=== PATIENT | male | born 1955 | race Caucasian/White ===

== ENCOUNTER 2017-06-24 06:10 | Inpatient (IN) | payer MEDICARE, OTHER, SELFPAY ==
[2017-03-25 11:36] VITALS: BMI 51.2
[2017-06-24] VITALS (16 sets, daily range): BP systolic 134–186; BP diastolic 78–118; PULSE 59–85; RESP 12–24; TEMP 35.6–37.1; O2SAT 95–99; BMI 53.8; BMI 53.1; BMI 53.2
--- NOTE | 2017-06-24 06:12 | NURSING ---
CALLED FOR EKG PER RN REQUEST, PULLED OLD EKG'S FOR
--- NOTE | 2017-06-24 06:16 | EKG12_ITS ---
Test Reason : CP Blood Pressure : / mmHG Vent. Rate : 063 BPM Atrial Rate : 063 BPM P-R Int : 148 ms QRS Dur : 084 ms QT Int : 430 ms P-R-T Axes : 046 -38 086 degrees QTc Int : 440 ms Normal sinus rhythm Left axis deviation Nonspecific ST and T wave abnormality Abnormal ECG Confirmed by AGUSTIN NAGEL, ABIGAIL ([id number]), continuity editor WINSOME MAN ([id number]) on 06/25/2017 9:48:47 AM Referred By: SERGIO Confirmed By:ABIGAIL VELEZ MD
--- NOTE | 2017-06-24 06:20 | RAD_ITS ---
STUDY: X-RAY CHEST REASON FOR EXAM: Male, 62 years old. Chest pain TECHNIQUE: Single frontal view of the chest. COMPARISON: 03/23/2017 FINDINGS: Right midlung atelectasis without acute alveolar disease. There is no demonstrated pleural abnormality. Normal size heart. Normal mediastinum and ryley. Normal visualized pulmonary arteries. Normal visualized aortic arch and descending thoracic aorta. Normal visualized thoracic spine. Normal visualized ribs, clavicles, and shoulders. There is no demonstrated abnormality of the visualized soft tissue structures of the upper abdomen. RAD/Chest 1 View (Portable) IMPRESSION: Right midlung atelectasis without acute alveolar disease. Electronically Signed: Santana Aviles MD at 6:36 EST Tel , Service support ,
--- NOTE | 2017-06-24 06:35 | ED.VISSUMM ---
- ER Visit Summary Date of Service: 06/24/17 Chief Complaint: Dyspnea with mild chest pain History of Present Illness: The patient is a 62 M prior history of PR in March 2017 with 2 cardiac stents. Also known history of prior TIA, COPD, insulin-dependent diabetes with hypertension. Patient is on both Plavix and aspirin. He states the last several days he has had worsening exertional dyspnea. Some mild chest discomfort also. He denies fever. He has had a mild cough. States that his shortness of breath is much worse with walking or exertion. He denies any pleuritic chest pain. He denies any hemoptysis. Denies any melena. No history of DVT or PE. No recent travel or surgery. No leg pain or swelling. Physical Examination: Middle-aged male no acute distress vital signs are stable afebrile. His pulse ox is 95% on 2 L no hypoxia. HEENT exam unremarkable. Neck nontender. No JVD or lymphadenopathy. Lungs clear to auscultation bilaterally. Heart regular rate and rhythm rate in 60s. Chest nontender. Abdomen is soft and nontender. No peritoneal signs. He is morbidly obese. He is moving all 4 extremities. Calves are nontender without edema or cords. Neurologically is awake and alert without focal deficits. Test Results: Chest x-ray no acute process read both by myself the radiologist. EKG sinus rhythm rate is 63 unchanged from one done in March. CBC shows white count 8 an H&H of 11.9 and 36 which is his baseline anemia. BMP unremarkable. Potassium 3.2. Normal gap. Troponin is slightly abnormal at 0.12. His most recent troponin was normal. Emergency Department Course and Treatment: Middle-aged male with exertional dyspnea and a recent history of 2 cardiac stents with PR approximately 3-4 months ago. Treatment Plan: Repeat exam unchanged at 12 04. Patient's history is concerning for recently increasing exertional dyspnea. With his known history of CAD prior PR and 2 cardiac stents I do feel he needs admission for further evaluation and workup. [facility] we will check with them to decide if he can be [facility]. Disposition: Admission Impression: Acute exertional dyspnea with mildly elevated troponin History of CAD with prior PR History of cardiac stents ?2 History of insulin-dependent diabetes, COPD, hypertension and hypercholesterolemia. Anticoagulated on Plavix and aspirin. This note was generated with Dragon dictation software. It may contain incorrect words, spelling, and punctuation that were not noted in review of the chart prior to signing ED Disposition - Plan for ED Patient: Chief Complaint: Chest Pain [facility]: [facility] [Primary Care Provider] -
[2017-06-24] MEDS: Aspirin 81 MG TAB.CHEW 324 MG PO (06:38)
--- NOTE | 2017-06-24 06:38 | ED.DCSUM_ITS ---
- ER Visit Summary Date of Service: 06/24/17 Chief Complaint: Dyspnea with mild chest pain History of Present Illness: The patient is a 62 M prior history of VT in March 2017 with 2 cardiac stents. Also known history of prior TIA, COPD, insulin-dependent diabetes with hypertension. Patient is on both Plavix and aspirin. He states the last several days he has had worsening exertional dyspnea. Some mild chest discomfort also. He denies fever. He has had a mild cough. States that his shortness of breath is much worse with walking or exertion. He denies any pleuritic chest pain. He denies any hemoptysis. Denies any melena. No history of DVT or PE. No recent travel or surgery. No leg pain or swelling. Physical Examination: Middle-aged male no acute distress vital signs are stable afebrile. His pulse ox is 95% on 2 L no hypoxia. HEENT exam unremarkable. Neck nontender. No JVD or lymphadenopathy. Lungs clear to auscultation bilaterally. Heart regular rate and rhythm rate in 60s. Chest nontender. Abdomen is soft and nontender. No peritoneal signs. He is morbidly obese. He is moving all 4 extremities. Calves are nontender without edema or cords. Neurologically is awake and alert without focal deficits. Test Results: Chest x-ray no acute process read both by myself the radiologist. EKG sinus rhythm rate is 63 unchanged from one done in March. CBC shows white count 8 an H&H of 11.9 and 36 which is his baseline anemia. BMP unremarkable. Potassium 3.2. Normal gap. Troponin is slightly abnormal at 0.12. His most recent troponin was normal. Emergency Department Course and Treatment: Middle-aged male with exertional dyspnea and a recent history of 2 cardiac stents with VT approximately 3-4 months ago. Treatment Plan: Repeat exam unchanged at 12 04. Patient's history is concerning for recently increasing exertional dyspnea. With his known history of CAD prior VT and 2 cardiac stents I do feel he needs admission for further evaluation and workup. Patient has [facility] we will check with them to decide if he can be [facility]. Disposition: Admission Impression: Acute exertional dyspnea with mildly elevated troponin History of CAD with prior VT History of cardiac stents ?2 History of insulin-dependent diabetes, COPD, hypertension and hypercholesterolemia. Anticoagulated on Plavix and aspirin. This note was generated with Dragon dictation software. It may contain incorrect words, spelling, and punctuation that were not noted in review of the chart prior to signing ED Disposition - Plan for ED Patient: Chief Complaint: Chest Pain [facility]: [facility] [Primary Care Provider] -
[2017-06-24 06:44] LABS: Absolute Lymphocyte Count 1.76 X10^3/ul (0.83-4.51); Absolute Neutrophil Count 5.7 X10^3/uL (2.0-7.7); Basophil# 0.02 X10^3/uL; Basophil% 0.2 % (0-1); Eosinophil# 0.11 X10^3/uL; Eosinophils% 1.3 % (0-5); Hematocrit 36.9 % (40-54); Hemoglobin 11.9 g/dl (13.0-16.5); Lymphocyte # 1.76 X10^3/ul (4.0); Lymphocyte % 20.2 % (19-41); Mean Corp Hgb Conc 32.2 g/gl (32-36); Mean Corpuscular Hgb 30.1 pg (27.0-32.0); Mean Corpuscular Volume 93.2 fL (80-94); Mean Platelet Vol. 9.2 fl (6.2-12.0); Monocyte# 1.12 X10^3/uL; Monocyte% 12.8 % (0-10); Neutrophil # 5.71 X10^3/uL (2.7-7.7); Neutrophil % 65.4 % (47-70); Platelet Count 230 K/mm3 (150-450); RBC Distribution Width CV 13.3 % (11.6-14.6); RBC Distribution Width SD 45.5 fl (35.1-43.9); Red Blood Count 3.96 M/mm3 (4.6-6.2); White Blood Count 8.7 K/mm3 (4.4-11.0)
[2017-06-24 06:45] LABS: POSITIVE COUNT NO; POSITIVE DIFFERENTIAL NO; POSITIVE MORPHOLOGY NO
[2017-06-24 07:10] LABS: Anion Gap 8 (5-15); BUN 6 mg/dL (7-18); BUN/Creat Ratio 11.3 RATIO (10-20); Calcium,Total 6.8 mg/dL (8.5-10.1); Chloride 109 mmol/L (98-107); Creatinine, Serum 0.53 mg/dL (0.70-1.30); EST Glomerular Filtration Rate 168 mL/min (>60); Est Glom Filt Rate - Afr Amer 203 mL/min (>60); Estimated Creatinine Clearance 139.81 ml/min; Glucose 123 mg/dL (74-106); Potassium 3.2 mmol/L (3.5-5.1); Sodium Level 142 mmol/L (136-145)
--- NOTE | 2017-06-24 07:21 | ED.RN ---
LEFT MESSAGE WITH [facility] TO CALL [facility] IN REGARDS TO ADMITTING THIS PT
--- NOTE | 2017-06-24 09:14 | ED.RN ---
SPOKE WITH [facility]; THEY WILL CALL BACK IN REGARDS TO PT
--- NOTE | 2017-06-24 11:19 | ED.RN ---
PT INFORMED WAITING FOR [facility] FOR POSSIBLE ADMISSION, CANNOT ADMIT TO [facility] UNTIL [facility] CALL BACK. 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 PT VERBALIZED FRUSTRATION. LUNCH OFFERED TO PT WHILE WAITING FOR [facility] CALL BACK.
--- NOTE | 2017-06-24 11:30 | ED.RN ---
AFUA; ORLANDO CALIXTO; SHE IS UNABLE TO AUTHORIZE AN ADMISSION TO OUR FACILITY. STATED IF YOU NEED TO ADMIT TO YOUR FLOOR GO AHEAD BUT I AM UNABLE TO SAY IT WILL BE COVERED
--- NOTE | 2017-06-24 12:32 | ED.RN ---
[facility] MESSAGE WITH [facility] IN [facility] TO PT BEING ADMITTED
[2017-06-24] MEDS: Nitroglycerin Oint 1 INCH PACKET TRANSDERM. (13:01)
--- NOTE | 2017-06-24 13:24 | PCM.HP.STD ---
Problem List (1) Back pain Status: Chronic (2) Non-ST elevation myocardial infarction (NSTEMI), type 2 Status: Chronic (3) Uncontrolled type 2 diabetes mellitus Status: Chronic (4) Morbid obesity with body mass index of 50.0-59.9 in adult Status: Chronic (5) Hypertension Status: Chronic (6) Dyslipidemia Status: Chronic (7) GERD (gastroesophageal reflux disease) Status: Chronic (8) Hypothyroidism Status: Chronic (9) CAD (coronary artery disease) Status: Chronic History of Present Illness Date of Admission: 06/24/17 Chief Complaint: Shortness of breath, chest pain. The patient is a 62 year old M past medical history as mentioned above presented to the emergency room because of shortness of breath and chest pain. His symptoms started early this morning after he woke up from sleep with shortness of breath at rest wakes up from sleep, aggravated by activity, associated with left-sided chest pain. He described mild left-sided chest pain, dull aching pain, 4-5 out of 10 in severity, not radiating and was accompanying the shortness of breath. There was no reported aggravating or relieving factors for this chest pain. He reports associated dizzy spells. He mentioned that he has been having intermittent dizzy spells since he had his stents put in back in March,. Since that time, he has been having dizzy spells, associated with mild shortness of breath especially when he is leaning forward. This morning, he mentioned that his dizziness has been worsened when he had that episode of shortness of breath. He denied syncope or presyncope. Back in March,, patient was admitted for A. fib with RVR that led to non-ST elevation AK and he underwent cardiac catheterization status post PTCA and drug eluting stent to mid LAD. In the emergency room, patient's vital signs were stable. Routine blood work was remarkable for hypokalemia and calcium 6.8, otherwise normal. First troponin is 0.12. EKG revealed normal sinus rhythm without acute ischemic changes. Chest x-ray showed no evidence of acute infiltrate, consolidation or effusion. He is being admitted for chest pain angina pectoris as well as borderline elevated troponin, hypokalemia and hypocalcemia. Past Medical History Past Medical History (Chronic Problems): Chronic Problems Back pain (Chronic) Non-ST elevation myocardial infarction (NSTEMI), type 2 (Chronic) Uncontrolled type 2 diabetes mellitus (Chronic) Morbid obesity with body mass index of 50.0-59.9 in adult (Chronic) Hypertension (Chronic) Dyslipidemia (Chronic) GERD (gastroesophageal reflux disease) (Chronic) Hypothyroidism (Chronic) CAD (coronary artery disease) (Chronic) Allergies bee venom protein (honey bee) Allergy (Verified 06/24/17 06:14) Anaphylaxis Home Medications: Ambulatory Orders Medication Instructions Recorded Insulin Glargine,Hum.rec.anlog 60 unit SC QHS 12/15/14 [Lantus] Levothyroxine [Synthroid] 100 mcg PO DAILY 12/15/14 Simvastatin [Zocor] 80 mg PO QHS 12/15/14 Isosorbide Dinitrate 20 mg PO PRN PRN 11/24/16 Lisinopril [Prinivil] 2.5 mg PO DAILY 11/24/16 Nitroglycerin [Nitrostat] 0.4 mg SL PRN PRN 11/24/16 Pantoprazole Sodium [Protonix] 20 mg PO BID #60 tablet 11/26/16 CycloSPORINE Ophthalmic [Restasis 1 drop EACH EYE DAILY 03/24/17 Ophthalmic] Polyvinyl Alcohol/Povidone/Pf 2 drop EACHEYE DAILY PRN PRN 03/24/17 [Refresh Classic Eye Drops] Aspirin E.C. [Ecotrin] 81 mg PO DAILY@0800 tablet 03/26/17 Clopidogrel Bisulfate [Plavix] 75 mg PO DAILY #14 tablet 03/26/17 Magnesium Oxide [Mag-Ox 400] 400 mg PO DAILYCM #14 tablet 03/26/17 Sotalol Hydrochloride [Betapace 80 mg PO BID #28 tablet 03/26/17 (Beta Vipul)] Insulin Aspart [Novolog Flexpen] 8 units SC TIDAC 06/24/17 Metformin HCl 1,000 mg PO BID 06/24/17 Surgical History: appendectomy, cholecystectomy, herniorrhaphy - umbilical Psychiatric History: No pertinent psych hx Lives: Spouse/ Significant Other Smoking Status: Former smoker Alcohol: None Drugs: None - *Family History Paternal History Items: Heart Disease Maternal History Items: Heart Disease Review of Systems Constitutional: Denies: Anorexia, Chills, Fever, Weakness Eyes: Denies: Blurred vision, Double vision, Drainage, Redness HEENT: Denies: Difficulty Hearing, Ear Pain, Eye Pain, Nasal Congestion, Sore Throat Cardiovascular: Reports: Chest Pain, Light Headedness. Denies: Edema, Heaviness, Orthopnea, Palpitations, Paroxysmal Noc. Dyspnea, Syncope Respiratory: Reports: Shortness of Breath, Shortness of breath at rest, Shortness of breath upon exertion. Denies: Cough, Hemoptysis, Pleuritic Pain, Sputum production, Wheezing Gastrointestinal: Denies: Abdominal Pain, Constipation, Diarrhea, Nausea, Vomiting Genitourinary: Denies: Dysuria, Frequency, Hematuria Musculoskeletal: Denies: Arm Pain, Back Pain, Foot Pain Skin: Denies: Dryness, Rash Neurological: Denies: Balance problems, Double vision, Change in Speech, Slurred speech, Confusion, Focal weakness, Headaches, Incoordination, Numbness Psychiatric: Denies: Anxiety, Depression Endocrine: Denies: Change in Body Habitus, Polydipsia VTE Information - Inpt Only VTE Present on Admission: No VTE Mechan Device Prophylaxis: None VTE Pharm Prophylaxis ordered?: Yes - Physical Exam General: Alert, Oriented x3, Cooperative, No apparent distress HEENT: Atraumatic, PERRLA, EOMI Oral: Moist Mucosa, No Gingival or Mucosal Lesions/ Ulcerations Neck: Supple, No JVD, Negative Carotid Bruits, Trachea Midline, Thyroid Normal Size and Texture Lungs: Clear to auscultation, No rhonchi, No wheeze, No rales, Diminished Cardiovascular: Regular rate, Regular Rhythm, Normal S1, Normal S2, No murmurs, PMI Normal Abdomen: Bowel Sounds Present, Soft, Non Tender, Non-Distended, No Hepato-splenomegaly, Obese Extremities: No clubbing, No cyanosis, No edema Skin: No rashes, No breakdown Lymphatic: No Cervical, Supraclavicular, or Inguinal Adenopathy Neurological: Cranial nerves II-XII grossly intact, Motor Exam 5/5 strength throughout Psych/Mental Status: Normal Affect, Appropriate, Alert and oriented to time, place, person, mood and affect Vital Signs Temp Pulse Resp BP Pulse Ox 96.0 F L 85 24 H 143/86 H 99 06/24/17 06:11 06/24/17 13:07 06/24/17 13:07 06/24/17 13:07 06/24/17 13:07 Oxygen Flow Rate 2 Oxygen Delivery Method Nasal Cannula Weight: 354 lb 4.525 oz Body Mass Index (BMI) 53.8 Finger Stick Blood Glucose 147 Laboratory Tests Past 24 Hrs 06/24/17 06/24/17 06/24/17 06:30 06:30 13:00 WBC 8.7 RBC 3.96 L Hgb 11.9 L Hct 36.9 L MCV 93.2 MCH 30.1 MCHC 32.2 RDW 13.3 RDW Differential 45.5 H Plt Count 230 MPV 9.2 Immature Gran % (Auto) 0.100 Neut % (Auto) 65.4 Lymph % (Auto) 20.2 [place] % (Auto) 12.8 H Eos % (Auto) 1.3 Baso % (Auto) 0.2 Absolute Neuts (auto) 5.7 Absolute Lymphs (auto) 1.76 Total Counted Not Reportable Sodium 142 Potassium 3.2 L Chloride 109 H Carbon Dioxide 25.0 Anion Gap 8 BUN 6 L Creatinine 0.53 L Estim Creat Clear Calc 139.81 Est GFR (MDRD) Af Amer 203 Est GFR (MDRD) Non-Af 168 BUN/Creatinine Ratio 11.3 Glucose 123 H Calcium 6.8 L Troponin I 0.12 H Pending Clinical Impression(s) from Imaging Studies Chest X-Ray 06/24/17 06:20 IMPRESSION: Right midlung atelectasis without acute alveolar disease. Electronically Signed: Santana Aviles MD at 6:36 EST Tel , Service support , Assessment/Plan This is a 62 years old male patient presented to the emergency room because of shortness of breath and chest pain as well as dizzy spells that has been going on since March, and he was found to have borderline elevated troponin, angina pectoris, hypokalemia and hypocalcemia. #1 chest pain/borderline elevated troponin/angina pectoris: EKG reviewed, revealed no evidence of acute ischemic changes. At this time, patient is chest pain-free. Vital signs are stable. Back in March,, he had A. fib with RVR that was complicated by non-ST elevation AK, underwent cardiac catheterization and PTCA as well as MAGGIE to mid LAD. Plan: Admit to PCU, cardiac monitoring, serial cardiac enzymes, repeat EKG tomorrow morning, cardiology consult, continue aspirin, Plavix, sotalol and lisinopril. #2 lightheadedness/dizziness: This has been going on since he had the stents back in March,. Denies syncope or presyncope. Could be related to the angina pectoris. Plan: Orthostatic vitals. #3 hypokalemia/hypocalcemia: Potassium is 3.2 and calcium is 6.8. There was no serum albumin done for corrected calcium for albumin. Plan: Replace potassium with oral potassium chloride, check serum albumin, check serum magnesium, LFT, will give 1 dose of IV calcium chloride, repeat CMP tomorrow morning. #4 CAD/non-ST elevation AK: Status post recent PTCA and MAGGIE to mid LAD back in March,. Plan as above, continue aspirin, Plavix, statins, beta blockers and JALYN inhibitors. #5 hypertension: Blood pressure stable, continue lisinopril and sotalol. #6 type 2 diabetes mellitus: ADA diet, Accu-Cheks, insulin sliding scale, continue pre-meal NovoLog and Lantus nightly. #7 hyperlipidemia: Continue statins. #8 hypothyroidism: Continue levothyroxine. #9 DVT prophylaxis: Subcu Lovenox. This note was generated with [employer] dictation software. It may contain incorrect words, spelling, and punctuation that were not noted in checking the note before signing. Code Visit Inpatient E&M: 72290 Init Hosp L3
--- NOTE | 2017-06-24 13:33 | HP.PCM_ITS ---
Problem List (1) Back pain Status: Chronic (2) Non-ST elevation myocardial infarction (NSTEMI), type 2 Status: Chronic (3) Uncontrolled type 2 diabetes mellitus Status: Chronic (4) Morbid obesity with body mass index of 50.0-59.9 in adult Status: Chronic (5) Hypertension Status: Chronic (6) Dyslipidemia Status: Chronic (7) GERD (gastroesophageal reflux disease) Status: Chronic (8) Hypothyroidism Status: Chronic (9) CAD (coronary artery disease) Status: Chronic History of Present Illness Date of Admission: 06/24/17 Chief Complaint: Shortness of breath, chest pain. The patient is a 62 year old M past medical history as mentioned above presented to the emergency room because of shortness of breath and chest pain. His symptoms started early this morning after he woke up from sleep with shortness of breath at rest wakes up from sleep, aggravated by activity, associated with left-sided chest pain. He described mild left-sided chest pain , dull aching pain, 4-5 out of 10 in severity, not radiating and was accompanying the shortness of breath. There was no reported aggravating or relieving factors for this chest pain. He reports associated dizzy spells. He mentioned that he has been having intermittent dizzy spells since he had his stents put in back in March,. Since that time, he has been having dizzy spells, associated with mild shortness of breath especially when he is leaning forward. This morning, he mentioned that his dizziness has been worsened when he had that episode of shortness of breath. He denied syncope or presyncope. Back in March,, patient was admitted for A. fib with RVR that led to non-ST elevation SD and he underwent cardiac catheterization status post PTCA and drug eluting stent to mid LAD. In the emergency room, patient's vital signs were stable. Routine blood work was remarkable for hypokalemia and calcium 6.8, otherwise normal. First troponin is 0.12. EKG revealed normal sinus rhythm without acute ischemic changes. Chest x-ray showed no evidence of acute infiltrate, consolidation or effusion. He is being admitted for chest pain angina pectoris as well as borderline elevated troponin, hypokalemia and hypocalcemia. Past Medical History Past Medical History (Chronic Problems): Chronic Problems Back pain (Chronic) Non-ST elevation myocardial infarction (NSTEMI), type 2 (Chronic) Uncontrolled type 2 diabetes mellitus (Chronic) Morbid obesity with body mass index of 50.0-59.9 in adult (Chronic) Hypertension (Chronic) Dyslipidemia (Chronic) GERD (gastroesophageal reflux disease) (Chronic) Hypothyroidism (Chronic) CAD (coronary artery disease) (Chronic) Allergies bee venom protein (honey bee) Allergy (Verified 06/24/17 06:14) Anaphylaxis Home Medications: Ambulatory Orders Medication Instructions Recorded Insulin Glargine,Hum.rec.anlog 60 unit SC QHS 12/15/14 [Lantus] Levothyroxine [Synthroid] 100 mcg PO DAILY 12/15/14 Simvastatin [Zocor] 80 mg PO QHS 12/15/14 Isosorbide Dinitrate 20 mg PO PRN PRN 11/24/16 Lisinopril [Prinivil] 2.5 mg PO DAILY 11/24/16 Nitroglycerin [Nitrostat] 0.4 mg SL PRN PRN 11/24/16 Pantoprazole Sodium [Protonix] 20 mg PO BID #60 tablet 11/26/16 CycloSPORINE Ophthalmic [Restasis 1 drop EACH EYE DAILY 03/24/17 Ophthalmic] Polyvinyl Alcohol/Povidone/Pf 2 drop EACHEYE DAILY PRN PRN 03/24/17 [Refresh Classic Eye Drops] Aspirin E.C. [Ecotrin] 81 mg PO DAILY@0800 tablet 03/26/17 Clopidogrel Bisulfate [Plavix] 75 mg PO DAILY #14 tablet 03/26/17 Magnesium Oxide [Mag-Ox 400] 400 mg PO DAILYCM #14 tablet 03/26/17 Sotalol Hydrochloride [Betapace 80 mg PO BID #28 tablet 03/26/17 (Beta Vipul)] Insulin Aspart [Novolog Flexpen] 8 units SC TIDAC 06/24/17 Metformin HCl 1,000 mg PO BID 06/24/17 Surgical History: appendectomy, cholecystectomy, herniorrhaphy - umbilical Psychiatric History: No pertinent psych hx Lives: Spouse/ Significant Other Smoking Status: Former smoker Alcohol: None Drugs: None - *Family History Paternal History Items: Heart Disease Maternal History Items: Heart Disease Review of Systems Constitutional: Denies: Anorexia, Chills, Fever, Weakness Eyes: Denies: Blurred vision, Double vision, Drainage, Redness HEENT: Denies: Difficulty Hearing, Ear Pain, Eye Pain, Nasal Congestion, Sore Throat Cardiovascular: Reports: Chest Pain, Light Headedness. Denies: Edema, Heaviness , Orthopnea, Palpitations, Paroxysmal Noc. Dyspnea, Syncope Respiratory: Reports: Shortness of Breath, Shortness of breath at rest, Shortness of breath upon exertion. Denies: Cough, Hemoptysis, Pleuritic Pain, Sputum production, Wheezing Gastrointestinal: Denies: Abdominal Pain, Constipation, Diarrhea, Nausea, Vomiting Genitourinary: Denies: Dysuria, Frequency, Hematuria Musculoskeletal: Denies: Arm Pain, Back Pain, Foot Pain Skin: Denies: Dryness, Rash Neurological: Denies: Balance problems, Double vision, Change in Speech, Slurred speech, Confusion, Focal weakness, Headaches, Incoordination, Numbness Psychiatric: Denies: Anxiety, Depression Endocrine: Denies: Change in Body Habitus, Polydipsia VTE Information - Inpt Only VTE Present on Admission: No VTE Mechan Device Prophylaxis: None VTE Pharm Prophylaxis ordered?: Yes - Physical Exam General: Alert, Oriented x3, Cooperative, No apparent distress HEENT: Atraumatic, PERRLA, EOMI Oral: Moist Mucosa, No Gingival or Mucosal Lesions/ Ulcerations Neck: Supple, No JVD, Negative Carotid Bruits, Trachea Midline, Thyroid Normal Size and Texture Lungs: Clear to auscultation, No rhonchi, No wheeze, No rales, Diminished Cardiovascular: Regular rate, Regular Rhythm, Normal S1, Normal S2, No murmurs, PMI Normal Abdomen: Bowel Sounds Present, Soft, Non Tender, Non-Distended, No Hepato- splenomegaly, Obese Extremities: No clubbing, No cyanosis, No edema Skin: No rashes, No breakdown Lymphatic: No Cervical, Supraclavicular, or Inguinal Adenopathy Neurological: Cranial nerves II-XII grossly intact, Motor Exam 5/5 strength throughout Psych/Mental Status: Normal Affect, Appropriate, Alert and oriented to time, place, person, mood and affect Vital Signs Temp Pulse Resp BP Pulse Ox 96.0 F L 85 24 H 143/86 H 99 06/24/17 06:11 06/24/17 13:07 06/24/17 13:07 06/24/17 13:07 06/24/17 13:07 Oxygen Flow Rate 2 Oxygen Delivery Method Nasal Cannula Weight: 354 lb 4.525 oz Body Mass Index (BMI) 53.8 Finger Stick Blood Glucose 147 Laboratory Tests Past 24 Hrs 06/24/17 06/24/17 06/24/17 06:30 06:30 13:00 WBC 8.7 RBC 3.96 L Hgb 11.9 L Hct 36.9 L MCV 93.2 MCH 30.1 MCHC 32.2 RDW 13.3 RDW Differential 45.5 H Plt Count 230 MPV 9.2 Immature Gran % (Auto) 0.100 Neut % (Auto) 65.4 Lymph % (Auto) 20.2 [place] % (Auto) 12.8 H Eos % (Auto) 1.3 Baso % (Auto) 0.2 Absolute Neuts (auto) 5.7 Absolute Lymphs (auto) 1.76 Total Counted Not Reportable Sodium 142 Potassium 3.2 L Chloride 109 H Carbon Dioxide 25.0 Anion Gap 8 BUN 6 L Creatinine 0.53 L Estim Creat Clear Calc 139.81 Est GFR (MDRD) Af Amer 203 Est GFR (MDRD) Non-Af 168 BUN/Creatinine Ratio 11.3 Glucose 123 H Calcium 6.8 L Troponin I 0.12 H Pending Clinical Impression(s) from Imaging Studies Chest X-Ray 06/24/17 06:20 IMPRESSION: Right midlung atelectasis without acute alveolar disease. Electronically Signed: Santana Aviles MD at 6:36 EST Tel , Service support , Assessment/Plan This is a 62 years old male patient presented to the emergency room because of shortness of breath and chest pain as well as dizzy spells that has been going on since March, and he was found to have borderline elevated troponin, angina pectoris, hypokalemia and hypocalcemia. #1 chest pain/borderline elevated troponin/angina pectoris: EKG reviewed, revealed no evidence of acute ischemic changes. At this time, patient is chest pain-free. Vital signs are stable. Back in March,, he had A. fib with RVR that was complicated by non-ST elevation SD, underwent cardiac catheterization and PTCA as well as MAGGIE to mid LAD. Plan: Admit to PCU, cardiac monitoring, serial cardiac enzymes, repeat EKG tomorrow morning, cardiology consult, continue aspirin, Plavix, sotalol and lisinopril. #2 lightheadedness/dizziness: This has been going on since he had the stents back in March,. Denies syncope or presyncope. Could be related to the angina pectoris. Plan: Orthostatic vitals. #3 hypokalemia/hypocalcemia: Potassium is 3.2 and calcium is 6.8. There was no serum albumin done for corrected calcium for albumin. Plan: Replace potassium with oral potassium chloride, check serum albumin, check serum magnesium, LFT, will give 1 dose of IV calcium chloride, repeat CMP tomorrow morning. #4 CAD/non-ST elevation SD: Status post recent PTCA and MAGGIE to mid LAD back in March,. Plan as above, continue aspirin, Plavix, statins, beta blockers and JALYN inhibitors. #5 hypertension: Blood pressure stable, continue lisinopril and sotalol. #6 type 2 diabetes mellitus: ADA diet, Accu-Cheks, insulin sliding scale, continue pre-meal NovoLog and Lantus nightly. #7 hyperlipidemia: Continue statins. #8 hypothyroidism: Continue levothyroxine. #9 DVT prophylaxis: Subcu Lovenox. This note was generated with Mod[employer] dictation software. It may contain incorrect words, spelling, and punctuation that were not noted in checking the note before signing. Code Visit Inpatient E&M: 88273 Init Hosp L3
--- NOTE | 2017-06-24 13:51 | CM.ED ---
ALDA BENITEZ called Coco at [facility] directly and left a voicemail asking her to call me back regarding the patient's admission. I gave her my direct number for call back. [facility] at [facility] : [phone]
[2017-06-24 15:12] LABS: AST(SGOT) 12 U/L (15-37); Alanine Aminotransfer ALT/SGPT 16 U/L (16-61); Albumin, Serum 3.1 g/dL (3.2-5.0); Alkaline Phosphatase 84 U/L (45-117); Bilirubin, Direct 0.07 mg/dL (0.00-0.30); Globulin 3.8 g/dL (2.2-4.2); Magnesium 1.4 mg/dL (1.6-2.6); Protein, Total 6.9 g/dL (6.4-8.2)
[2017-06-24] MEDS: 0.9% Normal Saline 1,000 ML 75 ML IV (16:03)
[2017-06-24] MEDS: Clopidogrel Bisulfate 75 MG Tablet PO (16:22)
[2017-06-24] MEDS: Sotalol Hydrochloride 80 MG Tablet PO ×2 (16:22→21:37)
[2017-06-24 16:56] LABS: Bedside Glucose 197 mg/dL (70-110)
--- NOTE | 2017-06-24 17:33 | CM.ED ---
No call back from [facility] to this . Ebenezer Mccullough RN CM notified.
--- NOTE | 2017-06-24 18:01 | PCM.CONS.C ---
Reason for Consult Date of Consultation: 06/24/17 Reason for Consultation: Shortness of breath and abnormal troponins History of Present Illness: The patient is a 62 year old M past medical history significant for coronary artery disease status post previous catheterization in 2014 demonstrating moderate left anterior descending artery stenosis, and recently in March 2017 presenting with atrial fibrillation and abnormal cardiac enzymes. He underwent a cardiac catheterization again which demonstrated moderate disease in the left anterior descending artery for which he underwent flow wire evaluation which was deemed to be significant. He was treated with a 4.0?16 mm Promus drug-eluting stent in the proximal left anterior descending artery, and a 2.5?38 mm drug-eluting stent in the mid left anterior descending artery. He had mild disease noted in the circumflex artery and the right coronary artery. He was also noted at that time to be in atrial fibrillation and was placed on sotalol. He says that since then he has felt dizzy and has also had some shortness of breath. He presented to the emergency room because of shortness of breath and chest pain. His symptoms started early this morning after he woke up from sleep with shortness of breath at rest wakes up from sleep, aggravated by activity, associated with left-sided chest pain. He described mild left-sided chest pain, dull aching pain, 4-5 out of 10 in severity, not radiating and was accompanying the shortness of breath. Says that he usually has this feeling when he is not using his CPAP mask. There was no reported aggravating or relieving factors for this chest pain. He reports associated dizzy spells. He mentioned that he has been having intermittent dizzy spells since he had his stents put in back in March,. Emergency room he was evaluated he did not have any significant EKG abnormalities with a normal sinus rhythm at 65 bpm. He was however noted to have mildly abnormal cardiac troponin enzymes which have remained essentially flat since admission. He has had no further chest discomfort. Cardiology was called to evaluate him due to his previous cardiac history as well as the above symptoms. Past Medical History Allergies/Adverse Reactions: Allergies bee venom protein (honey bee) Allergy (Verified 06/24/17 06:14) Anaphylaxis Home Medications: Ambulatory Orders Medication Instructions Recorded Insulin Glargine,Hum.rec.anlog 60 unit SC QHS 12/15/14 [Lantus] Levothyroxine [Synthroid] 100 mcg PO DAILY 12/15/14 Simvastatin [Zocor] 80 mg PO QHS 12/15/14 Isosorbide Dinitrate 20 mg PO PRN PRN 11/24/16 Lisinopril [Prinivil] 2.5 mg PO DAILY 11/24/16 Nitroglycerin [Nitrostat] 0.4 mg SL PRN PRN 11/24/16 Pantoprazole Sodium [Protonix] 20 mg PO BID #60 tablet 11/26/16 CycloSPORINE Ophthalmic [Restasis 1 drop EACH EYE DAILY 03/24/17 Ophthalmic] Polyvinyl Alcohol/Povidone/Pf 2 drop EACHEYE DAILY PRN PRN 03/24/17 [Refresh Classic Eye Drops] Aspirin E.C. [Ecotrin] 81 mg PO DAILY@0800 tablet 03/26/17 Clopidogrel Bisulfate [Plavix] 75 mg PO DAILY #14 tablet 03/26/17 Magnesium Oxide [Mag-Ox 400] 400 mg PO DAILYCM #14 tablet 03/26/17 Sotalol Hydrochloride [Betapace 80 mg PO BID #28 tablet 03/26/17 (Beta Vipul)] Insulin Aspart [Novolog Flexpen] 8 units SC TIDAC 06/24/17 Metformin HCl 1,000 mg PO BID 06/24/17 Past Medical History (Chronic Problems): Chronic Problems Back pain (Chronic) Non-ST elevation myocardial infarction (NSTEMI), type 2 (Chronic) Uncontrolled type 2 diabetes mellitus (Chronic) Morbid obesity with body mass index of 50.0-59.9 in adult (Chronic) Hypertension (Chronic) Dyslipidemia (Chronic) GERD (gastroesophageal reflux disease) (Chronic) Hypothyroidism (Chronic) CAD (coronary artery disease) (Chronic) Surgical History: appendectomy, cholecystectomy, herniorrhaphy - umbilical Psychiatric History: No pertinent psych hx - *Family History Paternal History Items: Heart Disease Maternal History Items: Heart Disease Lives: Spouse/ Significant Other Smoking Status: Former smoker Alcohol: None Drugs: None Review of Systems - Review of Systems General: Denies: Fever, Night Sweats, Fatigue Cardiovascular: Reports: Chest Discomfort, Shortness of Breath, Shortness of Breath with Exertion. Denies: Orthopnea, PND, Peripheral Edema, Palpitations, Lightheadedness, Dizziness, Near Syncope, Syncope Respiratory: Denies: Cough, Sputum Production, Hemoptysis Gastrointestinal: Denies: Hematemesis, Hematochezia, Melena Genitourinary: Denies: Dysuria, Hematuria Skin: Denies: Rash Subjectve: Obese man sitting in chair in no apparent distress Objective: Vital Signs Temp Pulse Resp BP Pulse Ox 97.8 F 83 16 146/82 H 96 06/24/17 17:31 06/24/17 17:31 06/24/17 17:31 06/24/17 17:31 06/24/17 17:31 Oxygen Flow Rate 2 Oxygen Delivery Method Room Air Weight: 349 lb 10.45 oz Body Mass Index (BMI) 53.1 Intake and Output for Last 24 Hours 06/22/17 06/23/17 06/24/17 23:59 23:59 23:59 Intake Total 420 / 420 Balance 420 / 420 General: Awake, Alert, Oriented x 3 HEENT: PERRL, EOMI, Sclera Non Icteric Neck: Supple, Good ROM, No Lymph Node Enlargement Lungs: Clear to auscultation Cardiovascular: Regular Rhythm, Normal S1, Normal S2, No Murmurs, No Rubs, No Gallops Vascular: No Carotid Bruits, Normal Femoral Pulses, Normal Radial Pulses, Normal Dorsalis Pedal Pulse, Normal Posterior Tibial Pulses Abdomen: Bowel Sounds Present, Soft, Non Tender, No HSM, No Organomegaly, Obese Extremities: No Cyanosis, No Clubbing, No edema Neurological: No Focal Motor or Sensory Deficit Psych/Mental Status: Appropriate 06/24/17 16:45: Troponin I 0.09 H Rhythm: EKG: Normal sinus rhythm with rate of 65 bpm ECHO: Normal ejection fraction Stress Test: Cardiac Cath: See report Assessment/Plan 1. Abnormal cardiac enzymes Presents with abnormal cardiac enzymes and shortness of breath. His chest discomfort is rather atypical and his cardiac enzyme pattern is flat which does not de note an unstable angina process. However, due to his previous cardiac history my recommendation would be for him to have this evaluated with a pharmacologic myocardial perfusion stress test which will be performed in a.m. Depending on the results further recommendations will be made. My suspicion for coronary artery disease however is low. 2. Dizziness. He does appear to have chronic dizziness which may be related to his medications. He appears to be on isosorbide and it is not clear whether he takes this on a regular basis or on an as-needed basis. He is also on low-dose lisinopril as well as the sotalol which will be continued. He does not have any QT interval abnormalities present. Electrolytes will need to be replaced as appropriate 3. Coronary artery disease He underwent angioplasty and stenting of the left anterior descending artery less than 3 months ago. This will be reevaluated with the pharmacologic myocardial perfusion stress test as outlined above. 4. Hypertension His blood pressure appears to be under good control at this time and will plan on continuing the same medications without any changes. 5. She of atrial fibrillation He appears to be maintaining sinus rhythm on the sotalol which will be continued. This time he does not appear to be on any anticoagulation. The exact etiology and reasons are not entirely clear to me. 6. Hyperlipidemia He remains on low intensity statin which will be continued due to his coronary artery disease. Thank you for allowing me to participate in the care of your patient. Please don't hesitate to call if any issues arise
[2017-06-24] MEDS: Pantoprazole Sodium 20 MG Tablet PO (21:37)
[2017-06-24] MEDS: Atorvastatin Calcium 40 MG Tablet PO (21:37)
[2017-06-24 22:46] LABS: Bedside Glucose 157 mg/dL (70-110)
[2017-06-25 03:07] VITALS: PULSE 63
[2017-06-25 03:30] VITALS: BP 131/68; PULSE 63; RESP 18; TEMP 36.2; O2SAT 97
[2017-06-25] MEDS: BENZOCAINE/MENTHOL 1 LOZENGE MUCOUS MEM (03:54)
[2017-06-25 05:40] LABS: Absolute Lymphocyte Count 2.12 X10^3/ul (0.83-4.51); Absolute Neutrophil Count 7.6 X10^3/uL (2.0-7.7); Basophil# 0.03 X10^3/uL; Basophil% 0.3 % (0-1); Eosinophil# 0.12 X10^3/uL; Eosinophils% 1.1 % (0-5); Hematocrit 37.4 % (40-54); Hemoglobin 12.3 g/dl (13.0-16.5); Lymphocyte # 2.12 X10^3/ul (4.0); Mean Corp Hgb Conc 32.9 g/gl (32-36); Mean Corpuscular Hgb 31.1 pg (27.0-32.0); Mean Corpuscular Volume 94.7 fL (80-94); Mean Platelet Vol. 9.9 fl (6.2-12.0); Monocyte# 1.23 X10^3/uL; Neutrophil # 7.62 X10^3/uL (2.7-7.7); Neutrophil % 68.3 % (47-70); Platelet Count 278 K/mm3 (150-450); RBC Distribution Width CV 13.2 % (11.6-14.6); RBC Distribution Width SD 43.9 fl (35.1-43.9); Red Blood Count 3.95 M/mm3 (4.6-6.2); White Blood Count 11.2 K/mm3 (4.4-11.0)
[2017-06-25 05:42] VITALS: BP 140/76; PULSE 63; RESP 18; TEMP 36.6; O2SAT 99
[2017-06-25 05:42] LABS: POSITIVE COUNT NO; POSITIVE DIFFERENTIAL NO; POSITIVE MORPHOLOGY NO
[2017-06-25 05:44] LABS: Prothrombin Time (Protime)PT. 13.1 SECONDS (11.7-14.9)
[2017-06-25 05:46] LABS: Anion Gap 5 (5-15); BUN 7 mg/dL (7-18); BUN/Creat Ratio 9.8 RATIO (10-20); Calcium,Total 8.6 mg/dL (8.5-10.1); Chloride 102 mmol/L (98-107); Creatinine, Serum 0.72 mg/dL (0.70-1.30); EST Glomerular Filtration Rate 118 mL/min (>60); Est Glom Filt Rate - Afr Amer 143 mL/min (>60); Estimated Creatinine Clearance 102.92 ml/min; Glucose 146 mg/dL (74-106); Magnesium 2.1 mg/dL (1.6-2.6); Potassium 4.6 mmol/L (3.5-5.1); Sodium Level 136 mmol/L (136-145)
[2017-06-25] MEDS: Lisinopril 2.5 MG Tablet PO (05:47)
[2017-06-25] MEDS: Levothyroxine 100 MCG Tablet PO (05:47)
[2017-06-25] MEDS: Clopidogrel Bisulfate 75 MG Tablet PO (05:48)
[2017-06-25] MEDS: Aspirin E.C. 81 MG Tablet PO (05:48)
--- NOTE | 2017-06-25 05:55 | EKG12_ITS ---
Test Reason : AM EKG Blood Pressure : / mmHG Vent. Rate : 065 BPM Atrial Rate : 065 BPM P-R Int : 128 ms QRS Dur : 082 ms QT Int : 434 ms P-R-T Axes : -07 -35 089 degrees QTc Int : 451 ms Normal sinus rhythm Left axis deviation Nonspecific T wave abnormality Abnormal ECG Confirmed by AGUSTIN NAGEL, ABIGAIL ([id number]), deputy editor in chief WINSOME MAN ([id number]) on 06/26/2017 2:58:10 PM Referred By: ALEXUS Confirmed By:ABIGAIL VELEZ MD
[2017-06-25 06:54] VITALS: PULSE 61
[2017-06-25 07:01] LABS: Bedside Glucose 133 mg/dL (70-110)
--- NOTE | 2017-06-25 07:45 | RAD_ITS ---
STUDY: X-RAY CHEST REASON FOR EXAM: Male, 62 years old. Dyspnea and shortness of breath. TECHNIQUE: Single AP portable view of the chest. COMPARISON: Comparison is made with prior study dated June 24, 2017. FINDINGS: The lungs are clear and expanded. There is no demonstrated pleural abnormality. There is mild cardiac enlargement. Normal mediastinum and ryley. Normal visualized pulmonary arteries. Normal visualized aortic arch and descending thoracic aorta. There are degenerative changes of the visualized thoracic spine. Normal visualized ribs, clavicles, and shoulders. There is no demonstrated abnormality of the visualized soft tissue structures of the upper abdomen. RAD/Chest 1 View (Portable) IMPRESSION: Mild cardiomegaly. Electronically Signed: Raymond Frias MD at 9:27 EST Tel [phone], Service support ,
--- NOTE | 2017-06-25 07:51 | PN_ITS ---
Subjective: Chief complaint: Follow-up after admission for borderline elevated troponin, suspected angina, dizziness and electrolyte abnormalities. Patient seen and examined. No acute events overnight. He is still complaining of shortness of breath on minimal exertion. He has no more chest pain. He is afebrile, blood pressure noted are stable, pulse ox is 99% on 2.5 L. - Physical Exam General: Alert, Oriented x3, Cooperative, - - Mildly short of breath. HEENT: Atraumatic, PERRLA, EOMI Oral: Moist Mucosa, No Gingival or Mucosal Lesions/ Ulcerations Neck: Supple, No JVD, Negative Carotid Bruits, Trachea Midline, Thyroid Normal Size and Texture Lungs: Clear to auscultation, No rhonchi, No wheeze, No rales, Diminished Cardiovascular: Regular rate, Regular Rhythm, Normal S1, Normal S2, PMI Normal Abdomen: Bowel Sounds Present, Soft, Non Tender, Non-Distended, No Hepato- splenomegaly, Obese Extremities: No clubbing, No cyanosis, Edema - Trace edema. Skin: No rashes, No breakdown Lymphatic: No Cervical, Supraclavicular, or Inguinal Adenopathy Neurological: Cranial nerves II-XII grossly intact, Motor Exam 5/5 strength throughout Psych/Mental Status: Normal Affect, Appropriate, Alert and oriented to time, place, person, mood and affect Vital Signs Temp Pulse Resp BP Pulse Ox 97.9 F 61 18 140/76 H 99 06/25/17 05:42 06/25/17 06:54 06/25/17 05:42 06/25/17 05:42 06/25/17 05:42 Oxygen Flow Rate 2.5 Oxygen Delivery Method Nasal Cannula Weight: 349 lb 10.45 oz Body Mass Index (BMI) 53.1 Intake and Output for Last 24 Hours 06/23/17 06/24/17 06/25/17 23:59 23:59 23:59 Intake Total 777 / 777 477 / 477 Balance 777 / 777 477 / 477 Laboratory Tests Past 24 Hrs 06/24/17 06/24/17 06/25/17 16:45 23:23 05:25 WBC 11.2 H RBC 3.95 L Hgb 12.3 L Hct 37.4 L MCV 94.7 H MCH 31.1 MCHC 32.9 RDW 13.2 RDW Differential 43.9 Plt Count 278 MPV 9.9 Immature Gran % (Auto) 0.300 Neut % (Auto) 68.3 Lymph % (Auto) 19.0 [place] % (Auto) 11.0 H Eos % (Auto) 1.1 Baso % (Auto) 0.3 Absolute Neuts (auto) 7.6 Absolute Lymphs (auto) 2.12 Total Counted Not Reportable PT INR APTT Sodium Potassium Chloride Carbon Dioxide Anion Gap BUN Creatinine Estim Creat Clear Calc Est GFR (MDRD) Af Amer Est GFR (MDRD) Non-Af BUN/Creatinine Ratio Glucose Calcium Magnesium Troponin I 0.09 H 0.11 H 06/25/17 06/25/17 05:25 05:25 WBC RBC Hgb Hct MCV MCH MCHC RDW RDW Differential Plt Count MPV Immature Gran % (Auto) Neut % (Auto) Lymph % (Auto) [place] % (Auto) Eos % (Auto) Baso % (Auto) Absolute Neuts (auto) Absolute Lymphs (auto) Total Counted PT 13.1 INR 1.0 APTT 30.0 Sodium 136 Potassium 4.6 Chloride 102 Carbon Dioxide 29.0 Anion Gap 5 BUN 7 Creatinine 0.72 Estim Creat Clear Calc 102.92 Est GFR (MDRD) Af Amer 143 Est GFR (MDRD) Non-Af 118 BUN/Creatinine Ratio 9.8 L Glucose 146 H Calcium 8.6 Magnesium 2.1 Troponin I POC Glucose 06/25/17 06/24/17 06/24/17 06:55 21:35 16:06 POC Glucose 133 H 157 H 197 H Assessment/Plan This is a 62 years old male patient presented to the emergency room because of shortness of breath and chest pain as well as dizzy spells that has been going on since March, and he was found to have borderline elevated troponin, suspected angina pectoris, hypokalemia and hypocalcemia. #1 chest pain/borderline elevated troponin/suspected angina pectoris: She is still symptomatically shortness of breath, no more chest pain. Troponins are borderline elevated and flat. Vital signs are stable still requiring oxygen which has been slightly increased. Cardiology consulted, plan for stress test today. Will repeat chest x-ray because of increasing oxygen requirement. #2 lightheadedness/dizziness: This has been going on since he had the stents back in March,. Denies syncope or presyncope. Patient was on both Coreg and sotalol, sotalol was discontinued as well as Norvasc. Will check his orthostatic vitals today. #3 hypokalemia/hypocalcemia/hypomagnesemia: Potassium replaced and corrected. If no dose of IV calcium gluconate, his calcium today is 8.6 mg/dL. His serum albumin was slightly low at 3.1. His magnesium was 1.4, replaced and corrected on today's magnesium 2.1. #4 CAD/non-ST elevation NM: Status post recent PTCA and MAGGIE to mid LAD back in March,. continue aspirin, Plavix, statins, beta blockers and JALYN inhibitors. For stress test as above. #5 hypertension: Blood pressure stable, continue lisinopril and Coreg. Norvasc and sotalol discontinued. #6 type 2 diabetes mellitus: Blood sugar stable, continue ADA diet, Accu-Cheks, insulin sliding scale, continue pre-meal NovoLog and Lantus nightly. #7 hyperlipidemia: Continue statins. #8 hypothyroidism: Continue levothyroxine. #9 DVT prophylaxis: Subcu Lovenox. This note was generated with [employer] dictation software. It may contain incorrect words, spelling, and punctuation that were not noted in checking the note before signing.
--- NOTE | 2017-06-25 09:44 | CASEMGMT ---
This RN CM to room to complete CM assessment and pt is out of the dept at this time. Will attempt again later. SStaten RN CM
[2017-06-25 12:32] VITALS: BP 145/66; PULSE 66; RESP 18; TEMP 37.2; O2SAT 96
[2017-06-25] MEDS: Pantoprazole Sodium 20 MG Tablet PO (12:37)
[2017-06-25] MEDS: Sotalol Hydrochloride 80 MG Tablet PO (12:37)
[2017-06-25 12:51] LABS: Bedside Glucose 172 mg/dL (70-110)
--- NOTE | 2017-06-25 13:09 | STRESSREP ---
Stress Test Report Date: 06/25/2017 Procedure: Pharmacologic stress nuclear imaging study Indications: Chest pain; abnormal cardiac enzymes; CAD; status post PCI Consent: Per the patient Procedure: The patient underwent pharmacologic (Regadenoson) evaluation with a peak heart rate of 88 bpm (55% predicted maximal heart rate) with a peak blood pressure 142/100 mmHg. The baseline ECG demonstrated underlying normal sinus rhythm. The peak pharmacologic ECG demonstrated no obvious ECG changes. There were no cardiac dysrhythmias pretest, during pharmacologic infusion, or recovery. There was no complaint of chest discomfort during pharmacologic infusion or recovery. The examination was discontinued secondary to completion of protocol. Impression: 1. Pharmacologic (Regadenoson) evaluation 2. Peak pharmacologic ECG with no obvious ECG changes 3. Nuclear images pending Myocardial perfusion imaging study: Technique: The patient was injected with 10.7 mCi of technetium 99m Cardiolite and subsequently rest SPECT Cardiolite nuclear imaging was obtained in the horizontal long, vertical long, and short axis views. The patient underwent pharmacologic (Regadenoson) evaluation with a peak heart rate of 88 bpm (55% predicted maximal heart rate) with a peak blood pressure 142/100 mmHg the patient was injected with 31.0 mCi of technetium 99m Cardiolite and subsequently stress SPECT Cardiolite nuclear imaging was obtained in the horizontal long, vertical long, and short axis views. A gated Cardiolite study at peak stress was obtained. Interpretation: Rest and stress SPECT current nuclear imaging status post realignment, normalization, and attenuation correction demonstrates the appearance of relative uniform tracer uptake with the exception of a small area of subtle diminished tracer uptake in the apical regions without significant change between rest and stress. There are similar type findings on the resting and stress polar map images. There is end systolic thickening and brightening. The gated Cardiolite study demonstrates myocardial thickening and inward wall motion. The reported LVEF is 62%. Impression: 1. Rest and stress SPECT current nuclear imaging demonstrate myocardial perfusion changes appearing compatible with the effects of physiologic apical thinning with no myocardial perfusion changes consider diagnostic for associated stress-induced myocardial ischemia or previous myocardial injury/infarction. 2. The gated Cardiolite study reports an LVEF of 62%. This note was generated with [employer] software. Every effort was made to ensure accuracy, however, computerized dry house wheeler mistakes may persist.
--- NOTE | 2017-06-25 13:16 | STRESSREP_ITS ---
Stress Test Report Date: 06/25/2017 Procedure: Pharmacologic stress nuclear imaging study Indications: Chest pain; abnormal cardiac enzymes; CAD; status post PCI Consent: Per the patient Procedure: The patient underwent pharmacologic (Regadenoson) evaluation with a peak heart rate of 88 bpm (55% predicted maximal heart rate) with a peak blood pressure 142 /100 mmHg. The baseline ECG demonstrated underlying normal sinus rhythm. The peak pharmacologic ECG demonstrated no obvious ECG changes. There were no cardiac dysrhythmias pretest, during pharmacologic infusion, or recovery. There was no complaint of chest discomfort during pharmacologic infusion or recovery. The examination was discontinued secondary to completion of protocol. Impression: 1. Pharmacologic (Regadenoson) evaluation 2. Peak pharmacologic ECG with no obvious ECG changes 3. Nuclear images pending Myocardial perfusion imaging study: Technique: The patient was injected with 10.7 mCi of technetium 99m Cardiolite and subsequently rest SPECT Cardiolite nuclear imaging was obtained in the horizontal long, vertical long, and short axis views. The patient underwent pharmacologic (Regadenoson) evaluation with a peak heart rate of 88 bpm (55% predicted maximal heart rate) with a peak blood pressure 142/100 mmHg the patient was injected with 31.0 mCi of technetium 99m Cardiolite and subsequently stress SPECT Cardiolite nuclear imaging was obtained in the horizontal long, vertical long, and short axis views. A gated Cardiolite study at peak stress was obtained. Interpretation: Rest and stress SPECT current nuclear imaging status post realignment, normalization, and attenuation correction demonstrates the appearance of relative uniform tracer uptake with the exception of a small area of subtle diminished tracer uptake in the apical regions without significant change between rest and stress. There are similar type findings on the resting and stress polar map images. There is end systolic thickening and brightening. The gated Cardiolite study demonstrates myocardial thickening and inward wall motion. The reported LVEF is 62%. Impression: 1. Rest and stress SPECT current nuclear imaging demonstrate myocardial perfusion changes appearing compatible with the effects of physiologic apical thinning with no myocardial perfusion changes consider diagnostic for associated stress-induced myocardial ischemia or previous myocardial injury/ infarction. 2. The gated Cardiolite study reports an LVEF of 62%. This note was generated with [employer] software. Every effort was made to ensure accuracy, however, computerized senior administrative assistant mistakes may persist.
--- NOTE | 2017-06-25 14:30 | PCM.DC ---
You will use the following diet at home:: Calorie/Carbohydrate Controlled (specify 1200, 1400, etc) - 1800 viry., Cardiac Your food should be the consistency of: Regular Discharge Activity: Return to Normal Activity Weight Bearing Status: Weight bearing as tolerated Call your doctor if you observe: Fever of 101 or Higher, Shortness of breath, Dizziness, Fainting spells, Chest pain, Increased palpitations (irregular heartbeat), Uncontrolled pain Additional Instructions: referral to pulmonolgy as out pt. Allergies/Adverse Reactions: Allergies bee venom protein (honey bee) Allergy (Verified 06/24/17 06:14) Anaphylaxis Medications to take at Discharge Insulin Glargine,Hum.rec.anlog [Lantus] 60 unit SC QHS 12/15/14 Levothyroxine [Synthroid] 100 mcg PO DAILY 12/15/14 Simvastatin [Zocor] 80 mg PO QHS 12/15/14 Isosorbide Dinitrate 20 mg PO PRN PRN 11/24/16 Lisinopril [Prinivil] 2.5 mg PO DAILY 11/24/16 Nitroglycerin [Nitrostat] 0.4 mg SL PRN PRN 11/24/16 Pantoprazole Sodium [Protonix] 20 mg PO BID #60 tablet 11/26/16 CycloSPORINE Ophthalmic [Restasis Ophthalmic] 1 drop EACH EYE DAILY 03/24/17 Polyvinyl Alcohol/Povidone/Pf [Refresh Classic Eye Drops] 2 drop EACHEYE DAILY PRN PRN 03/24/17 Aspirin E.C. [Ecotrin] 81 mg PO DAILY@0800 tablet 03/26/17 Clopidogrel Bisulfate [Plavix] 75 mg PO DAILY #14 tablet 03/26/17 Magnesium Oxide [Mag-Ox 400] 400 mg PO DAILYCM #14 tablet 03/26/17 Sotalol Hydrochloride [Betapace (Beta Vipul)] 80 mg PO BID #28 tablet 03/26/17 Insulin Aspart [Novolog Flexpen] 8 units SC TIDAC 06/24/17 Metformin HCl 1,000 mg PO BID 06/24/17 Fluticasone/Salmeterol [Advair 250/50 Mcg Diskus] 1 puff INHALATION BID #2 inhaler 06/25/17 The following prescriptions were given: Fluticasone/Salmeterol [Advair 250/50 Mcg Diskus] 1 puff INHALATION BID #2 inhaler [facility] Physician: [facility] [Primary Care Provider] - Please follow up with your Primary Care Physician in: 1 week.
--- NOTE | 2017-06-25 15:15 | CASEMGMT ---
Patient was prescribed an inhaler for d/c. He only has [facility] script [facility] and the [facility] will not fill prescriptions written by non [facility] doctors. Patient has said he cannot private pay. [facility] indigent patient program has already been utilized in the last year. KALIN did talk with [facility] where patient goes for his care and left a message for his RN, Luis. SW gave patient information on [facility] and told him this is the only other option. KALIN told him he has already utilized the hospital program so that is not an option. He said he will go to [facility] tomorrow. Leila FLANAGAN MSW
[2017-06-25 15:49] VITALS: BP 136/85; PULSE 62; RESP 18; TEMP 36.2; O2SAT 97
--- NOTE | 2017-06-26 10:22 | CASEMGMT ---
Face to Face with patient for initial transition planning/care coordination assessment. ALDA BENITEZ introduced self and role at [facility], pt voices understanding and consents to assessment at this time. Pt sitting up in chair in no distress at this time. Pt A/O x4 at this time and answers all questions appropriately at this time. Care providers, pharmacy, and demographics verified. See attached link. Pt voices no further concerns/needs at this time. Advised pt to ask for CM if any further questions/concerns/needs arise, voices understanding. PLAN: [place] ALDA BENITEZ
--- NOTE | 2017-06-26 11:38 | PCM.DC.SUM ---
Discharge Date and Diagnosis Date of Admission: 06/24/17 Date of Discharge: 06/25/17 - Primary Discharge Diagnosis #1 chest pain/borderline elevated troponin, suspected angina pectoris. #2 hypokalemia/hypocalcemia/hypomagnesemia. #3 shortness of breath, multifactorial secondary to infected COPD and obesity. - Secondary Discharge Diagnosis Chronic Problems Back pain (Chronic) Non-ST elevation myocardial infarction (NSTEMI), type 2 (Chronic) Uncontrolled type 2 diabetes mellitus (Chronic) Morbid obesity with body mass index of 50.0-59.9 in adult (Chronic) Hypertension (Chronic) Dyslipidemia (Chronic) GERD (gastroesophageal reflux disease) (Chronic) Hypothyroidism (Chronic) CAD (coronary artery disease) (Chronic) Hospital Course and Treatment Imaging Results: Clinical Impression(s) from Imaging Studies Chest X-Ray 06/24/17 06:20 IMPRESSION: Right midlung atelectasis without acute alveolar disease. Electronically Signed: Santana Aviles MD at 6:36 EST Tel , Service support , Chest X-Ray 06/25/17 07:45 IMPRESSION: Mild cardiomegaly. Electronically Signed: Raymond Frias MD at 9:27 EST Tel [phone], Service support , Dr. Pitts, cardiology. Operations: None Procedures: EKG, Stress test Summary of Care Provided: The patient is a 62 year old M admitted because of shortness of breath, chest pain and dizzy spells and he was found to have borderline elevated troponin and suspected angina pectoris as well as electrolyte abnormalities including hypokalemia, hypocalcemia and hypomagnesemia. This patient had a history of CAD/non-ST elevation [place] back in March, and he had PTCA and MAGGIE to mid LAD at that time. During this admission, his EKG revealed no evidence of acute ischemic changes. His troponin was borderline elevated and flat. Cardiology consulted and recommended nuclear stress test that was performed and showed no evidence of new or acute stress-induced myocardial ischemia. Patient was found to have hypocalcemia, hypokalemia and hypomagnesemia and his electrolytes were replaced and corrected per protocol. He continued to complain of shortness of breath on activity. He did have a history of chronic smoking but never been diagnosed with COPD but he has been prescribed albuterol inhaler. His vital signs remained stable and his pulse ox remained normal on room air at rest. His chest x-ray done twice and showed no evidence of acute infiltrate, ulceration or effusion, showed cardiomegaly. Patient discharged home in a stable medical condition, discharged on albuterol as needed, Advair twice daily, continue with on his other chronic home medications without any changes, highly recommended for follow-up with his PCP in 1 week, patient will need a referral to pulmonology as outpatient and probably he will need lung function test as outpatient. Discharge Activity: Return to Normal Activity Weight Bearing Status: Weight bearing as tolerated Call your doctor if you observe: Fever of 101 or Higher, Shortness of breath, Dizziness, Fainting spells, Chest pain, Increased palpitations (irregular heartbeat), Uncontrolled pain Home Medications: Medications to take at Discharge Insulin Glargine,Hum.rec.anlog [Lantus] 60 unit SC QHS 12/15/14 Levothyroxine [Synthroid] 100 mcg PO DAILY 12/15/14 Simvastatin [Zocor] 80 mg PO QHS 12/15/14 Isosorbide Dinitrate 20 mg PO PRN PRN 11/24/16 Lisinopril [Prinivil] 2.5 mg PO DAILY 11/24/16 Nitroglycerin [Nitrostat] 0.4 mg SL PRN PRN 11/24/16 Pantoprazole Sodium [Protonix] 20 mg PO BID #60 tablet 11/26/16 CycloSPORINE Ophthalmic [Restasis Ophthalmic] 1 drop EACH EYE DAILY 03/24/17 Polyvinyl Alcohol/Povidone/Pf [Refresh Classic Eye Drops] 2 drop EACHEYE DAILY PRN PRN 03/24/17 Aspirin E.C. [Ecotrin] 81 mg PO DAILY@0800 tablet 03/26/17 Clopidogrel Bisulfate [Plavix] 75 mg PO DAILY #14 tablet 03/26/17 Magnesium Oxide [Mag-Ox 400] 400 mg PO DAILYCM #14 tablet 03/26/17 Sotalol Hydrochloride [Betapace (Beta Vipul)] 80 mg PO BID #28 tablet 03/26/17 Insulin Aspart [Novolog Flexpen] 8 units SC TIDAC 06/24/17 Metformin HCl 1,000 mg PO BID 06/24/17 Fluticasone/Salmeterol [Advair 250/50 Mcg Diskus] 1 puff INHALATION BID #2 inhaler 06/25/17 Following Prescrptions Were Given to Patient: Fluticasone/Salmeterol [Advair 250/50 Mcg Diskus] 1 puff INHALATION BID #2 inhaler [facility] [[facility] - Please follow up with your Primary Care Physician in: 1 week. Disposition: Home Minutes spent on discharge:: 32 Patient Condition:: Stable Meaningful Use Info Meaningful Use Diagnoses (Choose all that apply): None applicable Code Visit Inpatient E&M: 17091 Disch Hosp
--- NOTE | 2017-06-26 11:45 | DS.PCM_ITS ---
Discharge Date and Diagnosis Date of Admission: 06/24/17 Date of Discharge: 06/25/17 - Primary Discharge Diagnosis #1 chest pain/borderline elevated troponin, suspected angina pectoris. #2 hypokalemia/hypocalcemia/hypomagnesemia. #3 shortness of breath, multifactorial secondary to infected COPD and obesity. - Secondary Discharge Diagnosis Chronic Problems Back pain (Chronic) Non-ST elevation myocardial infarction (NSTEMI), type 2 (Chronic) Uncontrolled type 2 diabetes mellitus (Chronic) Morbid obesity with body mass index of 50.0-59.9 in adult (Chronic) Hypertension (Chronic) Dyslipidemia (Chronic) GERD (gastroesophageal reflux disease) (Chronic) Hypothyroidism (Chronic) CAD (coronary artery disease) (Chronic) Hospital Course and Treatment Imaging Results: Clinical Impression(s) from Imaging Studies Chest X-Ray 06/24/17 06:20 IMPRESSION: Right midlung atelectasis without acute alveolar disease. Electronically Signed: Santana Aviles MD at 6:36 EST Tel , Service support , Chest X-Ray 06/25/17 07:45 IMPRESSION: Mild cardiomegaly. Electronically Signed: Raymond Frias MD at 9:27 EST Tel [phone], Service support , Dr. Pitts, cardiology. Operations: None Procedures: EKG, Stress test Summary of Care Provided: The patient is a 62 year old M admitted because of shortness of breath, chest pain and dizzy spells and he was found to have borderline elevated troponin and suspected angina pectoris as well as electrolyte abnormalities including hypokalemia, hypocalcemia and hypomagnesemia. This patient had a history of CAD /non-ST elevation [place] back in March, and he had PTCA and MAGGIE to mid LAD at that time. During this admission, his EKG revealed no evidence of acute ischemic changes. His troponin was borderline elevated and flat. Cardiology consulted and recommended nuclear stress test that was performed and showed no evidence of new or acute stress-induced myocardial ischemia. Patient was found to have hypocalcemia, hypokalemia and hypomagnesemia and his electrolytes were replaced and corrected per protocol. He continued to complain of shortness of breath on activity. He did have a history of chronic smoking but never been diagnosed with COPD but he has been prescribed albuterol inhaler. His vital signs remained stable and his pulse ox remained normal on room air at rest. His chest x-ray done twice and showed no evidence of acute infiltrate, ulceration or effusion, showed cardiomegaly. Patient discharged home in a stable medical condition, discharged on albuterol as needed, Advair twice daily , continue with on his other chronic home medications without any changes, highly recommended for follow-up with his PCP in 1 week, patient will need a referral to pulmonology as outpatient and probably he will need lung function test as outpatient. Discharge Activity: Return to Normal Activity Weight Bearing Status: Weight bearing as tolerated Call your doctor if you observe: Fever of 101 or Higher, Shortness of breath, Dizziness, Fainting spells, Chest pain, Increased palpitations (irregular heartbeat), Uncontrolled pain Home Medications: Medications to take at Discharge Insulin Glargine,Hum.rec.anlog [Lantus] 60 unit SC QHS 12/15/14 Levothyroxine [Synthroid] 100 mcg PO DAILY 12/15/14 Simvastatin [Zocor] 80 mg PO QHS 12/15/14 Isosorbide Dinitrate 20 mg PO PRN PRN 11/24/16 Lisinopril [Prinivil] 2.5 mg PO DAILY 11/24/16 Nitroglycerin [Nitrostat] 0.4 mg SL PRN PRN 11/24/16 Pantoprazole Sodium [Protonix] 20 mg PO BID #60 tablet 11/26/16 CycloSPORINE Ophthalmic [Restasis Ophthalmic] 1 drop EACH EYE DAILY 03/24/17 Polyvinyl Alcohol/Povidone/Pf [Refresh Classic Eye Drops] 2 drop EACHEYE DAILY PRN PRN 03/24/17 Aspirin E.C. [Ecotrin] 81 mg PO DAILY@0800 tablet 03/26/17 Clopidogrel Bisulfate [Plavix] 75 mg PO DAILY #14 tablet 03/26/17 Magnesium Oxide [Mag-Ox 400] 400 mg PO DAILYCM #14 tablet 03/26/17 Sotalol Hydrochloride [Betapace (Beta Vipul)] 80 mg PO BID #28 tablet Insulin Aspart [Novolog Flexpen] 8 units SC TIDAC 06/24/17 Metformin HCl 1,000 mg PO BID 06/24/17 Fluticasone/Salmeterol [Advair 250/50 Mcg Diskus] 1 puff INHALATION BID #2 inhaler 06/25/17 Following Prescrptions Were Given to Patient: Fluticasone/Salmeterol [Advair 250/50 Mcg Diskus] 1 puff INHALATION BID #2 inhaler [facility] [[facility]] - Please follow up with your Primary Care Physician in: 1 week. Disposition: Home Minutes spent on discharge:: 32 Patient Condition:: Stable Meaningful Use Info Meaningful Use Diagnoses (Choose all that apply): None applicable Code Visit Inpatient E&M: 95649 Disch Hosp
== END 2017-06-25 16:15 | disposition home or self-care (01) | DRG 303 ==
LOC: ED 08:05 → PCU 13:27
PROVIDERS: Emergency Medicine; Internal Medicine Cardiovascular Disease; Admitting Provider Hospitalist; Emergency Provider Emergency Medicine; Visit Provider Hospitalist
DX: I25.119 Atherosclerotic heart disease of native coronary artery with unspecified angina pectoris (principal); E11.65 Type 2 diabetes mellitus with hyperglycemia; Z68.43 Body mass index [BMI] 50.0-59.9, adult; E66.01 Morbid (severe) obesity due to excess calories; E87.6 Hypokalemia; E83.51 Hypocalcemia; I10 Essential (primary) hypertension; E78.5 Hyperlipidemia, unspecified; E03.9 Hypothyroidism, unspecified; I25.2 Old myocardial infarction; Z79.4 Long term (current) use of insulin; Z79.899 Other long term (current) drug therapy; Z95.5 Presence of coronary angioplasty implant and graft; Z87.891 Personal history of nicotine dependence; R42 Dizziness and giddiness; E83.42 Hypomagnesemia; K21.9 Gastro-esophageal reflux disease without esophagitis; M54.9 Dorsalgia, unspecified; J44.9 Chronic obstructive pulmonary disease, unspecified; R74.8 Abnormal levels of other serum enzymes
CPT/HCPCS: 36415; 71045; 78452; 80048; 80076; 82962; 83735; 84484; 85025; 85610; 85730; 93005; 93017; 97161; 97165; 99285; A9500; J7030; A4216; J0610; J2785; J3490

== ENCOUNTER 2017-07-10 00:51 | Emergency (ER) | payer OTHER, SELFPAY ==
[2017-03-25 11:36] VITALS: BMI 51.2
[2017-07-10 00:55] VITALS: BP 164/76; PULSE 68; RESP 22; TEMP 36.7; O2SAT 98; BMI 55.0
[2017-07-10 01:01] VITALS: O2SAT 98
--- NOTE | 2017-07-10 01:42 | RAD_ITS ---
STUDY: X-RAY CHEST REASON FOR EXAM: Male, 62 years old. Shortness of breath. TECHNIQUE: PA and lateral chest. COMPARISON: June 25, 2017. FINDINGS: Lungs are mildly hyperinflated. No focal infiltrates or effusions. No pneumothorax. Normal size heart. Normal mediastinum and ryley. Normal visualized pulmonary arteries. Normal visualized aortic arch and descending thoracic aorta. Degenerative changes of thoracic spine. Normal visualized ribs, clavicles, and shoulders. There is no demonstrated abnormality of the visualized soft tissue structures of the upper abdomen. RAD/Chest PA and Lateral IMPRESSION: No acute cardiopulmonary disease. Hyperinflation. Electronically Signed: Kvng Payne MD at 3:03 EST , Service support ,
--- NOTE | 2017-07-10 01:42 | EKG12_ITS ---
Test Reason : Blood Pressure : / mmHG Vent. Rate : 065 BPM Atrial Rate : 065 BPM P-R Int : 130 ms QRS Dur : 082 ms QT Int : 416 ms P-R-T Axes : 002 -36 088 degrees QTc Int : 432 ms Normal sinus rhythm Left axis deviation Nonspecific T wave abnormality Abnormal ECG Confirmed by TAHIRA HERRERA ([id number]), editor producer WINSOME MAN ([id number]) on 07/11/2017 2:51:21 PM Referred By: DEVANTE Confirmed By:TAHIRA HERRERA
[2017-07-10] MEDS: Ipratropium/Albuterol Sulfate 3 ML AMPUL.NEB INHALATION (01:53)
[2017-07-10 01:54] VITALS: PULSE 67; RESP 16
[2017-07-10 02:10] LABS: Absolute Lymphocyte Count 2.58 X10^3/ul (0.83-4.51); Absolute Neutrophil Count 4.2 X10^3/uL (2.0-7.7); Basophil# 0.03 X10^3/uL; Basophil% 0.4 % (0-1); Eosinophil# 0.14 X10^3/uL; Eosinophils% 1.8 % (0-5); Hematocrit 38.8 % (40-54); Hemoglobin 12.7 g/dl (13.0-16.5); Lymphocyte # 2.58 X10^3/ul (4.0); Lymphocyte % 33.9 % (19-41); Mean Corp Hgb Conc 32.7 g/gl (32-36); Mean Corpuscular Hgb 30.2 pg (27.0-32.0); Mean Corpuscular Volume 92.4 fL (80-94); Mean Platelet Vol. 9.1 fl (6.2-12.0); Monocyte# 0.61 X10^3/uL; Neutrophil # 4.24 X10^3/uL (2.7-7.7); Neutrophil % 55.6 % (47-70); Platelet Count 289 K/mm3 (150-450); RBC Distribution Width CV 13.1 % (11.6-14.6); RBC Distribution Width SD 44.1 fl (35.1-43.9); White Blood Count 7.6 K/mm3 (4.4-11.0)
[2017-07-10 02:11] LABS: POSITIVE COUNT NO; POSITIVE DIFFERENTIAL NO; POSITIVE MORPHOLOGY NO
[2017-07-10 02:21] LABS: Anion Gap 6 (5-15); BUN 7 mg/dL (7-18); BUN/Creat Ratio 10.4 RATIO (10-20); Calcium,Total 8.5 mg/dL (8.5-10.1); Chloride 101 mmol/L (98-107); Creatinine, Serum 0.68 mg/dL (0.70-1.30); EST Glomerular Filtration Rate 126 mL/min (>60); Est Glom Filt Rate - Afr Amer 153 mL/min (>60); Estimated Creatinine Clearance 108.97 ml/min; Glucose 202 mg/dL (74-106); Potassium 4.4 mmol/L (3.5-5.1); Sodium Level 137 mmol/L (136-145)
[2017-07-10 02:37] LABS: BNP,B-Type NATRIURETIC PEPTIDE 61.9 pg/mL (0-100)
[2017-07-10 03:16] VITALS: BP 141/69; PULSE 79; RESP 23; O2SAT 95
[2017-07-10 03:33] VITALS: O2SAT 98
--- NOTE | 2017-07-10 03:45 | ED.VISSUMM ---
- ER Visit Summary Date of Service: 07/10/17 Chief Complaint: Dyspnea History of Present Illness: The patient is a 62 M worsening dyspnea today, gradual. Mild cough. Complains of orthopnea symptoms. States he is started on Symbicort [facility] over the past week. Just recently picked up prescription 3 days ago. States his shortness of breath will worsen shortly after using the inhaler. Denies any lip or tongue swelling. No chest pain or tightness. Denies tobacco history. Denies being diagnosed with asthma or COPD. Does have leg swelling chronically. Denies congestive heart failure history however states had NH history with stents ?2 this past March. Physical Examination: General: Obese male, alert and oriented ?3, no acute distress HEENT: Normocephalic, atraumatic. Moist mucosa membranes Neck: supple, nontender. Cardiovascular: Regular rate and rhythm, no murmurs Respiratory: Normal breath sounds, symmetric, no distress Abdomen: Soft, nontender, nondistended Extremities: Nontender, 1+ symmetric edema, pulses intact ?4 Neuro: no focal neurological deficits. Test Results: EKG: Sinus rhythm rate of 68, no ST T changes. T-wave inversions in 1 and aVL unchanged from previous. Chest x-ray negative. Hemoglobin 12.7. Creatinine 0.68. BNP 61.9. Emergency Department Course and Treatment: Patient vital signs stable, no acute distress. With leg swelling, chest x-ray and BNP negative. Chronic EKG changes. Basic labs were normal. He was given DuoNeb for which he states had improved symptoms. Ambulated pulse ox remained at 95%. With patient's exam and body stature, discuss concerns for possible sleep apnea, he confirms this is been tested. He cannot tolerate CPAP equipment has been tried. Been coughing, discussed URI symptoms. He does have a rescue inhaler at home. He will hold his Symbicort his symptoms worsening after treatment. He will call his [facility] for follow-up. He will return if any worsening symptoms. Treatment Plan: [] Disposition: Discharge Impression: Acute upper respiratory infection 2. Dyspnea This note was generated with S[employer]ation software. It may contain incorrect words, spelling, and punctuation that were not noted in review of the chart prior to signing ED Disposition - Plan for ED Patient: Disposition: Home or Assisted Living Chief Complaint: Shortness of Breath Diagnosis: URI (upper respiratory infection) Instructions: ED Upper Resp Infec No Abx Tx [facility]errals[facility] [[facility] Provider[facility] - 3-5 Days Additional Instructions: Hold your Symbicort. Call your [facility] physician for follow-up evaluation.
--- NOTE | 2017-07-10 03:50 | ED.DCSUM_ITS ---
- ER Visit Summary Date of Service: 07/10/17 Chief Complaint: Dyspnea History of Present Illness: The patient is a 62 M worsening dyspnea today, gradual. Mild cough. Complains of orthopnea symptoms. States he is started on Symbicort by [facility] over the past week. Just recently picked up prescription 3 days ago. States his shortness of breath will worsen shortly after using the inhaler. Denies any lip or tongue swelling. No chest pain or tightness. Denies tobacco history. Denies being diagnosed with asthma or COPD. Does have leg swelling chronically. Denies congestive heart failure history however states had ND history with stents ?2 this past March. Physical Examination: General: Obese male, alert and oriented ?3, no acute distress HEENT: Normocephalic, atraumatic. Moist mucosa membranes Neck: supple, nontender. Cardiovascular: Regular rate and rhythm, no murmurs Respiratory: Normal breath sounds, symmetric, no distress Abdomen: Soft, nontender, nondistended Extremities: Nontender, 1+ symmetric edema, pulses intact ?4 Neuro: no focal neurological deficits. Test Results: EKG: Sinus rhythm rate of 68, no ST T changes. T-wave inversions in 1 and aVL unchanged from previous. Chest x-ray negative. Hemoglobin 12.7. Creatinine 0.68. BNP 61.9. Emergency Department Course and Treatment: Patient vital signs stable, no acute distress. With leg swelling, chest x-ray and BNP negative. Chronic EKG changes. Basic labs were normal. He was given DuoNeb for which he states had improved symptoms. Ambulated pulse ox remained at 95%. With patient's exam and body stature, discuss concerns for possible sleep apnea, he confirms this is been tested. He cannot tolerate CPAP equipment has been tried. Been coughing, discussed URI symptoms. He does have a rescue inhaler at home. He will hold his Symbicort his symptoms worsening after treatment. He will call his [facility] physician for follow-up. He will return if any worsening symptoms. Treatment Plan: [] Disposition: Discharge Impression: Acute upper respiratory infection 2. Dyspnea This note was generated with [employer]Union[employer] software. It may contain incorrect words, spelling, and punctuation that were not noted in review of the chart prior to signing ED Disposition - Plan for ED Patient: Disposition: Home or Assisted Living Chief Complaint: Shortness of Breath Diagnosis: URI (upper respiratory infection) Instructions: ED Upper Resp Infec No Abx Tx [facility]errals: [facility] [Primary Care Provider] - 3-5 Days Additional Instructions: Hold your Symbicort. Call your [facility] physician for follow-up evaluation.
[2017-07-10 03:51] VITALS: BP 131/78; PULSE 67; RESP 18; O2SAT 97
== END 2017-07-10 03:56 | disposition home or self-care (01) ==
PROVIDERS: Emergency Provider Emergency Medicine
DX: J06.9 Acute upper respiratory infection, unspecified (principal); R06.00 Dyspnea, unspecified; I25.10 Atherosclerotic heart disease of native coronary artery without angina pectoris; I25.2 Old myocardial infarction; Z95.5 Presence of coronary angioplasty implant and graft; I10 Essential (primary) hypertension; E78.00 Pure hypercholesterolemia, unspecified; E03.9 Hypothyroidism, unspecified; E11.9 Type 2 diabetes mellitus without complications; Z79.4 Long term (current) use of insulin; Z79.84 Long term (current) use of oral hypoglycemic drugs; K21.9 Gastro-esophageal reflux disease without esophagitis; E66.9 Obesity, unspecified; Z68.43 Body mass index [BMI] 50.0-59.9, adult; Z79.82 Long term (current) use of aspirin; Z79.01 Long term (current) use of anticoagulants; Z79.899 Other long term (current) drug therapy
CPT/HCPCS: 71046; 80048; 83880; 85025; 93005; 94640; 99284

== ENCOUNTER 2017-12-21 05:58 | Emergency (ER) | payer OTHER, SELFPAY ==
[2017-03-25 11:36] VITALS: BMI 51.2
[2017-12-21 05:59] VITALS: BP 161/93; PULSE 92; RESP 20; TEMP 36.5; O2SAT 95; BMI 54.7
--- NOTE | 2017-12-21 06:08 | EKG12_ITS ---
Test Reason : Blood Pressure : / mmHG Vent. Rate : 083 BPM Atrial Rate : 083 BPM P-R Int : 158 ms QRS Dur : 066 ms QT Int : 366 ms P-R-T Axes : 067 -41 -05 degrees QTc Int : 430 ms Sinus rhythm Left axis deviation Nonspecific ST and T wave abnormality Abnormal ECG Confirmed by AGUSTIN NAGEL, ABIGAIL ([id number]), field map editor WINSOME MAN ([id number]) on 12/23/2017 1:37:01 PM Referred By: KESHAV Confirmed By:ABIGAIL VELEZ MD
--- NOTE | 2017-12-21 06:09 | ED.VISSUMM ---
- ER Visit Summary Date of Service: 12/21/17 Chief Complaint: [] Possible low blood sugars and feeling weak History of Present Illness: The patient is a 62 M stated over the last 7 days she has been feeling intermittent weakness. Is not every day. He thought it might be related to low sugars. He does not check his sugars however. He is on insulin. He has been feeling occasional lightheadedness and occasional forehead sweats. He wanted to make sure his sugars were not low as this is happened to him in the past. He does have coronary artery disease diabetes hypertension non-STEMI in the past. Physical Examination: [] Vital signs reviewed General: Well-nourished well-developed Head: Normocephalic atraumatic Eyes: Pupils equal round and reactive to light extraocular movements intact ENT: TMs clear no hemotympanum no trauma Neck: Nontender full range of motion Cardiovascular: Regular rate rhythm no murmurs normal S1-S2 Respiratory: No distress clear to auscultation bilaterally chest nontender Abdomen: Soft nontender nondistended normal bowel sounds no masses Back: Nontender no CVA tenderness Extremities: Nontender active range of motion ?4 extremities no trauma Skin: Normal color no trauma Neuro alert oriented cranial nerves II through XII intact normal strength sensation reflexes Test Results: [] Emergency Department Course and Treatment: [] Blood sugar 187. Patient reassured on this front. Lab work obtained. EKG done. EKG shows sinus rhythm at a rate of 83 without ischemia or arrhythmia unchanged from prior. CBC shows a nonspecific leukocytosis of 13. Chemistries normal except sodium 135. Troponin negative less than 0.01. At this time I do not feel the patient is having an acute emergent cause of his intermittent weakness. I feel he can follow-up as an outpatient. Treatment Plan: [] Disposition: [] Impression: [] Intermittent weakness This note was generated with [employer] dictation software. It may contain incorrect words, spelling, and punctuation that were not noted in review of the chart prior to signing ED Disposition - Plan for ED Patient: Chief Complaint: Hypoglycemia [facility] [Primary Care Provider] -
[2017-12-21 06:11] LABS: Bedside Glucose 187 mg/dL (70-110)
[2017-12-21 06:18] LABS: Hematocrit 41.8 % (40-54); Hemoglobin 14.3 g/dl (13.0-16.5); Mean Corp Hgb Conc 34.2 g/gl (32-36); Mean Corpuscular Hgb 31.4 pg (27.0-32.0); Mean Corpuscular Volume 91.7 fL (80-94); Mean Platelet Vol. 9.4 fl (6.2-12.0); Platelet Count 323 K/mm3 (150-450); RBC Distribution Width CV 12.8 % (11.6-14.6); Red Blood Count 4.56 M/mm3 (4.6-6.2)
[2017-12-21 06:19] LABS: Scan Indicated on CBC? Y/N NO
[2017-12-21 06:38] LABS: Anion Gap 7 (5-15); BUN 12 mg/dL (7-18); Calcium,Total 9.2 mg/dL (8.5-10.1); Chloride 101 mmol/L (98-107); Creatinine, Serum 0.86 mg/dL (0.70-1.30); EST Glomerular Filtration Rate 96 mL/min (>60); Est Glom Filt Rate - Afr Amer 116 mL/min (>60); Estimated Creatinine Clearance 86.16 ml/min; Glucose 187 mg/dL (74-106); Potassium 3.9 mmol/L (3.5-5.1); Sodium Level 135 mmol/L (136-145)
--- NOTE | 2017-12-21 06:40 | ED.DEP ---
ED Disposition - Plan for ED Patient: Disposition: Home or Assisted Living Chief Complaint: Hypoglycemia Instructions: ED Weakness UKO [facility]errals: [facility] [Primary Care Provider] -
[2017-12-21 06:44] VITALS: BP 154/85; PULSE 78; RESP 20; O2SAT 96
== END 2017-12-21 06:45 | disposition home or self-care (01) ==
PROVIDERS: Emergency Provider Emergency Medicine
DX: R53.1 Weakness (principal); I25.10 Atherosclerotic heart disease of native coronary artery without angina pectoris; I10 Essential (primary) hypertension; I25.2 Old myocardial infarction; E11.9 Type 2 diabetes mellitus without complications; E78.00 Pure hypercholesterolemia, unspecified; K21.9 Gastro-esophageal reflux disease without esophagitis; E66.9 Obesity, unspecified; Z68.43 Body mass index [BMI] 50.0-59.9, adult; Z79.82 Long term (current) use of aspirin; Z79.01 Long term (current) use of anticoagulants; Z79.4 Long term (current) use of insulin; Z79.84 Long term (current) use of oral hypoglycemic drugs; Z79.899 Other long term (current) drug therapy; Z72.0 Tobacco use
CPT/HCPCS: 36415; 80048; 82962; 84484; 85027; 93005; 99283

== ENCOUNTER 2019-03-10 07:13 | Observation (INO) | payer OTHER, SELFPAY ==
[2017-03-25 11:36] VITALS: BMI 51.2
[2019-03-10] VITALS (15 sets, daily range): BP systolic 96–145; BP diastolic 66–81; PULSE 22–65; RESP 15–54; TEMP 36.5–36.7; O2SAT 92–99; BMI 53.1; BMI 55.7; BMI 54.8
--- NOTE | 2019-03-10 07:23 | RAD_ITS ---
STUDY: X-RAY CHEST REASON FOR EXAM: Male, 64 years old. Chest pain and shortness of breath. TECHNIQUE: Single AP portable view of the chest. COMPARISON: June 25, 2017. FINDINGS: Cardiac monitoring leads are present. There is hyperinflation of the lungs consistent with chronic obstructive lung disease (COPD). There are prominent central bronchovascular markings. There is no demonstrated pleural abnormality. There is mild cardiac enlargement. Normal mediastinum and ryley. There is prominence of the pulmonary hilar arteries with peripheral pulmonary vascular congestion. There is atherosclerotic tortuosity of the aortic arch and descending thoracic aorta. There are diffuse degenerative changes of the visualized thoracic spine. Normal visualized ribs, clavicles, and shoulders. There is no demonstrated abnormality of the visualized soft tissue structures of the upper abdomen. RAD/Chest 1 View (Portable) IMPRESSION: Cardiomegaly and mild pulmonary congestion. Electronically Signed: Elizabeth Gaitan MD at 8:11 EDT , Service support ,
--- NOTE | 2019-03-10 07:23 | EKG12_ITS ---
Test Reason : CP Blood Pressure : / mmHG Vent. Rate : 057 BPM Atrial Rate : 057 BPM P-R Int : 142 ms QRS Dur : 084 ms QT Int : 460 ms P-R-T Axes : 006 -40 106 degrees QTc Int : 447 ms Sinus bradycardia Left axis deviation Nonspecific T wave abnormality Abnormal ECG Confirmed by ANTOINE NAGEL, JOSH ([id number]), managing editor WINSOME MAN ([id number]) on 03/13/2019 10:49:03 AM Referred By: ANIBAL Confirmed By:JOSH SCHULTZ MD
[2019-03-10 07:32] LABS: Absolute Lymphocyte Count 2.29 X10^3/uL (0.83-4.51); Absolute Neutrophil Count 4.6 X10^3/uL (2.0-7.7); Basophil# 0.05 X10^3/uL; Basophil% 0.6 % (0-1); Eosinophil# 0.14 X10^3/uL; Eosinophils% 1.7 % (0-5); Hematocrit 39.5 % (40-54); Hemoglobin 12.7 g/dL (13.0-16.5); Lymphocyte # 2.29 X10^3/ul (4.0); Lymphocyte % 28.6 % (19-41); Mean Corp Hgb Conc 32.2 g/dL (32-36); Mean Corpuscular Hgb 30.8 pg (27.0-32.0); Mean Corpuscular Volume 95.9 fL (80-94); Mean Platelet Vol. 9.1 fl (6.2-12.0); Monocyte# 0.93 X10^3/uL; Monocyte% 11.6 % (0-10); NRBC Flagged by Analyzer 0 % (0-5); Neutrophil # 4.57 X10^3/uL (2.7-7.7); Platelet Count 257 K/mm3 (150-450); RBC Distribution Width CV 12.5 % (11.6-14.6); RBC Distribution Width SD 43.6 fl (35.1-43.9); Red Blood Count 4.12 M/mm3 (4.6-6.2)
[2019-03-10] MEDS: Ipratropium/Albuterol Sulfate 3 ML AMPUL.NEB INHALATION (07:33)
[2019-03-10 07:46] LABS: Anion Gap 4 (5-15); BUN 11 mg/dL (7-18); BUN/Creat Ratio 17.3 RATIO (10-20); Calcium,Total 8.3 mg/dL (8.5-10.1); Chloride 103 mmol/L (98-107); Creatinine, Serum 0.64 mg/dL (0.70-1.30); EST Glomerular Filtration Rate 135 mL/min (>60); Est Glom Filt Rate - Afr Amer 163 mL/min (>60); Estimated Creatinine Clearance 112.81 ml/min; Glucose 160 mg/dL (74-106); Potassium 3.9 mmol/L (3.5-5.1); Sodium Level 140 mmol/L (136-145)
[2019-03-10 07:59] LABS: D-Dimer Quantitative (DVT/PE) < 0.27 FEU/ug/m (0.27-0.49)
[2019-03-10 08:32] LABS: BNP,B-Type NATRIURETIC PEPTIDE 86.5 pg/mL (0-100)
--- NOTE | 2019-03-10 09:40 | ED.VISSUMM ---
- ER Visit Summary Date of Service: 03/10/19 Chief Complaint: [Chest pain and shortness of breath] History of Present Illness: The patient is a 64 M [presents to the emergency department with complaint of chest discomfort that started this morning on the way to the hospital. Patient states that initially he was woken up around 3 AM with complaint of shortness of breath. Patient denies any fever or cough. He denies recent illness otherwise. Patient states the chest pain is somewhat sharp in the left chest and intermittent lasting up to a minute at a time. Patient denies recent travel or surgery. Patient does have history of GERD, diabetes, hypertension, coronary artery disease, A. fib, and hypothyroidism. Patient states that he had 2 cardiac stents placed about 2 years ago.] Physical Examination: [HEENT-PERRLA, EOMI. Cranial nerves II through XII grossly intact. TMs clear. Mucous membranes moist. No adenopathy. Cardiovascular-regular rate and rhythm without murmur or ectopy Lungs-good aeration bilaterally. Patient has occasional faint expiratory wheeze noted. No accessory muscle use or retractions. Abdomen-normoactive bowel sounds, soft, nontender, no rebound or rigidity, no peritoneal signs. Extremities-intact ?4, normal range of motion, normal pulses, atraumatic] Test Results: [EKG obtained arrival shows sinus bradycardia with a ventricular rate of 57 bpm with some nonspecific ST changes. When compared with prior EKG from December 2017 no new changes noted. CBC with differential obtained was normal. Chemistries unremarkable. Troponin is less than 0.15. D-dimer is less than 0.27. Chest x-ray showed some mild vascular congestion otherwise nothing acute.] Emergency Department Course and Treatment: [Patient initially given a DuoNeb aerosol without much resolution of his symptoms.] Treatment Plan: [Admit for further work-up and evaluation of his chest pain or shortness of breath. Although the chest pain sounds atypical unclear the etiology of his dyspnea which could be related to cardiac etiology.] Disposition: [Admit] Impression: [Chest pain-etiology uncertain Dyspnea-etiology uncertain] This note was generated with [email or web address] dictation software. It may contain incorrect words, spelling, and punctuation that were not noted in review of the chart prior to signing ED Disposition - Plan for ED Patient: [facility] [[facility] Provider] -
--- NOTE | 2019-03-10 09:57 | NURSING ---
CALLED [facility] ABOUT TRANSFER/ADMISSION. TALKED TO JOSE, SHE TRANSFERRED ME TO [facility]
--- NOTE | 2019-03-10 09:58 | PCM.HP.STD ---
Problem List (1) Back pain Status: Chronic (2) CAD (coronary artery disease) Status: Chronic (3) Dyslipidemia Status: Chronic (4) GERD (gastroesophageal reflux disease) Status: Chronic (5) Hypertension Status: Chronic (6) Hypothyroidism Status: Chronic (7) Morbid obesity with body mass index of 50.0-59.9 in adult Status: Chronic (8) Non-ST elevation myocardial infarction (NSTEMI), type 2 Status: Chronic (9) Uncontrolled type 2 diabetes mellitus Status: Chronic (10) Chest pain Status: Acute History of Present Illness Date of Admission: 03/10/19 Chief Complaint: Chest pain The patient is a 64 year old M with past medical history significant for Coronary artery disease with previous non-STEMI status post PTCA and MAGGIE to mid LAD back in March,, presented with chest pain. Patient symptoms started around 3 AM on the morning of his presentation. Pain was described as pressure located in the retrosternal region. In addition to the pain patient did experience shortness of breath. Subsequently presented to the emergency department initial set of cardiac enzymes and EKG were unremarkable. Patient chest pain had resolved at the time of his admission however the shortness of breath persisted. Given patient past cardiac history he was admitted to monitored bed to undergo further evaluation. Past Medical History Past Medical History (Chronic Problems): Chronic Problems Back pain (Chronic) Non-ST elevation myocardial infarction (NSTEMI), type 2 (Chronic) Uncontrolled type 2 diabetes mellitus (Chronic) Morbid obesity with body mass index of 50.0-59.9 in adult (Chronic) Hypertension (Chronic) Dyslipidemia (Chronic) GERD (gastroesophageal reflux disease) (Chronic) Hypothyroidism (Chronic) CAD (coronary artery disease) (Chronic) Allergies bee venom protein (honey bee) Allergy (Verified 03/10/19 07:14) Anaphylaxis Home Medications: Ambulatory Orders Medication Instructions Recorded Insulin Glargine,Hum.rec.anlog 65 unit SC QHS 12/15/14 [Lantus] Levothyroxine [Synthroid] 100 mcg PO DAILY 12/15/14 Simvastatin [Zocor] 80 mg PO QHS 12/15/14 Isosorbide Dinitrate 20 mg PO PRN PRN 11/24/16 Lisinopril [Prinivil] 2.5 mg PO DAILY 11/24/16 Nitroglycerin [Nitrostat] 0.4 mg SL PRN PRN 11/24/16 Pantoprazole Sodium [Protonix] 20 mg PO BID #60 tablet 11/26/16 CycloSPORINE Ophthalmic [Restasis 1 drop EACH EYE DAILY 03/24/17 Ophthalmic] Polyvinyl Alcohol/Povidone/Pf 2 drop EACHEYE DAILY PRN PRN 03/24/17 [Refresh Classic Eye Drops] Aspirin E.C. [Ecotrin] 81 mg PO DAILY@0800 tablet 03/26/17 Clopidogrel Bisulfate [Plavix] 75 mg PO DAILY #14 tablet 03/26/17 Magnesium Oxide [Mag-Ox 400] 400 mg PO DAILYCM #14 tablet 03/26/17 Sotalol Hydrochloride [Betapace 80 mg PO BID #28 tablet 03/26/17 (Beta Vipul)] Insulin Aspart [Novolog Flexpen] 10 units SC TIDAC 06/24/17 Metformin HCl 1,000 mg PO BID 06/24/17 Surgical History: appendectomy, cholecystectomy, herniorrhaphy - umbilical Psychiatric History: No pertinent psych hx Smoking Status: Never smoker - *Family History Paternal History Items: Heart Disease Maternal History Items: Heart Disease Review of Systems Constitutional: Denies: Anorexia, Chills, Fever, Night Sweats, Weight Change HEENT: Denies: Head Aches, Sinus Congestion Cardiovascular: Reports: Chest Pain. Denies: Orthopnea, Palpitations, Paroxysmal Noc. Dyspnea Respiratory: Reports: Shortness of Breath. Denies: Cough Gastrointestinal: Denies: Abdominal Pain, Hematemesis, Hematochezia, Nausea, Melena, Vomiting Genitourinary: Denies: Dysuria, Frequency, Hematuria, Urgency Musculoskeletal: Denies: Joint Pain, Joint Tenderness Skin: Denies: Rash Neurological: Denies: Focal weakness, Numbness, Tingling Psychiatric: Denies: Homicidal Ideations, Suicidal Ideations Hematologic/ Lymphatic: Denies: Easy Bruising, Easy Bleeding VTE Information - Inpt Only VTE Present on Admission: No VTE Mechan Device Prophylaxis: None VTE Pharm Prophylaxis ordered?: Yes Patient Problems: Active and Suspected Problems Chest pain (Acute) Objective: GENERAL: cooperative HEENT: Atraumatic; EYES; Anicteric, Normal Conjunctiva NECK; supple, normal thyroid, RESPIRATORY: Diminished to auscultation CARDIOVASCULAR: Regular S1 S2, GI: soft, normoactive bowel sounds, : No Renal angle tenderness; EXTREMITIES: No edema, no clubbing, MUSCULOSKELETAL: no muscle waisting NEURO: Awake; no lateralizing signs. SKIN: No Rash PSYCH; Flat affect - Physical Exam Vitals/I&O's: Vital Signs Temp Pulse Resp BP Pulse Ox 97.7 F L 22 L 54 H 113/66 98 03/10/19 07:14 03/10/19 09:04 03/10/19 09:04 03/10/19 08:48 03/10/19 09:04 Oxygen Flow Rate (L/min) 2 Oxygen Delivery Method Nasal Cannula Weight: 166.3 kg Body Mass Index (BMI) 55.7 Finger Stick Blood Glucose 187 Laboratory Results 03/10/19 07:15: WBC 8.0, RBC 4.12 L, Hgb 12.7 L, Hct 39.5 L, MCV 95.9 H, MCH 30.8, MCHC 32.2, RDW Std Deviation 43.6, RDW Coeff of Rasheeda 12.5, Plt Count 257, MPV 9.1, Immature Gran % (Auto) 0.500, Neut % (Auto) 57.0, Lymph % (Auto) 28.6, Mower % (Auto) 11.6 H, Eos % (Auto) 1.7, Baso % (Auto) 0.6, Absolute Neuts (auto) 4.6, Absolute Lymphs (auto) 2.29, Nucleated RBC % 0 03/10/19 07:15: D-Dimer Quant (PE/DVT) < 0.27 L 03/10/19 07:15: Sodium 140, Potassium 3.9, Chloride 103, Carbon Dioxide 33.0 H, Anion Gap 4 L, BUN 11, Creatinine 0.64 L, Estim Creat Clear Calc 112.81, Est GFR (MDRD) Af Amer 163, Est GFR (MDRD) Non-Af 135, BUN/Creatinine Ratio 17.3, Glucose 160 H, Calcium 8.3 L, Troponin I < 0.015 03/10/19 07:15: B-Natriuretic Peptide 86.5 Current Medications Sodium Chloride () 1,000 mls @ 0 mls/hr IV .Q0M [facility] Assessment/Plan All Active Problems Chest pain (Acute) Patient is a 64-year-old gentleman with past medical history significant CAD with previous intervention presented with chest pain 1. Aspirin: Patient ~ admitted to monitored bed plan is to rule out IA with serial cardiac enzymes. Patient undergo a nuclear stress test once IA has been ruled out. As part of his management ordered 2D echo to assess for wall motion abnormalities Coronary artery disease with previous non-STEMI status post PTCA and MAGGIE to mid LAD back in March,. 2. Hypertension ~ blood pressure controlled, home medications continued with dose adjustment as needed 3. Dyslipidemia ~patient is on statin therapy, continued at home dose 4. Diabetes mellitus type II ~Controlled patient's oral hypoglycemics held. Placed on long acting insulin, Accu-Cheks a.c. and at bedtime and covered with sliding scale insulin 5. Hypothyroidism ~patient is on levothyroxine home dose continued 6. Morbid obesity ?With a BMI of 54. Weight loss and lifestyle modification advised 7. Degenerative joint disease Meds as needed 8. DVT prophylaxis SC Lovenox Advance planning; did discuss with the patient and family regarding advanced directives as well as CODE STATUS. Did explain the various scenarios involved ( FULL CODE, DNR CCA, DNR CCA with no intubation, and DNR CC and what each meant) patient elected remain full code. Order was placed. Time spent on discussion 18 minutes. Code Visit OBSV E&M: 21146 Initial observation care L3 Procedures: 15959 Advncd Care Plan 30 Min
--- NOTE | 2019-03-10 10:07 | NURSING ---
PCU CHEST PAIN KITTOE
--- NOTE | 2019-03-10 10:08 | NURSING ---
FAXED TSHEET, EKG, LABS, RAD REPORT TO [facility] [phone]
--- NOTE | 2019-03-10 11:28 | EKG12_ITS ---
Test Reason : CP ADMISSION Blood Pressure : / mmHG Vent. Rate : 053 BPM Atrial Rate : 053 BPM P-R Int : 144 ms QRS Dur : 084 ms QT Int : 490 ms P-R-T Axes : 004 -34 088 degrees QTc Int : 459 ms Sinus bradycardia Left axis deviation Nonspecific T wave abnormality Abnormal ECG When compared with ECG of 10-MAR-2019 07:16, MANUAL COMPARISON REQUIRED, DATA IS UNCONFIRMED Confirmed by ANTOINE NAGEL, JOSH ([id number]), multimedia editor WINSOME MAN ([id number]) on 03/13/2019 11:38:13 AM Referred By: HERIBERTO Confirmed By:JOSH SCHULTZ MD
[2019-03-10 17:11] LABS: Bedside Glucose 142 mg/dL (70-110)
[2019-03-10] MEDS: Insulin Lispro 100 UNIT/ML INSULN.PEN 20 UNIT SC (17:25)
[2019-03-10] MEDS: Acetaminophen 325 MG Tablet 650 MG PO (19:08)
[2019-03-10] MEDS: Insulin Lispro 100 UNIT/ML INSULN.PEN SC (21:43)
[2019-03-10] MEDS: Atorvastatin Calcium 40 MG Tablet PO (21:43)
[2019-03-10] MEDS: Pantoprazole Sodium 20 MG Tablet PO (21:43)
[2019-03-10 23:00] LABS: Bedside Glucose 190 mg/dL (70-110)
[2019-03-11] VITALS (8 sets, daily range): BP systolic 146–164; BP diastolic 62–83; PULSE 66–98; RESP 16–18; TEMP 36.6–37; O2SAT 94–97
--- NOTE | 2019-03-11 05:55 | EKG12_ITS ---
Test Reason : AM EKG Blood Pressure : / mmHG Vent. Rate : 072 BPM Atrial Rate : 072 BPM P-R Int : 134 ms QRS Dur : 086 ms QT Int : 418 ms P-R-T Axes : 003 -42 085 degrees QTc Int : 457 ms Normal sinus rhythm Left axis deviation Abnormal ECG When compared with ECG of 10-MAR-2019 11:01, MANUAL COMPARISON REQUIRED, DATA IS UNCONFIRMED Confirmed by ANTOINE NAGEL, JOSH ([id number]), commercial production editor WINSOME MAN ([id number]) on 03/13/2019 11:32:58 AM Referred By: HERIBERTO Confirmed By:JOSH SCHULTZ MD
--- NOTE | 2019-03-11 05:55 | ECHOCS_ITS ---
Reason For Study: CP Procedure This was a 2D Doppler, Color Flow transthoracic echocardiogram. The study was technically difficult. Contrast injection was performed. Exam performed in department. Left Ventricle Normal LV size. Mild concentric left ventricular hypertrophy. Left ventricular systolic function is normal. The estimated ejection fraction is 65 %. Stage 2 diastolic dysfunction. No regional wall motion abnormalities noted. Right Ventricle Normal RV size. Normal systolic function. Atria The left atrium is moderately enlarged. Normal right atrium. Mitral Valve Normal mitral valve. Tricuspid Valve Normal tricuspid valve. Mild (1+) tricuspid valve insufficiency. Pulmonary artery systolic pressure is 44 mmHg. Aortic Valve Normal aortic valve. Pulmonic Valve Normal pulmonic valve. Great Vessels Normal aortic root. Pericardium/Pleural No pericardial effusion. Medication Diluted definity 2ml given slow IV push to enhance endocardial definition. MMode/2D Measurements & Calculations LVIDd: 5.2 cm IVSd: 1.2 cm Ao root diam: 3.4 cm LVIDs: 3.2 cm LVPWd: 1.3 cm LA dimension: 4.2 cm FS: 38.8 % LAV(MOD-bp): 86.5 ml LA A4 area: 26.8 cm2 RA A4 area: 20.5 cm2 LAV(MOD-bp) Indexed: 32.9 ml/m2 LAV(MOD-sp2): 81.9 ml LAV(MOD-sp4): 81.2 ml Time Measurements MV dec time: 0.23 sec Doppler Measurements & Calculations MV E max ramírez: 131.1 cm/sec Lat Peak E' Ramírez: 11.0 cm/sec Med Peak E' Ramírez: 10.0 cm/sec MV A max ramírez: 96.2 cm/sec E/E' lat: 11.9 E/E' med: 13.1 MV E/A: 1.4 MV V2 max: 161.3 cm/sec MV P1/2t max ramírez: 158.9 cm/sec Ao V2 max: 165.7 cm/sec MV max P.4 mmHg MV P1/2t: 100.7 msec Ao max P.0 mmHg MV V2 mean: 90.4 cm/sec MV dec slope: 462.3 cm/sec2 MV mean P.8 mmHg MV V2 VTI: 47.7 cm MVA(P1/2t): 2.2 cm2 LV V1 max: 141.8 cm/sec PA V2 max: 114.7 cm/sec TR max ramírez: 313.7 cm/sec LV V1 max P.0 mmHg TR max P.4 mmHg Interpretation Summary Normal LV size. Mild concentric left ventricular hypertrophy. Left ventricular systolic function is normal. The estimated ejection fraction is 65 %. Stage 2 diastolic dysfunction. Pulmonary artery systolic pressure is 44 mmHg. Ordering Physician: Francisco Marshall Referring Physician: [facility] Performed By: Saeed Shultz RCS
[2019-03-11] MEDS: Levothyroxine 100 MCG Tablet PO (05:59)
[2019-03-11] MEDS: Lisinopril 2.5 MG Tablet PO (06:00)
[2019-03-11] MEDS: Clopidogrel Bisulfate 75 MG Tablet PO (06:00)
[2019-03-11] MEDS: Aspirin E.C. 81 MG Tablet PO (06:00)
[2019-03-11 06:25] LABS: Bedside Glucose 152 mg/dL (70-110)
[2019-03-11 06:39] LABS: Hematocrit 39.9 % (40-54); Mean Corp Hgb Conc 32.6 g/dL (32-36); Mean Corpuscular Hgb 30.7 pg (27.0-32.0); Mean Corpuscular Volume 94.3 fL (80-94); Mean Platelet Vol. 9.4 fl (6.2-12.0); Platelet Count 282 K/mm3 (150-450); RBC Distribution Width CV 12.5 % (11.6-14.6); RBC Distribution Width SD 43.3 fl (35.1-43.9); Red Blood Count 4.23 M/mm3 (4.6-6.2); White Blood Count 10.3 K/mm3 (4.4-11.0)
[2019-03-11 07:06] LABS: ALB/GLOB Ratio 0.9 RATIO (0.9-2.4); AST(SGOT) 9 U/L (15-37); Alanine Aminotransfer ALT/SGPT 16 U/L (16-61); Albumin, Serum 3.4 g/dL (3.2-5.0); Alkaline Phosphatase 88 U/L (45-117); Anion Gap 6 (5-15); BUN 7 mg/dL (7-18); BUN/Creat Ratio 11.3 RATIO (10-20); Calcium,Total 8.8 mg/dL (8.5-10.1); Chloride 104 mmol/L (98-107); Cholesterol 119 mg/dL (200); Creatinine, Serum 0.62 mg/dL (0.70-1.30); EST Glomerular Filtration Rate 140 mL/min (>60); Est Glom Filt Rate - Afr Amer 169 mL/min (>60); Estimated Creatinine Clearance 116.45 ml/min; Globulin 3.9 g/dL (2.2-4.2); Glucose 165 mg/dL (74-106); High Density Lipoprotein 34 mg/dL; Potassium 4.1 mmol/L (3.5-5.1); Protein, Total 7.3 g/dL (6.4-8.2); Sodium Level 138 mmol/L (136-145); Triglycerides 133 mg/dL; Very Low Density Lipoprotein 27 mg/dL (5-40)
[2019-03-11] MEDS: Magnesium Oxide 400 MG Tablet PO (11:32)
[2019-03-11] MEDS: Acetaminophen 325 MG Tablet 650 MG PO (11:32)
[2019-03-11] MEDS: Pantoprazole Sodium 20 MG Tablet PO (11:32)
[2019-03-11] MEDS: Insulin Lispro 100 UNIT/ML INSULN.PEN SC (11:33)
[2019-03-11] MEDS: Insulin Lispro 100 UNIT/ML INSULN.PEN 20 UNIT SC (11:33)
[2019-03-11 11:56] LABS: Bedside Glucose 186 mg/dL (70-110)
--- NOTE | 2019-03-11 12:00 | CASEMGMT ---
Intro role of CM to patient and FERNAN[facility]Z form explained re: Observation status for treatment of chest pain. Explained hospitalization will be paid per? insurance policy for Outpatient billing?and condition will continue to be evaluated for Inpt necessity. Pt has [facility] benefits and [facility] and pt is aware outpt billing will likely be under [facility] benefits. Also let pt know that [facility] sends paper in the billing packet with their phone number if questions arise. Discussed Pharmacy section of FERNANDEZ form and self administered medication guideline.? Pt verbalizes understanding and does not have further questions. Form signed and placed in chart, copy to pt. QUOC LIZAMA BSN CM
--- NOTE | 2019-03-11 12:43 | STRESSREP ---
Stress Test Report Pharmacologic myocardial perfusion stress test. 64-year-old man with a history of previous drug-eluting stent to the mid left anterior descending artery in 2017. Stress protocol: Resting EKG demonstrates normal sinus rhythm with a rate of 70 bpm normal intervals are noted resting blood pressures 144/88 mmHg. 0.4 mg of regadenoson was infused per usual protocol followed by rapid intravenous saline flush injection continuous EKG monitoring was performed. Patient maintained sinus rhythm throughout the recording the maximum heart rate attained was 94 bpm which was 60% of maximum predicted heart rate the maximum workload was 1 metabolic equivalent. At rest there were no ST or T wave changes noted suggest abnormal flow reserve a peak infusion nonspecific ST-T wave changes were noted with no meet the criteria for abnormal flow reserve. The resting blood pressures 144/88 with a peak blood pressure 158/80 mmHg. Myocardial perfusion protocol. 15.0 mCi of technetium 99m sestamibi was injected at rest. 0.4 mg of regadenoson was infused per usual protocol peak infusion 45.0 mCi of technetium 99m sestamibi was injected stress images were obtained stress and rest images are reconstructed and compared in the short axis vertical and horizontal long axis. Gated images could not be obtained as the patient could not fit in the CT machine. Perfusion SPECT analysis: The images demonstrated some motion artifact. However did not appear to be any obvious ischemic zones noted in any territory on the stress or resting images. Diaphragmatic and GI attenuation artifact are present. Conclusion: Probably normal pharmacologic myocardial perfusion stress test.
--- NOTE | 2019-03-11 13:04 | DCINST_ITS ---
- Discharge Diagnoses Current Active Problems: Current Active and Chronic Problems Chest pain (Acute) You will use the following diet at home:: Calorie/Carbohydrate Controlled (specify 1200, 1400, etc) - 1800 Discharge Activity: Return to Normal Activity Instructions: CHEST PAIN, NonCardiac Allergies/Adverse Reactions: Allergies bee venom protein (honey bee) Allergy (Verified 03/10/19 07:14) Anaphylaxis Medications to take at Discharge Insulin Glargine,Hum.rec.anlog [Lantus] 82 unit SC QHS 12/15/14 Levothyroxine [Synthroid] 100 mcg PO DAILY 12/15/14 Simvastatin [Zocor] 80 mg PO QHS 12/15/14 Isosorbide Dinitrate 20 mg PO DAILY 11/24/16 Lisinopril [Prinivil] 2.5 mg PO DAILY 11/24/16 Nitroglycerin [Nitrostat] 0.4 mg SL PRN PRN 11/24/16 Pantoprazole Sodium [Protonix] 20 mg PO BID #60 tablet 11/26/16 CycloSPORINE Ophthalmic [Restasis Ophthalmic] 1 drop EACH EYE Q12H 03/24/17 Polyvinyl Alcohol/Povidone/Pf [Refresh Classic Eye Drops] 2 drop EACHEYE DAILY PRN PRN 03/24/17 Aspirin E.C. [Ecotrin] 81 mg PO DAILY@0800 tablet 03/26/17 Clopidogrel Bisulfate [Plavix] 75 mg PO DAILY #14 tablet 03/26/17 Magnesium Oxide [Mag-Ox 400] 400 mg PO DAILYCM #14 tablet 03/26/17 Sotalol Hydrochloride [Betapace (Beta Vipul)] 80 mg PO BID #28 tablet 03/26/17 Insulin Aspart [Novolog Flexpen] 20 units SC TIDAC 06/24/17 Metformin HCl 1,000 mg PO BID 06/24/17 Acetaminophen [Tylenol] 650 mg PO Q6H 03/10/19 [facility] [[facility]] - Please follow up with your Primary Care Physician in: in 1-2 weeks Test Results: Test results from this visit will be discussed in further detail at your follow- up appointment, if applicable. Proposed Discharge Date: 03/11/19
--- NOTE | 2019-03-11 13:07 | PCM.DC.SUM ---
Discharge Date and Diagnosis - Problem List Patient Problems: Active and Suspected Problems Chest pain (Acute) Date of Admission: 03/10/19 Date of Discharge: 03/11/19 - Primary Discharge Diagnosis Active and Suspected Problems Chest pain (Acute) - Secondary Discharge Diagnosis Chronic Problems Back pain (Chronic) Non-ST elevation myocardial infarction (NSTEMI), type 2 (Chronic) Uncontrolled type 2 diabetes mellitus (Chronic) Morbid obesity with body mass index of 50.0-59.9 in adult (Chronic) Hypertension (Chronic) Dyslipidemia (Chronic) GERD (gastroesophageal reflux disease) (Chronic) Hypothyroidism (Chronic) CAD (coronary artery disease) (Chronic) Hospital Course and Treatment Imaging Results: Clinical Impression(s) from Imaging Studies Chest X-Ray 03/10/19 07:23 IMPRESSION: Cardiomegaly and mild pulmonary congestion. Electronically Signed: Elizabeth Gaitan MD at 8:11 EDT , Service support , Interpretation Summary Normal LV size. Mild concentric left ventricular hypertrophy. Left ventricular systolic function is normal. The estimated ejection fraction is 65 %. Stage 2 diastolic dysfunction. Pulmonary artery systolic pressure is 44 mmHg. Operations: None Summary of Care Provided: Patient is a 64-year-old gentleman with past medical history significant CAD with previous intervention presented with chest pain 1. Chest Pain ~ admitted to monitored bed did rule out NV with serial cardiac enzymes patient subsequently underwent a nuclear stress test which is negative for stress-induced ischemia 2. Coronary artery disease with previous non-STEMI status post PTCA and MAGGIE to mid LAD back in March,. 3. Dyslipidemia ~patient is on statin therapy, continued at home dose 4. Diabetes mellitus type II ~Controlled patient's oral hypoglycemics held. Placed on long acting insulin, Accu-Cheks a.c. and at bedtime and covered with sliding scale insulin 5. Hypothyroidism ~patient is on levothyroxine home dose continued 6. Morbid obesity ?With a BMI of 54. Weight loss and lifestyle modification advised 7. Degenerative joint disease Meds as needed 8. Hypertension ~ blood pressure controlled, home medications continued with dose adjustment as needed 9. DVT prophylaxis ~ SC Lovenox Patient Problems: Active and Suspected Problems Chest pain (Acute) Objective: GENERAL: cooperative HEENT: Atraumatic; EYES; Anicteric, Normal Conjunctiva NECK; supple, normal thyroid, RESPIRATORY: Diminished to auscultation CARDIOVASCULAR: Regular S1 S2, NEURO: Awake; no lateralizing signs. SKIN: No Rash PSYCH; Flat affect - Physical Exam Vitals/I&O's: Vital Signs Temp Pulse Resp BP Pulse Ox 97.8 F 71 18 154/79 H 96 03/11/19 11:26 03/11/19 11:29 03/11/19 11:26 03/11/19 11:26 03/11/19 11:26 Oxygen Flow Rate (L/min) 2 Oxygen Delivery Method Room Air Weight: 164.2 kg Body Mass Index (BMI) 54.8 Finger Stick Blood Glucose 187 Intake and Output for Last 24 Hours 03/09/19 03/10/19 03/11/19 23:59 23:59 23:59 Intake Total 1200 / 1200 Balance 1200 / 1200 Laboratory Results 03/10/19 14:34: Troponin I < 0.015 03/10/19 17:01: POC Glucose 142 H 03/10/19 21:42: POC Glucose 190 H 03/11/19 05:55: POC Glucose 152 H 03/11/19 06:05: WBC 10.3, RBC 4.23 L, Hgb 13.0, Hct 39.9 L, MCV 94.3 H, MCH 30.7, MCHC 32.6, RDW Std Deviation 43.3, RDW Coeff of Rasheeda 12.5, Plt Count 282, MPV 9.4 03/11/19 06:05: Sodium 138, Potassium 4.1, Chloride 104, Carbon Dioxide 28.0, Anion Gap 6, BUN 7, Creatinine 0.62 L, Estim Creat Clear Calc 116.45, Est GFR (MDRD) Af Amer 169, Est GFR (MDRD) Non-Af 140, BUN/Creatinine Ratio 11.3, Glucose 165 H, Calcium 8.8, Total Bilirubin 0.80, AST 9 L, ALT 16, Alkaline Phosphatase 88, Total Protein 7.3, Albumin 3.4, Globulin 3.9, Albumin/Globulin Ratio 0.9, Triglycerides 133, Cholesterol 119, LDL Cholesterol 58, VLDL Cholesterol 27, HDL Cholesterol 34 L 03/11/19 11:32: POC Glucose 186 H Current Medications Acetaminophen (Tylenol) 650 mg PO Q6H PRN PRN PRN Reason: Pain Score 1-3/Temp > 100.7 F Last Admin: 03/11/19 11:32 Dose: 650 mg Documented by: Al Hydroxide/Mg Hydroxide (Mylanta Ii) 30 ml PO Q6H PRN PRN PRN Reason: Gastric Burning Albuterol Sulfate (Ventolin Aerosols) 2.5 mg INHALATION Q2H PRN PRN PRN Reason: SOB/Wheezing Aspirin (Ecotrin) 81 mg PO DAILY@0800 [facility] Last Admin: 03/11/19 06:00 Dose: 81 mg Documented by: Atorvastatin Calcium (Lipitor) 40 mg PO QHS [facility] Last Admin: 03/10/19 21:43 Dose: 40 mg Documented by: Clopidogrel Bisulfate (Plavix) 75 mg PO DAILY [facility] Last Admin: 03/11/19 06:00 Dose: 75 mg Documented by: Dextrose (D50w Syringe) 0 gm IV X1 PRN; Protocol PRN Reason: Hypoglycemia Enoxaparin Sodium (Lovenox) 40 mg SC DAILY@1000 SCOOETR Glucagon () 1 mg IM .X1 PRN PRN Reason: Hypoglycemia Guaifenesin (Robitussin) 20 ml PO Q4H PRN PRN PRN Reason: COUGH Insulin Glargine (Lantus (Bkc)) 82 units SC QHS [facility] Last Admin: 03/10/19 21:43 Dose: 82 unit Documented by: Insulin Human Lispro (Humalog Kwikpen (Bkc)) 0 unit SC ACHS [facility]; Protocol Last Admin: 03/11/19 11:33 Dose: 2 u Documented by: Insulin Human Lispro (Humalog Kwikpen (Bkc)) 20 unit SC TIDAC [facility] Last Admin: 03/11/19 11:33 Dose: 20 u Documented by: Levothyroxine Sodium (Synthroid) 100 mcg PO DAILY@0600 [facility] Last Admin: 03/11/19 05:59 Dose: 100 mcg Documented by: Lisinopril (Zestril) 2.5 mg PO DAILY [facility] Last Admin: 03/11/19 06:00 Dose: 2.5 mg Documented by: Magnesium Hydroxide (Milk Of Magnesia) 30 ml PO DAILY PRN PRN PRN Reason: Constipation [facility] 400) [facility] Admin: 03/11/19 11:32 Dose: 400 mg Documented by: Melatonin (Melatonin) 3 mg PO QHS PRN PRN PRN Reason: INSOMNIA Morphine Sulfate () 4 mg IV Q3H PRN PRN PRN Reason: Pain Score 6-10/10 Nitroglycerin (Nitrostat) 0.4 mg SUBLINGUAL Q5M PRN PRN Reason: CHEST PAIN Ondansetron HCl (Zofran) 4 mg IV Q8H PRN PRN PRN Reason: NAUSEA/VOMITING Oxycodone HCl (Oxyir) 5 mg PO Q4H PRN PRN PRN Reason: Pain Score 4-5/10 Pantoprazole Sodium (Protonix) 20 mg PO BID [facility] Last Admin: 03/11/19 11:32 Dose: 20 mg Documented by: Discharge Diet: No Restrictions Discharge Activity: Return to Normal Activity Home Medications: Medications to take at Discharge Insulin Glargine,Hum.rec.anlog [Lantus] 82 unit SC QHS 12/15/14 Levothyroxine [Synthroid] 100 mcg PO DAILY 12/15/14 Simvastatin [Zocor] 80 mg PO QHS 12/15/14 Isosorbide Dinitrate 20 mg PO DAILY 11/24/16 Lisinopril [Prinivil] 2.5 mg PO DAILY 11/24/16 Nitroglycerin [Nitrostat] 0.4 mg SL PRN PRN 11/24/16 Pantoprazole Sodium [Protonix] 20 mg PO BID #60 tablet 11/26/16 CycloSPORINE Ophthalmic [Restasis Ophthalmic] 1 drop EACH EYE Q12H 03/24/17 Polyvinyl Alcohol/Povidone/Pf [Refresh Classic Eye Drops] 2 drop EACHEYE DAILY PRN PRN 03/24/17 Aspirin E.C. [Ecotrin] 81 mg PO DAILY@0800 tablet 03/26/17 Clopidogrel Bisulfate [Plavix] 75 mg PO DAILY #14 tablet 03/26/17 Magnesium Oxide [Mag-Ox 400] 400 mg PO DAILYCM #14 tablet 03/26/17 Sotalol Hydrochloride [Betapace (Beta Vipul)] 80 mg PO BID #28 tablet 03/26/17 Insulin Aspart [Novolog Flexpen] 20 units SC TIDAC 06/24/17 Metformin HCl 1,000 mg PO BID 06/24/17 Acetaminophen [Tylenol] 650 mg PO Q6H 10/22/19 [facility] [[facility]] - Please follow up with your Primary Care Physician in: in 1-2 weeks Patient Instructions: CHEST PAIN, NonCardiac Disposition: Home Minutes spent on discharge:: 35 Patient Condition:: Stable Medical Necessity - Tobacco Use Smoking Status: Former smoker Meaningful Use Info Meaningful Use Diagnoses (Choose all that apply): None applicable Code Visit OBSV E&M: 56543 Observation care discharge
== END 2019-03-11 13:06 | disposition home or self-care (01) ==
LOC: ED 07:37 → PCU 10:18
PROVIDERS: Admitting Provider Internal Medicine; Emergency Provider Emergency Medicine; Visit Provider Internal Medicine
DX: R07.89 Other chest pain (principal); R06.02 Shortness of breath; I48.91 Unspecified atrial fibrillation; E03.9 Hypothyroidism, unspecified; I10 Essential (primary) hypertension; I25.10 Atherosclerotic heart disease of native coronary artery without angina pectoris; K21.9 Gastro-esophageal reflux disease without esophagitis; E78.5 Hyperlipidemia, unspecified; E11.65 Type 2 diabetes mellitus with hyperglycemia; I07.1 Rheumatic tricuspid insufficiency; I25.2 Old myocardial infarction; E66.01 Morbid (severe) obesity due to excess calories; R00.1 Bradycardia, unspecified; R94.31 Abnormal electrocardiogram [ECG] [EKG]; Z95.5 Presence of coronary angioplasty implant and graft; Z79.899 Other long term (current) drug therapy; Z79.4 Long term (current) use of insulin; Z79.02 Long term (current) use of antithrombotics/antiplatelets; Z79.82 Long term (current) use of aspirin; Z68.43 Body mass index [BMI] 50.0-59.9, adult; Z71.3 Dietary counseling and surveillance; Z87.891 Personal history of nicotine dependence
CPT/HCPCS: 36415; 71045; 78452; 80048; 80053; 80061; 82962; 83880; 84484; 85025; 85027; 85379; 93005; 93017; 93306; 94640; 99218; 99285; A9500; Q9957; A4216; C8929; G0378; J2785

== ENCOUNTER 2020-11-03 04:27 | Observation (INO) | payer OTHER, MEDICARE, SELFPAY ==
[2017-03-25 11:36] VITALS: BMI 51.2
[2019-03-10 11:13] VITALS: BMI 54.8
[2020-11-03] VITALS (12 sets, daily range): BP systolic 93–130; BP diastolic 52–74; PULSE 68–93; RESP 16–20; TEMP 35.7–36.9; O2SAT 96–98; BMI 54.2; BMI 44.6
--- NOTE | 2020-11-03 04:43 | RAD_ITS ---
STUDY: X-RAY CHEST REASON FOR EXAM: Male, 65 years old. chest pain TECHNIQUE: Single AP portable view of the chest. COMPARISON: March 10, 2019. FINDINGS: No focal infiltrates or effusions. No pneumothorax. Normal size heart. Normal mediastinum and ryley. Normal visualized pulmonary arteries. Normal visualized aortic arch and descending thoracic aorta. Normal visualized thoracic spine. Normal visualized ribs, clavicles, and shoulders. There is no demonstrated abnormality of the visualized soft tissue structures of the upper abdomen. RAD/Chest 1 View (Portable) IMPRESSION: No acute cardiopulmonary disease. Electronically Signed: Kvng Payne MD at 5:28 EDT , Service support ,
--- NOTE | 2020-11-03 04:43 | EKG12_ITS ---
Test Reason : ADMISSION Blood Pressure : / mmHG Vent. Rate : 068 BPM Atrial Rate : 068 BPM P-R Int : 132 ms QRS Dur : 090 ms QT Int : 414 ms P-R-T Axes : 004 -55 059 degrees QTc Int : 440 ms Normal sinus rhythm Left anterior fascicular block Abnormal ECG When compared with ECG of 03-NOV-2020 04:30, MANUAL COMPARISON REQUIRED, DATA IS UNCONFIRMED Confirmed by JUSTINE NAGEL, TODD ([id number]), science editor PETTY OLIVARES ([id number]) on 11/04/2020 10:48:00 A M Referred By: HOSP Confirmed By:KHUSHBU FLETCHER MD
--- NOTE | 2020-11-03 04:49 | ED.RN ---
04:26 CALLED FOR EKG
[2020-11-03 04:50] LABS: Absolute Lymphocyte Count 2.21 X10^3/uL (0.83-4.51); Absolute Neutrophil Count 7.4 X10^3/uL (2.0-7.7); Basophil# 0.06 X10^3/uL; Basophil% 0.6 % (0-1); Eosinophil# 0.06 X10^3/uL; Eosinophils% 0.6 % (0-5); Hematocrit 45.9 % (40-54); Hemoglobin 15.8 g/dL (13.0-16.5); Lymphocyte # 2.21 X10^3/ul (0.83-4.51); Lymphocyte % 20.7 % (19-41); Mean Corp Hgb Conc 34.4 g/dL (32-36); Mean Corpuscular Hgb 31.7 pg (27.0-32.0); Mean Platelet Vol. 9.7 fl (6.2-12.0); Monocyte# 0.85 X10^3/uL; NRBC Flagged by Analyzer 0 % (0-5); Neutrophil % 69.3 % (47-70); Platelet Count 299 K/mm3 (150-450); RBC Distribution Width CV 12.3 % (11.6-14.6); RBC Distribution Width SD 41.5 fl (35.1-43.9); Red Blood Count 4.99 M/mm3 (4.6-6.2); White Blood Count 10.7 K/mm3 (4.4-11.0)
--- NOTE | 2020-11-03 04:51 | EDS_ITS ---
HPI History of Present Illness Chief Complaint: Chest Pain Informant: patient Onset/Context/Timing Onset: Today Narrative Narrative: Patient is a 65-year-old male presenting with chest discomfort. He states he woke up to urinate and noticed he had discomfort in the center of his chest rating to his left shoulder. He describes it more as a pressure. He states it feels like the last time he had chest pain and he needed to get stents in his heart. This was back does in 2017. 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 He came to the emergency room for further evaluation. He denies any associated shortness of breath or difficulty breathing. Denies any abdominal pain. He does have some associated nausea. Denies any swelling of his legs. He thinks his last stress test was during his last hospitalization which was in January 2019. Prior Similar Symptoms: Yes and With Prior [facility] Medical History (Updated 11/03/20 @ 07:[address] Mary Ann España, DO) Atrial fibrillation Chest pain COPD (chronic obstructive pulmonary disease) COPD (chronic obstructive pulmonary disease) CPAP (continuous positive airway pressure) dependence Diabetes Diabetes GERD (gastroesophageal reflux disease) Hypertension Irregular heart beat Myocardial infarct Sleep apnea Smoker Smoker Stroke/cerebrovascular accident Home Medications Lantus U-100 Insulin 82 unit SUBCUT QHS 12/15/14 [History Last Taken 03/09/19] levothyroxine 100 mcg PO DAILY 12/15/14 [History Last Taken 12/22/14] simvastatin [Zocor] 80 mg PO QHS 12/15/14 [History Last Taken 12/21/14] Isosorbide Dinitrate 20 mg PO DAILY 11/24/16 [History Last Taken Unknown] nitroglycerin [Nitrostat] 0.4 mg SUBLINGUAL PRN PRN 11/24/16 [History Last Taken Unknown] pantoprazole 20 mg PO BID #60 tab 11/26/16 [Rx Last Taken 03/09/19] Refresh Classic (PF) 2 drp EACHEYE DAILY PRN PRN 03/24/17 [History Last Taken ] aspirin 81 mg PO DAILY@0800 tab 03/26/17 [Rx Last Taken Unknown] clopidogrel 75 mg PO DAILY #14 tab 03/26/17 [Rx Last Taken Unknown] magnesium oxide 400 mg PO DAILYCM #14 tab 03/26/17 [Rx Last Taken 03/09/19] insulin aspart U-100 [Novolog Flexpen U-100 Insulin] 20 units SUBCUT TIDAC 06/24/17 [History Last Taken 03/09/19] metformin 1,000 mg PO BID 06/24/17 [History Last Taken Unknown] acetaminophen 650 mg PO Q6H 03/10/19 [History Last Taken 03/09/19] sotalol 80 mg PO BID 03/11/19 [History Last Taken Unknown] Allergy/AdvReac Type Severity Reaction Status Date / Time bee venom protein (honey bee) Allergy Anaphylaxis Verified 11/03/20 04:33 Surgical History (Updated 11/03/20 @ 07:00 by María Johnson) History of appendectomy History of cholecystectomy History of coronary artery stent placement History of coronary artery stent placement Social History Smoking Status: Current some day smoker tobacco type: cigarettes ROS ROS ED Constitutional Constitutional ED: Denies chills or fever(s) Cardiovascular Cardiovascular: Reports chest pain; Denies palpitations Respiratory/Chest Respiratory/Chest: Denies cough, dyspnea or dyspnea on exertion Gastrointestinal Gastrointestinal: Reports nausea; Denies abdominal pain, diarrhea or vomiting Genitourinary Genitourinary ED: Denies dysuria or hematuria Musculoskeletal Musculoskeletal: Denies arthralgias or myalgias Integumentary Denies rash Neurologic Neurologic: Denies headache(s) Psychiatric Psychiatric: Denies depression EXAM Physical Exam Const Vital Signs: 11/03/20 04:28 11/03/20 04:31 11/03/20 05:11 Temperature 96.3 F L Temperature Source Temporal Pulse Rate 93 Respiratory Rate 20 H Respiratory Effort Normal Blood Pressure Blood Pressure Mean Pulse Ox 98 Oxygen Delivery Method Room Air Room Air 11/03/20 05:13 11/03/20 05:18 11/03/20 06:07 Temperature 97.8 F Temperature Source Temporal Pulse Rate 74 70 Respiratory Rate 18 Respiratory Effort Blood Pressure 125/66 H 93/65 100/69 Blood Pressure Mean 74 79 Pulse Ox 97 Oxygen Delivery Method Positive well nourished, well developed and obese General Appearance ED: well developed Nutritional Appearance: obese HEENT normocephalic and atraumatic Eyes PERRL and EOMs intact bilaterally Neck supple and no JVD Chest Wall inspection of chest normal and palpation of chest normal Resp normal respiratory effort Effort and Inspection: respiratory distress Cardio regular rate, regular rhythm and no murmurs GI normal to inspection, nondistended, normoactive bowel sounds Extremity normal to inspection General Extremety ED: Negative for edema or tenderness General Extremity: Negative for edema Neuro oriented x3 Sensorium / Orientation: awake and alert Motor Exam: Negative for general weakness Psych mental status grossly normal Skin no rashes or lesions noted Heart Score History: Moderately Suspicious ECG: Normal Age: >/= 65 years Risk Factors: >/= 3 Risk Factors or History of CAD Score: 5 MDM MDM MDM Narrative Medical decision making narrative: Patient evaluated for chest pain rating to his left shoulder. Feels like his prior NSTEMI. EKG does not show any acute ischemic changes. He is given nitro trial for his pain. His heart score is 5 before his troponin has resulted. Patient will likely require admission for further cardiac monitoring. Patient is also given aspirin in the emergency room. No improvement of his chest pain with nitroglycerin. He will be admitted for further cardiac evaluation given his story and heart score. Lab Data Labs: Laboratory Results - last 24 hr 11/03/20 11/03/20 11/03/20 04:30 04:30 04:30 WBC 10.7 RBC 4.99 Hgb 15.8 Hct 45.9 MCV 92.0 MCH 31.7 MCHC 34.4 RDW Std Deviation 41.5 RDW Coeff of Rasheeda 12.3 Plt Count 299 MPV 9.7 Immature Gran % (Auto) 0.800 Neut % (Auto) 69.3 Lymph % (Auto) 20.7 Thurston % (Auto) 8.0 Eos % (Auto) 0.6 Baso % (Auto) 0.6 Absolute Neuts (auto) 7.4 Absolute Lymphs (auto) 2.21 Nucleated RBC % 0 Sodium 130 L Potassium 4.1 Chloride 96 L Carbon Dioxide 23.0 Anion Gap 11 BUN 9 Creatinine 0.80 Estim Creat Clear Calc 71.09 Est GFR (MDRD) Af Amer 124 Est GFR (MDRD) Non-Af 103 BUN/Creatinine Ratio 11.2 Glucose 369 H Calcium 9.0 Magnesium 1.7 Troponin I < 0.015 B-Natriuretic Peptide 34.4 Triglycerides Cholesterol LDL Cholesterol VLDL Cholesterol HDL Cholesterol 11/03/20 04:30 WBC RBC Hgb Hct MCV MCH MCHC RDW Std Deviation RDW Coeff of Rasheeda Plt Count MPV Immature Gran % (Auto) Neut % (Auto) Lymph % (Auto) Thurston % (Auto) Eos % (Auto) Baso % (Auto) Absolute Neuts (auto) Absolute Lymphs (auto) Nucleated RBC % Sodium Potassium Chloride Carbon Dioxide Anion Gap BUN Creatinine Estim Creat Clear Calc Est GFR (MDRD) Af Amer Est GFR (MDRD) Non-Af BUN/Creatinine Ratio Glucose Calcium Magnesium Troponin I B-Natriuretic Peptide Triglycerides 233 H Cholesterol 145 LDL Cholesterol 67 VLDL Cholesterol 47 H HDL Cholesterol 31 L Radiography Diagnostic Testing: Radiology Impression Chest X-Ray 11/03/20 04:43 IMPRESSION: No acute cardiopulmonary disease. Electronically Signed: Kvng Payne MD at 5:28 EDT , Service support , Rhythm Strip Rhythm Strip: Sinus Rhythm Rate: 92 Ectopy: None EKG Initial EKG: Attestation: I personally reviewed and interpreted this EKG as follows: Interpretation: Sinus Rhythm Comments: Normal sinus rhythm at a rate of 92 Normal intervals Left axis deviation Left anterior fascicular block T wave inversion in 1 and aVL No change prior to prior EKG on 03/11/2019 Discharge Plan Dx/Rx/DC Orders Clinical Impression: Chest pain, CAD (coronary artery disease) Disposition Disposition: Acute Care Hospital [facility] Discharge Date/Time: 11/03/20 06:38
[2020-11-03 05:03] LABS: Anion Gap 11 (5-15); BUN 9 mg/dL (7-18); BUN/Creat Ratio 11.2 RATIO (10-20); Chloride 96 mmol/L (98-107); EST Glomerular Filtration Rate 103 mL/min (>60); Est Glom Filt Rate - Afr Amer 124 mL/min (>60); Estimated Creatinine Clearance 71.09 ml/min; Glucose 369 mg/dL (74-106); Magnesium 1.7 mg/dL (1.6-2.6); Potassium 4.1 mmol/L (3.5-5.1); Sodium Level 130 mmol/L (136-145)
[2020-11-03 05:09] LABS: BNP,B-Type NATRIURETIC PEPTIDE 34.4 pg/mL (0-100)
[2020-11-03] MEDS: Nitroglycerin SL (ED/IMG/CATH) 0.4 MG TABLET SL (05:13)
--- NOTE | 2020-11-03 05:13 | ED.RN ---
CALLED [facility] TO ADVISE THE NEED TO ADMIT THIS PT, SPOKE TO KAELA IN BED CONTROL. SHE ADVISED TO ADMIT TO OUR [facility] AND THEY WILL FOLLOW UP IN THE AM
[2020-11-03] MEDS: Aspirin 81 MG TAB.CHEW 324 MG PO (05:16)
--- NOTE | 2020-11-03 06:21 | HP.PCM.HOS_ITS ---
[facility] - General General Date of Admission: 11/03/20 HPI Narrative BALA ARMAS, is a 65 M with a significant history of CAD status post stent who presents to the emergency department with chest pain. His chest pain is located under his left breast and it radiates to his shoulders and the fingers of his left hand. He chest pain started about an hour before presentation. He described chest pain as a sharp. Intensity is 5 out of 10. His chest pain is persistent. Previously he has had intermittent chest pain but this time around his chest pain is constant. He denies any alleviating or aggravating factors to the chest pain. He was given 1 tablet of nitroglycerin at the emergency department that did not help his chest pain. Associated with symptoms is nausea without vomiting. Further he has shortness of breath. He denies diaphoresis. [facility] Medical History (Updated 11/03/20 @ 07:00 by María Johnson) Atrial fibrillation Chest pain COPD (chronic obstructive pulmonary disease) COPD (chronic obstructive pulmonary disease) CPAP (continuous positive airway pressure) dependence Diabetes Diabetes GERD (gastroesophageal reflux disease) Hypertension Irregular heart beat Myocardial infarct Sleep apnea Smoker Smoker Stroke/cerebrovascular accident Home Medications Lantus U-100 Insulin 82 unit SUBCUT QHS 12/15/14 [History Last Taken 03/09/19] levothyroxine 100 mcg PO DAILY 12/15/14 [History Last Taken 12/22/14] simvastatin [Zocor] 80 mg PO QHS 12/15/14 [History Last Taken 12/21/14] Isosorbide Dinitrate 20 mg PO DAILY 11/24/16 [History Last Taken Unknown] nitroglycerin [Nitrostat] 0.4 mg SUBLINGUAL PRN PRN 11/24/16 [History Last Taken Unknown] pantoprazole 20 mg PO BID #60 tab 11/26/16 [Rx Last Taken 03/09/19] Refresh Classic (PF) 2 drp EACHEYE DAILY PRN PRN 03/24/17 [History Last Taken 03/09/19] aspirin 81 mg PO DAILY@0800 tab 03/26/17 [Rx Last Taken Unknown] clopidogrel 75 mg PO DAILY #14 tab 03/26/17 [Rx Last Taken Unknown] magnesium oxide 400 mg PO DAILYCM #14 tab 03/26/17 [Rx Last Taken 03/09/19] insulin aspart U-100 [Novolog Flexpen U-100 Insulin] 20 units SUBCUT TIDAC 06/24/17 [History Last Taken 03/09/19] metformin 1,000 mg PO BID 06/24/17 [History Last Taken Unknown] acetaminophen 650 mg PO Q6H 03/10/19 [History Last Taken 03/09/19] sotalol 80 mg PO BID 03/11/19 [History Last Taken Unknown] Allergy/AdvReac Type Severity Reaction Status Date / Time bee venom protein (honey bee) Allergy Anaphylaxis Verified 11/03/20 04:33 Surgical History (Updated 11/03/20 @ 07:00 by María Johnson) History of appendectomy History of cholecystectomy History of coronary artery stent placement History of coronary artery stent placement Social History Smoking Status: Current some day smoker tobacco type: cigarettes ROS ROS Narrative 12 point review of system is negative except as stated in HPI. Vital Signs Vital Signs Vital Signs: 11/03/20 04:28 11/03/20 04:31 11/03/20 05:11 Temperature 96.3 F L Temperature Source Temporal Pulse Rate 93 Respiratory Rate 20 H Respiratory Effort Normal Blood Pressure Blood Pressure Mean Pulse Ox 98 Oxygen Delivery Method Room Air Room Air 11/03/20 05:13 11/03/20 05:18 11/03/20 06:07 Temperature 97.8 F Temperature Source Temporal Pulse Rate 74 70 Respiratory Rate 18 Respiratory Effort Blood Pressure 125/66 H 93/65 100/69 Blood Pressure Mean 74 79 Pulse Ox 97 Oxygen Delivery Method Weight Weight: 134.6 kg Body Mass Index (BMI) 54.2 Physical Exam Narrative Physical exam: General: Well-nourished, well-developed, no acute distress Head: Normocephalic, atraumatic, no tenderness Eyes: PERRLA, EOMI ENT, no trauma, moist mucous membranes, no rhinorrhea Neck: Nontender, full range of motion, no spinal tenderness, deformities, step- off CVS: Regular rate and rhythm Respiratory no acute distress, clear to auscultation bilaterally, chest wall no ntender, no wheezing Abdomen: Soft, nontender, nondistended, normal bowel sounds, no masses : Deferred Back: Nontender, no CVA tenderness, no midline spinal tenderness, deformities, step-offs Extremities: Nontender full range of motion, no trauma Skin: Normal color, no trauma, abrasions Neuro: Alert, oriented, cranial nerves II through XII grossly intact. Results Lab / Micro Data Result Diagrams: 11/03/20 04:30 11/03/20 04:30 Labs: Laboratory Results - last 24 hr 11/03/20 11/03/20 11/03/20 04:30 04:30 04:30 WBC 10.7 RBC 4.99 Hgb 15.8 Hct 45.9 MCV 92.0 MCH 31.7 MCHC 34.4 RDW Std Deviation 41.5 RDW Coeff of Rasheeda 12.3 Plt Count 299 MPV 9.7 Immature Gran % (Auto) 0.800 Neut % (Auto) 69.3 Lymph % (Auto) 20.7 [place] % (Auto) 8.0 Eos % (Auto) 0.6 Baso % (Auto) 0.6 Absolute Neuts (auto) 7.4 Absolute Lymphs (auto) 2.21 Nucleated RBC % 0 Sodium 130 L Potassium 4.1 Chloride 96 L Carbon Dioxide 23.0 Anion Gap 11 BUN 9 Creatinine 0.80 Estim Creat Clear Calc 71.09 Est GFR (MDRD) Af Amer 124 Est GFR (MDRD) Non-Af 103 BUN/Creatinine Ratio 11.2 Glucose 369 H Calcium 9.0 Magnesium 1.7 Troponin I < 0.015 B-Natriuretic Peptide 34.4 Rhythm Strip Rhythm Strip: Sinus Rhythm Rate: 92 Ectopy: None Radiology Impression Chest X-Ray 11/03/20 04:43 IMPRESSION: No acute cardiopulmonary disease. Electronically Signed: Kvng Payne MD at 5:28 EDT , Service support , Assessment & Plan Assessment/Plan (1) Chest pain: QUALIFIERS: Chest pain type: unspecified Qualified Code(s): R07.9 - Chest pain, unspecified (2) Hypertension: QUALIFIERS: Hypertension type: essential hypertension Qualified Code(s): I10 - Essential (primary) hypertension (3) Uncontrolled type 2 diabetes mellitus: QUALIFIERS: Glycemic state: with hyperglycemia Qualified Code(s): E11.65 - Type 2 diabetes mellitus with hyperglycemia (4) Hypothyroidism: QUALIFIERS: Hypothyroidism type: unspecified Qualified Code(s): E03.9 - Hypothyroidism, unspecified (5) Morbid obesity with body mass index of 50.0-59.9 in adult: PLAN: Place on a monitored bed at [] Impression of chest x-ray by radiologist: No acute cardiopulmonary disease. Actual CXR image was independently visualized. No acute cardiopulmonary process was noted. Actual EKG tracing was independently visualized. EKG tracing showed sinus rhythm with no T wave or ST abnormalities. Received full dose aspirin at the emergency department. ASA 81 mg p.o. daily ordered Imdur continued Statin continued Morphine as needed for pain ordered We will check lipid panel. Home plavix and aspirin continued. Initial cardiac enzymes was negative Serial cardiac enzymes ordered Stat EKG as needed for chest pain Chemical Stress test in the AM if the cardiac enzymes are negative. Reports knee pain unable to walk on treadmill Diabetes mellitus Patient with hyperglycemia on presentation Basal insulin continued. Hold Metformin. Accu-Chek QA [facility] with correction scale insulin ordered. Hypertension Blood pressure is stable in regard to his age Home blood pressure medication continued. Trend blood pressure and adjust blood pressure medications. Arrhythmia Sotalol continued DVT prophylaxis Subcutaneous Lovenox ordered. Charges/Coding Visit Charges OBSV E&M: 78196 Initial observation care L3
--- NOTE | 2020-11-03 06:45 | EKG12_ITS ---
Test Reason : CP Blood Pressure : / mmHG Vent. Rate : 092 BPM Atrial Rate : 092 BPM P-R Int : 144 ms QRS Dur : 084 ms QT Int : 388 ms P-R-T Axes : 038 -57 066 degrees QTc Int : 479 ms Normal sinus rhythm Left anterior fascicular block Abnormal ECG Confirmed by JUSTINE NAGEL, TODD ([id number]), technical writer and editor PETTY OLIVARES ([id number]) on 11/07/2020 11:04:59 A M Referred By: DANA Confirmed By:KHUSHBU FLETCHER MD
[2020-11-03 07:11] LABS: Cholesterol 145 mg/dL (200); High Density Lipoprotein 31 mg/dL; Triglycerides 233 mg/dL; Very Low Density Lipoprotein 47 mg/dL (5-40)
[2020-11-03] MEDS: Isosorbide DN 20 MG Tablet PO (12:23)
[2020-11-03] MEDS: Sotalol Hydrochloride 80 MG Tablet PO (12:24)
[2020-11-03] MEDS: Levothyroxine 100 MCG Tablet PO (12:24)
[2020-11-03] MEDS: Clopidogrel Bisulfate 75 MG Tablet PO (12:24)
[2020-11-03] MEDS: Insulin Lispro 100 UNIT/ML INSULN.PEN 20 UNIT SC (12:28)
[2020-11-03] MEDS: Magnesium Chloride 64 MG Delay Rel.Tablet 128 MG PO (12:28)
[2020-11-03] MEDS: Insulin Lispro 100 UNIT/ML INSULN.PEN SC (12:29)
[2020-11-03 12:35] LABS: Bedside Glucose 368 mg/dL (70-110)
--- NOTE | 2020-11-03 12:48 | STRESSREP_ITS ---
Stress Test Report Date: 11/03/2020 Procedure: Pharmacologic stress nuclear imaging study Indications: Chest pain Consent: Per the patient Procedure: The patient underwent pharmacologic (Regadenoson) evaluation with a peak heart rate of 111 beats per minute (71%predicted maximal heart rate) and a peak blood pressure of 132/62 mmHg. The baseline ECG demonstrated normal sinus rhythm. EKG during lexiscan infusion revealed no significant ischemic changes. EKG post infusion revealed no significant ischemic changes [There were no cardiac dysrhythmias pretest, during pharmacologic infusion, or recovery]. [There was no complaint of chest discomfort during pharmacologic infusion or recovery]. The examination was discontinued secondary to completion of protocol. Impression: 1. Lexiscan stress test test is negative for Lexiscan infusion induced EKG changes of ischemia. 2. Lexiscan stress test test is negative for Lexiscan infusion induced chest pain. 3. Results of the nuclear portion of the test is as below Myocardial perfusion imaging study: Technique: The patient was injected with 15 millicuries of technetium 99m Cardiolite and subsequently rest SPECT Cardiolite nuclear imaging was obtained in the horizontal long, vertical long, and short axis views. The patient underwent pharmacologic evaluation. Please see above for details. The patient was injected with 45 millicuries of technetium 99m Cardiolite and subsequently stress SPECT Cardiolite nuclear imaging was obtained in the horizontal long, vertical long, and short axis views. A gated Cardiolite study at peak stress was obtained. Interpretation: Rest and stress SPECT Cardiolite nuclear imaging status post realignment, normalization, and attenuation correction demonstrate mild fixed apical defect after attenuation correction. There are no significant reversible defect suggestive of large areas of ischemia. Gated images reveal no significant regional wall motion abnormalities. The reported LVEF is 62%. Impression: 1. There is no evidence of significant ischemia or infarction. 2. Estimated ejection fraction is 62%. This note was generated with [employer] software. It may contain incorrect words, spelling, and punctuation that were not noted in checking the note before signing.
--- NOTE | 2020-11-03 14:03 | PCM.DC.SUM ---
Providers Date of Admission: 11/03/20 Primary Care Physician: [facility] Reason For Visit: CHEST PAIN Diagnosis Discharge Diagnosis (1) Chest pain: Status: Acute Code(s): R07.9 - Chest pain, unspecified Qualifiers: Chest pain type: unspecified Qualified Code(s): R07.9 - Chest pain, unspecified (2) Hypertension: Status: Chronic Code(s): I10 - Essential (primary) hypertension Qualifiers: Hypertension type: essential hypertension Qualified Code(s): I10 - Essential (primary) hypertension (3) Uncontrolled type 2 diabetes mellitus: Status: Chronic Code(s): E11.65 - Type 2 diabetes mellitus with hyperglycemia Qualifiers: Glycemic state: with hyperglycemia Qualified Code(s): E11.65 - Type 2 diabetes mellitus with hyperglycemia (4) Hypothyroidism: Status: Chronic Code(s): E03.9 - Hypothyroidism, unspecified Qualifiers: Hypothyroidism type: unspecified Qualified Code(s): E03.9 - Hypothyroidism, unspecified (5) Morbid obesity with body mass index of 50.0-59.9 in adult: Status: Chronic Code(s): E66.01 - Morbid (severe) obesity due to excess calories; Z68.43 - Body mass index [BMI] 50.0-59.9, adult Medications at Discharge Home Medications Lantus U-100 Insulin 82 unit SUBCUT QHS 12/15/14 levothyroxine 100 mcg PO DAILY 12/15/14 simvastatin [Zocor] 80 mg PO QHS 12/15/14 Isosorbide Dinitrate 20 mg PO DAILY 11/24/16 nitroglycerin [Nitrostat] 0.4 mg SUBLINGUAL PRN PRN 11/24/16 Refresh Classic (PF) 2 drp EACHEYE DAILY PRN PRN 03/24/17 aspirin 81 mg PO DAILY@0800 tab 03/26/17 clopidogrel 75 mg PO DAILY #14 tab 03/26/17 magnesium oxide 400 mg PO DAILYCM #14 tab 03/26/17 insulin aspart U-100 [Novolog Flexpen U-100 Insulin] 20 units SUBCUT TIDAC 06/24/17 metformin 1,000 mg PO BID 06/24/17 acetaminophen 1,300 mg PO QHS 03/10/19 sotalol 80 mg PO BID 03/11/19 pantoprazole 20 mg PO BID 11/03/20 Hospital Course Summary of Care Provided Hospital Course: Patient is a 65-year-old gentleman with past medical history is again for hypertension, hypothyroidism, diabetes mellitus type 2, dyslipidemia who presented with chest pain. Patient was placed on a monitored bed MA was ruled out with serial cardiac enzymes. Patient underwent a nuclear stress test which is negative for stress-induced ischemia subsequently discharged home to follow-up with his primary care physician for subsequent care. Physical Exam Narrative GENERAL: cooperative HEENT: Atraumatic; EYES; Anicteric, Normal Conjunctiva NECK; supple, normal thyroid, RESPIRATORY: Diminished to auscultation CARDIOVASCULAR: Regular S1 S2, GI: soft, normoactive bowel sounds, SKIN: No Rash PSYCH; Flat affect Weight / BMI Weight Weight: 133.1 kg Body Mass Index (BMI) 44.6 ABG / Lab / Microbiology Data Result Diagrams: 11/03/20 04:30 11/03/20 04:30 Laboratory: Laboratory Results - last 24 hr 11/03/20 11/03/20 11/03/20 04:30 04:30 04:30 WBC 10.7 RBC 4.99 Hgb 15.8 Hct 45.9 MCV 92.0 MCH 31.7 MCHC 34.4 RDW Std Deviation 41.5 RDW Coeff of Rasheeda 12.3 Plt Count 299 MPV 9.7 Immature Gran % (Auto) 0.800 Neut % (Auto) 69.3 Lymph % (Auto) 20.7 [place] % (Auto) 8.0 Eos % (Auto) 0.6 Baso % (Auto) 0.6 Absolute Neuts (auto) 7.4 Absolute Lymphs (auto) 2.21 Nucleated RBC % 0 Sodium 130 L Potassium 4.1 Chloride 96 L Carbon Dioxide 23.0 Anion Gap 11 BUN 9 Creatinine 0.80 Estim Creat Clear Calc 71.09 Est GFR (MDRD) Af Amer 124 Est GFR (MDRD) Non-Af 103 BUN/Creatinine Ratio 11.2 Glucose 369 H Calcium 9.0 Magnesium 1.7 Troponin I < 0.015 B-Natriuretic Peptide 34.4 Triglycerides Cholesterol LDL Cholesterol VLDL Cholesterol HDL Cholesterol POC Glucose 11/03/20 11/03/20 11/03/20 04:30 07:44 10:20 WBC RBC Hgb Hct MCV MCH MCHC RDW Std Deviation RDW Coeff of Rasheeda Plt Count MPV Immature Gran % (Auto) Neut % (Auto) Lymph % (Auto) [place] % (Auto) Eos % (Auto) Baso % (Auto) Absolute Neuts (auto) Absolute Lymphs (auto) Nucleated RBC % Sodium Potassium Chloride Carbon Dioxide Anion Gap BUN Creatinine Estim Creat Clear Calc Est GFR (MDRD) Af Amer Est GFR (MDRD) Non-Af BUN/Creatinine Ratio Glucose Calcium Magnesium Troponin I < 0.015 < 0.015 B-Natriuretic Peptide Triglycerides 233 H Cholesterol 145 LDL Cholesterol 67 VLDL Cholesterol 47 H HDL Cholesterol 31 L POC Glucose 11/03/20 12:22 WBC RBC Hgb Hct MCV MCH MCHC RDW Std Deviation RDW Coeff of Rasheeda Plt Count MPV Immature Gran % (Auto) Neut % (Auto) Lymph % (Auto) [place] % (Auto) Eos % (Auto) Baso % (Auto) Absolute Neuts (auto) Absolute Lymphs (auto) Nucleated RBC % Sodium Potassium Chloride Carbon Dioxide Anion Gap BUN Creatinine Estim Creat Clear Calc Est GFR (MDRD) Af Amer Est GFR (MDRD) Non-Af BUN/Creatinine Ratio Glucose Calcium Magnesium Troponin I B-Natriuretic Peptide Triglycerides Cholesterol LDL Cholesterol VLDL Cholesterol HDL Cholesterol POC Glucose 368 H Radiography Diagnostic Testing: Radiology Impression Chest X-Ray 11/03/20 04:43 IMPRESSION: No acute cardiopulmonary disease. Electronically Signed: Kvng Payne MD at 5:28 EDT , Service support , D/C Instructions Discharge Diet: 1800 Calorie Control Diet Discharge Activity: Return to Normal Activity Call your doctor if you observe: Fever of 101 or Higher, Shortness of breath, Fainting spells and Chest pain Meaningful Use Info Meaningful Use Diagnoses (Choose all that apply): None applicable Discharge Plan Admission Admit Date/Time: 11/03/20 06:21 Primary Reason for Your Visit: CHEST PAIN Attending Provider: Francisco Marshall Primary Care Provider: [facility] Instructions Patient Instructions: ED Chest Pain, Noncardiac Discharge Orders/Prescriptions Prescriptions: Continued Lantus U-100 Insulin 100 UNIT/ML solution 82 unit subcut QHS RF: 0 simvastatin [Zocor] 80 MG tablet 80 mg PO QHS RF: 0 levothyroxine 100 MCG tablet 100 mcg PO DAILY RF: 0 nitroglycerin [Nitrostat] 0.4 MG tablet, sublingual 0.4 mg sublingual PRN PRN (Reason: CHEST PAIN) RF: 0 Isosorbide Dinitrate 20 MG tablet 20 mg PO DAILY RF: 0 Refresh Classic (PF) 1 EACH dropperette 2 drp EACHEYE DAILY PRN PRN (Reason: dry eyes) RF: 0 clopidogrel 75 MG tablet 75 mg PO DAILY Qty: 14 RF: 0 aspirin 81 MG tablet 81 mg PO DAILY@0800 RF: 0 magnesium oxide 400 MG tablet 400 mg PO DAILYCM Qty: 14 RF: 0 insulin aspart U-100 [Novolog Flexpen U-100 Insulin] 100 UNITS/ML insulin pen 20 units subcut TIDAC RF: 0 metformin 1,000 MG tablet 1,000 mg PO BID RF: 0 acetaminophen 325 MG capsule 1,300 mg PO QHS RF: 0 sotalol 80 MG tablet 80 mg PO BID RF: 0 pantoprazole 20 MG tablet,delayed release (DR/EC) 20 mg PO BID RF: 0 [facility]errals [facility] [Primary [facility] Provider[facility] - Disposition Disposition (needs filled in before D/C Order can be placed): Home, self care Charges/Coding Visit Charges OBSV E&M: 43237 Observation care discharge
== END 2020-11-03 14:07 | disposition home or self-care (01) ==
LOC: ED 06:13 → PCU 06:22
PROVIDERS: Admitting Provider Hospitalist; Emergency Provider Emergency Medicine; Visit Provider Internal Medicine
DX: R07.89 Other chest pain (principal); I25.2 Old myocardial infarction; I48.91 Unspecified atrial fibrillation; J44.9 Chronic obstructive pulmonary disease, unspecified; F17.210 Nicotine dependence, cigarettes, uncomplicated; K21.9 Gastro-esophageal reflux disease without esophagitis; I10 Essential (primary) hypertension; G47.30 Sleep apnea, unspecified; E11.65 Type 2 diabetes mellitus with hyperglycemia; E78.5 Hyperlipidemia, unspecified; I25.10 Atherosclerotic heart disease of native coronary artery without angina pectoris; E03.9 Hypothyroidism, unspecified; E66.01 Morbid (severe) obesity due to excess calories; Z79.899 Other long term (current) drug therapy; Z79.4 Long term (current) use of insulin; Z79.02 Long term (current) use of antithrombotics/antiplatelets; Z79.82 Long term (current) use of aspirin; Z95.5 Presence of coronary angioplasty implant and graft; Z68.41 Body mass index [BMI] 40.0-44.9, adult; I44.4 Left anterior fascicular block; R06.02 Shortness of breath
CPT/HCPCS: 36415; 71045; 78452; 80048; 80061; 82962; 83735; 83880; 84484; 85025; 93005; 93017; 99218; 99285; A9500; A4216; G0378; J2785

== ENCOUNTER 2022-10-10 10:39 | Emergency (ER) | payer OTHER, SELFPAY ==
[2017-03-25 11:36] VITALS: BMI 51.2
[2022-10-10 10:40] VITALS: BP 161/77; PULSE 97; RESP 22; TEMP 36.6; O2SAT 98; BMI 47.4
--- NOTE | 2022-10-10 10:57 | EKG12_ITS ---
Test Reason : SOB Blood Pressure : / mmHG Vent. Rate : 091 BPM Atrial Rate : 091 BPM P-R Int : 146 ms QRS Dur : 090 ms QT Int : 364 ms P-R-T Axes : 019 -38 112 degrees QTc Int : 447 ms Normal sinus rhythm Left axis deviation Low voltage QRS Nonspecific T wave abnormality Abnormal ECG Confirmed by ANTOINE NAGEL, JOSH ([id number]), department editor PETTY OLIVARES ([id number]) on 10/11/2022 9:06:45 AM Referred By: Confirmed By:JOSH SCHULTZ MD
--- NOTE | 2022-10-10 10:59 | ED.VIS.DYS ---
HPI History of Present Illness Chief Complaint: Shortness of Breath Informant: patient Onset/Context/Timing Onset: Days (2) Timing: Intermittent Quality: Positive for Orthopnea Current Severity: Mild Maximum Severity: Moderate Worsened by: Lying flat Relieved by: - (sitting up) Associated Symptoms Chest Pain: Positive for None Narrative Narrative: Patient states he has been short of breath for the last 2 days mostly when he lies down at nighttime. When he sits up it is better. He has tried his albuterol inhaler for his COPD, it has not really helped anything. He denies any significant leg swelling although he has it, he has not noticed it. He does not have a history of congestive heart failure but he does have stents in his heart and a history of A-fib he does not feel it when he goes into it, he states he is no longer anticoagulated for reasons that are unknown right now. Denies having any chest pain. No known history of lung cancer. No history of DVT or symptoms of 1. No recent immobilization or hospitalization/travel. [facility] Medical History Atrial fibrillation Chest pain COPD (chronic obstructive pulmonary disease) COPD (chronic obstructive pulmonary disease) CPAP (continuous positive airway pressure) dependence Diabetes Diabetes GERD (gastroesophageal reflux disease) Hypertension Irregular heart beat Myocardial infarct Sleep apnea Smoker Smoker Stroke/cerebrovascular accident Home Medications insulin glargine 100 unit/mL subcutaneous solution (Lantus U-100 Insulin) 82 unit subcut QHS DIABETES 12/15/14 [History Last Taken 03/09/19] levothyroxine 100 mcg tablet 100 mcg PO DAILY SYNTHYROID 12/15/14 [History Last Taken 12/22/14] simvastatin 80 mg tablet (Zocor) 80 mg PO QHS CHOLESTEROL 12/15/14 [History Last Taken 12/21/14] Isosorbide Dinitrate 20 mg PO DAILY chest pain 11/24/16 [History Last Taken Unknown] nitroglycerin 0.4 mg sublingual tablet (Nitrostat) 0.4 mg sublingual PRN PRN CHEST PAIN 11/24/16 [History Last Taken Unknown] polyvinyl alcohol-povidone (PF) 1.4 %-0.6 % eye drops in a dropperette (Refresh Classic (PF)) 2 drp EACHEYE DAILY PRN PRN dry eyes 03/24/17 [History Last Taken 03/09/19] aspirin 81 mg tablet,delayed release 81 mg PO DAILY@0800 03/26/17 [Rx Last Taken Unknown] clopidogrel 75 mg tablet 75 mg PO DAILY #14 tabs 03/26/17 [Rx Last Taken Unknown] magnesium oxide 400 mg (241.3 mg magnesium) tablet 400 mg PO DAILYCM #14 tabs 03/26/17 [Rx Last Taken 03/09/19] insulin aspart U-100 100 unit/mL (3 mL) subcutaneous pen (Novolog FlexPen U-100 Insulin aspart) 20 units subcut TIDAC DIABETES 06/24/17 [History Last Taken 03/09/19] metformin 1,000 mg tablet 1,000 mg PO BID BLOOD SUGAR 06/24/17 [History Last Taken Unknown] acetaminophen 325 mg capsule 1,300 mg PO QHS pain 03/10/19 [History Last Taken 03/09/19] sotalol 80 mg tablet 80 mg PO BID blood pressure 03/11/19 [History Last Taken Unknown] pantoprazole 20 mg tablet,delayed release 20 mg PO BID reflux 11/03/20 [History Last Taken Unknown] Allergy/AdvReac Type Severity Reaction Status Date / Time bee venom protein (honey bee) Allergy Anaphylaxis Verified 10/10/22 10:40 Surgical History History of appendectomy History of cholecystectomy History of coronary artery stent placement History of coronary artery stent placement Social History Smoking Status: Former smoker ROS ROS ED Constitutional Constitutional ED: Denies chills or fever(s) Eyes Eyes: Denies change in vision or diplopia ENT ENT ED: Denies rhinorrhea or sore throat Cardiovascular Cardiovascular: Reports orthopnea; Denies chest pain, leg edema or palpitations Respiratory/Chest Respiratory/Chest: Reports cough, dyspnea and orthopnea Gastrointestinal Gastrointestinal: Denies abdominal pain, diarrhea, nausea or vomiting Genitourinary Genitourinary ED: Denies dysuria or hematuria Musculoskeletal Musculoskeletal: Denies back pain or neck pain Integumentary Denies abscess or rash Neurologic Neurologic: Denies headache(s), paresthesias or weakness Psychiatric Psychiatric: Denies anxiety or suicidal thoughts EXAM Physical Exam Const Vital Signs: 10/10/22 10:40 10/10/22 10:56 10/10/22 12:44 Temperature 98 F Temperature Source Temporal Pulse Rate 97 Respiratory Rate 22 H Respiratory Effort Short of Breath Respiratory Depth Normal Respiratory Pattern Normal Blood Pressure 161/77 H 134/79 H Blood Pressure Mean 105 97 Pulse Ox 98 Oxygen Delivery Method Room Air Room Air 10/10/22 12:58 Temperature Temperature Source Pulse Rate 78 Respiratory Rate 24 H Respiratory Effort Respiratory Depth Respiratory Pattern Tachypnea Blood Pressure Blood Pressure Mean Pulse Ox Oxygen Delivery Method Positive well nourished, well developed and obese General Appearance ED: well developed and NAD Nutritional Appearance: obese HEENT Reports moist mucous membranes normocephalic and atraumatic Eyes PERRL and EOMs intact bilaterally Neck full ROM, no lymphadenopathy and supple Resp normal respiratory effort and clear to auscultation bilaterally Cardio regular rate, regular rhythm and no murmurs Rate: Negative for tachycardic GI non-tender and non-distended Auscultation: normoactive bowel sounds Palpation: soft Back/Spine no CVA tenderness General Back: other FROM Extremity normal to inspection General Extremety ED: Yes edema; Negative for pulses abnormal or tenderness General Extremity: edema bilateral lower extremity Details: mild (symmetric, no signs of chronic stasis dermatitis); Negative for pulses abnormal Neuro oriented x3, CN's II-XII intact bilaterally and no sensory deficits noted Sensorium / Orientation: awake and alert Motor Exam: strength 5/5 throughout Skin no rashes or lesions noted and no wounds MDM MDM MDM Narrative Medical decision making narrative: Obtain 2 view chest x-ray, no CHF or pneumonia on my interpretation. Radiology in agreement. Labs are noted, his BNP is a little elevated compared to normal but still not very high. His last echocardiogram showed a normal EF, stage II diastolic dysfunction. I asked him if he is on a diuretic since it is not on his list, he states he has furosemide at home to use as needed, he has not been using it for any reason. He has edema in his legs. The rest of his cardiac work-up is negative. I give him a duo nebulizer treatment because he said he was still little short of breath even while sitting, he said it helped. I asked him if maybe this felt like he could be a COPD he says maybe. He states he is not going to be able to fill a prescription because he does not have any money. Therefore the plan since he is not hypoxic and doing well, is to discharge him home after an injection of Kenalog 40 mg IM and advised him to take his furosemide once daily for the next 3 to 4 days, use his albuterol rescue inhaler as needed, and follow-up with his doctor as an outpatient. He is comfortable with that plan. He is not really having an increased cough lately so I do not think he has an upper or lower respiratory tract infection nor do I think he needs to be put on antibiotics right now. History & Record Review Additional record(s) reviewed:: Prior outpatient record (Echocardiogram) Lab Data Attestation: I reviewed the patient's lab results. Labs: Laboratory Results - last 24 hr 10/10/22 10/10/22 10/10/22 11:11 11:11 11:11 WBC 9.9 RBC 4.12 L Hgb 12.7 L Hct 39.3 L MCV 95.4 H MCH 30.8 MCHC 32.3 RDW Std Deviation 44.1 H RDW Coeff of Rasheeda 12.6 Plt Count 304 MPV 9.3 Immature Gran % (Auto) 0.400 Neut % (Auto) 72.2 H Lymph % (Auto) 16.7 [place] % (Auto) 9.1 Eos % (Auto) 1.3 Baso % (Auto) 0.3 Absolute Neuts (auto) 7.1 Absolute Lymphs (auto) 1.65 Nucleated RBC % 0 Sodium 141 Potassium 4.1 Chloride 107 Carbon Dioxide 28.0 Anion Gap 6 BUN 8 Creatinine 0.61 L Estim Creat Clear Calc 69.35 Est GFR (MDRD) Af Amer 171 Est GFR (MDRD) Non-Af 141 BUN/Creatinine Ratio 13.2 Glucose 104 Calcium 9.1 Troponin I High Sens 19 B-Natriuretic Peptide 260.1 H Radiography Diagnostic Testing: Clinical Impression(s) from Imaging Studies Chest X-Ray 10/10/22 11:25 IMPRESSION: Chronic interstitial changes, no superimposed acute pulmonary process Electronically Signed: Marin Rossi MD at 11:46 EDT , Rhythm Strip Rhythm Strip: Sinus Rhythm Rate: 98 Ectopy: None EKG Initial EKG: Attestation: I personally reviewed and interpreted this EKG as follows: Interpretation: Sinus Rhythm, No Acute Injury Pattern and LAFB Prior EKG tracings: available for review Prior: Unchanged Discharge Plan Triage Chief Complaint: Shortness of Breath ED Provider: Sam Perez Dx/Rx/DC Orders Clinical Impression: Acute exacerbation of chronic obstructive pulmonary disease (COPD), Bilateral edema of lower extremity, Diastolic CHF, chronic Instructions: Asthma and COPD Prescriptions: No Action Lantus U-100 Insulin 100 UNIT/ML solution 82 unit subcut QHS Label Comments: LONG ACTING INSULIN simvastatin [Zocor] 80 MG tablet 80 mg PO QHS Label Comments: Cholesterol lowering levothyroxine 100 MCG tablet 100 mcg PO DAILY Label Comments: THYROID nitroglycerin [Nitrostat] 0.4 MG tablet, sublingual 0.4 mg sublingual PRN PRN (Reason: CHEST PAIN) Label Comments: Chest pain Isosorbide Dinitrate 20 MG tablet 20 mg PO DAILY Label Comments: Blood pressure Refresh Classic (PF) 1 EACH dropperette 2 drp EACHEYE DAILY PRN PRN (Reason: dry eyes) Label Comments: Dry eyes clopidogrel 75 MG tablet 75 mg PO DAILY Qty: 14 0RF Label Comments: Blood thinner, keeps stent open aspirin 81 MG tablet 81 mg PO DAILY@0800 0RF Label Comments: Blood thinner, keeps stent open magnesium oxide 400 MG tablet 400 mg PO DAILYCM Qty: 14 0RF Label Comments: Supplement insulin aspart U-100 [Novolog FlexPen U-100 Insulin] 100 UNITS/ML insulin pen 20 units subcut TIDAC Label Comments: Short acting insulin metformin 1,000 MG tablet 1,000 mg PO BID acetaminophen 325 MG capsule 1,300 mg PO QHS sotalol 80 MG tablet 80 mg PO BID Label Comments: Anti-arrhythmic (keeps heart beating regular) pantoprazole 20 MG tablet,delayed release (DR/EC) 20 mg PO BID Label Comments: GERD/reflux [facility] Care Provider: [facility] Referrals[facility] [Primary [facility] Provider] - 3-5 Days if not improving Activity Restrictions/Additional Instructions: Take your furosemide 1 tablet daily in the morning for the next 4 days or so. Try not to increase your fluid intake in the meantime. You were given an injection of steroid that should last about a week and hopefully help your breathing if it is related to your COPD, you can continue using your rescue inhaler as needed and your other maintenance inhalers as prescribed as usual. If your breathing gets worse despite all of this, you can always return to the ER for reevaluation. Disposition Disposition: Home, Self Care
[2022-10-10 11:18] LABS: Absolute Lymphocyte Count 1.65 X10^3/uL (0.83-4.51); Absolute Neutrophil Count 7.1 X10^3/uL (2.0-7.7); Basophil# 0.03 X10^3/uL; Basophil% 0.3 % (0-1); Eosinophil# 0.13 X10^3/uL; Eosinophils% 1.3 % (0-5); Hematocrit 39.3 % (40-54); Hemoglobin 12.7 g/dL (13.0-16.5); Lymphocyte # 1.65 X10^3/ul (0.83-4.51); Lymphocyte % 16.7 % (19-41); Mean Corp Hgb Conc 32.3 g/dL (32-36); Mean Corpuscular Hgb 30.8 pg (27.0-32.0); Mean Corpuscular Volume 95.4 fL (80-94); Mean Platelet Vol. 9.3 fl (6.2-12.0); Monocyte% 9.1 % (0-10); NRBC Flagged by Analyzer 0 % (0-5); Neutrophil # 7.13 X10^3/uL (2.7-7.7); Neutrophil % 72.2 % (47-70); Platelet Count 304 K/mm3 (150-450); RBC Distribution Width CV 12.6 % (11.6-14.6); RBC Distribution Width SD 44.1 fl (35.1-43.9); Red Blood Count 4.12 M/mm3 (4.6-6.2); White Blood Count 9.9 K/mm3 (4.4-11.0)
--- NOTE | 2022-10-10 11:25 | RAD_ITS ---
STUDY: X-RAY CHEST REASON FOR EXAM: Male, 67 years old. Chest pain/pressure TECHNIQUE: PA and lateral views of the chest. COMPARISON: 11/03/2020 FINDINGS: EKG leads overlie the chest Chronic interstitial changes again noted in both lung wolf without a superimposed acute pulmonary process. There is no demonstrated pleural abnormality. Normal size heart. Normal mediastinum and ryley. Normal visualized pulmonary arteries. Normal visualized aortic arch and descending thoracic aorta. Normal visualized thoracic spine. Normal visualized ribs, clavicles, and shoulders. There is no demonstrated abnormality of the visualized soft tissue structures of the upper abdomen. RAD/Chest PA and Lateral IMPRESSION: Chronic interstitial changes, no superimposed acute pulmonary process Electronically Signed: Marin Rossi MD at 11:46 EDT ,
[2022-10-10 11:35] LABS: BNP,B-Type NATRIURETIC PEPTIDE 260.1 pg/mL (0-100)
[2022-10-10 11:39] LABS: Anion Gap 6 (5-15); BUN 8 mg/dL (7-18); BUN/Creat Ratio 13.2 RATIO (10-20); Calcium,Total 9.1 mg/dL (8.5-10.1); Chloride 107 mmol/L (98-107); Creatinine, Serum 0.61 mg/dL (0.70-1.30); EST Glomerular Filtration Rate 141 mL/min (>60); Est Glom Filt Rate - Afr Amer 171 mL/min (>60); Estimated Creatinine Clearance 69.35 ml/min; Glucose 104 mg/dL (74-106); Potassium 4.1 mmol/L (3.5-5.1); Sodium Level 141 mmol/L (136-145); Troponin-I HS 19 pg/mL (3.0-78.0)
[2022-10-10 12:44] VITALS: BP 134/79
[2022-10-10] MEDS: Ipratropium/Albuterol Sulfate 3 ML AMPUL.NEB INHALATION (12:57)
[2022-10-10 12:58] VITALS: PULSE 78; RESP 24
[2022-10-10] MEDS: Triamcinolone Acetonide 40 MG/ML Vial IM (13:52)
[2022-10-10 14:15] VITALS: O2SAT 97
== END 2022-10-10 14:16 | disposition home or self-care (01) ==
PROVIDERS: Emergency Provider Emergency Medicine; Visit Provider Emergency Medicine
DX: J44.1 Chronic obstructive pulmonary disease with (acute) exacerbation (principal); I50.33 Acute on chronic diastolic (congestive) heart failure; I11.0 Hypertensive heart disease with heart failure; I48.91 Unspecified atrial fibrillation; E11.9 Type 2 diabetes mellitus without complications; Z79.4 Long term (current) use of insulin; Z87.891 Personal history of nicotine dependence; R60.0 Localized edema; I25.2 Old myocardial infarction; Z86.73 Personal history of transient ischemic attack (TIA), and cerebral infarction without residual deficits; Z99.89 Dependence on other enabling machines and devices; Z79.82 Long term (current) use of aspirin; Z79.899 Other long term (current) drug therapy; Z79.02 Long term (current) use of antithrombotics/antiplatelets; Z79.84 Long term (current) use of oral hypoglycemic drugs; K21.9 Gastro-esophageal reflux disease without esophagitis; Z95.5 Presence of coronary angioplasty implant and graft; Z90.49 Acquired absence of other specified parts of digestive tract
CPT/HCPCS: 71046; 80048; 83880; 84484; 85025; 93005; 94640; 96372; 99284; A4216

== ENCOUNTER 2023-01-24 08:27 | Emergency (ER) | payer OTHER, SELFPAY ==
[2017-03-25 11:36] VITALS: BMI 51.2
[2023-01-24 08:28] VITALS: BP 113/80; PULSE 95; RESP 14; TEMP 36.4; O2SAT 96; BMI 48.7
--- NOTE | 2023-01-24 08:58 | CT_ITS ---
STUDY: CT ABDOMEN AND PELVIS WITH CONTRAST REASON FOR EXAM: Male, 67 years old. Hematuria. Left lower quadrant pain. RADIATION DOSAGE (If Supplied By Facility): CTDIvol = ( 17.07 ) mGy, DLP = ( 1315.82 ) mGycm TECHNIQUE: Transaxial images were obtained from the dome of the diaphragm to the symphysis pubis without oral contrast. IV 100mL Isovue-300 was administered. Sagittal and coronal images were reconstructed. Individualized dose optimization techniques were used for this CT. COMPARISON: None. FINDINGS: The visualized lung bases are unremarkable. Coronary artery calcification. Minimal anterior pericardial thickening. There is decreased attenuation of the liver consistent with steatosis. There are surgical clips in the gallbladder fossa consistent with a prior cholecystectomy. Normal spleen. Normal pancreas. Normal bilateral adrenal glands. Normal right kidney. There is a 3.5 cm x 3.7 cm cyst in the anterior lateral aspect of the left kidney. Normal visualized stomach. Normal small intestine. Normal colon. The appendix is visualized and appears normal. There is scattered atherosclerotic calcification of the abdominal aorta, without a demonstrated aneurysm. Normal inferior vena cava. Normal retroperitoneum. Normal urinary bladder. There are prostatic calcifications. There is a left-sided inguinal hernia containing adipose tissue. Small umbilical hernia containing fat. Normal osseous structures. CT/Abdomen/Pelvis W IV Cont ONLY IMPRESSION: Fatty infiltration of the liver. Status post cholecystectomy. Left renal cyst. Electronically Signed: Raymond Frias MD at 10:31 EDT ,
--- NOTE | 2023-01-24 09:00 | EX.ED.DYSGE1 ---
HPI History of Present Illness Chief Complaint: Complaint Informant: patient Narrative Narrative: Awakening overnight lower abdominal pain afterwards has 3 bright red blood bowel movements. Colonoscopy 16 years ago. He is on aspirin there history of coronary disease. Hypertension diabetes hyperlipidemia. 2 coronary stents 5 to 6 years ago. Denies history of diverticulitis. Denies urinary symptoms. No history of similar. Prior similar symptoms: No PFSH PFSH Medical History Atrial fibrillation Chest pain COPD (chronic obstructive pulmonary disease) COPD (chronic obstructive pulmonary disease) CPAP (continuous positive airway pressure) dependence Diabetes Diabetes GERD (gastroesophageal reflux disease) Hypertension Irregular heart beat Myocardial infarct Sleep apnea Smoker Smoker Stroke/cerebrovascular accident Home Medications insulin glargine 100 unit/mL subcutaneous solution (Lantus U-100 Insulin) 82 unit subcut QHS DIABETES 12/15/14 [History Last Taken 03/09/19] levothyroxine 100 mcg tablet 100 mcg PO DAILY SYNTHYROID 12/15/14 [History Last Taken 12/22/14] simvastatin 80 mg tablet (Zocor) 80 mg PO QHS CHOLESTEROL 12/15/14 [History Last Taken 12/21/14] Isosorbide Dinitrate 20 mg PO DAILY chest pain 11/24/16 [History Last Taken Unknown] nitroglycerin 0.4 mg sublingual tablet (Nitrostat) 0.4 mg sublingual PRN PRN CHEST PAIN 11/24/16 [History Last Taken Unknown] polyvinyl alcohol-povidone (PF) 1.4 %-0.6 % eye drops in a dropperette (Refresh Classic (PF)) 2 drp EACHEYE DAILY PRN PRN dry eyes 03/24/17 [History Last Taken 03/09/19] aspirin 81 mg tablet,delayed release 81 mg PO DAILY@0800 03/26/17 [Rx Last Taken Unknown] clopidogrel 75 mg tablet 75 mg PO DAILY #14 tabs 03/26/17 [Rx Last Taken Unknown] magnesium oxide 400 mg (241.3 mg magnesium) tablet 400 mg PO DAILYCM #14 tabs 03/26/17 [Rx Last Taken 03/09/19] insulin aspart U-100 100 unit/mL (3 mL) subcutaneous pen (Novolog FlexPen U-100 Insulin aspart) 20 units subcut TIDAC DIABETES 06/24/17 [History Last Taken 03/09/19] metformin 1,000 mg tablet 1,000 mg PO BID BLOOD SUGAR 06/24/17 [History Last Taken Unknown] acetaminophen 325 mg capsule 1,300 mg PO QHS pain 03/10/19 [History Last Taken 03/09/19] sotalol 80 mg tablet 80 mg PO BID blood pressure 03/11/19 [History Last Taken Unknown] pantoprazole 20 mg tablet,delayed release 20 mg PO BID reflux 11/03/20 [History Last Taken Unknown] amoxicillin 875 mg-potassium clavulanate 125 mg tablet 875 mg (0.875 x 875-125 mg) PO Q12H #20 TABLETS 01/24/23 [Rx Last Taken Unknown] oxycodone-acetaminophen 5 mg-325 mg tablet (Percocet) 1 tab PO Q6H pain 3 days #12 tabs 01/24/23 [Rx Last Taken Unknown] Allergy/AdvReac Type Severity Reaction Status Date / Time bee venom protein (honey bee) Allergy Anaphylaxis Verified 01/24/23 08:28 Surgical History History of appendectomy History of cholecystectomy History of coronary artery stent placement History of coronary artery stent placement Social History Smoking Status: Former smoker ROS ROS ED Constitutional Constitutional ED: Denies chills, fever(s) or sweats Eyes Eyes: Denies change in vision ENT ENT ED: Denies dysphagia or sore throat Cardiovascular Cardiovascular: Denies chest pain, leg edema, palpitations or racing heartbeat Respiratory/Chest Respiratory/Chest: Denies cough, dyspnea or dyspnea on exertion Gastrointestinal Gastrointestinal: Reports abdominal pain and diarrhea; Denies nausea or vomiting Genitourinary Genitourinary ED: Denies dysuria, hematuria or urinary frequency Musculoskeletal Musculoskeletal: Denies back pain, extremity pain or neck pain Integumentary Denies rash or wounds Neurologic Neurologic: Denies headache(s), paresthesias or weakness EXAM Physical Exam Const Vital Signs: 01/24/23 08:28 01/24/23 11:29 Temperature 97.6 F L Temperature Source Temporal Pulse Rate 95 74 Respiratory Rate 14 16 Blood Pressure 113/80 167/84 H Blood Pressure Mean 91 Pulse Ox 96 99 Oxygen Delivery Method Room Air Positive well nourished and well developed Constitutional Narrative: BMI 48 General Appearance ED: well developed and NAD HEENT Reports moist mucous membranes normocephalic and atraumatic Eyes PERRL, EOMs intact bilaterally and conjunctivae normal General Eye ED: Yes normal appearance of both eyes Neck no lymphadenopathy and supple General: Negative for tenderness Chest Wall Chest: Negative for tenderness Resp normal respiratory effort and normal air movement Effort and Inspection: symmetric chest movement; Negative for respiratory distress Cardio regular rate, regular rhythm and no murmurs Peripheral Pulses: pulses 2+ throughout GI normal to inspection, nondistended, normoactive bowel sounds GI Narrative: Mild tenderness lower quadrants, no guarding or rebound Palpation: Negative for guarding or rebound tenderness present Back/Spine no CVA tenderness and no thoracic nor lumbar tenderness Extremity normal to inspection General Extremety ED: Negative for edema or tenderness General Extremity: Negative for edema Neuro oriented x3 and no sensory deficits noted Sensorium / Orientation: awake and alert Skin no rashes or lesions noted and no wounds MDM MDM MDM Narrative Medical decision making narrative: Interventions / MDM: Differential diagnosis: Diverticulitis, rectal bleed, electrolyte abnormalities Diagnosis considered but do not suspect: N/A My EKG interpretation: N/A Imaging independently reviewed and interpreted by myself: CT abdomen pelvis: No diverticulitis, fat inguinal hernia. Is also read by radiology. External documents reviewed: N/A Test considered but not ordered:N/A ED course: Patient nontoxic vital stable. Lower abdominal pain, labs were drawn CT scan. Treated morphine Zofran. Labs stable white count 14.9. CT scan with fat inguinal hernia no acute process. Pain much more improved on exam, he had lower abdominal pain, discussed treatment for clinical diverticulitis. He is only on baby aspirin. No rectal bleeding on reevaluation. He started on Augmentin. Glucose is elevated at 371. Gap was normal. He did not take his morning insulin. Takes he typically takes 22 units before he eats. This time will give 10 units. He will check his glucose before lunchtime and take with his sliding scale regimen. He is given follow-up with GI as an outpatient. [facility] Return precaution discussed. Re-evaluation: stable Disposition discussed with patient/family/significant other: Patient Case discussed with consulting clinician: N/A This note was generated with [employer] software. It may contain incorrect words, spelling, and punctuation that were not noted in checking the note before signing. Lab Data Attestation: I reviewed the patient's lab results. Labs: Laboratory Results - last 24 hr 01/24/23 09:15 WBC 8.6 RBC 4.79 Hgb 14.9 Hct 44.8 MCV 93.5 MCH 31.1 MCHC 33.3 RDW Std Deviation 43.8 RDW Coeff of Rasheeda 12.7 Plt Count 310 MPV 9.9 Immature Gran % (Auto) 0.600 Neut % (Auto) 66.4 Lymph % (Auto) 22.0 [place] % (Auto) 9.9 Eos % (Auto) 0.6 Baso % (Auto) 0.5 Absolute Neuts (auto) 5.7 Absolute Lymphs (auto) 1.90 Nucleated RBC % 0 PT 13.0 INR 1.0 APTT 24.5 Sodium 133 L Potassium 4.0 Chloride 97 L Carbon Dioxide 28.0 Anion Gap 8 BUN 11 Creatinine 0.94 Estim Creat Clear Calc 73.78 Est GFR (MDRD) Af Amer 103 Est GFR (MDRD) Non-Af 85 BUN/Creatinine Ratio 11.7 Glucose 371 H Calcium 8.7 Radiography Diagnostic Testing: Clinical Impression(s) from Imaging Studies Abdomen/Pelvis CT 01/24/23 08:58 IMPRESSION: Fatty infiltration of the liver. Status post cholecystectomy. Left renal cyst. Electronically Signed: Raymond Frias MD at 10:31 EDT , Discharge Plan Triage Chief Complaint: Complaint ED Provider: Teddy Hagen Dx/Rx/DC Orders Clinical Impression: Hyperglycemia due to diabetes mellitus, Diverticulitis, Rectal bleed Instructions: Diverticulitis Dc, ED Lower GI Bleeding (Stable) Prescriptions: New oxycodone-acetaminophen [Percocet] 5-325 mg tablet 1 tab PO Q6H 3 Days Qty: 12 0RF amoxicillin-pot clavulanate [amoxicillin-pot clavulanate] 875-125 mg tablet 875 mg PO Q12H Qty: 20 0RF No Action Lantus U-100 Insulin 100 UNIT/ML solution 82 unit subcut QHS Patient Comments: LONG ACTING INSULIN simvastatin [Zocor] 80 MG tablet 80 mg PO QHS Patient Comments: Cholesterol lowering levothyroxine 100 MCG tablet 100 mcg PO DAILY Patient Comments: THYROID nitroglycerin [Nitrostat] 0.4 MG tablet, sublingual 0.4 mg sublingual PRN PRN (Reason: CHEST PAIN) Patient Comments: Chest pain Isosorbide Dinitrate 20 MG tablet 20 mg PO DAILY Patient Comments: Blood pressure Refresh Classic (PF) 1 EACH dropperette 2 drp EACHEYE DAILY PRN PRN (Reason: dry eyes) Patient Comments: Dry eyes clopidogrel 75 MG tablet 75 mg PO DAILY Qty: 14 0RF Patient Comments: Blood thinner, keeps stent open aspirin 81 MG tablet 81 mg PO DAILY@0800 0RF Patient Comments: Blood thinner, keeps stent open magnesium oxide 400 MG tablet 400 mg PO DAILYCM Qty: 14 0RF Patient Comments: Supplement insulin aspart U-100 [Novolog FlexPen U-100 Insulin] 100 UNITS/ML insulin pen 20 units subcut TIDAC Patient Comments: Short acting insulin metformin 1,000 MG tablet 1,000 mg PO BID acetaminophen 325 MG capsule 1,300 mg PO QHS sotalol 80 MG tablet 80 mg PO BID Patient Comments: Anti-arrhythmic (keeps heart beating regular) pantoprazole 20 MG tablet,delayed release (DR/EC) 20 mg PO BID Patient Comments: GERD/reflux Primary Care Provider: [facility] Referrals: Kamari Mathews DO [Med Staff - Active Staff] - 1-2 Weeks [facility] [Primary Care Provider] - Activity Restrictions/Additional Instructions: Your CT scan was negative. Your hemoglobin 13.6. You are being treated for clinical diverticulitis. Take and finish your antibiotic. Take pain medicines as needed. Monitor symptoms. Glucose also elevated, you are given 10 units of insulin, monitor glucose and continue her home regimen. May follow-up with [place] GI team or Dr. Mathews if able as an outpatient for further evaluation. Return if any worsening. Disposition Disposition: Home, Self Care Discharge Date/Time: 01/24/23 11:29
[2023-01-24] MEDS: Morphine 4 MG/ML Syringe IV (09:23)
[2023-01-24] MEDS: Ondansetron 4 MG/2 ML Vial IV (09:23)
[2023-01-24] MEDS: 0.9% Normal Saline 1,000 ML 1000 ML IV (09:23)
[2023-01-24 09:31] LABS: Absolute Neutrophil Count 5.7 X10^3/uL (2.0-7.7); Basophil# 0.04 X10^3/uL; Basophil% 0.5 % (0-1); Eosinophil# 0.05 X10^3/uL; Eosinophils% 0.6 % (0-5); Hematocrit 44.8 % (40-54); Hemoglobin 14.9 g/dL (13.0-16.5); Mean Corp Hgb Conc 33.3 g/dL (32-36); Mean Corpuscular Hgb 31.1 pg (27.0-32.0); Mean Corpuscular Volume 93.5 fL (80-94); Mean Platelet Vol. 9.9 fl (6.2-12.0); Monocyte# 0.85 X10^3/uL; Monocyte% 9.9 % (0-10); NRBC Flagged by Analyzer 0 % (0-5); Neutrophil # 5.73 X10^3/uL (2.7-7.7); Neutrophil % 66.4 % (47-70); Platelet Count 310 K/mm3 (150-450); RBC Distribution Width CV 12.7 % (11.6-14.6); RBC Distribution Width SD 43.8 fl (35.1-43.9); Red Blood Count 4.79 M/mm3 (4.6-6.2); White Blood Count 8.6 K/mm3 (4.4-11.0)
[2023-01-24 09:39] LABS: Partial Thromboplast Time 24.5 Seconds (24.1-36.2)
[2023-01-24 09:46] LABS: Anion Gap 8 (5-15); BUN 11 mg/dL (7-18); BUN/Creat Ratio 11.7 RATIO (10-20); Calcium,Total 8.7 mg/dL (8.5-10.1); Chloride 97 mmol/L (98-107); Creatinine, Serum 0.94 mg/dL (0.70-1.30); EST Glomerular Filtration Rate 85 mL/min (>60); Est Glom Filt Rate - Afr Amer 103 mL/min (>60); Estimated Creatinine Clearance 73.78 ml/min; Glucose 371 mg/dL (74-106); Sodium Level 133 mmol/L (136-145)
[2023-01-24] MEDS: Amox/Clavulanate 875 MG Tablet PO (11:21)
[2023-01-24] MEDS: Insulin Lispro 100 UNIT/ML INSULN.PEN 10 UNIT SC (11:21)
[2023-01-24 11:29] VITALS: BP 167/84; PULSE 74; RESP 16; O2SAT 99
== END 2023-01-24 11:29 | disposition home or self-care (01) ==
PROVIDERS: Emergency Provider Emergency Medicine; Visit Provider Emergency Medicine
DX: E11.65 Type 2 diabetes mellitus with hyperglycemia (principal); K57.92 Diverticulitis of intestine, part unspecified, without perforation or abscess without bleeding; K62.5 Hemorrhage of anus and rectum; I25.10 Atherosclerotic heart disease of native coronary artery without angina pectoris; G47.30 Sleep apnea, unspecified; Z95.5 Presence of coronary angioplasty implant and graft; Z87.891 Personal history of nicotine dependence
CPT/HCPCS: 74177; 80048; 85025; 85610; 85730; 96361; 96374; 96375; 99283; J7030; Q9967; A4216; J2405

== ENCOUNTER 2023-09-28 14:20 | Inpatient (IN) | payer OTHER, SELFPAY ==
[2017-03-25 11:36] VITALS: BMI 51.2
[2023-09-28] VITALS (11 sets, daily range): BP systolic 98–139; BP diastolic 70–102; PULSE 103–130; RESP 16–30; TEMP 36.2–36.8; O2SAT 94–97; BMI 52.3; BMI 52.7
--- NOTE | 2023-09-28 14:34 | RAD_ITS ---
STUDY: X-RAY CHEST REASON FOR EXAM: Male, 68 years old. Shortness of breath TECHNIQUE: Frontal and lateral views of the chest. COMPARISON: None. FINDINGS: The lungs are clear and hyper expanded. There are small pleural effusions. Normal size heart. Normal mediastinum and ryley. Normal visualized pulmonary arteries. Normal visualized aortic arch and descending thoracic aorta. Normal visualized thoracic spine. Normal visualized ribs, clavicles, and shoulders. There is no demonstrated abnormality of the visualized soft tissue structures of the upper abdomen. RAD/Chest PA and Lateral IMPRESSION: Small pleural effusions. Electronically Signed: Sam Osuna MD at 15:52 EDT ,
--- NOTE | 2023-09-28 14:35 | EDS_ITS ---
HPI <ELIEL Mack - Last Filed: 09/28/23 18:05> History of Present Illness Chief Complaint: Shortness of Breath Narrative Narrative: Patient presenting today due to shortness of breath that he has had over the past week. He reports that it is worse with exertion, he has also woke up in the middle of the night feeling short of breath after laying on his side. Reports that he has also had low back pain over the past several days. He does have a history of COPD, CAD with stent placement, hypertension, hyperlipidemia, T2DM, and atrial fibrillation. He reports that he is not on a blood thinner at this time. He has not taken his Lasix in several days as he has been out of it. He denies any history of blood clots or recent surgery/procedures/travel/immobilization. He denies any fevers, chills, chest pain, nausea, and vomiting. PFSH <ELIEL Mack - Last Filed: 09/28/23 18:05> [facility] Medical History Atrial fibrillation Chest pain COPD (chronic obstructive pulmonary disease) COPD (chronic obstructive pulmonary disease) CPAP (continuous positive airway pressure) dependence Diabetes Diabetes GERD (gastroesophageal reflux disease) Hypertension Irregular heart beat Myocardial infarct Sleep apnea Smoker Smoker Stroke/cerebrovascular accident Home Medications insulin glargine 100 unit/mL subcutaneous solution (Lantus U-100 Insulin) 82 unit subcut QHS DIABETES 12/15/14 [History Last Taken 03/09/19] simvastatin 80 mg tablet (Zocor) 80 mg PO QHS CHOLESTEROL 12/15/14 [History Last Taken 12/21/14] nitroglycerin 0.4 mg sublingual tablet (Nitrostat) 0.4 mg sublingual PRN PRN CHEST PAIN 11/24/16 [History Last Taken Unknown] polyvinyl alcohol-povidone (PF) 1.4 %-0.6 % eye drops in a dropperette (Refresh Classic (PF)) 2 drp EACHEYE DAILY PRN PRN dry eyes 03/24/17 [History Last Taken 03/09/19] clopidogrel 75 mg tablet 75 mg PO DAILY #14 tabs 03/26/17 [Rx Last Taken Unknown] magnesium oxide 400 mg (241.3 mg magnesium) tablet 400 mg PO DAILYCM #14 tabs 03/26/17 [Rx Last Taken 03/09/19] insulin aspart U-100 100 unit/mL (3 mL) subcutaneous pen (Novolog FlexPen U-100 Insulin aspart) 20 units subcut TIDAC DIABETES 06/24/17 [History Last Taken 03/09/19] metformin 1,000 mg tablet 1,000 mg PO BID BLOOD SUGAR 06/24/17 [History Last Taken Unknown] acetaminophen 325 mg capsule 1,300 mg PO QHS pain 03/10/19 [History Last Taken 03/09/19] pantoprazole 20 mg tablet,delayed release 20 mg PO BID reflux 11/03/20 [History Last Taken Unknown] Allergy/AdvReac Type Severity Reaction Status Date / Time bee venom protein (honey bee) Allergy Anaphylaxis Verified 09/28/23 14:23 Surgical History History of appendectomy History of cholecystectomy History of coronary artery stent placement History of coronary artery stent placement Social History Smoking Status: Former smoker ROS <ELIEL Mack - Last Filed: 09/28/23 18:05> ROS ED Constitutional Constitutional ED: Denies chills or fever(s) Cardiovascular Cardiovascular: Reports paroxysmal nocturnal dyspnea; Denies chest pain or pa lpitations Respiratory/Chest Respiratory/Chest: Reports dyspnea, dyspnea on exertion and paroxysmal nocturnal dyspnea; Denies cough Gastrointestinal Gastrointestinal: Denies abdominal pain, nausea or vomiting Genitourinary Genitourinary ED: Denies dysuria, hematuria or urinary frequency Musculoskeletal Musculoskeletal: Reports back pain Integumentary Denies rash Neurologic Neurologic: Denies weakness EXAM <ELIEL Mack - Last Filed: 09/28/23 18:05> Physical Exam Const Vital Signs: 09/28/23 14:21 09/28/23 14:34 09/28/23 14:38 Temperature 97.2 F L Temperature Source Temporal Pulse Rate 130 H Respiratory Rate 20 H Respiratory Effort Short of Breath Respiratory Depth Shallow Respiratory Pattern Tachypnea Blood Pressure 139/102 H Blood Pressure Mean 114 Pulse Ox 95 97 Oxygen Delivery Method Room Air Room Air Room Air 09/28/23 15:28 09/28/23 16:14 Temperature 98.2 F Temperature Source Pulse Rate 106 H 110 H Respiratory Rate 16 21 H Respiratory Effort Respiratory Depth Respiratory Pattern Normal Blood Pressure 112/70 Blood Pressure Mean 84 Pulse Ox 94 Oxygen Delivery Method Positive well nourished, well developed and no apparent distress General Appearance ED: well developed HEENT Reports normocephalic and head/scalp atraumatic Mouth ED: Yes moist mucous membranes normal Eyes PERRL and EOMs intact bilaterally Neck full ROM and supple Chest Wall inspection of chest normal Resp normal respiratory effort and clear to auscultation bilaterally Cardio regular rate and regular rhythm GI soft to palpation, non-tender, non-distended and no masses Back/Spine normal ROM and normal to inspection Extremity normal to inspection and full ROM Extremity Narrative: Bilateral and equal lower extremity edema. Neuro oriented x3, CN's II-XII intact bilaterally, moves all extremities, no focal motor deficits and no sensory deficits noted Sensorium / Orientation: awake and alert Psych mental status grossly normal and thought process normal Skin no rashes or lesions noted and no wounds <Dr. Gorge Miranda MD - Last Filed: 09/28/23 15:00> Physical Exam Const Vital Signs: 09/28/23 14:21 09/28/23 14:34 09/28/23 14:38 Temperature 97.2 F L Temperature Source Temporal Pulse Rate 130 H Respiratory Rate 20 H Respiratory Effort Short of Breath Respiratory Depth Shallow Respiratory Pattern Tachypnea Blood Pressure 139/102 H Blood Pressure Mean 114 Pulse Ox 95 97 Oxygen Delivery Method Room Air Room Air Room Air 09/28/23 15:28 09/28/23 16:14 Temperature 98.2 F Temperature Source Pulse Rate 106 H 110 H Respiratory Rate 16 21 H Respiratory Effort Respiratory Depth Respiratory Pattern Normal Blood Pressure 112/70 Blood Pressure Mean 84 Pulse Ox 94 Oxygen Delivery Method [facility] <ELIEL Mack - Last Filed: 09/28/23 18:05> [facility] Narrative Medical decision making narrative: Patient resenting today with shortness of breath has had over the past week. He does report having paroxysmal nocturnal dyspnea occasionally. He has not been taking his Lasix or his sotalol as he has been out of it. He is tachycardic, cardiac workup will be obtained. Low Wells score, low suspicion for PE. Do feel his shortness of breath is more so due to his CHF. Chest x-ray shows small bilateral pleural effusions, he does have bilateral pitting edema, he was given a small dose of Lasix. Given he is tachycardic and in atrial fibrillation RVR, he was given Cardizem, this did improve his heart rate. He does have chronic low back pain and did request pain medication, he was given Zofran and morphine. His troponin is elevated at 209, this is elevated in comparison to previous labs. I do feel he would benefit from admission to the hospital, I spoke with the hospitalist and patient admitted in stable condition. I have personally performed a face to face assessment of the patient and have reviewed the NARENDRA Note. I performed a substantive portion of the visit including all aspects of the following. My lucero findings include: History is [68-year-old male history of A-fib and CHF has been out of his diuretic for weeks to months. Also some of his other medications. [facility] [place] as he has been having a hard time getting to see his project development coordinator because everything makes an appointment gets canceled. States he has had increased weight gain and swelling in his legs and he feels more short of breath. Denies any chest pain or fever. No hemoptysis. No history of DVT or PE.] Exam is [68-year-old male vital signs are stable he is tachycardic around 130. Pulse ox 97% on room air no signs hypoxia. H EENT exam unremarkable. Neck nontender. Lungs clear to auscultation bilaterally. Heart tachycardic. Abdomen soft nontender. Moving all 4 extremities. 2+ pitting edema both lower extremities. Calves are nontender. No cords. Equal and symmetrical. Neurologically is awake and alert no focal motor deficits.] Medical Decision Making [68-year-old male out of some of his medications where shortness of breath, leg swelling and weight gain which I think is secondary to CHF. He will undergo cardiac workup. He requested some for his chronic back pain he is to degenerative disobedience of morphine and Zofran. Cardizem IV for his tachycardia.] Other additions or changes: [None] Lab Data Attestation: I reviewed the patient's lab results. Lab results narrative: H&H 12.3 and 38.6, sodium 133, glucose 348, troponin 209 Labs: Laboratory Results - last 24 hr 09/28/23 14:46 WBC 8.3 RBC 4.14 L Hgb 12.3 L Hct 38.6 L MCV 93.2 MCH 29.7 MCHC 31.9 L RDW Std Deviation 44.1 H RDW Coeff of Rasheeda 13.0 Plt Count 283 MPV 9.9 Immature Gran % (Auto) 0.400 Neut % (Auto) 68.0 Lymph % (Auto) 20.0 Terrell % (Auto) 9.5 Eos % (Auto) 1.6 Baso % (Auto) 0.5 Absolute Neuts (auto) 5.6 Absolute Lymphs (auto) 1.66 Nucleated RBC % 0 Sodium 133 L Potassium 4.4 Chloride 99 Carbon Dioxide 27.0 Anion Gap 7 BUN 8 Creatinine 0.65 L Estim Creat Clear Calc 129.35 Est GFR (MDRD) Af Amer 157 Est GFR (MDRD) Non-Af 130 BUN/Creatinine Ratio 12.3 Glucose 348 H Calcium 8.9 Iron 29 L TIBC 438 Iron Saturation 6.6 L Ferritin 21 L Troponin I High Sens 209 H* Triglycerides 176 Cholesterol 111 LDL Cholesterol 47 VLDL Cholesterol 35 HDL Cholesterol 29 L Folate 11.00 TSH 1.48 Radiography X-Ray: Read by ED Physician Diagnostic Testing: Clinical Impression(s) from Imaging Studies Chest X-Ray 09/28/23 14:34 IMPRESSION: Small pleural effusions. Electronically Signed: Sam Osuna MD at 15:52 EDT , EKG Initial EKG: Comments: 137 bpm, atrial fibrillation with RVR, left axis deviation, no ST elevation, reviewed and interpreted by attending ED physician <Dr. Gorge Miranda MD - Last Filed: 09/28/23 15:00> [facility] Narrative Medical decision making narrative: Patient resenting today with shortness of breath has had over the past week. He does report having paroxysmal nocturnal dyspnea occasionally. He has not been taking his Lasix or his sotalol as he has been out of it. He is tachycardic, cardiac workup will be obtained. I have personally performed a face to face assessment of the patient and have reviewed the NARENDRA Note. I performed a substantive portion of the visit including all aspects of the following. My lucero findings include: History is [68-year-old male history of A-fib and CHF has been out of his diuretic for weeks to months. Also some of his other medications. [facility] [place] as he has been having a hard time getting to see his project development coordinator because everything makes an appointment gets canceled. States he has had increased weight gain and swelling in his legs and he feels more short of breath. Denies any chest pain or fever. No hemoptysis. No history of DVT or PE.] Exam is [68-year-old male vital signs are stable he is tachycardic around 130. Pulse ox 97% on room air no signs hypoxia. H EENT exam unremarkable. Neck nontender. Lungs clear to auscultation bilaterally. Heart tachycardic. Abdomen soft nontender. Moving all 4 extremities. 2+ pitting edema both lower extremities. Calves are nontender. No cords. Equal and symmetrical. Neurologically is awake and alert no focal motor deficits.] Medical Decision Making [68-year-old male out of some of his medications where shortness of breath, leg swelling and weight gain which I think is secondary to CHF. He will undergo cardiac workup. He requested some for his chronic back pain he is to degenerative disobedience of morphine and Zofran. Cardizem IV for his tachycardia.] Other additions or changes: [None] Lab Data Labs: Laboratory Results - last 24 hr 09/28/23 14:46 WBC 8.3 RBC 4.14 L Hgb 12.3 L Hct 38.6 L MCV 93.2 MCH 29.7 MCHC 31.9 L RDW Std Deviation 44.1 H RDW Coeff of Rasheeda 13.0 Plt Count 283 MPV 9.9 Immature Gran % (Auto) 0.400 Neut % (Auto) 68.0 Lymph % (Auto) 20.0 Terrell % (Auto) 9.5 Eos % (Auto) 1.6 Baso % (Auto) 0.5 Absolute Neuts (auto) 5.6 Absolute Lymphs (auto) 1.66 Nucleated RBC % 0 Sodium 133 L Potassium 4.4 Chloride 99 Carbon Dioxide 27.0 Anion Gap 7 BUN 8 Creatinine 0.65 L Estim Creat Clear Calc 129.35 Est GFR (MDRD) Af Amer 157 Est GFR (MDRD) Non-Af 130 BUN/Creatinine Ratio 12.3 Glucose 348 H Calcium 8.9 Iron 29 L TIBC 438 Iron Saturation 6.6 L Ferritin 21 L Troponin I High Sens 209 H* Triglycerides 176 Cholesterol 111 LDL Cholesterol 47 VLDL Cholesterol 35 HDL Cholesterol 29 L Folate 11.00 TSH 1.48 Radiography Diagnostic Testing: Clinical Impression(s) from Imaging Studies Chest X-Ray 09/28/23 14:34 IMPRESSION: Small pleural effusions. Electronically Signed: Sam Osuna MD at 15:52 EDT , Discharge Plan Dx/Rx/DC Orders Clinical Impression: Uncontrolled type 2 diabetes mellitus, CAD (coronary artery disease), Non-ST elevation myocardial infarction (NSTEMI), type 2, Back pain, Morbid obesity with body mass index of 50.0-59.9 in adult, Hypertension, Atrial fibrillation with RVR, CHF (congestive heart failure), Shortness of breath Disposition Disposition: Acute Care Hospital [facility] Discharge Date/Time: 09/28/23 17:18
[2023-09-28 14:52] LABS: Absolute Lymphocyte Count 1.66 X10^3/uL (0.83-4.51); Absolute Neutrophil Count 5.6 X10^3/uL (2.0-7.7); Basophil# 0.04 X10^3/uL; Basophil% 0.5 % (0-1); Eosinophil# 0.13 X10^3/uL; Eosinophils% 1.6 % (0-5); Hematocrit 38.6 % (40-54); Hemoglobin 12.3 g/dL (13.0-16.5); Lymphocyte # 1.66 X10^3/ul (0.83-4.51); Mean Corp Hgb Conc 31.9 g/dL (32-36); Mean Corpuscular Hgb 29.7 pg (27.0-32.0); Mean Corpuscular Volume 93.2 fL (80-94); Mean Platelet Vol. 9.9 fl (6.2-12.0); Monocyte# 0.79 X10^3/uL; Monocyte% 9.5 % (0-10); NRBC Flagged by Analyzer 0 % (0-5); Neutrophil # 5.64 X10^3/uL (2.7-7.7); Platelet Count 283 K/mm3 (150-450); RBC Distribution Width SD 44.1 fl (35.1-43.9); Red Blood Count 4.14 M/mm3 (4.6-6.2); White Blood Count 8.3 K/mm3 (4.4-11.0)
[2023-09-28] MEDS: Ondansetron 4 MG/2 ML Vial IV (15:14)
[2023-09-28] MEDS: Morphine 4 MG/ML Syringe IV (15:15)
[2023-09-28] MEDS: dilTIAZem 25 MG/5 ML Vial IV BOLUS (15:15)
[2023-09-28] MEDS: Ipratropium/Albuterol Sulfate 3 ML AMPUL.NEB INHALATION (15:26)
[2023-09-28 15:27] LABS: Anion Gap 7 (5-15); BUN 8 mg/dL (7-18); BUN/Creat Ratio 12.3 RATIO (10-20); Calcium,Total 8.9 mg/dL (8.5-10.1); Chloride 99 mmol/L (98-107); Creatinine, Serum 0.65 mg/dL (0.70-1.30); EST Glomerular Filtration Rate 130 mL/min (>60); Est Glom Filt Rate - Afr Amer 157 mL/min (>60); Estimated Creatinine Clearance 129.35 ml/min; Glucose 348 mg/dL (74-106); Potassium 4.4 mmol/L (3.5-5.1); Sodium Level 133 mmol/L (136-145); Troponin-I HS 209 pg/mL (3.0-78.0)
--- NOTE | 2023-09-28 15:59 | PCM.HP.STD ---
HPI - General General Date of Admission: 09/28/23 Date of Service: 09/28/23 Chief Complaint: CHF exacerbation, recurrent A-fib with RVR HPI Narrative BALA ARMAS, is a 68 M who presented to [facility] ED on 09/28/2023 with worsening volume overload and shortness of breath with exertion. Saw patient at bedside in the ED. Patient was sitting up fairly comfortably in bed, conversing normally, in no acute distress. He was breathing comfortably on room air at rest with oxygen saturations in the mid 90s. Heart rate was consistently in the 100s during our encounter, appeared to be in A-fib. Patient's history is significant for HFpEF, A-fib, CAD s/p stenting, hypertension, hyperlipidemia, poorly controlled type 2 diabetes and hypothyroidism. Was last seen in our hospital back in September 2022. Patient has seen cardiology here during hospitalizations but it does not appear he has seen them in the office. States he saw window trimmer apprentice in [place] a few years ago, was last time he saw cardiology. Has been on sotalol for his A-fib, apparently prescribed by echocardiography. Has also been on Lasix, aspirin, Plavix, statin and nitrate medications. Patient states today that he has been out of most medications for the past several weeks. Has not taken sotalol, Lasix, aspirin, Plavix or statin medications for several weeks. He apparently tried to make an appointment with his [place] window trimmer apprentice but was not able to get in there for some reason. He has noticed worsening lower extremity swelling and worsening shortness of breath with exertion over that timeframe. He denies feeling any palpitations or rapid heart rate. He lives at home alone, states he has still been able to get up into mostly around the house for himself without issue. He denies any recent episodes of chest pain. Denies any fevers or chills. No other acute concerns currently. Vitals in ED notable for initial heart rate around 130, appears to be in A-fib with RVR. Was given a dose of IV Cardizem in the ED with improvement in rate to 100s. Blood pressure was low normal. Good oxygen saturations on room air at rest. CBC with hemoglobin 12.3 (around baseline), otherwise unremarkable. BMP with sodium 133, potassium 4.4, bicarb 27, creatinine 0.65 (at baseline), glucose 348. Troponin 209, repeat 192. BNP pending. A1c 11.2%. Lipid panel with total cholesterol 111, LDL 47, HDL 29. TSH 1.48. Iron studies with low iron and iron saturation and low ferritin of 21. Chest x-ray showed small bilateral pleural effusions, mild vascular congestion. EKG showed A-fib with RVR, no ST changes noted. Will be admitted for further management. [facility] Medical History Atrial fibrillation Chest pain COPD (chronic obstructive pulmonary disease) COPD (chronic obstructive pulmonary disease) CPAP (continuous positive airway pressure) dependence Diabetes Diabetes GERD (gastroesophageal reflux disease) Hypertension Irregular heart beat Myocardial infarct Sleep apnea Smoker Smoker Stroke/cerebrovascular accident Home Medications insulin glargine 100 unit/mL subcutaneous solution (Lantus U-100 Insulin) 82 unit subcut QHS DIABETES 12/15/14 [History Last Taken 03/09/19] simvastatin 80 mg tablet (Zocor) 80 mg PO QHS CHOLESTEROL 12/15/14 [History Last Taken 12/21/14] nitroglycerin 0.4 mg sublingual tablet (Nitrostat) 0.4 mg sublingual PRN PRN CHEST PAIN 11/24/16 [History Last Taken Unknown] polyvinyl alcohol-povidone (PF) 1.4 %-0.6 % eye drops in a dropperette (Refresh Classic (PF)) 2 drp EACHEYE DAILY PRN PRN dry eyes 03/24/17 [History Last Taken 03/09/19] clopidogrel 75 mg tablet 75 mg PO DAILY #14 tabs 03/26/17 [Rx Last Taken Unknown] magnesium oxide 400 mg (241.3 mg magnesium) tablet 400 mg PO DAILYCM #14 tabs 03/26/17 [Rx Last Taken 03/09/19] insulin aspart U-100 100 unit/mL (3 mL) subcutaneous pen (Novolog FlexPen U-100 Insulin aspart) 20 units subcut TIDAC DIABETES 06/24/17 [History Last Taken 03/09/19] metformin 1,000 mg tablet 1,000 mg PO BID BLOOD SUGAR 06/24/17 [History Last Taken Unknown] acetaminophen 325 mg capsule 1,300 mg PO QHS pain 03/10/19 [History Last Taken 03/09/19] pantoprazole 20 mg tablet,delayed release 20 mg PO BID reflux 11/03/20 [History Last Taken Unknown] Allergy/AdvReac Type Severity Reaction Status Date / Time bee venom protein (honey bee) Allergy Anaphylaxis Verified 09/28/23 14:23 Surgical History History of appendectomy History of cholecystectomy History of coronary artery stent placement History of coronary artery stent placement Social History Smoking Status: Former smoker ROS Constitutional Constitutional: Denies chills, fatigue, fever(s) or weakness Cardiovascular Cardiovascular: Reports dyspnea on exertion and edema; Denies chest pain, lightheadedness, orthopnea, palpitations, rapid heart rate or syncope Respiratory/Chest Respiratory/Chest: Denies cough, shortness of breath at rest or wheezing Gastrointestinal Gastrointestinal: Denies abdominal pain, constipation or diarrhea Genitourinary Genitourinary: Denies dysuria Musculoskeletal Musculoskeletal: Denies arthralgias, back pain or myalgias Neurologic Neurologic: Denies dizziness, focal weakness or headache(s) Vital Signs Vital Signs Vital Signs: 09/28/23 14:21 09/28/23 14:34 09/28/23 14:38 Temperature 97.2 F L Temperature Source Temporal Pulse Rate 130 H Respiratory Rate 20 H Respiratory Effort Short of Breath Respiratory Depth Shallow Respiratory Pattern Tachypnea Blood Pressure 139/102 H Blood Pressure Mean 114 Pulse Ox 95 97 Oxygen Delivery Method Room Air Room Air Room Air 09/28/23 15:28 Temperature Temperature Source Pulse Rate 106 H Respiratory Rate 16 Respiratory Effort Respiratory Depth Respiratory Pattern Normal Blood Pressure Blood Pressure Mean Pulse Ox Oxygen Delivery Method Weight Weight: 156.1 kg Body Mass Index (BMI) 52.3 Physical Exam Const alert, oriented x3 and no apparent distress Constitutional Narrative: Elderly male, morbidly obese, disheveled appearing, otherwise sitting up comfortably in bed, conversing normally, in no acute distress. General Appearance: cooperative and comfortable HEENT normocephalic, head/scalp atraumatic, hearing grossly normal bilaterally and nasal mucous membranes and turbinates normal Eyes PERRL, EOMs intact bilaterally and conjunctivae normal Neck full ROM Neck Narrative: JVD difficult to appreciate given body habitus. Chest inspection of chest normal Resp normal respiratory effort and no use of accessory muscles Resp Narrative: Diminished breath sounds bilaterally throughout, likely due to body habitus. No wheezing or crackles noted. Breathing comfortably on room air at rest. Cardio no murmurs and peripheral pulses 2+ throughout Cardio Narrative: A-fib with RVR. GI normal to inspection, nondistended, normoactive bowel sounds, soft to palpation, non-tender and non-distended Back/Spine normal ROM Extremity normal to inspection and full ROM Extremity Narrative: +2-3 lower extremity pitting edema. Skin no rashes or lesions noted Neuro moves all extremities and no focal motor deficits Speech: speech normal Psych mental status grossly normal Results Lab / Micro Data 09/28/23 14:46 09/28/23 14:46 Labs: Laboratory Results - last 24 hr 09/28/23 14:46: WBC 8.3, RBC 4.14 L, Hgb 12.3 L, Hct 38.6 L, MCV 93.2, MCH 29.7, MCHC 31.9 L, RDW Std Deviation 44.1 H, RDW Coeff of Rasheeda 13.0, Plt Count 283, MPV 9.9, Immature Gran % (Auto) 0.400, Neut % (Auto) 68.0, Lymph % (Auto) 20.0, [place] % (Auto) 9.5, Eos % (Auto) 1.6, Baso % (Auto) 0.5, Absolute Neuts (auto) 5.6, Absolute Lymphs (auto) 1.66, Nucleated RBC % 0, Sodium 133 L, Potassium 4.4, Chloride 99, Carbon Dioxide 27.0, Anion Gap 7, BUN 8, Creatinine 0.65 L, Estim Creat Clear Calc 129.35, Est GFR (MDRD) Af Amer 157, Est GFR (MDRD) Non-Af 130, BUN/Creatinine Ratio 12.3, Glucose 348 H, Calcium 8.9, Troponin I High Sens 209 H* Imaging Radiology Impression Chest X-Ray 09/28/23 14:34 IMPRESSION: Small pleural effusions. Electronically Signed: Sam Osuna MD at 15:52 EDT , Assessment & Plan Assessment/Plan (1) CHF (congestive heart failure): (2) Atrial fibrillation with RVR: (3) Uncontrolled type 2 diabetes mellitus: QUALIFIERS: Glycemic state: with hyperglycemia Qualified Code(s): E11.65 - Type 2 diabetes mellitus with hyperglycemia PLAN: Plan Patient is a 68-year-old male who presented [facility] ED on 09/28/2023 with worsening lower extremity swelling and shortness of breath with exertion. 1. HFpEF exacerbation, recurrent A-fib with RVR, history of CAD with stenting, medication nonadherence ? Admit under inpatient status to PCU. Cardiology consulted. Recurrent A-fib with RVR and worsening volume overload presumed secondary to medication nonadherence since patient ran out of home medications. Reports he was previously on anticoagulation, was taken off anticoagulation when put on sotalol. Has been in A-fib since arrival to ED, will start heparin drip for now. Will start IV Lasix 40 mg twice daily, Lopressor 25 mg twice daily. Repeat echocardiogram ordered. Will continue home aspirin, hold Plavix as stenting was done back in 2016. Follow-up daily BMP and urine output. 2. Elevated troponins ? Troponin trend 209 > 192 in ED. Suspect due to demand ischemia from CHF exacerbation and recurrent A-fib with RVR as noted above. Echo ordered as above, will hold off on ordering stress test at this time. Cardiology consulted as above. 3. Poorly controlled type 2 diabetes mellitus ? A1c 11.2% on admit. Home regimen of Lantus 82 units at night, NovoLog 20 units with meals, metformin 1000 mg twice daily. Patient was able to tell me his regimen and reports compliance. Does not check his sugars regularly at home. Blood glucose 348 on admit. Will start Lantus 50 units at night, Humalog 10 units with meals plus/scale insulin for now, adjust as needed. 4. Chronic iron deficiency anemia ? Hemoglobin 12.3 on admit, baseline appears to be around 12-13. Iron studies with ferritin 21 consistent with iron deficiency anemia. Denies any dark or bloody bowel movements. No concern for active infection currently. Will give 2 doses of IV iron on mornings of 09/28 and 09/29. Recommend repeat iron studies in the next few months. Follow-up a.m. CBC. 5. Acute debility ? Lives at home alone, reports generally decent functional status. Reports being limited recently by lower extremity swelling and shortness of breath with exertion. PT/OT/case management consulted. Chronic medical conditions: ? Morbid obesity: BMI 52 on admit. Encouraged lifestyle modifications. Complicates hospital course, care and prognosis. ? Hyperlipidemia: Lipid panel on admit with total cholesterol 111, LDL 47, HDL 29. Continue home statin. ? GERD: Continue home PPI. ? ELIN: Noncompliant with home CPAP, states he cannot tolerate the CPAP mask. Supplemental nasal cannula overnight during hospitalization. DVT prophylaxis: Heparin drip CODE STATUS: DNR CCA, DNI Expected disposition: TBD Total clinical time spent by myself addressing the patient's medical issues, reviewing all the data, and collaborating with patient's care team: 75 minutes. Charges/Coding Visit Charges Inpatient E&M: 97812 Init Hosp L3
--- NOTE | 2023-09-28 16:01 | NURSING ---
DR KRAUSE FOR DR HILL
--- NOTE | 2023-09-28 16:07 | NURSING ---
PCU MOSTELLER AIFB RVR, CHF, OUT OF MEDS, DYSPNEA
[2023-09-28] MEDS: Furosemide 20 MG/2 ML VIAL IV (16:10)
[2023-09-28 17:51] LABS: Cholesterol 111 mg/dL (200); Ferritin 21 ng/mL (26-388); High Density Lipoprotein 29 mg/dL; Iron 29 ug/dL (65-175); Iron Binding Capacity,Total 438 ug/dL (250-450); PERCENT IRON SATURATION 6.6 % (15.0-55.0); Thyroid Stim Hormone (TSH) 1.48 uIU/mL (0.358-3.74); Triglycerides 176 mg/dL; Very Low Density Lipoprotein 35 mg/dL (5-40)
[2023-09-28 17:54] LABS: Bedside Glucose 289 mg/dL (74-106)
[2023-09-28] MEDS: Heparin Injection (Vial) 5,000 UNIT/ML VIAL 12000 UNIT IV (18:16)
[2023-09-28] MEDS: Insulin Lispro 100 UNIT/ML INSULN.PEN 10 UNIT SC (18:21)
[2023-09-28] MEDS: 0.9% Saline Lock 10 ML Syringe IV (18:22)
[2023-09-28] MEDS: Furosemide 40 MG/4 ML Vial IV (18:23)
[2023-09-28] MEDS: Metoprolol Tartrate 25 MG Tablet PO ×2 (18:24→20:23)
[2023-09-28 18:29] LABS: Hemoglobin A1c 11.2 % (3.8-5.6)
[2023-09-28 18:34] LABS: Troponin-I HS 192 pg/mL (3.0-78.0)
[2023-09-28] MEDS: HEPARIN/D5w 25,000 UNITS 25,000 UNITS/250 ML IV.SOLN. 19 UNITS CONT INF (18:35)
[2023-09-28] MEDS: Insulin Lispro 100 UNIT/ML INSULN.PEN SC (20:20)
[2023-09-28] MEDS: Insulin Glargine-YFGN 100 UNIT/ML Pen 50 UNIT SC (20:21)
[2023-09-28] MEDS: Atorvastatin Calcium 40 MG Tablet PO (20:23)
[2023-09-28] MEDS: Pantoprazole Sodium 20 MG Tablet PO (20:23)
[2023-09-28] MEDS: Acetaminophen 325 MG Tablet 650 MG PO (20:28)
[2023-09-28] MEDS: MELATONIN 3 MG TABLET PO (20:29)
[2023-09-28 21:33] LABS: Bedside Glucose 319 mg/dL (74-106)
--- NOTE | 2023-09-28 23:59 | NURSING ---
Pt called RN in to room for feeling like I need some oxygen. SpO2 97% when checked, but cont to c/o feeling the need for oxygen. O2 applied at 2lpm via NC per pt request and comfort. Pt states that he normally takes a breathing treatment at home before bed. Pt reports several daily steroids INH and PRN albuterol INH; pt educated on risk of giving albuterol at this time d/t his HR being elevated and in an irregular rhythm. Pt is satisfied w/O2 via NC.
[2023-09-29] VITALS (9 sets, daily range): BP systolic 105–128; BP diastolic 78–88; PULSE 70–112; RESP 16–18; TEMP 36.6–36.8; O2SAT 95–100; BMI 52.4
[2023-09-29 01:03] LABS: Partial Thromboplast Time 168.2 Seconds (24.1-36.2)
[2023-09-29] MEDS: Insulin Lispro 100 UNIT/ML INSULN.PEN SC ×4 (08:32→20:09)
[2023-09-29] MEDS: Insulin Lispro 100 UNIT/ML INSULN.PEN 10 UNIT SC ×3 (08:33→17:47)
--- NOTE | 2023-09-29 08:33 | PCM.PN.HOSP ---
Reason for Visit Reason for Visit: Diagnoses Type 2 diabetes mellitus with hyperglycemia (09/28/23) Unspecified atrial fibrillation (09/28/23) Heart failure, unspecified (09/28/23) Objective Data Objective Data Vital Signs: Vital Signs Temp Pulse Resp BP Pulse Ox O2 Del Method 98.3 F 104 H 18 115/82 H 97 Room Air 09/29/23 05:37 09/29/23 05:37 09/29/23 05:37 09/29/23 05:37 09/29/23 05:37 09/29/23 05:37 Oxygen Delivery Method Room Air Weight: 344 lb 9.32 oz Body Mass Index (BMI) 52.4 Intake & Output: Intake and Output for Last 24 Hours 09/27/23 09/28/23 09/29/23 23:59 23:59 23:59 Intake Total 561.58 / 561.58 Balance 561.58 / 561.58 Lab / Micro Data 09/29/23 08:45 09/29/23 08:45 Labs: Laboratory Results - last 24 hr 09/28/23 14:46: WBC 8.3, RBC 4.14 L, Hgb 12.3 L, Hct 38.6 L, MCV 93.2, MCH 29.7, MCHC 31.9 L, RDW Std Deviation 44.1 H, RDW Coeff of Rasheeda 13.0, Plt Count 283, MPV 9.9, Immature Gran % (Auto) 0.400, Neut % (Auto) 68.0, Lymph % (Auto) 20.0, [place] % (Auto) 9.5, Eos % (Auto) 1.6, Baso % (Auto) 0.5, Absolute Neuts (auto) 5.6, Absolute Lymphs (auto) 1.66, Nucleated RBC % 0, Sodium 133 L, Potassium 4.4, Chloride 99, Carbon Dioxide 27.0, Anion Gap 7, BUN 8, Creatinine 0.65 L, Estim Creat Clear Calc 129.35, Est GFR (MDRD) Af Amer 157, Est GFR (MDRD) Non-Af 130, BUN/Creatinine Ratio 12.3, Glucose 348 H, Calcium 8.9, Iron 29 L, TIBC 438, Iron Saturation 6.6 L, Ferritin 21 L, Troponin I High Sens 209 H*, Triglycerides 176, Cholesterol 111, LDL Cholesterol 47, VLDL Cholesterol 35, HDL Cholesterol 29 L, Folate 11.00, TSH 1.48 09/28/23 17:37: POC Glucose 289 H 09/28/23 18:03: Hemoglobin A1c 11.2 H, Troponin I High Sens 192 H* 09/28/23 20:19: POC Glucose 319 H 09/29/23 00:25: APTT 168.2 H* Radiography Diagnostic Testing: Radiology Impression Chest X-Ray 09/28/23 14:34 IMPRESSION: Small pleural effusions. Electronically Signed: Sam Osuna MD at 15:52 EDT , Physical Exam Narrative Seen and examined Patient looks short of breath even at rest. Does not have chest pain. No dyspnea at rest. Patient is stated that he has history of sleep apnea and recommended CPAP but he cannot use it as he feels like drowning or suffocated. Physical exam General: Alert, Oriented x3, Cooperative, morbid obesity BMI 52.4 kg/m? HEENT: Atraumatic, PERRLA, EOMI, Normocephalic Oral: No Gingival or Mucosal Lesions/ Ulcerations Neck: Supple, No JVD, Negative Carotid Bruits Chest wall/Lungs: Air entry diminished in bilateral lung bases. No crepitation/rhonchi Cardiovascular: Regular rate, Regular Rhythm, Normal S1, Normal S2, No M/G/R Abdomen: Fatter abdomen. Intertriginous Fiona rash between abdominal fold of skin, tenia. Bowel Sounds Present, Soft, Non Tender, Non-Distended : No dysuria. No renal angle tenderness. No suprapubic tenderness. Extremities: 3+ bilateral lower extremity below-knee edema, Capillary Refill Less than 3 Seconds Skin: No rashes, No breakdown Musculoskeletal: No Tenderness to Palpation of Joints or Extremities Neurological: Cranial nerves II-XII grossly intact, DTR 2+/4. No acute focal neurological deficit. Psych/Mental Status: Normal Affect, Appropriate. Assessment & Plan Assessment/Plan (1) CHF (congestive heart failure): (2) Atrial fibrillation with RVR: (3) Uncontrolled type 2 diabetes mellitus: QUALIFIERS: Glycemic state: with hyperglycemia Qualified Code(s): E11.65 - Type 2 diabetes mellitus with hyperglycemia PLAN: Plan Patient is a 68-year-old male who presented [facility] ED on 09/28/2023 with worsening lower extremity swelling and shortness of breath with exertion. 1. HFpEF exacerbation, recurrent A-fib with RVR, history of CAD with stenting, medication nonadherence ? Admit under inpatient status to PCU. 09/28: Fire[employer] consulted discussed with him. Recurrent A-fib with RVR and worsening volume overload presumed secondary to medication nonadherence since patient ran out of home medications. Reports he was previously on anticoagulation, was taken off anticoagulation when put on sotalol. [id number] score is 4, high risk of thromboembolism. Patient started on IV heparin drip in ED, changed to Eliquis 5 mg twice daily. 2D echo ordered. Metoprolol 25 mg twice daily. 2D echo ordered. IV Lasix 40 mg twice daily. On aspirin continued. Plavix discontinued and stenting was done in 2016 2. Elevated troponins ? Troponin trend 209 > 192 in ED. Suspect due to demand ischemia from CHF exacerbation and recurrent A-fib with RVR as noted above. Plan for stress test tomorrow AM. 3. Poorly controlled type 2 diabetes mellitus ? A1c 11.2% on admit. Home regimen of Lantus 82 units at night, NovoLog 20 units with meals, metformin 1000 mg twice daily. Patient was able to tell me his regimen and reports compliance. Does not check his sugars regularly at home. Blood glucose 348 on admit. Will start Lantus 50 units at night, Humalog 10 units with meals plus/scale insulin for now, adjust as needed. 4. Chronic iron deficiency anemia ? Hemoglobin 12.3 on admit, baseline appears to be around 12-13. Iron studies with ferritin 21 consistent with iron deficiency anemia. Denies any dark or bloody bowel movements. No concern for active infection currently. 09/28: 2 doses of IV iron on mornings of 09/28 and 09/29. Recommend repeat iron studies in the next few months. Monitor CBC. 5. Acute debility ? Lives at home alone, reports generally decent functional status. Reports being limited recently by lower extremity swelling and shortness of breath with exertion. PT/OT/case management consulted. Chronic medical conditions: ? Morbid obesity: BMI 52 on admit. Encouraged lifestyle modifications. Complicates hospital course, care and prognosis. ? Hyperlipidemia: Lipid panel on admit with total cholesterol 111, LDL 47, HDL 29. Continue home statin. ? GERD: Continue home PPI. ? ELIN: Noncompliant with home CPAP, states he cannot tolerate the CPAP mask. Supplemental nasal cannula overnight during hospitalization. BiPAP ordered. DVT prophylaxis: Heparin drip CODE STATUS: DNR CCA, DNI Expected disposition: TBD Total clinical time spent by myself addressing the patient's medical issues, reviewing all the data, and collaborating with patient's care team: 75 minutes. Charges/Coding Visit Charges Inpatient E&M: 60874 Subs Hosp L2
[2023-09-29] MEDS: Aspirin E.C. 81 MG Tablet PO (08:35)
[2023-09-29] MEDS: Magnesium Chloride 64 MG Delay Rel.Tablet 128 MG PO (08:35)
[2023-09-29 08:56] LABS: Hematocrit 39.8 % (40-54); Hemoglobin 12.4 g/dL (13.0-16.5); Mean Corp Hgb Conc 31.2 g/dL (32-36); Mean Corpuscular Hgb 29.4 pg (27.0-32.0); Mean Corpuscular Volume 94.3 fL (80-94); Platelet Count 277 K/mm3 (150-450); RBC Distribution Width CV 12.9 % (11.6-14.6); RBC Distribution Width SD 43.9 fl (35.1-43.9); Red Blood Count 4.22 M/mm3 (4.6-6.2); White Blood Count 8.2 K/mm3 (4.4-11.0)
[2023-09-29 09:02] LABS: Bedside Glucose 225 mg/dL (74-106)
[2023-09-29 09:16] LABS: ALB/GLOB Ratio 0.8 RATIO (0.9-2.4); AST(SGOT) 11 U/L (15-37); Alanine Aminotransfer ALT/SGPT 14 U/L (16-61); Albumin, Serum 3.1 g/dL (3.2-5.0); Alkaline Phosphatase 103 U/L (45-117); Anion Gap 8 (5-15); BUN 11 mg/dL (7-18); BUN/Creat Ratio 14.1 RATIO (10-20); Calcium,Total 8.8 mg/dL (8.5-10.1); Chloride 99 mmol/L (98-107); Creatinine, Serum 0.78 mg/dL (0.70-1.30); EST Glomerular Filtration Rate 105 mL/min (>60); Est Glom Filt Rate - Afr Amer 127 mL/min (>60); Estimated Creatinine Clearance 129.45 ml/min; Glucose 234 mg/dL (74-106); Potassium 4.4 mmol/L (3.5-5.1); Protein, Total 7.1 g/dL (6.4-8.2); Sodium Level 135 mmol/L (136-145)
[2023-09-29 09:23] LABS: Partial Thromboplast Time 55.6 Seconds (24.1-36.2)
--- NOTE | 2023-09-29 10:51 | PCM.CONS.C ---
Assessment & Plan Assessment/Plan (1) Atrial fibrillation with RVR: PLAN: Continue beta-blockers. Start diltiazem. It is noted that the patient was not on any anticoagulation. His CHADS2?VASc score is 4 and high risk for thromboembolic complications. I offered him oral anticoagulation. Risks benefits and alternatives were explained in detail. He understand these and wishes to proceed. It is noted that the patient denies any history of bleeding disorder. Denies any GI bleed. No dark stools. No melena. Started on apixaban 5 mg twice daily. (2) CHF (congestive heart failure): PLAN: Previously normal left ventricular systolic function. Likely HFpEF. Check echocardiogram. Agree with furosemide. (3) Non-ST elevation myocardial infarction (NSTEMI), type 2: PLAN: Most likely type II. In view of his history of CAD, will check a Lexiscan stress Myoview (4) CAD (coronary artery disease): PLAN: Beta-blockers. Risk factor modification. Statins. (5) Hypertension: QUALIFIERS: Hypertension type: essential hypertension Qualified Code(s): I10 - Essential (primary) hypertension PLAN: Beta-blockers. Diuretics. (6) Dyslipidemia: PLAN: Statins. (7) Uncontrolled type 2 diabetes mellitus: QUALIFIERS: Glycemic state: with hyperglycemia Qualified Code(s): E11.65 - Type 2 diabetes mellitus with hyperglycemia PLAN: As per internal medicine. (8) Morbid obesity with body mass index of 50.0-59.9 in adult: PLAN: Lose weight. HPI Consult Data Date of Consult: 09/29/23 HPI Narrative Reason for Consultation: A-fib with RVR HPI Narrative: 68-year-old gentleman with history of coronary artery disease status post percutaneous intervention with drug-eluting stents to the proximal and mid LAD in 2017. Also history of paroxysmal atrial fibrillation, diabetes mellitus, dyslipidemia, hypertension and super morbid obesity. Per patient, he ran out of medications few weeks ago and was trying to make an appointment with his physician at the [place] facility to get them refilled. Presented to the emergency room with progressive shortness of breath over the last 2 to 3 weeks. No chest pains. Positive ankle edema. He was noted to be in atrial fibrillation with rapid ventricular response. Troponin mildly elevated. Patient feels better since being in the hospital. Denies any complaints today. [facility] Medical History Atrial fibrillation Chest pain COPD (chronic obstructive pulmonary disease) COPD (chronic obstructive pulmonary disease) CPAP (continuous positive airway pressure) dependence Diabetes Diabetes GERD (gastroesophageal reflux disease) Hypertension Irregular heart beat Myocardial infarct Sleep apnea Smoker Smoker Stroke/cerebrovascular accident Home Medications insulin glargine 100 unit/mL subcutaneous solution (Lantus U-100 Insulin) 82 unit subcut QHS DIABETES 12/15/14 [History Last Taken 03/09/19] simvastatin 80 mg tablet (Zocor) 80 mg PO QHS CHOLESTEROL 12/15/14 [History Last Taken 12/21/14] nitroglycerin 0.4 mg sublingual tablet (Nitrostat) 0.4 mg sublingual PRN PRN CHEST PAIN 11/24/16 [History Last Taken Unknown] polyvinyl alcohol-povidone (PF) 1.4 %-0.6 % eye drops in a dropperette (Refresh Classic (PF)) 2 drp EACHEYE DAILY PRN PRN dry eyes 03/24/17 [History Last Taken 03/09/19] clopidogrel 75 mg tablet 75 mg PO DAILY #14 tabs 03/26/17 [Rx Last Taken Unknown] magnesium oxide 400 mg (241.3 mg magnesium) tablet 400 mg PO DAILYCM #14 tabs 03/26/17 [Rx Last Taken 03/09/19] insulin aspart U-100 100 unit/mL (3 mL) subcutaneous pen (Novolog FlexPen U-100 Insulin aspart) 20 units subcut TIDAC DIABETES 06/24/17 [History Last Taken 03/09/19] metformin 1,000 mg tablet 1,000 mg PO BID BLOOD SUGAR 06/24/17 [History Last Taken Unknown] acetaminophen 325 mg capsule 1,300 mg PO QHS pain 03/10/19 [History Last Taken 03/09/19] pantoprazole 20 mg tablet,delayed release 20 mg PO BID reflux 11/03/20 [History Last Taken Unknown] Allergy/AdvReac Type Severity Reaction Status Date / Time bee venom protein (honey bee) Allergy Anaphylaxis Verified 09/28/23 14:23 Surgical History History of appendectomy History of cholecystectomy History of coronary artery stent placement History of coronary artery stent placement Social History Smoking Status: Former smoker Physical Exam Narrative Obese. Comfortable. No apparent distress. Heart sounds 1 and 2 noted. Irregularly irregular. Chest clear to auscultation bilaterally. Alert oriented x 3. 1-2+ bilateral lower extremity edema. Risk Stratification Risk Stratification Applicable: No Objective Data Vital Signs: Vital Signs Temp Pulse Resp BP Pulse Ox O2 Del Method O2 Flow Rate 98.3 F 104 H 18 115/82 H 99 Nasal Cannula 2.5 09/29/23 05:37 09/29/23 05:37 09/29/23 05:37 09/29/23 05:37 09/29/23 07:39 09/29/23 07:39 09/29/23 07:39 Oxygen Flow Rate (L/min) 2.5 Oxygen Delivery Method Nasal Cannula Weight: 344 lb 9.32 oz Body Mass Index (BMI) 52.4 Intake & Output: Intake and Output for Last 24 Hours 09/27/23 09/28/23 09/29/23 23:59 23:59 23:59 Intake Total 613.85 / 613.85 Balance 613.85 / 613.85 Lab / Micro Data 09/29/23 08:45 09/29/23 08:45 Labs: Laboratory Results - last 24 hr 09/28/23 14:46: WBC 8.3, RBC 4.14 L, Hgb 12.3 L, Hct 38.6 L, MCV 93.2, MCH 29.7, MCHC 31.9 L, RDW Std Deviation 44.1 H, RDW Coeff of Rasheeda 13.0, Plt Count 283, MPV 9.9, Immature Gran % (Auto) 0.400, Neut % (Auto) 68.0, Lymph % (Auto) 20.0, [place] % (Auto) 9.5, Eos % (Auto) 1.6, Baso % (Auto) 0.5, Absolute Neuts (auto) 5.6, Absolute Lymphs (auto) 1.66, Nucleated RBC % 0, Sodium 133 L, Potassium 4.4, Chloride 99, Carbon Dioxide 27.0, Anion Gap 7, BUN 8, Creatinine 0.65 L, Estim Creat Clear Calc 129.35, Est GFR (MDRD) Af Amer 157, Est GFR (MDRD) Non-Af 130, BUN/Creatinine Ratio 12.3, Glucose 348 H, Calcium 8.9, Iron 29 L, TIBC 438, Iron Saturation 6.6 L, Ferritin 21 L, Troponin I High Sens 209 H*, Triglycerides 176, Cholesterol 111, LDL Cholesterol 47, VLDL Cholesterol 35, HDL Cholesterol 29 L, Folate 11.00, TSH 1.48 09/28/23 17:37: POC Glucose 289 H 09/28/23 18:03: Hemoglobin A1c 11.2 H, Troponin I High Sens 192 H* 09/28/23 20:19: POC Glucose 319 H 09/29/23 00:25: APTT 168.2 H* 09/29/23 08:30: POC Glucose 225 H 09/29/23 08:45: WBC 8.2, RBC 4.22 L, Hgb 12.4 L, Hct 39.8 L, MCV 94.3 H, MCH 29.4, MCHC 31.2 L, RDW Std Deviation 43.9, RDW Coeff of Rasheeda 12.9, Plt Count 277, MPV 10.0, APTT 55.6 H, Sodium 135 L, Potassium 4.4, Chloride 99, Carbon Dioxide 28.0, Anion Gap 8, BUN 11, Creatinine 0.78, Estim Creat Clear Calc 129.45, Est GFR (MDRD) Af Amer 127, Est GFR (MDRD) Non-Af 105, BUN/Creatinine Ratio 14.1, Glucose 234 H, Calcium 8.8, Total Bilirubin 1.00, AST 11 L, ALT 14 L, Alkaline Phosphatase 103, Total Protein 7.1, Albumin 3.1 L, Globulin 4.0, Albumin/Globulin Ratio 0.8 L Cardiology Labs/Tests 09/28/23 14:46: WBC 8.3, RBC 4.14 L, Hgb 12.3 L, Hct 38.6 L, MCV 93.2, MCH 29.7, MCHC 31.9 L, Plt Count 283, MPV 9.9, Immature Gran % (Auto) 0.400, Neut % (Auto) 68.0, Lymph % (Auto) 20.0, [place] % (Auto) 9.5, Eos % (Auto) 1.6, Baso % (Auto) 0.5, Absolute Neuts (auto) 5.6, Nucleated RBC % 0, Sodium 133 L, Potassium 4.4, Chloride 99, Carbon Dioxide 27.0, Anion Gap 7, BUN 8, Creatinine 0.65 L, Est GFR (MDRD) Af Amer 157, Est GFR (MDRD) Non-Af 130, BUN/Creatinine Ratio 12.3, Glucose 348 H, Calcium 8.9, Iron 29 L, TIBC 438, Iron Saturation 6.6 L, Ferritin 21 L, Triglycerides 176, Cholesterol 111, LDL Cholesterol 47, VLDL Cholesterol 35, HDL Cholesterol 29 L 09/28/23 18:03: Hemoglobin A1c 11.2 H 09/29/23 00:25: APTT 168.2 H* 09/29/23 08:45: WBC 8.2, RBC 4.22 L, Hgb 12.4 L, Hct 39.8 L, MCV 94.3 H, MCH 29.4, MCHC 31.2 L, Plt Count 277, MPV 10.0, APTT 55.6 H, Sodium 135 L, Potassium 4.4, Chloride 99, Carbon Dioxide 28.0, Anion Gap 8, BUN 11, Creatinine 0.78, Est GFR (MDRD) Af Amer 127, Est GFR (MDRD) Non-Af 105, BUN/Creatinine Ratio 14.1, Glucose 234 H, Calcium 8.8, Total Bilirubin 1.00 Rhythm: EKG: ECHO: Stress Test: Cardiac Cath: PCI: CT Surgery: Holter monitor: EPS: PPM: CXR: Chest CT Scan: Radiography Diagnostic Testing: Radiology Impression Chest X-Ray 09/28/23 14:34 IMPRESSION: Small pleural effusions. Electronically Signed: Sam Osuna MD at 15:52 EDT ,
[2023-09-29] MEDS: Metoprolol Tartrate 25 MG Tablet PO ×2 (10:56→20:13)
[2023-09-29] MEDS: Furosemide 40 MG/4 ML Vial IV ×2 (10:56→17:47)
[2023-09-29] MEDS: Pantoprazole Sodium 20 MG Tablet PO (10:57)
[2023-09-29] MEDS: HEPARIN/D5w 25,000 UNITS 25,000 UNITS/250 ML IV.SOLN. 16 UNITS CONT INF (11:04)
--- NOTE | 2023-09-29 11:05 | ECHOCS_ITS ---
Reason For Study: CONGESTIVE HEART FAILURE Procedure This was a 2D Doppler, Color Flow transthoracic echocardiogram. The study was technically difficult. Contrast injection was performed. Exam performed in department. Left Ventricle Normal LV size. Mild assymetric septal hypertrophy. The estimated ejection fraction is 30 %. Unable to assess diastolic dysfunction due to arrhythmia. Moderately severe global left ventricular systolic dysfunction. Right Ventricle Normal right ventricle. Normal systolic function. Atria There is mild biatrial dilatation. Mitral Valve The mitral valve is structurally normal. No prolapse or stenosis seen. Mild (1+) mitral valve insufficiency. Tricuspid Valve Normal tricuspid valve. Mild to moderate (1-2+) tricuspid valve insufficiency. Pulmonary artery systolic pressure is 67 mmHg. Aortic Valve Trisinus/trileaflet aortic valve. Pulmonic Valve Normal pulmonic valve. Trivial pulmonic valve insufficiency. Great Vessels Normal aortic root. Pericardium/Pleural No pericardial effusion. Medication Diluted definity 2.5ml given slow IV push to enhance endocardial definition. MMode/2D Measurements & Calculations LVIDd: 5.2 cm IVSd: 1.2 cm LVOT diam: 2.0 cm LVIDs: 4.2 cm LVPWd: 0.81 cm RVDd: 4.0 cm FS: 19.1 % LVOT area: 3.2 cm2 Ao root diam: 3.2 cm LAV(MOD-bp): 73.5 ml LVAd ap4: 36.6 cm2 LAV(MOD-bp) Indexed: 28.5 ml/m2 LVLd ap4: 8.9 cm LAV(MOD-sp2): 80.9 ml EDV(MOD-sp4): 117.4 ml LAV(MOD-sp4): 65.4 ml EDV(sp4-el): 127.0 ml LVAs ap4: 30.3 cm2 LVLs ap4: 8.2 cm ESV(MOD-sp4): 89.6 ml ESV(sp4-el): 94.4 ml EF(MOD-sp4): 23.7 % EF(sp4-el): 25.6 % LVAd ap2: 45.8 cm2 SV(MOD-sp4): 27.8 ml SV(MOD-sp2): 60.1 ml LVLd ap2: 9.3 cm EDV(MOD-sp2): 181.7 ml EDV(sp2-el): 191.6 ml LVAs ap2: 36.2 cm2 LVLs ap2: 8.9 cm ESV(MOD-sp2): 121.7 ml ESV(sp2-el): 124.7 ml EF(MOD-sp2): 33.1 % SV(sp4-el): 32.6 ml LA dimension(2D): 4.5 cm LA A4 area: 23.3 cm2 RA A4 area: 22.7 cm2 TAPSE: 1.0 cm Time Measurements MV dec time: 0.14 sec Doppler Measurements & Calculations MV E max ramírez: 122.6 cm/sec Lat Peak E' Ramírez: 11.6 cm/sec Med Peak E' Ramírez: 8.9 cm/sec E/E' lat: 10.6 E/E' med: 13.8 Ao V2 max: 121.0 cm/sec LV V1 max: 99.9 cm/sec SV(LVOT): 50.9 ml Ao max P.0 mmHg LV V1 max P.0 mmHg Ao V2 mean: 94.5 cm/sec LV V1 mean P.5 mmHg Ao mean P.9 mmHg LV V1 mean: 76.4 cm/sec Ao V2 VTI: 19.8 cm LV V1 VTI: 16.1 cm AV (velocity ratio): 0.81 SABINA(I,D): 2.6 cm2 SABINA(V,D): 2.6 cm2 PA V2 max: 66.2 cm/sec TR max ramírez: 358.4 cm/sec PA max PG (full): 0.12 mmHg TR max P.4 mmHg ECHO/Echo Complete W/ Contrast Interpretation Summary The estimated ejection fraction is 30 %. Moderately severe global left ventricular systolic dysfunction. Mild assymetric septal hypertrophy. There is mild biatrial dilatation. Mild (1+) mitral valve insufficiency. Mild to moderate (1-2+) tricuspid valve insufficiency. Pulmonary artery systolic pressure is 67 mmHg. The study was technically difficult. Contrast injection was performed. Compared to prior study, changes are noted. Ordering Physician: Beau Gonsalves Referring Physician: [facility] Performed By: Melissa Aguilar RDCS
[2023-09-29 11:28] LABS: Bedside Glucose 186 mg/dL (74-106)
[2023-09-29] MEDS: Sodium Ferric Gluconat/Sucrose 250 MG in 0.9% Normal Saline (250mL Bag) 250 ML 135 MG IV (11:53)
[2023-09-29] MEDS: dilTIAZem 30 MG Tablet PO ×2 (12:08→17:47)
[2023-09-29 14:18] LABS: Partial Thromboplast Time 94.1 Seconds (24.1-36.2)
--- NOTE | 2023-09-29 15:23 | CPS ---
pt was asked about home use of a Bipap machine. Pt stated he has a Cpap machine but does not use it. Pt was informed that the Dr had order a Bipap as needed for him while in hospital. He was instructed to call for set up tonight if he decided to use it.
[2023-09-29 16:32] LABS: Bedside Glucose 164 mg/dL (74-106)
[2023-09-29] MEDS: 0.9% Saline Lock 10 ML Syringe IV (17:49)
[2023-09-29] MEDS: Insulin Glargine-YFGN 100 UNIT/ML Pen 50 UNIT SC (20:09)
[2023-09-29 21:42] LABS: Bedside Glucose 157 mg/dL (74-106)
[2023-09-30] VITALS (9 sets, daily range): BP systolic 90–113; BP diastolic 60–79; PULSE 88–125; RESP 14–20; TEMP 36.3–36.9; O2SAT 95–98; BMI 52.4
[2023-09-30] MEDS: dilTIAZem 30 MG Tablet PO ×5 (00:09→23:52)
[2023-09-30 05:41] LABS: Absolute Lymphocyte Count 1.33 X10^3/uL (0.83-4.51); Absolute Neutrophil Count 6.5 X10^3/uL (2.0-7.7); Basophil# 0.03 X10^3/uL; Basophil% 0.3 % (0-1); Eosinophil# 0.02 X10^3/uL; Eosinophils% 0.2 % (0-5); Hematocrit 41.7 % (40-54); Hemoglobin 12.8 g/dL (13.0-16.5); Lymphocyte # 1.33 X10^3/ul (0.83-4.51); Lymphocyte % 15.2 % (19-41); Mean Corp Hgb Conc 30.7 g/dL (32-36); Mean Corpuscular Hgb 29.8 pg (27.0-32.0); Mean Corpuscular Volume 97.2 fL (80-94); Mean Platelet Vol. 10.5 fl (6.2-12.0); Monocyte# 0.89 X10^3/uL; Monocyte% 10.1 % (0-10); NRBC Flagged by Analyzer 0 % (0-5); Neutrophil # 6.46 X10^3/uL (2.7-7.7); Neutrophil % 73.7 % (47-70); Platelet Count 205 K/mm3 (150-450); RBC Distribution Width CV 13.1 % (11.6-14.6); RBC Distribution Width SD 46.6 fl (35.1-43.9); Red Blood Count 4.29 M/mm3 (4.6-6.2); White Blood Count 8.8 K/mm3 (4.4-11.0)
[2023-09-30] MEDS: Metoprolol Tartrate 25 MG Tablet PO ×2 (06:15→20:42)
[2023-09-30 06:59] LABS: Anion Gap 10 (5-15); BUN 13 mg/dL (7-18); BUN/Creat Ratio 20.8 RATIO (10-20); Calcium,Total 8.9 mg/dL (8.5-10.1); Chloride 103 mmol/L (98-107); Creatinine, Serum 0.62 mg/dL (0.70-1.30); EST Glomerular Filtration Rate 136 mL/min (>60); Est Glom Filt Rate - Afr Amer 164 mL/min (>60); Estimated Creatinine Clearance 129.45 ml/min; Glucose 107 mg/dL (74-106); Sodium Level 135 mmol/L (136-145)
[2023-09-30] MEDS: Aspirin E.C. 81 MG Tablet PO (11:27)
[2023-09-30] MEDS: Insulin Lispro 100 UNIT/ML INSULN.PEN SC ×2 (11:31→16:33)
[2023-09-30] MEDS: Insulin Lispro 100 UNIT/ML INSULN.PEN 10 UNIT SC ×2 (11:32→16:33)
[2023-09-30] MEDS: Pantoprazole Sodium 20 MG Tablet PO ×2 (11:33→20:41)
[2023-09-30] MEDS: Magnesium Chloride 64 MG Delay Rel.Tablet 128 MG PO (11:33)
[2023-09-30] MEDS: Furosemide 40 MG/4 ML Vial IV (11:34)
[2023-09-30] MEDS: 0.9% Saline Lock 10 ML Syringe IV ×2 (11:36→16:35)
--- NOTE | 2023-09-30 12:23 | CASEMGMT ---
ALDA BENITEZ Assessment Face to Face with patient for initial transition planning/care coordination assessment. ALDA BENITEZ introduced self and role at [facility], pt voices understanding. Pt is A&Ox4 and is resting comfortably in bed and is calm. Care providers, pharmacy, and demographics verified. Admitting dx: CHF Exacerbation PCP: JOEL in [place] Specialists: Pt states that he has been trying [facility] get [facility] the last 2 years and has not been able to be seen. Pt denies wanting information about [facility] at this time Preferred [facility]acy: [facility] Insurance: [place] Prescription Benefit: Yes LNOK: Jeff Ledesma (F) Living Arrangements: Pt lives with his father in a single level mobile home with 4 steps to enter ADLs/IADLs: States ind Transportation: Pt father drives him DME: Pt is currently on RA. Pt states that he has a working BGM and enough supplies. FWW. Cane. Inhaler. BP Cuff. HHC/SNF: Denies history or needs Pt?s goal: Home Plan: It appears that the pt did well with therapy. Pt refuses the need for SNF, HH, or OP therapy at this time. Pt states that he wishes to return home with no additional needs at time of DC. CM to follow for safe DC from [facility]. Cecil Gaitan RN, CM
--- NOTE | 2023-09-30 12:49 | STRESSREP_ITS ---
Stress Test Report Date: 10/18/2023 Procedure: Pharmacologic stress nuclear imaging study Indications: Coronary artery disease Consent: Per the patient Procedure: The patient underwent pharmacologic (Regadenoson 0.4mg ) evaluation with a peak heart rate of 131 beats per minute (86%predicted maximal heart rate) and a peak blood pressure of 104/70 mmHg. The baseline ECG demonstrated atrial fibrillation. The peak pharmacologic ECG demonstrated no ischemic changes. Occasional PVCs noted. [There was no complaint of chest discomfort during pharmacologic infusion or recovery]. The patient was injected with 15.0 millicuries of technetium 99m Cardiolite and subsequently rest SPECT Cardiolite nuclear imaging was obtained in the horizontal long, vertical long, and short axis views. The patient underwent pharmacologic (Regadenoson) evaluation. The patient was injected with 45.0 millicuries of technetium 99m Cardiolite and subsequently stress SPECT Cardiolite nuclear imaging was obtained in the horizontal long, vertical long, and short axis views. A gated Cardiolite study at peak stress was obtained. The examination was stopped secondary to completion of protocol. Rest and stress SPECT Cardiolite nuclear imaging status post realignment, normalization, and attenuation correction demonstrate a large inferior and apical defect which is predominantly fixed. [There is end systolic thickening and brightening]. [The gated Cardiolite study demonstrates myocardial thickening and inward wall motion]. The reported LVEF is 30%. Impression: 1. Pharmacologic (Regadenoson) evaluation 2. Peak pharmacologic ECG with no ischemic changes. 3. Baseline atrial fibrillation. Occasional PVCs noted during the test. 5. Predominantly fixed inferior and apical defect suggestive of prior infarct with no significant ebenezer-infarct ischemia 6. The gated Cardiolite study reports an LVEF of 30%. Mildly dilated left ventricle. This note was generated with [employer] software. It may contain incorrect words, spelling, and punctuation that were not noted in checking the note before signing.
[2023-09-30 13:27] LABS: Bedside Glucose 160 mg/dL (74-106)
[2023-09-30] MEDS: Sodium Ferric Gluconat/Sucrose 250 MG in 0.9% Normal Saline (250mL Bag) 250 ML 135 MG IV (13:48)
[2023-09-30] MEDS: APIXABAN 5 MG TABLET PO ×2 (13:52→20:44)
[2023-09-30] MEDS: Lisinopril 2.5 MG Tablet PO (14:02)
[2023-09-30] MEDS: Empagliflozin 10 MG Tablet PO (14:03)
--- NOTE | 2023-09-30 14:22 | PCM.PN.CARD ---
Subjective Subjective Feels better today. Stress Myoview with inferior and apical fixed defect. No significant ebenezer-infarct ischemia. Per patient, he has had many heart attacks in the past. Objective Data Vital Signs: Vital Signs Temp Pulse Resp BP Pulse Ox O2 Del Method O2 Flow Rate 97.9 F 102 H 16 95/60 96 Room Air 2.5 09/30/23 11:12 09/30/23 11:12 09/30/23 11:12 09/30/23 11:12 09/30/23 11:12 09/30/23 11:22 09/30/23 07:52 Oxygen Flow Rate (L/min) 2.5 Oxygen Delivery Method Room Air Weight: 344 lb 9.32 oz Body Mass Index (BMI) 52.4 Intake & Output: Intake and Output for Last 24 Hours 09/28/23 09/29/23 09/30/23 23:59 23:59 23:59 Intake Total 973.07 / 1373.07 1150 / 1150 Output Total 0 / 0 Balance 973.07 / 1373.07 1150 / 1150 Lab / Micro Data 09/30/23 04:25 09/30/23 04:25 Labs: Laboratory Results - last 24 hr 09/29/23 16:05: POC Glucose 164 H 09/29/23 20:00: POC Glucose 157 H 09/30/23 04:25: WBC 8.8, RBC 4.29 L, Hgb 12.8 L, Hct 41.7, MCV 97.2 H, MCH 29.8, MCHC 30.7 L, RDW Std Deviation 46.6 H, RDW Coeff of Rasheeda 13.1, Plt Count 205, MPV 10.5, Immature Gran % (Auto) 0.500, Neut % (Auto) 73.7 H, Lymph % (Auto) 15.2 L, [place] % (Auto) 10.1 H, Eos % (Auto) 0.2, Baso % (Auto) 0.3, Absolute Neuts (auto) 6.5, Absolute Lymphs (auto) 1.33, Nucleated RBC % 0, Sodium 135 L, Potassium 5.0, Chloride 103, Carbon Dioxide 22.0, Anion Gap 10, BUN 13, Creatinine 0.62 L, Estim Creat Clear Calc 129.45, Est GFR (MDRD) Af Amer 164, Est GFR (MDRD) Non-Af 136, BUN/Creatinine Ratio 20.8 H, Glucose 107 H, Calcium 8.9 09/30/23 11:21: POC Glucose 160 H Cardiology Labs/Tests 09/30/23 04:25: WBC 8.8, RBC 4.29 L, Hgb 12.8 L, Hct 41.7, MCV 97.2 H, MCH 29.8, MCHC 30.7 L, Plt Count 205, MPV 10.5, Immature Gran % (Auto) 0.500, Neut % (Auto) 73.7 H, Lymph % (Auto) 15.2 L, [place] % (Auto) 10.1 H, Eos % (Auto) 0.2, Baso % (Auto) 0.3, Absolute Neuts (auto) 6.5, Nucleated RBC % 0, Sodium 135 L, Potassium 5.0, Chloride 103, Carbon Dioxide 22.0, Anion Gap 10, BUN 13, Creatinine 0.62 L, Est GFR (MDRD) Af Amer 164, Est GFR (MDRD) Non-Af 136, BUN/Creatinine Ratio 20.8 H, Glucose 107 H, Calcium 8.9 Rhythm: EKG: ECHO: Stress Test: Cardiac Cath: PCI: CT Surgery: Holter monitor: EPS: PPM: CXR: Chest CT Scan: Physical Exam Narrative Obese. Comfortable. No apparent distress. Heart sounds 1 and 2 noted. Irregularly irregular. Chest clear to auscultation bilaterally. Alert oriented x 3. 1-2+ bilateral lower extremity edema. Assessment & Plan Assessment/Plan (1) Atrial fibrillation with RVR: PLAN: Continue beta-blockers. Start diltiazem. Apixaban. Digitize for better heart rate control. (2) CHF (congestive heart failure): PLAN: LVEF 30% on nuclear gated images. Will review echocardiogram. Start on SGLT2 inhibitor. JALYN inhibitor. Beta-blockers. Diuretics. (3) Non-ST elevation myocardial infarction (NSTEMI), type 2: PLAN: Fixed defect on stress Myoview. Likely old inferior and apical infarct. Troponin elevation this admission most probably type II. Continue medical management. (4) CAD (coronary artery disease): PLAN: Beta-blockers. Risk factor modification. Statins. (5) Hypertension: QUALIFIERS: Hypertension type: essential hypertension Qualified Code(s): I10 - Essential (primary) hypertension PLAN: Beta-blockers. Diuretics. (6) Dyslipidemia: PLAN: Statins. (7) Uncontrolled type 2 diabetes mellitus: QUALIFIERS: Glycemic state: with hyperglycemia Qualified Code(s): E11.65 - Type 2 diabetes mellitus with hyperglycemia PLAN: As per internal medicine. (8) Morbid obesity with body mass index of 50.0-59.9 in adult: PLAN: Lose weight.
--- NOTE | 2023-09-30 14:55 | CHAPLAIN ---
Type of Pastoral Visit _x__ Initial Visit ___ Follow-up Visit ___ On-call Visit ___ General Patient Visit ___ Spiritual Assessment ___ Family Conference ___ Bereavement ___ Rapid Response ___ Code Blue ___ Other (describe below) Pastoral Care Referral From _x__ Patient ___ Family ___ Nurse ___ Physician ___ Jukebox Operator ___ Visual Merchandising Manager ___ Other (describe below) Sacrament/Intervention _x__ Active listening ___ Anointing ___ Roman Catholic ___ Bereavement ___ Communion ___ Kaitlyn exploration ___ _x__ Life review _x__ Prayer ___ Reconciliation ___ Sacrament of Sick ___ Supportive presence ___ Wedding ___ Other (describe below) Pastoral Comments patient is welcoming and talkative; pt is focused on food and what he eats and cooks; pt speaks of his father who was a preacher; pt states that he has no needs now but a prayer is welcome; pt says he is feeling better than yesterday
[2023-09-30 15:58] LABS: Bedside Glucose 186 mg/dL (74-106)
[2023-09-30] MEDS: Digoxin 250 MCG/ML Ampul 500 MCG IV (16:34)
--- NOTE | 2023-09-30 17:25 | PN.HOSP_ITS ---
Reason for Visit Reason for Visit: Diagnoses Type 2 diabetes mellitus with hyperglycemia (09/28/23) Morbid (severe) obesity due to excess calories (09/28/23) Hyperlipidemia, unspecified (09/28/23) Essential (primary) hypertension (09/28/23) Myocardial infarction type 2 (09/28/23) Atherosclerotic heart disease of [place] coronary artery without angina pectoris (09/28/23) Unspecified atrial fibrillation (09/28/23) Heart failure, unspecified (09/28/23) Body mass index [BMI] 50.0-59.9, adult (09/28/23) Objective Data Objective Data Vital Signs: Vital Signs Temp Pulse Resp BP Pulse Ox O2 Del Method O2 Flow Rate 98.4 F 125 H 20 H 113/79 96 Room Air 2.5 09/30/23 16:29 09/30/23 16:34 09/30/23 16:29 09/30/23 16:29 09/30/23 16:29 09/30/23 16:29 09/30/23 07:52 Oxygen Flow Rate (L/min) 2.5 Oxygen Delivery Method Room Air Weight: 344 lb 9.32 oz Body Mass Index (BMI) 52.4 Intake & Output: Intake and Output for Last 24 Hours 09/28/23 09/29/23 09/30/23 23:59 23:59 23:59 Intake Total 973.07 / 1373.07 1420 / 1420 Output Total 0 / 0 Balance 973.07 / 1373.07 1420 / 1420 Lab / Micro Data 09/30/23 04:25 09/30/23 04:25 Labs: Laboratory Results - last 24 hr 09/29/23 20:00: POC Glucose 157 H 09/30/23 04:25: WBC 8.8, RBC 4.29 L, Hgb 12.8 L, Hct 41.7, MCV 97.2 H, MCH 29.8, MCHC 30.7 L, RDW Std Deviation 46.6 H, RDW Coeff of Rasheeda 13.1, Plt Count 205, MPV 10.5, Immature Gran % (Auto) 0.500, Neut % (Auto) 73.7 H, Lymph % (Auto) 15.2 L, [place] % (Auto) 10.1 H, Eos % (Auto) 0.2, Baso % (Auto) 0.3, Absolute Neuts (auto) 6.5, Absolute Lymphs (auto) 1.33, Nucleated RBC % 0, Sodium 135 L, Potassium 5.0, Chloride 103, Carbon Dioxide 22.0, Anion Gap 10, BUN 13, C reatinine 0.62 L, Estim Creat Clear Calc 129.45, Est GFR (MDRD) Af Amer 164, Est GFR (MDRD) Non-Af 136, BUN/Creatinine Ratio 20.8 H, Glucose 107 H, Calcium 8.9 09/30/23 11:21: POC Glucose 160 H 09/30/23 15:26: POC Glucose 186 H Radiography Diagnostic Testing: Radiology Impression Echocardiogram 09/29/23 11:05 Interpretation Summary The estimated ejection fraction is 30 %. Moderately severe global left ventricular systolic dysfunction. Mild assymetric septal hypertrophy. There is mild biatrial dilatation. Mild (1+) mitral valve insufficiency. Mild to moderate (1-2+) tricuspid valve insufficiency. Pulmonary artery systolic pressure is 67 mmHg. The study was technically difficult. Contrast injection was performed. Compared to prior study, changes are noted. Ordering Physician: Beau Gonsalves Referring Physician: [facility] Performed By: Melissa Aguilar RDCS Physical Exam Narrative Seen and examined Patient looks short of breath even at rest. Does not have chest pain. No dys pnea at rest. Patient is stated that he has history of sleep apnea and recommended CPAP but he cannot use it as he feels like drowning or suffocated. Physical exam General: Alert, Oriented x3, Cooperative, morbid obesity BMI 52.4 kg/m? HEENT: Atraumatic, PERRLA, EOMI, Normocephalic Oral: Oral mucosa moist. No Gingival or Mucosal Lesions/ Ulcerations Neck: Supple, No JVD, Negative Carotid Bruits Chest wall/Lungs: Air entry diminished in bilateral lung bases. No crepitation/rhonchi Cardiovascular: Regular rate, Regular Rhythm, Normal S1, Normal S2, No M/G/R Abdomen: Fat abdomen. Intertriginous Fiona rash between abdominal fold of skin. Bowel Sounds Present, Soft, Non Tender, Non-Distended : No dysuria. No renal angle tenderness. No suprapubic tenderness. Extremities: 3+ bilateral lower extremity below-knee edema, Capillary Refill Less than 3 Seconds Skin: No rashes, No breakdown Musculoskeletal: No Tenderness to Palpation of Joints or Extremities Neurological: Cranial nerves II-XII grossly intact, DTR 2+/4. No acute focal neurological deficit. Psych/Mental Status: Normal Affect, Appropriate. Assessment & Plan Assessment/Plan (1) CHF (congestive heart failure): (2) Atrial fibrillation with RVR: (3) Uncontrolled type 2 diabetes mellitus: QUALIFIERS: Glycemic state: with hyperglycemia Qualified Code(s): E11.65 - Type 2 diabetes mellitus with hyperglycemia PLAN: Plan Patient is a 68-year-old male who presented [facility] ED on 09/28/2023 with worsening lower extremity swelling and shortness of breath with exertion. 1. HFpEF exacerbation, recurrent A-fib with RVR, history of CAD with stenting, medication nonadherence ? Admit under inpatient status to PCU. 09/28: [employer] consulted discussed with him. Recurrent A-fib with RVR and worsening volume overload presumed secondary to medication nonadherence since patient ran out of home medications. Reports he was previously on anticoagulation, was taken off anticoagulation when put on sotalol. [id number]- VASc score is 4, high risk of thromboembolism. Patient started on IV heparin drip in ED, changed to Eliquis 5 mg twice daily. 2D echo ordered. Metoprolol 25 mg twice daily. 2D echo ordered. IV Lasix 40 mg twice daily. On aspirin continued. Plavix discontinued and stenting was done in 09/29: Patient had history of AR in the past. Continue Eliquis, metoprolol. Diltiazem restarted. 2D echo shows EF 30%. Moderately severe global LV systolic dysfunction. Mild asymmetric septal hypertrophy, mild biatrial dilatation. Mild MR mild to moderate TR. PASP 67 Since to moderate pulmonary hypertension continue diuretics 2. Elevated troponins most likely type II ? Troponin trend 209 > 192 in ED. Suspect due to demand ischemia from CHF exacerbation and recurrent A-fib with RVR as noted above. Plan for stress test tomorrow AM. 09/29: Stress test shows inferior and apical fixed defect but no significant ebenezer-infarct ischemia. Elevated troponin most likely type II AR. Medical management recommended 3. Poorly controlled type 2 diabetes mellitus ? A1c 11.2% on admit. Home regimen of Lantus 82 units at night, NovoLog 20 units with meals, metformin 1000 mg twice daily. Patient was able to tell me his regimen and reports compliance. Does not check his sugars regularly at home. Blood glucose 348 on admit. Will start Lantus 50 units at night, Humalog 10 units with meals plus/scale insulin for now, adjust as needed. 4. Chronic iron deficiency anemia ? Hemoglobin 12.3 on admit, baseline appears to be around 12-13. Iron studies with ferritin 21 consistent with iron deficiency anemia. Denies any dark or bloody bowel movements. No concern for active infection currently. 09/28: 2 doses of IV iron on mornings of 09/28 and 09/29. Recommend repeat iron studies in the next few months. Monitor CBC. 5. Acute debility ? Lives at home alone, reports generally decent functional status. Reports being limited recently by lower extremity swelling and shortness of breath with exertion. PT/OT/case management consulted. Chronic medical conditions: ? Morbid obesity: BMI 52 on admit. Encouraged lifestyle modifications. Complicates hospital course, care and prognosis. ? Hyperlipidemia: Lipid panel on admit with total cholesterol 111, LDL 47, HDL 29. Continue home statin. ? GERD: Continue home PPI. ? ELIN: Noncompliant with home CPAP, states he cannot tolerate the CPAP mask. Supplemental nasal cannula overnight during hospitalization. BiPAP ordered. DVT prophylaxis: Heparin drip CODE STATUS: DNR CCA, DNI Expected disposition: TBD Total clinical time spent by myself addressing the patient's medical issues, reviewing all the data, and collaborating with patient's care team: 75 minutes. Charges/Coding Visit Charges Inpatient E&M: 23817 Subs Hosp L2
[2023-09-30 19:09] LABS: BNP,B-Type NATRIURETIC PEPTIDE 245.4 pg/mL (0-100)
[2023-09-30 19:15] LABS: Vitamin B12 182 pg/mL (211-911)
[2023-09-30] MEDS: Atorvastatin Calcium 40 MG Tablet PO (20:42)
[2023-09-30] MEDS: Insulin Glargine-YFGN 100 UNIT/ML Pen 35 UNIT SC (20:43)
[2023-09-30] MEDS: Digoxin 250 MCG/ML Ampul IV (20:51)
[2023-09-30] MEDS: Acetaminophen 325 MG Tablet 650 MG PO (21:00)
[2023-09-30 22:17] LABS: Bedside Glucose 99 mg/dL (74-106)
[2023-10-01] VITALS (7 sets, daily range): BP systolic 98–124; BP diastolic 61–76; PULSE 96–116; RESP 18; TEMP 36.4–36.8; O2SAT 95–96; BMI 52.2
[2023-10-01 05:39] LABS: Absolute Lymphocyte Count 1.89 X10^3/uL (0.83-4.51); Absolute Neutrophil Count 4.3 X10^3/uL (2.0-7.7); Basophil# 0.04 X10^3/uL; Basophil% 0.6 % (0-1); Eosinophil# 0.09 X10^3/uL; Eosinophils% 1.2 % (0-5); Hemoglobin 11.8 g/dL (13.0-16.5); Lymphocyte # 1.89 X10^3/ul (0.83-4.51); Lymphocyte % 26.1 % (19-41); Mean Corp Hgb Conc 31.1 g/dL (32-36); Mean Corpuscular Hgb 29.4 pg (27.0-32.0); Mean Corpuscular Volume 94.8 fL (80-94); Mean Platelet Vol. 9.5 fl (6.2-12.0); Monocyte# 0.91 X10^3/uL; Monocyte% 12.6 % (0-10); NRBC Flagged by Analyzer 0 % (0-5); Neutrophil # 4.27 X10^3/uL (2.7-7.7); Neutrophil % 58.9 % (47-70); Platelet Count 292 K/mm3 (150-450); RBC Distribution Width CV 13.2 % (11.6-14.6); RBC Distribution Width SD 45.9 fl (35.1-43.9); Red Blood Count 4.01 M/mm3 (4.6-6.2); White Blood Count 7.2 K/mm3 (4.4-11.0)
[2023-10-01] MEDS: dilTIAZem 30 MG Tablet PO ×3 (05:49→18:10)
[2023-10-01 06:14] LABS: Anion Gap 5 (5-15); BUN 10 mg/dL (7-18); BUN/Creat Ratio 13.2 RATIO (10-20); Calcium,Total 9.2 mg/dL (8.5-10.1); Chloride 103 mmol/L (98-107); Creatinine, Serum 0.76 mg/dL (0.70-1.30); EST Glomerular Filtration Rate 109 mL/min (>60); Est Glom Filt Rate - Afr Amer 132 mL/min (>60); Glucose 99 mg/dL (74-106); Potassium 4.4 mmol/L (3.5-5.1); Sodium Level 138 mmol/L (136-145)
[2023-10-01 06:52] LABS: Bedside Glucose 106 mg/dL (74-106)
[2023-10-01] MEDS: Aspirin E.C. 81 MG Tablet PO (08:56)
[2023-10-01] MEDS: Insulin Lispro 100 UNIT/ML INSULN.PEN 10 UNIT SC ×3 (08:57→18:12)
[2023-10-01] MEDS: Potassium Chloride Oral Tablet 20 MEQ PO (08:57)
[2023-10-01] MEDS: Magnesium Chloride 64 MG Delay Rel.Tablet 128 MG PO (08:58)
[2023-10-01] MEDS: Furosemide 40 MG Tablet PO (09:01)
[2023-10-01] MEDS: Digoxin 250 MCG Tablet PO (09:01)
[2023-10-01] MEDS: Pantoprazole Sodium 20 MG Tablet PO ×2 (09:01→22:21)
[2023-10-01] MEDS: APIXABAN 5 MG TABLET PO ×2 (09:01→22:21)
[2023-10-01] MEDS: Empagliflozin 10 MG Tablet PO (09:01)
[2023-10-01] MEDS: Lisinopril 2.5 MG Tablet PO (09:01)
[2023-10-01] MEDS: Metoprolol Tartrate 25 MG Tablet PO ×2 (09:02→13:54)
[2023-10-01] MEDS: Insulin Lispro 100 UNIT/ML INSULN.PEN SC (12:07)
[2023-10-01 12:32] LABS: Bedside Glucose 150 mg/dL (74-106)
--- NOTE | 2023-10-01 12:49 | DCINST_ITS ---
Discharge Instructions Diet Discharge Diet: Low fat / Low cholesterol, 6 Cup Fluid Restriction and 2000 mg Sodium Diet Activity Discharge Activity: Return to Normal Activity Weight Bearing Status: Weight bearing as tolerated Dressing / Incision Call your doctor if you observe: Fever of 101 or Higher, Coldness, Increased Pain, Numbness or Tingling, Change in Color, Inability to urinate, Inability to have a bowel movement, Shortness of breath, Dizziness, Fainting spells, Swelling in the ankles, Chest pain, Prolonged hiccupping, Increased palpitations (irregular heartbeat) and Calf discomfort Follow Up Care When: IN 2 WEEKS Test Results: Test results from this visit will be discussed in further detail at your follow- up appointment, if applicable. Discharge Plan Admission Admit Date/Time: 09/28/23 16:16 Attending Provider: Sin Amaya Primary Care Provider: [facility],[place] Consulting Providers: Beau Gonsalves; Yong Sanchez Discharge Orders/Prescriptions Prescriptions: No Action insulin glargine [Lantus U-100 Insulin] 100 UNIT/ML solution 82 unit subcut QHS Patient Comments: LONG ACTING INSULIN simvastatin [Zocor] 80 MG tablet 80 mg PO QHS Patient Comments: Cholesterol lowering nitroglycerin [Nitrostat] 0.4 MG tablet, sublingual 0.4 mg sublingual PRN PRN (Reason: CHEST PAIN) Patient Comments: Chest pain Refresh Classic (PF) 1 EACH dropperette 2 drp EACHEYE DAILY PRN PRN (Reason: dry eyes) Patient Comments: Dry eyes clopidogrel 75 MG tablet 75 mg PO DAILY Qty: 14 0RF Patient Comments: Blood thinner, keeps stent open magnesium oxide 400 MG tablet 400 mg PO DAILYCM Qty: 14 0RF Patient Comments: Supplement insulin aspart U-100 [Novolog FlexPen U-100 Insulin] 100 UNITS/ML insulin pen 20 units subcut TIDAC Patient Comments: Short acting insulin metformin 1,000 MG tablet 1,000 mg PO BID acetaminophen 325 MG capsule 1,300 mg PO QHS pantoprazole 20 MG tablet,delayed release (DR/EC) 20 mg PO BID Patient Comments: GERD/reflux Referrals / Follow Up: [facility],[place] [Primary Care Provider] -
--- NOTE | 2023-10-01 12:54 | PN.HOSP_ITS ---
Reason for Visit Reason for Visit: Diagnoses Type 2 diabetes mellitus with hyperglycemia (09/28/23) Morbid (severe) obesity due to excess calories (09/28/23) Hyperlipidemia, unspecified (09/28/23) Essential (primary) hypertension (09/28/23) Myocardial infarction type 2 (09/28/23) Atherosclerotic heart disease of [place] coronary artery without angina pectoris (09/28/23) Unspecified atrial fibrillation (09/28/23) Heart failure, unspecified (09/28/23) Body mass index [BMI] 50.0-59.9, adult (09/28/23) Objective Data Objective Data Vital Signs: Vital Signs Temp Pulse Resp BP Pulse Ox O2 Del Method O2 Flow Rate 97.8 F 111 H 18 98/70 96 Room Air 2.5 10/01/23 05:00 10/01/23 09:02 10/01/23 05:00 10/01/23 05:00 10/01/23 07:28 10/01/23 07:28 09/30/23 07:52 Oxygen Flow Rate (L/min) 2.5 Oxygen Delivery Method Room Air Weight: 343 lb 14.738 oz Body Mass Index (BMI) 52.2 Intake & Output: Intake and Output for Last 24 Hours 09/29/23 09/30/23 10/01/23 23:59 23:59 23:59 Intake Total 973.07 / 1373.07 1419 1200 / 1200 Output Total 0 / 0 Balance 973.07 / 1373.07 1419 1200 / 1200 Lab / Micro Data 10/01/23 05:20 10/01/23 05:20 Labs: Laboratory Results - last 24 hr 09/28/23 14:46: B-Natriuretic Peptide 245.4 H 09/28/23 18:03: Vitamin B12 182 L 09/30/23 11:21: POC Glucose 160 H 09/30/23 15:26: POC Glucose 186 H 09/30/23 20:35: POC Glucose 99 10/01/23 05:20: WBC 7.2, RBC 4.01 L, Hgb 11.8 L, Hct 38.0 L, MCV 94.8 H, MCH 29.4, MCHC 31.1 L, RDW Std Deviation 45.9 H, RDW Coeff of Rasheeda 13.2, Plt Count 292, MPV 9.5, Immature Gran % (Auto) 0.600, Neut % (Auto) 58.9, Lymph % (Auto) 26.1, [place] % (Auto) 12.6 H, Eos % (Auto) 1.2, Baso % (Auto) 0.6, Absolute Neuts (auto) 4.3, Absolute Lymphs (auto) 1.89, Nucleated RBC % 0, Sodium 138, Potassium 4.4, Chloride 103, Carbon Dioxide 30.0, Anion Gap 5, BUN 10, Creatinine 0.76, Estim Creat Clear Calc 129.30, Est GFR (MDRD) Af Amer 132, Est GFR (MDRD) Non-Af 109, BUN/Creatinine Ratio 13.2, Glucose 99, Calcium 9.2 10/01/23 06:33: POC Glucose 106 10/01/23 12:01: POC Glucose 150 H Radiography Diagnostic Testing: Radiology Impression Echocardiogram 09/29/23 11:05 Interpretation Summary The estimated ejection fraction is 30 %. Moderately severe global left ventricular systolic dysfunction. Mild assymetric septal hypertrophy. There is mild biatrial dilatation. Mild (1+) mitral valve insufficiency. Mild to moderate (1-2+) tricuspid valve insufficiency. Pulmonary artery systolic pressure is 67 mmHg. The study was technically difficult. Contrast injection was performed. Compared to prior study, changes are noted. Ordering Physician: Beau Gonsalves Referring Physician: [facility] Performed By: Melissa Aguilar RDCS Physical Exam Narrative Seen and examined A-fib with RVR, tachycardic. Dyspnea on exertion. Does not have chest pain. No dyspnea at rest. Patient is stated that he has history of sleep apnea and recommended CPAP but he cannot use it as he feels like drowning or suffocated. Physical exam General: Alert, Oriented x3, Cooperative, morbid obesity BMI 52.4 kg/m? HEENT: Atraumatic, PERRLA, EOMI, Normocephalic Oral: Oral mucosa moist. No Gingival or Mucosal Lesions/ Ulcerations Neck: Supple, No JVD, Negative Carotid Bruits Chest wall/Lungs: Air entry diminished in bilateral lung bases. No crepitation/rhonchi Cardiovascular: Regular rate, Regular Rhythm, Normal S1, Normal S2, No M/G/R Abdomen: Fat abdomen. Intertriginous Fiona rash between abdominal fold of skin. Bowel Sounds Present, Soft, Non Tender, Non-Distended : No dysuria. No renal angle tenderness. No suprapubic tenderness. Extremities: 3+ bilateral lower extremity below-knee edema, Capillary Refill Less than 3 Seconds Skin: No rashes, No breakdown Musculoskeletal: No Tenderness to Palpation of Joints or Extremities Neurological: Cranial nerves II-XII grossly intact, DTR 2+/4. No acute focal neurological deficit. Psych/Mental Status: Normal Affect, Appropriate. Assessment & Plan Assessment/Plan (1) CHF (congestive heart failure): (2) Atrial fibrillation with RVR: (3) Uncontrolled type 2 diabetes mellitus: QUALIFIERS: Glycemic state: with hyperglycemia Qualified Code(s): E11.65 - Type 2 diabetes mellitus with hyperglycemia PLAN: Plan Patient is a 68-year-old male who presented [facility] ED on 09/28/2023 with worsening lower extremity swelling and shortness of breath with exertion. 1. HFpEF exacerbation, recurrent A-fib with RVR, history of CAD with stenting, medication nonadherence ? Admit under inpatient status to PCU. 09/28: Customs Verifier consulted discussed with him. Recurrent A-fib with RVR and worsening volume overload presumed secondary to medication nonadherence since patient ran out of home medications. Reports he was previously on anticoagulation, was taken off anticoagulation when put on sotalol. [id number]- VASc score is 4, high risk of thromboembolism. Patient started on IV heparin drip in ED, changed to Eliquis 5 mg twice daily. 2D echo ordered. Metoprolol 25 mg twice daily. 2D echo ordered. IV Lasix 40 mg twice daily. On aspirin continued. Plavix discontinued and stenting was done in 09/29: Patient had history of ND in the past. Continue Eliquis, metoprolol. Diltiazem restarted. 2D echo shows EF 30%. Moderately severe global LV systolic dysfunction. Mild asymmetric septal hypertrophy, mild biatrial dilatation. Mild MR mild to moderate TR. PASP 67 Since to moderate pulmonary hypertension continue diuretics 09/30: Patient heart rate is still elevated in 110s. Was started on Cardizem, dose increased to 60 mg every 6 hourly. Patient on digoxin to 50 mcg daily after digitalization yesterday. Continue Eliquis. 2. Elevated troponins most likely type II ? Troponin trend 209 > 192 in ED. Suspect due to demand ischemia from CHF exacerbation and recurrent A-fib with RVR as noted above. Plan for stress test tomorrow AM. 09/29: Stress test shows inferior and apical fixed defect but no significant ebenezer-infarct ischemia. Elevated troponin most likely type II [place]. Medical management recommended 09/30: Patient on baby aspirin and Eliquis. 3. Poorly controlled type 2 diabetes mellitus ? A1c 11.2% on admit. Home regimen of Lantus 82 units at night, NovoLog 20 units with meals, metformin 1000 mg twice daily. Patient was able to tell me his regimen and reports compliance. Does not check his sugars regularly at home. Blood glucose 348 on admit. Will start Lantus 50 units at night, Humalog 10 units with meals plus/scale insulin for now, adjust as needed. 09/30: Glucose in the morning was 99 in BMP. Lantus insulin decreased. 4. Chronic iron deficiency anemia ? Hemoglobin 12.3 on admit, baseline appears to be around 12-13. Iron studies with ferritin 21 consistent with iron deficiency anemia. Denies any dark or bloody bowel movements. No concern for active infection currently. 09/28: 2 doses of IV iron on mornings of 09/28 and 09/29. Recommend repeat iron studies in the next few months. Monitor CBC. 09/30: Hemoglobin 11.8/38%. 5. Acute debility ? Lives at home alone, reports generally decent functional status. Reports being limited recently by lower extremity swelling and shortness of breath with exertion. PT/OT/case management consulted. Chronic medical conditions: ? Morbid obesity: BMI 52 on admit. Encouraged lifestyle modifications. Complicates hospital course, care and prognosis. ? Hyperlipidemia: Lipid panel on admit with total cholesterol 111, LDL 47, HDL 29. Continue home statin. ? GERD: Continue home PPI. ? ELIN: Noncompliant with home CPAP, states he cannot tolerate the CPAP mask. Supplemental nasal cannula overnight during hospitalization. BiPAP ordered. DVT prophylaxis: Heparin drip CODE STATUS: DNR CCA, DNI Expected disposition: TBD Charges/Coding Visit Charges Inpatient E&M: 39004 Subs Hosp L2
[2023-10-01 17:46] LABS: Bedside Glucose 127 mg/dL (74-106)
[2023-10-01] MEDS: Metoprolol Tartrate 50 MG Tablet PO (22:20)
[2023-10-01] MEDS: Atorvastatin Calcium 40 MG Tablet PO (22:21)
[2023-10-01 22:45] LABS: Bedside Glucose 120 mg/dL (74-106)
[2023-10-02 01:20] VITALS: BP 101/66; PULSE 85; RESP 18; O2SAT 95
[2023-10-02] MEDS: dilTIAZem 30 MG Tablet PO ×2 (01:22→13:01)
[2023-10-02 03:45] VITALS: BP 99/80; PULSE 91; RESP 18; TEMP 36.6; O2SAT 96
[2023-10-02 05:28] VITALS: BP 99/59; PULSE 88
[2023-10-02 06:00] VITALS: BMI 52.4
[2023-10-02] MEDS: Insulin Lispro 100 UNIT/ML INSULN.PEN 10 UNIT SC ×2 (08:16→13:02)
[2023-10-02] MEDS: Aspirin E.C. 81 MG Tablet PO (08:21)
[2023-10-02] MEDS: Magnesium Chloride 64 MG Delay Rel.Tablet 128 MG PO (08:21)
[2023-10-02] MEDS: Spironolactone 25 MG Tablet 12.5 MG PO (08:22)
[2023-10-02] MEDS: Digoxin 250 MCG Tablet PO (08:24)
[2023-10-02] MEDS: Empagliflozin 10 MG Tablet PO (08:24)
[2023-10-02] MEDS: APIXABAN 5 MG TABLET PO (08:24)
[2023-10-02 08:25] VITALS: PULSE 89
[2023-10-02] MEDS: Furosemide 40 MG Tablet PO (08:25)
[2023-10-02] MEDS: Metoprolol Tartrate 50 MG Tablet PO (08:25)
[2023-10-02] MEDS: Pantoprazole Sodium 20 MG Tablet PO (08:26)
[2023-10-02] MEDS: Lisinopril 2.5 MG Tablet PO (08:26)
[2023-10-02 08:52] LABS: Bedside Glucose 96 mg/dL (74-106)
[2023-10-02 09:50] VITALS: BP 110/65; PULSE 82; RESP 18; TEMP 36.6; O2SAT 96
--- NOTE | 2023-10-02 11:02 | PCM.DC ---
Discharge Instructions Diet Discharge Diet: Low fat / Low cholesterol, 8 Cup Fluid Restriction and 2000 mg Sodium Diet Activity Discharge Activity: Return to Normal Activity Weight Bearing Status: Weight bearing as tolerated Dressing / Incision Call your doctor if you observe: Fever of 101 or Higher, Coldness, Increased Pain, Numbness or Tingling, Change in Color, Inability to urinate, Inability to have a bowel movement, Shortness of breath, Dizziness, Fainting spells, Swelling in the ankles, Chest pain, Prolonged hiccupping, Increased palpitations (irregular heartbeat) and Calf discomfort Follow Up Care When: IN 2 WEEKS Test Results: Test results from this visit will be discussed in further detail at your follow-up appointment, if applicable. Discharge Plan Admission Admit Date/Time: 09/28/23 16:16 Primary Reason for Your Visit: CHF exacerbation Attending Provider: Sin Amaya Primary Care Provider: [facility],[place] Consulting Providers: Beau Gonsalves; Yong Sanchez Discharge Orders/Prescriptions Prescriptions: New furosemide 40 mg Tablet 40 mg PO DAILY 30 Days Qty: 30 3RF atorvastatin 40 mg Tablet 40 mg PO QHS 30 Days Qty: 30 3RF digoxin 250 mcg (0.25 mg) Tablet 250 mcg PO DAILY 30 Days Qty: 30 3RF aspirin 81 mg Tablet,Delayed Release (Dr/Ec) 81 mg PO BREAKFAST 30 Days Qty: 30 4RF metoprolol tartrate 50 mg Tablet 50 mg PO BID 30 Days Qty: 60 3RF Rx Instructions: Hold for heart less than 50 or systolic blood pressure less than 100 mmHg. lisinopril 2.5 mg Tablet 2.5 mg PO DAILY 30 Days Qty: 30 3RF Eliquis 5 mg Tablet 5 mg PO BID 30 Days Qty: 60 2RF Jardiance 10 mg Tablet 10 mg PO DAILY 30 Days Qty: 30 3RF insulin lispro [Humalog KwikPen Insulin] 100 unit/mL Insulin Pen See Protocol subcut ACHS Qty: 0 0RF Protocol: 4. Sliding Scale Insulin High-Med Dosing Condition: 150-199 mg/dl = 2 units Condition: 200-259 mg/dl = 4 units Condition: 260-324 mg/dl = 6 units Condition: 325-374 mg/dl = 8 units Condition: 375-409 mg/dl = 10 units Condition: 410-449 mg/dl = 11 units Condition: Greater than 449 call physician Protocol Text: - Use for Total Daily Dose of Insulin 56-80 units - Patient who are insulin resistant or septic HIGH MEDIUM DOSING ALGORITHM diltiazem HCl [Cardizem CD] 120 mg capsule,extended release 24hr 120 mg PO DAILY Qty: 30 3RF Rx Instructions: Hold for heart less than 50 or systolic blood pressure less than 100 mmHg. Continued nitroglycerin [Nitrostat] 0.4 MG tablet, sublingual 0.4 mg sublingual PRN PRN (Reason: CHEST PAIN) Patient Comments: Chest pain Refresh Classic (PF) 1 EACH dropperette 2 drp EACHEYE DAILY PRN PRN (Reason: dry eyes) Patient Comments: Dry eyes metformin 1,000 MG tablet 1,000 mg PO BID acetaminophen 325 MG capsule 1,300 mg PO QHS pantoprazole 20 MG tablet,delayed release (DR/EC) 20 mg PO BID Patient Comments: GERD/reflux magnesium oxide 400 MG tablet 400 mg PO DAILYCM 30 Days Qty: 30 0RF Patient Comments: Supplement Changed insulin glargine [Lantus U-100 Insulin] 100 UNIT/ML solution 30 unit subcut QHS 30 Days Qty: 10 3RF Patient Comments: LONG ACTING INSULIN insulin aspart U-100 [Novolog FlexPen U-100 Insulin] 100 UNITS/ML insulin pen 10 unit subcut TIDAC 30 Days Qty: 15 4RF Patient Comments: Short acting insulin Discontinued simvastatin [Zocor] 80 MG tablet 80 mg PO QHS Patient Comments: Cholesterol lowering clopidogrel 75 MG tablet 75 mg PO DAILY Qty: 14 0RF Patient Comments: Blood thinner, keeps stent open Referrals / Follow Up[facility] [Primary Care Provider] - (Please make sure to make a follow up appt with your primary care. ) Beau Gonsalves MD [Med Staff - Active Staff] - Within 2 Weeks Disposition Disposition (needs filled in before D/C Order can be placed): Home, Self Care
[2023-10-02 11:55] LABS: Bedside Glucose 149 mg/dL (74-106)
--- NOTE | 2023-10-02 12:38 | PCM.DC.SUM ---
Providers Date of Admission: 09/28/23 Date of Discharge: 10/02/23 Primary Care Physician: MD Hospital Consultations 09/28/23 17:55 Consult: Cardiology Routine Consulting Provider: Beau Gonsalves Reason for Consult: CHF exacerbation, recurrent Afib w/ RVR EMERGENT Consult: No MD Notified: Yes Date Notified: 09/28/23 Time Notified: 17:55 Method of Notification: Text Reason For Visit: CHF EXACERBATION Diagnosis Discharge Diagnosis (1) CHF (congestive heart failure): Status: Acute Code(s): I50.9 - Heart failure, unspecified (2) Atrial fibrillation with RVR: Status: Acute Code(s): I48.91 - Unspecified atrial fibrillation (3) Uncontrolled type 2 diabetes mellitus: Status: Chronic Code(s): E11.65 - Type 2 diabetes mellitus with hyperglycemia Qualifiers: Glycemic state: with hyperglycemia Qualified Code(s): E11.65 - Type 2 diabetes mellitus with hyperglycemia Plan Patient is a 68-year-old male who presented [facility] ED on 09/28/2023 with worsening lower extremity swelling and shortness of breath with exertion. 1. HFpEF exacerbation, recurrent A-fib with RVR, history of CAD with stenting, medication nonadherence ? Admit under inpatient status to PCU. 09/28: [facility] consulted discussed with him. Recurrent A-fib with RVR and worsening volume overload presumed secondary to medication nonadherence since patient ran out of home medications. Reports he was previously on anticoagulation, was taken off anticoagulation when put on sotalol. [id number] score is 4, high risk of thromboembolism. Patient started on IV heparin drip in ED, changed to Eliquis 5 mg twice daily. 2D echo ordered. Metoprolol 25 mg twice daily. 2D echo ordered. IV Lasix 40 mg twice daily. On aspirin continued. Plavix discontinued and stenting was done in 09/29: Patient had history of [place] in the past. Continue Eliquis, metoprolol. Diltiazem restarted. 2D echo shows EF 30%. Moderately severe global LV systolic dysfunction. Mild asymmetric septal hypertrophy, mild biatrial dilatation. Mild MR mild to moderate TR. PASP 67 Since to moderate pulmonary hypertension continue diuretics 09/30: Patient heart rate is still elevated in 110s. Was started on Cardizem, dose increased to 60 mg every 6 hourly. Patient on digoxin 250 mcg daily after digitalization yesterday. Continue Eliquis. 10/01: Heart rate is controlled on digoxin, Cardizem and metoprolol 50 mg twice daily. Prescription given for Cardizem CD 120 mg daily, digoxin 250 mcg daily and metoprolol. Patient on magnesium. Potassium is 4.4 and 5.0 therefore could not tolerate spironolactone therefore discontinued. Patient on magnesium supplement. Prescription given for furosemide. Follow-up in cardiology office in 2 weeks 2. Elevated troponins most likely type II ? Troponin trend 209 > 192 in ED. Suspect due to demand ischemia from CHF exacerbation and recurrent A-fib with RVR as noted above. Plan for stress test tomorrow AM. 09/29: Stress test shows inferior and apical fixed defect but no significant ebenezer-infarct ischemia. Elevated troponin most likely type II [place]. Medical management recommended 09/30: Patient on baby aspirin and Eliquis. 10/01: Patient on baby aspirin, and Eliquis. High intensity statin. Home medications shows Plavix but probably patient was not taking it and discontinued. And last cardiac stent in 2016. Patient has chronic anemia and hemoglobin dropped from 12.3-11.8 on 3 anticoagulants therefore discharged on only 2 baby aspirin and Eliquis. 3. Poorly controlled type 2 diabetes mellitus ? A1c 11.2% on admit. Home regimen of Lantus 82 units at night, NovoLog 20 units with meals, metformin 1000 mg twice daily. Patient was able to tell me his regimen and reports compliance. Does not check his sugars regularly at home. Blood glucose 348 on admit. Will start Lantus 50 units at night, Humalog 10 units with meals plus/scale insulin for now, adjust as needed. 09/30: Glucose in the morning was 99 in BMP. Lantus insulin decreased. Lantus increased decreased to 30 units with holding parameter. 10/01: Patient discharged on decreased dose of Lantus and Humalog insulin. Accu-Chek insulin coverage with sliding scale. 4. Chronic iron deficiency anemia ? Hemoglobin 12.3 on admit, baseline appears to be around 12-13. Iron studies with ferritin 21 consistent with iron deficiency anemia. Denies any dark or bloody bowel movements. No concern for active infection currently. 09/28: 2 doses of IV iron on mornings of 09/28 and 09/29. Recommend repeat iron studies in the next few months. Monitor CBC. 09/30: Hemoglobin 11.8/38%. 10/01: Hemoglobin decreased but does not meet criteria for acute anemia. 5. Acute debility ? Lives at home alone, reports generally decent functional status. Reports being limited recently by lower extremity swelling and shortness of breath with exertion. PT/OT/case management consulted. Chronic medical conditions: ? Morbid obesity: BMI 52 on admit. Encouraged lifestyle modifications. Complicates hospital course, care and prognosis. ? Hyperlipidemia: Lipid panel on admit with total cholesterol 111, LDL 47, HDL 29. Continue home statin. ? GERD: Continue home PPI. ? ELIN: Noncompliant with home CPAP, states he cannot tolerate the CPAP mask. Supplemental nasal cannula overnight during hospitalization. BiPAP ordered. DVT prophylaxis: Heparin drip CODE STATUS: DNR CCA, DNI Discharge medication reconciliation done. Discharge follow-up instructions completed. Discharge process discussed with the patient and all questions were answered to patient's satisfaction. Follow with PCP in 1 to 2 weeks Total time spent, exact 35 minutes on discharge meds reconciliation, examination, coordination of care with nurses and ancillary staff, review of imaging and blood test and discussion with the patient on follow-up instructions. Medications at Discharge Home Medications nitroglycerin 0.4 mg sublingual tablet (Nitrostat) 0.4 mg sublingual PRN PRN CHEST PAIN 11/24/16 polyvinyl alcohol-povidone (PF) 1.4 %-0.6 % eye drops in a dropperette (Refresh Classic (PF)) 2 drp EACHEYE DAILY PRN PRN dry eyes 03/24/17 metformin 1,000 mg tablet 1,000 mg PO BID BLOOD SUGAR 06/24/17 acetaminophen 325 mg capsule 1,300 mg PO QHS pain 03/10/19 pantoprazole 20 mg tablet,delayed release 20 mg PO BID reflux 11/03/20 apixaban 5 mg tablet (Eliquis) 5 mg PO BID 30 days #60 tabs 10/02/23 aspirin 81 mg tablet,delayed release 81 mg PO BREAKFAST 30 days #30 tabs 10/02/23 atorvastatin 40 mg tablet 40 mg PO QHS 30 days #30 tabs 10/02/23 digoxin 250 mcg (0.25 mg) tablet 250 mcg PO DAILY 30 days #30 tabs 05/15/24 diltiazem HCl 120 mg capsule,extended release 24 hr (Cardizem CD) 120 mg PO DAILY #30 caps 10/02/23 empagliflozin 10 mg tablet (Jardiance) 10 mg PO DAILY 30 days #30 tabs 10/02/23 furosemide 40 mg tablet 40 mg PO DAILY 30 days #30 tabs 10/02/23 insulin aspart U-100 100 unit/mL (3 mL) subcutaneous pen (Novolog FlexPen U-100 Insulin aspart) 10 unit (0.1 mL) subcut TIDAC DIABETES 1 month #15 mL 10/02/23 insulin glargine 100 unit/mL subcutaneous solution (Lantus U-100 Insulin) 30 unit (0.3 mL) subcut QHS DIABETES 1 month #10 mL 24 insulin lispro 100 unit/mL subcutaneous pen (Humalog KwikPen (U-100) Insulin) See Protocol subcut ACHS #0 mL 10/02/23 lisinopril 2.5 mg tablet 2.5 mg PO DAILY 30 days #30 tabs 24 magnesium oxide 400 mg (241.3 mg magnesium) tablet 400 mg PO DAILYCM supplement 30 days #30 tabs 10/02/23 metoprolol tartrate 50 mg tablet 50 mg PO BID 30 days #60 tabs 10/02/23 Physical Exam Narrative Seen and examined Heart rate is controlled. A-fib. Dyspnea on exertion better. Compliance with medication reinforced. Does not have chest pain. No dyspnea at rest. Patient is stated that he has history of sleep apnea and recommended CPAP but he cannot use it as he feels like drowning or suffocated. Physical exam General: Alert, Oriented x3, Cooperative, morbid obesity BMI 52.4 kg/m? HEENT: Atraumatic, PERRLA, EOMI, Normocephalic Oral: Oral mucosa moist. No Gingival or Mucosal Lesions/ Ulcerations Neck: Supple, No JVD, Negative Carotid Bruits Chest wall/Lungs: Air entry diminished in bilateral lung bases. No crepitation/rhonchi Cardiovascular: Regular rate, Regular Rhythm, Normal S1, Normal S2, No M/G/R Abdomen: Fat abdomen. Intertriginous Fiona rash between abdominal fold of skin. Bowel Sounds Present, Soft, Non Tender, Non-Distended : No dysuria. No renal angle tenderness. No suprapubic tenderness. Extremities: 1+ bilateral lower extremity below-knee edema, Capillary Refill Less than 3 Seconds Skin: No rashes, No breakdown Musculoskeletal: No Tenderness to Palpation of Joints or Extremities Neurological: Cranial nerves II-XII grossly intact, DTR 2+/4. No acute focal neurological deficit. Psych/Mental Status: Normal Affect, Appropriate. Weight / BMI Weight Weight: 344 lb 9.32 oz Body Mass Index (BMI) 52.4 ABG / Lab / Microbiology Data 10/01/23 05:20 10/01/23 05:20 Laboratory: Laboratory Results - last 24 hr 10/01/23 17:21: POC Glucose 127 H 10/01/23 22:23: POC Glucose 120 H 10/02/23 08:13: POC Glucose 96 10/02/23 11:14: POC Glucose 149 H D/C Instructions Discharge Diet: Low fat / Low cholesterol, 8 Cup Fluid Restriction and 2000 mg Sodium Diet Weight Bearing Status: Weight bearing as tolerated Call your doctor if you observe: Fever of 101 or Higher, Coldness, Increased Pain, Numbness or Tingling, Change in Color, Inability to urinate, Inability to have a bowel movement, Shortness of breath, Dizziness, Fainting spells, Swelling in the ankles, Chest pain, Prolonged hiccupping, Increased palpitations (irregular heartbeat) and Calf discomfort When: IN 2 WEEKS Meaningful Use Info Meaningful Use Meaningful Use Diagnoses (Choose all that apply): CHF CHF JALYN/ARB ordered at discharge?: Yes Documented LVEF (%): 30 Ischemic Stroke Statin Dosing Therapy Reference: STATIN DOSE THERAPY REFERENCE: * Patients > 75 years receive moderate or high dose statin therapy. * Patients 75 years or YOUNGER should receive HIGH intensity statin dose unless contraindicated. You will be required to document reason for non-treatment if statin daily dose does not meet guidelines. HIGH DOSE STATIN THERAPY DAILY Atorvastatin > than or = to 40 mg Rosuvastatin > than or = to 20 mg Amlodipine + Atorvastatin > than or = to 2.5/40 mg Ezetimibe + Simvastatin 10/80 mg Simvastatin 80mg Discharge Plan Admission Admit Date/Time: 09/28/23 16:16 Primary Reason for Your Visit: CHF exacerbation Attending Provider: Sin Amaya Primary Care Provider: Hospital,MD Consulting Providers: Beau Gonsalves; Yong Sanchez Discharge Orders/Prescriptions Prescriptions: New furosemide 40 mg Tablet 40 mg PO DAILY 30 Days Qty: 30 3RF atorvastatin 40 mg Tablet 40 mg PO QHS 30 Days Qty: 30 3RF digoxin 250 mcg (0.25 mg) Tablet 250 mcg PO DAILY 30 Days Qty: 30 3RF aspirin 81 mg Tablet,Delayed Release (Dr/Ec) 81 mg PO BREAKFAST 30 Days Qty: 30 4RF metoprolol tartrate 50 mg Tablet 50 mg PO BID 30 Days Qty: 60 3RF Rx Instructions: Hold for heart less than 50 or systolic blood pressure less than 100 mmHg. lisinopril 2.5 mg Tablet 2.5 mg PO DAILY 30 Days Qty: 30 3RF Eliquis 5 mg Tablet 5 mg PO BID 30 Days Qty: 60 2RF Jardiance 10 mg Tablet 10 mg PO DAILY 30 Days Qty: 30 3RF insulin lispro [Humalog KwikPen Insulin] 100 unit/mL Insulin Pen See Protocol subcut ACHS Qty: 0 0RF Protocol: 4. Sliding Scale Insulin High-Med Dosing Condition: 150-199 mg/dl = 2 units Condition: 200-259 mg/dl = 4 units Condition: 260-324 mg/dl = 6 units Condition: 325-374 mg/dl = 8 units Condition: 375-409 mg/dl = 10 units Condition: 410-449 mg/dl = 11 units Condition: Greater than 449 call physician Protocol Text: - Use for Total Daily Dose of Insulin 56-80 units - Patient who are insulin resistant or septic HIGH MEDIUM DOSING ALGORITHM diltiazem HCl [Cardizem CD] 120 mg capsule,extended release 24hr 120 mg PO DAILY Qty: 30 3RF Rx Instructions: Hold for heart less than 50 or systolic blood pressure less than 100 mmHg. Continued nitroglycerin [Nitrostat] 0.4 MG tablet, sublingual 0.4 mg sublingual PRN PRN (Reason: CHEST PAIN) Patient Comments: Chest pain Refresh Classic (PF) 1 EACH dropperette 2 drp EACHEYE DAILY PRN PRN (Reason: dry eyes) Patient Comments: Dry eyes metformin 1,000 MG tablet 1,000 mg PO BID acetaminophen 325 MG capsule 1,300 mg PO QHS pantoprazole 20 MG tablet,delayed release (DR/EC) 20 mg PO BID Patient Comments: GERD/reflux magnesium oxide 400 MG tablet 400 mg PO DAILYCM 30 Days Qty: 30 0RF Patient Comments: Supplement Changed insulin glargine [Lantus U-100 Insulin] 100 UNIT/ML solution 30 unit subcut QHS 30 Days Qty: 10 3RF Patient Comments: LONG ACTING INSULIN insulin aspart U-100 [Novolog FlexPen U-100 Insulin] 100 UNITS/ML insulin pen 10 unit subcut TIDAC 30 Days Qty: 15 4RF Patient Comments: Short acting insulin Discontinued simvastatin [Zocor] 80 MG tablet 80 mg PO QHS Patient Comments: Cholesterol lowering clopidogrel 75 MG tablet 75 mg PO DAILY Qty: 14 0RF Patient Comments: Blood thinner, keeps stent open Referrals / Follow Up: Beau Gonsalves MD [Med Staff - Active Staff] - [facility] Weeks [facility] [Primary [facility]] - (Please make sure to make a follow up appt with your primary care. ) Disposition Disposition (needs filled in before D/C Order can be placed): Home, Self Care Charges/Coding Visit Charges Inpatient E&M: 31025 Disch Hosp >30min
--- NOTE | 2023-10-02 14:45 | CASEMGMT ---
Addendum entered by Katie Brice 10/02/23 16:47: RN CM called [facility] and applied 30 savings card for Eliquis. RN CM called patient, no answer, voice message left updated regarding savings card applied and prescription ready for pickup at [facility]. Original Note: RN CM updated that patient had discharge and did not fill prescriptions at [facility] prior to discharge as he had transportation waiting on him. RN CM called patient to follow-up regarding prescription. Patient states he only [place] prescription [place] through the [place] and will be follow-up this afternoon to make appointment PCP at [facility]. RN CM inquired if patient would need prescriptions filled locally and patient asked to have prescriptions sent to [facility] in [place]. Patient is discharging on Eliquis and RN CM updated patient this RN CM will call [facility] and provide savings card for no copay so patient can pick it up, patient voiced understanding. Patient states he has insulin at home and other medications that were on discharge instructions. RN CM stated that if he was missing medications, those prescriptions were sent to [facility] as well, patient voiced understanding. RN CM inquired if patient had any further needs or concerns. Patient denied further needs at this time. RN CM called [facility] and had prescriptions transferred to [facility].
== END 2023-10-02 13:58 | disposition home or self-care (01) | DRG 280 ==
LOC: ED 16:08 → PCU 16:26
PROVIDERS: Physician Assistant; Admitting Provider Hospitalist; Emergency Provider Emergency Medicine; Visit Provider Internal Medicine
DX: I11.0 Hypertensive heart disease with heart failure (principal); I21.A1 Myocardial infarction type 2; I50.33 Acute on chronic diastolic (congestive) heart failure; Z68.43 Body mass index [BMI] 50.0-59.9, adult; E11.65 Type 2 diabetes mellitus with hyperglycemia; D50.9 Iron deficiency anemia, unspecified; E78.5 Hyperlipidemia, unspecified; Z79.01 Long term (current) use of anticoagulants; J44.9 Chronic obstructive pulmonary disease, unspecified; I48.0 Paroxysmal atrial fibrillation; E66.01 Morbid (severe) obesity due to excess calories; Z79.4 Long term (current) use of insulin; G47.33 Obstructive sleep apnea (adult) (pediatric); K21.9 Gastro-esophageal reflux disease without esophagitis; I25.10 Atherosclerotic heart disease of native coronary artery without angina pectoris; I25.2 Old myocardial infarction; R53.81 Other malaise; Z66 Do not resuscitate; Z95.5 Presence of coronary angioplasty implant and graft; Z91.148 Patient's other noncompliance with medication regimen for other reason; Z91.198 Patient's noncompliance with other medical treatment and regimen for other reason; Z79.02 Long term (current) use of antithrombotics/antiplatelets; Z79.84 Long term (current) use of oral hypoglycemic drugs; Z79.899 Other long term (current) drug therapy; Z86.73 Personal history of transient ischemic attack (TIA), and cerebral infarction without residual deficits; Z87.891 Personal history of nicotine dependence
CPT/HCPCS: 36415; 71046; 78452; 80048; 80053; 80061; 82607; 82728; 82746; 82962; 83036; 83540; 83550; 83880; 84443; 84484; 85025; 85027; 85730; 93005; 93017; 93306; 94640; 94668; 97162; 97165; 97530; 97802; 99285; A9500; J7050; Q9957; A4216; C8929; J1940; J2405; J2785; J2916

== ENCOUNTER 2025-03-10 19:14 | Emergency (ER) | payer OTHER, SELFPAY ==
[2017-03-25 11:36] VITALS: BMI 51.2
[2025-03-10] VITALS (19 sets, daily range): BP systolic 124–139; BP diastolic 59–110; PULSE 66–98; RESP 14–27; TEMP 36.8–37.2; O2SAT 94–100; BMI 53.1
--- NOTE | 2025-03-10 19:25 | EKG12_ITS ---
Test Reason : DYSRHYTHMIA Blood Pressure : */* mmHG Vent. Rate : 75 BPM Atrial Rate : 75 BPM P-R Int : 166 ms QRS Dur : 96 ms QT Int : 420 ms P-R-T Axes : 65 -34 81 degrees QTcB Int : 469 ms Normal sinus rhythm Left axis deviation Low voltage QRS Abnormal ECG Confirmed by Tian Casas ([id number]), primer expeditor and drier WOJCIECH DEVRIES ([id number]) on 03/11/2025 9:38:03 AM Referred By: Confirmed By: Tian Casas
--- NOTE | 2025-03-10 19:40 | RAD_ITS ---
PROCEDURE: CHEST 1 VIEW (PORTABLE) 03/10/2025 REASON FOR EXAM: COUGH/WHEEZING TECHNIQUE: Frontal view of the chest. FINDINGS: The heart appears enlarged which may be due exaggerated AP technique or cardiomegaly. Study of the is degraded by motion but the lungs appear clear. No acute osseous abnormalities. RAD/Chest 1 View (Portable) IMPRESSION: Pulmonary findings as above. Reading Location: [id number]
[2025-03-10 20:33] LABS: Anion Gap 12 (5-15); BUN 11 mg/dL (4-19); BUN/Creat Ratio 11.1 RATIO (10-20); Calcium,Total 9.2 mg/dL (7.6-11.0); Carbon Dioxide 25.5 mmol/L (21.0-32.0); Chloride 98 mmol/L (98-108); Estimated Creatinine Clearance 103.69 ml/min (50-250); Glucose 283 mg/dL (70-99); Potassium 4.7 mmol/L (3.3-5.1); Troponin T High Sensitivity 60 ng/L (<=22)
[2025-03-10 20:37] LABS: Hematocrit 33.4 % (40-54); Hemoglobin 9.9 g/dL (13.0-16.5); Immature Granulocytes Count 0.050 X10^3/uL (0.0-0.0); Mean Corp Hgb Conc 29.6 g/dL (32-36); Mean Corpuscular Volume 88.4 fL (80-94); Mean Platelet Vol. 10.1 fl (6.2-12.0); NRBC Flagged by Analyzer 0 % (0-5); Platelet Count 406 K/mm3 (150-450); RBC Distribution Width CV 14.6 % (11.6-14.6); RBC Distribution Width SD 47.1 fl (35.1-43.9); Red Blood Count 3.78 M/mm3 (4.6-6.2); White Blood Count 8.3 K/mm3 (4.4-11.0)
--- NOTE | 2025-03-10 21:17 | EX.ED.DYSGE1 ---
HPI History of Present Illness Chief Complaint: Shortness of Breath Narrative Narrative: Chief complaint and HPI: 78-year-old male with past medical history of DM, COPD, atrial fibrillation on Eliquis, COPD, HTN presents for evaluation of shortness of breath. Patient states that shortness of breath has been worsening over the last couple days. Associated symptom is cough. Shortness of breath is worse with exertion. He denies any weight gain or increase in bilateral lower extremity edema. He denies any fever, chills, chest pain, abdominal pain, nausea, vomiting. Review of systems: See HPI Medications: As listed on the chart Allergies: As listed on the chart PFSH: Per chart Vital signs: As listed on the chart. Reviewed. Physical exam: Gen: A&O x3, NAD Head: Normocephalic, atraumatic Eyes: No sclera icterus, conjunctiva clear ENT: Moist mucous membranes Neck: Trachea midline CV: RRR, no murmurs, mild bilateral peripheral edema-nonpitting Resp: Lungs mildly diminished in the bases, wheezing. Dry cough. GI: Abd soft, non-distended, non-tender, no r/r/g Musc: Moves all extremities, no deformity Skin: Warm, dry Neuro: Alert, oriented, grossly intact, sensation intact Psych: Cooperative, appropriate mood and affect [facility] Medical History Diabetes GERD (gastroesophageal reflux disease) Smoker CPAP (continuous positive airway pressure) dependence Sleep apnea COPD (chronic obstructive pulmonary disease) Atrial fibrillation Irregular heart beat Myocardial infarct Chest pain Hypertension Stroke/cerebrovascular accident Diabetes Smoker COPD (chronic obstructive pulmonary disease) Home Medications ?Medication ?Instructions ?Recorded ?Last Taken ?Type nitroglycerin 0.4 mg sublingual 0.4 mg sublingual PRN PRN CHEST 11/24/16 Unknown History tablet (Nitrostat) PAIN polyvinyl alcohol-povidone (PF) 2 drp EACHEYE DAILY PRN PRN dry 03/24/17 03/09/19 History 1.4 %-0.6 % eye drops in a eyes dropperette (Refresh Classic (PF)) metformin 1,000 mg tablet 1,000 mg PO BID BLOOD SUGAR 06/24/17 Unknown History acetaminophen 325 mg capsule 1,300 mg PO QHS pain 03/10/19 03/09/19 History pantoprazole 20 mg tablet,delayed 20 mg PO BID reflux 11/03/20 Unknown History release apixaban 5 mg tablet (Eliquis) 5 mg PO BID 30 days #60 tabs 10/02/23 Unknown Rx aspirin 81 mg tablet,delayed 81 mg PO BREAKFAST 30 days #30 tabs 10/02/23 Unknown Rx release atorvastatin 40 mg tablet 40 mg PO QHS 30 days #30 tabs 10/02/23 Unknown Rx digoxin 250 mcg (0.25 mg) tablet 250 mcg PO DAILY 30 days #30 tabs 10/02/23 Unknown Rx diltiazem HCl 120 mg 120 mg PO DAILY #30 caps 10/02/23 Unknown Rx capsule,extended release 24 hr (Cardizem CD) empagliflozin 10 mg tablet 10 mg PO DAILY 30 days #30 tabs 10/02/23 Unknown Rx (Jardiance) furosemide 40 mg tablet 40 mg PO DAILY 30 days #30 tabs 10/02/23 Unknown Rx insulin aspart U-100 100 unit/mL 10 unit (0.1 mL) subcut TIDAC 10/02/23 Unknown Rx (3 mL) subcutaneous pen (Novolog DIABETES 1 month #15 mL FlexPen U-100 Insulin aspart) insulin glargine 100 unit/mL 30 unit (0.3 mL) subcut QHS 10/02/23 Unknown Rx subcutaneous solution (Lantus DIABETES 1 month #10 mL U-100 Insulin) insulin lispro 100 unit/mL See Protocol subcut ACHS #0 mL 10/02/23 Unknown Rx subcutaneous pen (Humalog KwikPen (U-100) Insulin) lisinopril 2.5 mg tablet 2.5 mg PO DAILY 30 days #30 tabs 10/02/23 Unknown Rx magnesium oxide 400 mg (241.3 mg 400 mg PO DAILYCM supplement 30 10/02/23 Unknown Rx magnesium) tablet days #30 tabs metoprolol tartrate 50 mg tablet 50 mg PO BID 30 days #60 tabs 10/02/23 Unknown Rx Allergy/AdvReac Type Severity Reaction Status Date / Time bee venom protein (honey bee) Allergy Anaphylaxis Verified 03/10/25 19:16 Surgical History (Updated 03/10/25 @ 19:27 by John Red) History of appendectomy History of cholecystectomy History of coronary artery stent placement Social History Smoking Status: Former smoker EXAM Physical Exam Const Vital Signs: 03/10/25 19:15 03/10/25 19:26 03/10/25 19:26 Temperature 98.3 F 98.6 F Temperature Source Oral Oral Pulse Rate 79 77 Respiratory Rate 20 H 26 H Respiratory Effort Short of Breath Labored Respiratory Depth Shallow Respiratory Pattern Tachypnea Blood Pressure 136/62 H 139/95 H Blood Pressure Mean 86 109 Pulse Ox 98 95 Oxygen Delivery Method Room Air Room Air Room Air 03/10/25 19:29 03/10/25 19:29 03/10/25 20:01 Temperature Temperature Source Pulse Rate 66 Respiratory Rate 14 14 Respiratory Effort Respiratory Depth Respiratory Pattern Blood Pressure 124/86 H Blood Pressure Mean 98 Pulse Ox 98 97 Oxygen Delivery Method Room Air Room Air Room Air 03/10/25 20:16 03/10/25 20:22 03/10/25 20:26 Temperature 98.3 F Temperature Source Oral Pulse Rate 71 Respiratory Rate 22 H Respiratory Effort Respiratory Depth Respiratory Pattern Blood Pressure 124/86 H 126/82 H Blood Pressure Mean 98 96 Pulse Ox 95 98 94 Oxygen Delivery Method Room Air 03/10/25 20:30 03/10/25 20:45 03/10/25 21:00 Temperature Temperature Source Pulse Rate 68 69 71 Respiratory Rate 27 H 24 H 25 H Respiratory Effort Respiratory Depth Respiratory Pattern Blood Pressure Blood Pressure Mean Pulse Ox 95 100 96 Oxygen Delivery Method 03/10/25 21:15 03/10/25 21:30 03/10/25 21:31 Temperature Temperature Source Pulse Rate 71 71 Respiratory Rate 19 H 16 Respiratory Effort Respiratory Depth Respiratory Pattern Blood Pressure 133/110 H 131/59 H Blood Pressure Mean 119 80 Pulse Ox 95 96 98 Oxygen Delivery Method Room Air Room Air 03/10/25 21:44 03/10/25 21:45 03/10/25 22:00 Temperature Temperature Source Pulse Rate 68 Respiratory Rate 22 H Respiratory Effort Respiratory Depth Respiratory Pattern Tachypnea Blood Pressure Blood Pressure Mean Pulse Ox 98 97 Oxygen Delivery Method MDM MDM MDM Narrative Medical decision making narrative: 78-year-old male with past medical history of DM, COPD, atrial fibrillation on Eliquis, COPD, HTN presents for evaluation of shortness of breath. Patient states that shortness of breath has been worsening over the last couple days. Associated symptom is cough. Shortness of breath is worse with exertion. He denies any weight gain or increase in bilateral lower extremity edema. Differential diagnosis includes but is not limited to COPD exacerbation, CHF exacerbation, pneumonia, viral illness, suspect less likely ACS. Patient had protocol labs ordered in triage. Most the labs resulted by the time I saw the patient. CBC without leukocytosis. Patient has known anemia with hemoglobin of 9.9. Platelets unremarkable. BMP unremarkable except for hyperglycemia of 283. Patient is a diabetic. Troponin 60. Patient not endorsing any chest pain. On chart review, his last echocardiogram was in September 2023. EF of 30%. Last stress test was in September 2023 showed no new ischemic changes. Will obtain delta. Added BNP. DuoNebs and Solu-Medrol given for wheezing.BNP elevated at 1535. Patient in mild CHF exacerbation. IV Lasix ordered. Repeat troponin 63. This makes the delta 3. Low suspicion for ACS. Patient not having any chest pain and no ischemic changes on EKG. However given patient is a cardiac patient, cardiology was consulted and I spoke with Dr. Casas. He agrees likely mild CHF exacerbation. No concern for ACS. Plan is to increase his 40 mg of Lasix to 80 mg for the next 3 days and then back down to 40 mg. He needs to follow-up in their office. Call on Saturday. He confirmed understanding. Concern is for also for COPD exacerbation as shortness of breath mildly improved along with wheezing with DuoNebs and Solu-Medrol. Will place on a short course of steroids. Patient states he will monitor his blood sugar at home as he stated this will increase it. Follow-up with PCP. He confirmed understanding. He was ambulated in the ED without hypoxia. Patient stable to discharge home. Return precautions explained. EKG: Interpreted by me/EM physician: EKG shows normal sinus rhythm without any acute ischemic changes. Heart rate 75 Diagnostic: Interpreted by me/EM physician: Chest x-ray shows cardiomegaly with mild pulmonary congestion. No large effusion. No pneumothorax. No pneumonia. Radiology in agreement. Impression: 1. Mild CHF exacerbation 2. COPD exacerbation Lab Data Labs: Laboratory Results - last 24 hr 03/10/25 03/10/25 19:19 21:30 WBC 8.3 RBC 3.78 L Hgb 9.9 L Hct 33.4 L MCV 88.4 MCH 26.2 L MCHC 29.6 L RDW Std Deviation 47.1 H RDW Coeff of Rasheeda 14.6 Plt Count 406 MPV 10.1 Immature Gran % (Auto) 0.600 Neut % (Auto) 69.8 Lymph % (Auto) 16.1 L [place] % (Auto) 11.2 H Eos % (Auto) 1.7 Baso % (Auto) 0.6 Absolute Neuts (auto) 5.8 Absolute Lymphs (auto) 1.34 Nucleated RBC % 0 Sodium 136 Potassium 4.7 Chloride 98 Carbon Dioxide 25.5 Anion Gap 12 BUN 11 Creatinine 0.98 Estim Creat Clear Calc 103.69 Est GFR (MDRD) Non-Af 83 BUN/Creatinine Ratio 11.1 Glucose 283 H Calcium 9.2 Troponin T High Sens 60 H* Troponin T Hi Sens 2 Hr 63 H* NT pro BNP II 1535 H Radiography Diagnostic Testing: Clinical Impression(s) from Imaging Studies Chest X-Ray 03/10/25 19:40 IMPRESSION: Pulmonary findings as above. Reading Location: [address] Discharge Plan Triage Chief Complaint: Shortness of Breath ED Provider: Saeed Pop Dx/Rx/DC Orders Prescriptions: No Action nitroglycerin [Nitrostat] 0.4 MG tablet, sublingual 0.4 mg sublingual PRN PRN (Reason: CHEST PAIN) Patient Comments: Chest pain Refresh Classic (PF) 1 EACH dropperette 2 drp EACHEYE DAILY PRN PRN (Reason: dry eyes) Patient Comments: Dry eyes metformin 1,000 MG tablet 1,000 mg PO BID acetaminophen 325 MG capsule 1,300 mg PO QHS pantoprazole 20 MG tablet,delayed release (DR/EC) 20 mg PO BID Patient Comments: GERD/reflux furosemide 40 mg Tablet 40 mg PO DAILY 30 Days Qty: 30 3RF atorvastatin 40 mg Tablet 40 mg PO QHS 30 Days Qty: 30 3RF digoxin 250 mcg (0.25 mg) Tablet 250 mcg PO DAILY 30 Days Qty: 30 3RF aspirin 81 mg Tablet,Delayed Release (Dr/Ec) 81 mg PO BREAKFAST 30 Days Qty: 30 4RF metoprolol tartrate 50 mg Tablet 50 mg PO BID 30 Days Qty: 60 3RF Rx Instructions: Hold for heart less than 50 or systolic blood pressure less than 100 mmHg. lisinopril 2.5 mg Tablet 2.5 mg PO DAILY 30 Days Qty: 30 3RF Eliquis 5 mg Tablet 5 mg PO BID 30 Days Qty: 60 2RF Jardiance 10 mg Tablet 10 mg PO DAILY 30 Days Qty: 30 3RF insulin lispro [Humalog KwikPen Insulin] 100 unit/mL Insulin Pen See Protocol subcut ACHS Qty: 0 0RF Protocol: 4. Sliding Scale Insulin High-Med Dosing Condition: 150-199 mg/dl = 2 units Condition: 200-259 mg/dl = 4 units Condition: 260-324 mg/dl = 6 units Condition: 325-374 mg/dl = 8 units Condition: 375-409 mg/dl = 10 units Condition: 410-449 mg/dl = 11 units Condition: Greater than 449 call physician Protocol Text: - Use for Total Daily Dose of Insulin 56-80 units - Patient who are insulin resistant or septic HIGH MEDIUM DOSING ALGORITHM diltiazem HCl [Cardizem CD] 120 mg capsule,extended release 24hr 120 mg PO DAILY Qty: 30 3RF Rx Instructions: Hold for heart less than 50 or systolic blood pressure less than 100 mmHg. insulin glargine [Lantus U-100 Insulin] 100 UNIT/ML solution 30 unit subcut QHS 30 Days Qty: 10 3RF Patient Comments: LONG ACTING INSULIN magnesium oxide 400 MG tablet 400 mg PO DAILYCM 30 Days Qty: 30 0RF Patient Comments: Supplement insulin aspart U-100 [Novolog FlexPen U-100 Insulin] 100 UNITS/ML insulin pen 10 unit subcut TIDAC 30 Days Qty: 15 4RF Patient Comments: Short acting insulin Primary Care Provider: HARDEEP ART Referrals: [facility],[place] [STAFF PHYSICIAN, None] Print Language: Guyanese
--- OUTSIDE RECORDS SUMMARY | 2025-03-10 21:56 | XMS RPT_ITS | CCD ---
Author Organization [facility] Inform ion Partnership [facility] Care Team Providers Care Weed Sprayer Name Role Phone ALDA Littlejohn, Ruth Ann Bernal Unavailable Unavailslime Littlejohn RN, Phyllis M Unavailable UnavailYong Painter Admitting Unavailable MajorBeau smith Consulting Unavailable Sin Amaya Attending Unavailable [place] [facility] Unavailable Yong Sanchez Consulting Unavailable Sin Amaya Consulting Unavailable MajorBeau Attending Unavailable MajorBeau Consulting Unavailable [place] [facility] Unavailable Sin Amaya Attending Unavailable Yong Sanchez Admitting Unavailable Yong Sanchez Consulting Unavailable Yong Sanchez Attending Unavailable Allergies Allergy Classification Reported Allergen(s) Allergy Type Date of Onset Reaction(s) Facility (1 source) bee venom protein (honey bee) Allergy to substance 09-28-2023 Anaphylaxis [facility] (1 source) bee venom protein (honey bee) Drug allergy (disorder) 09-28-2023 [facility] Repository Medications Current Medications Medication Drug Class(es) Dates Sig (Normalized) Sig (Original) acetaminophen 325 mg oral capsule (1 source) Start: 2019 take 1300 mg by mouth at bedtime Acetaminophen Active 1300 MG PO AT BEDTIME 2019 12:00am clopidogrel 75 mg oral tablet (1 source) P2Y12 Platelet Inhibitor Start: 03-26-2017 take 75 mg by mouth once daily Clopidogrel Active 75 MG PO DAILY March 26, 2017 1:00am 3 ml insulin aspart, human 100 unt/ml pen injector (2 sources) Insulin Analog Start: 06-24-2017 Insulin Aspart U-100 (Novolog Flexpen U-100 Insulin) 100 UNITS/ML insulin pen Active 20 UNITS SC THREE TIMES DAILY BEFORE MEALS June 24, 2017 7:17am Start: 03-26-2017 End: 06-24-2017 Insulin Aspart U-100 (Novolo g Flexpen U-100 Insulin) 100 UNITS/ML Flexpen Discontinued 5 UNITS SC THREE TIMES DAILY BEFORE MEALS March 26, 2017 1:00am June 24, 2017 7:17am Insulin Glargine (Lantus U-100 Insulin) 100 UNIT/ML solution (1 source) Start: 12-15-2014 Insulin Glargi ne (Lantus U-100 Insulin) 100 UNIT/ML solution Active 82 UNIT SC AT BEDTIME December 15, 2014 12:00am magnesium oxide 400 mg oral tablet (1 source) Start: 03-26-2017 take 400 mg by mouth once daily at mealtime Magnesium Oxide Active 400 MG PO DAILY WITH MEALS March 26, 2017 1:00am metFORMIN hydrochloride 1000 mg oral tablet (2 sources) Biguanide Start: 06-24-2017 take 1000 mg by mouth twice daily Metformin Active 1000 MG PO TWICE A DAY June 24, 2017 1:00am Start: 12-15-2014 End: 03-26-2017 take 1000 mg by mouth twice daily Metformin Discontinued 1000 MG PO TWICE A DAY December 15, 2014 12:00am March 26, 2017 11:20am nitroglycerin 0.4 mg sublingual tablet (1 source) Nitrate Vasodilator Start: 11-24-2016 Nitroglycerin (Nitrostat) 0.4 MG tablet, sublingual Active 0.4 MG SL NEEDED November 24, 2016 12:00am pantoprazole 20 mg delayed release oral tablet (2 sources) Proton Pump Inhibitor Start: 11-26-2016 End: 11-03-2020 take 20 mg by mouth twice daily Pantoprazole Active 20 MG PO TWICE A DAY November 03, 2020 2:02pm polyvinyl alcohol 0.014 ml/ml / povidone 6 mg/ml ophthalmic solution (1 source) Start: 03-24-2017 Polyvinyl Alcohol-Povidon(Pf) (Refresh Classic (Pf)) 1 EACH dropperette Active 2 DRP EACHEYE DAILY NEEDED March 24, 2017 12:00am simvastatin 80 mg oral tablet (1 source) HMG-CoA Reductase Inhibitor Start: 12-15-2014 take 1 tablet by mouth at bedtime Simvastatin (Zocor) 80 MG tablet Active 80 MG PO AT BEDTIME December 15, 2014 12:00am Completed/Discontinued Medications Medication Drug Class(es) Dates Sig (Normalized) Sig (Original) acetaminophen 325 mg / oxyCODONE hydrochloride 5 mg oral tablet (1 source) Opioid Agonist Start: 01-24-2023 End: 09-28-2023 take 1 tablet by mouth every six hours Oxycodone-Acetamin ophen (Percocet) 5-325 mg tablet Discontinued 1 TABLET PO EVERY 6 HOURS 12 3 January 24, 2023 September 28, 2023 4:08pm amoxicillin 875 mg / clavulanate 125 mg oral tablet (1 source) Penicillin-class Antibacterial Start: 01-24-2023 End: 09-28-2023 take 875 mg by mouth every twelve hours Amoxicillin-Pot Clavulanate Discontinued 875 MG PO Q12H January 24, 2023 12:00am September 28, 2023 4:07pm aspirin 81 mg delayed release oral tablet (1 source) Platelet Aggregation Inhibitor, Nonsteroidal Anti-inflammatory Drug Start: 03-26-2017 End: 09-28-2023 take 81 mg by mouth once daily Aspirin Discontinued 81 MG PO DAILY@0800 March 26, 2017 1:00am September 28, 2023 4:07pm glipiZIDE er 5 mg 24 hr extended release oral tablet (2 sources) Sulfonylurea Start: 11-24-2016 End: 03-26-2017 take 1 tablet by mouth once daily Glipizide (Glucotrol Xl) 5 MG Tab.Er.24 Discontinued 5 MG PO DAILY November 24, 2016 12:00am March 26, 2017 11:20am Start: 12-15-2014 End: 12-16-2014 take 10 mg by mouth twice daily before mealtime Glipizide Discontinued 10 MG PO TWICE DAILY BEFORE MEALS December 15, 2014 12:00am December 16, 2014 8:31am ibuprofen 400 mg oral tablet (1 source) Nonsteroidal Anti-inflammatory Drug Start: 12-15-2014 End: 03-26-2017 take 600 mg by mouth every six hours as needed Ibuprofen Discontinued 600 MG PO EVERY 6 HOURS NEEDED December 15, 2014 12:00am March 26, 2017 11:20am isosorbide dinitrate 20 mg oral tablet (1 source) Nitrate Vasodilator Start: 11-24-2016 End: 09-28-2023 take 20 mg by mouth once daily Isosorbide Dinitrate Discontinued 20 MG PO DAILY November 24, 2016 12:00am September 28, 2023 4:08pm levothyroxine sodium 0.1 mg oral tablet (1 source) l-Thyroxine Start: 12-15-2014 End: 09-28-2023 take 100 ug by mouth once daily Levothyroxine Discontinued 100 MCG PO DAILY December 15, 2014 12:00am September 28, 2023 4:08pm 24 hr metoprolol succinate 25 mg extended release oral tablet (1 source) beta-Adrenergic Vipul Start: 11-24-2016 End: 03-26-2017 take 1 tablet by mouth once daily Metoprolol Succinate (Toprol Xl) 25 MG Tab.Er.24h Discontinued 25 MG PO DAILY November 24, 2016 12:00am March 26, 2017 11:21am Drug Treatment Unknown - unknown (2 sources) No information available. omeprazole 20 mg delayed release oral capsule (1 source) Proton Pump Inhibitor Start: 12-15-2014 End: 11-26-2016 take 20 mg by mouth once daily Omeprazole Discontinued 20 MG PO DAILY December 15, 2014 12:00am November 26, 2016 11:22am sotalol hydrochloride 80 mg oral tablet (2 sources) Antiarrhythmic Start: 03-26-2017 End: 09-28-2023 take 80 mg by mouth twice daily Sotalol Discontinued 80 MG PO TWICE A DAY March 11, 2019 1:42pm September 28, 2023 4:09pm Problems Problem Classification Problem Date Documented Da te Episodic/Chronic Acute myocardial infarction (1 source) Myocardial infarction type 2; Translations: [Myocardial infarction type 2] Onset: 4 Chronic Cardiac dysrhythmias (3 sources) Atrial fibrillation; Translations: [Unspecified atrial fibrillation] Onset: 7 03-25-2017 Chronic Chronic obstructive pulmonary disease and bronchiectasis (1 source) Acute exacerbation of chronic obstructive airways disease; Translations: [Chronic obstructive pulmonary disease with (acute) exacerbation] 10-18-2022 Chronic Congestive heart failure; nonhypertensive (2 sources) Chronic diastolic heart failure; Translations: [Chronic diastolic (congestive) heart failure] Onset: 4 10-18-2022 Chronic Coronary atherosclerosis and other heart disease (4 sources) Atherosclerotic heart disease of [place] coronary artery without angina pectoris; Translations: [Coronary arteriosclerosis] Onset: 7 03-25-2017 Chronic Diabetes mellitus with complications (3 sources) Hyperglycemia due to diabetes mellitus; Translations: [Type 2 diabetes mellitus with hyperglycemia] Onset: 4 02-01-2023 Chronic Disorders of lipid metabolism (2 sources) Dyslipidemia; Translations: [Hyperlipidemia, unspecified] Onset: 4 06-24-2017 Chronic Diverticulosis and diverticulitis (2 sources) Diverticulitis; Translations: [Diverticulitis of intestine, part unspecified, without perforation or abscess without bleeding] 02-01-2023 Chronic Esophageal disorders (1 source) Gastroesophageal reflux disease; Translations: [Gastro-esophageal reflux disease without esophagitis] 06-24-2017 Chronic Essential hypertension (2 sources) Hypertensive disorder; Translations: [Essential (primary) hypertension] Onset: 4 11-03-2020 Chronic Gastrointestinal hemorrhage (1 source) Rectal hemorrhage; Translations: [Hemorrhage of anus and rectum] 02-01-2023 Episodic Hypertension with complications and secondary hypertension (1 source) Hypertensive heart disease with heart failure; Translations: [Hypertensive heart disease with heart failure] Onset: 4 Chronic Nonspecific chest pain (1 source) Chest pain; Translations: [Chest pain, unspecified] 11-11-2020 Episodic Other nutritional; endocrine; and metabolic disorders (1 source) Body mass index 40+ - severely obese; Translations: [Morbid (severe) obesity due to excess calories] 06-24-2017 Chronic Other nutritional; endocrine; and metabolic disorders (1 source) Morbid (severe) obesity due to excess calories; Translations: [Morbid (severe) obesity due to excess calories] Onset: 4 Chronic Other nutritional; endocrine; and metabolic disorders (1 source) Body mass index (BMI) 50.0-59.9, adult; Translations: [Body mass index [BMI] 50.0-59.9, adult] Onset: 4 Chronic Other upper respiratory infections (1 source) Upper respiratory infection; Translations: [Acute upper respiratory infection, unspecified] 07-11-2017 Episodic Residual codes; unclassified (1 source) Bilateral lower limb edema; Translations: [Localized edema] 10-18-2022 Episodic Spondylosis; intervertebral disc disorders; other back problems (1 source) Backache; Translations: [Dorsalgia, unspecified] 06-24-2017 Episodic Thyroid disorders (1 source) Hypothyroidism; Translations: [Hypothyroidism, unspecified] 11-03-2020 Chronic Unclassified (2 sources) Placement of stent in coronary artery ; Translations: [Presence of coronary angioplasty implant and graft] Onset: 7 03-25-2017 Unclassified (1 source) Non-ST elevation myocardial infarction (NSTEMI), type 2 06-24-2017 Results Test Name Value Interpretation Reference Range Facility Bedside Glucoseon 10-02-2023 FINGERSTICK GLU 149 mg/dL High 74-106 [facility] Comment on above: Result Comment: OMER GEMENT OF PATIENT CARE PER NURSING PROTOCOL Performed By: #### L 100.0100, L500.2500 #### [facility] [address] [place], [address] FINGERSTICK GLU 96 mg/dL Normal 74-106 [facility] Comment on above: Result Comment: OMER GEMENT OF PATIENT CARE PER NURSING PROTOCOL Performed By: #### L 500.4100, L503.0105, L501.9985, L503.6030, L501.9520, L503.6550, L506.0250 #### [facility] [address] [place], [address] Discharge Instructionon 09-17 Discharge Instruction [facility] Medical Records Department [address] [place] [address] Instructions for Home/Discharge Instructions 10/02/23 1102 MR#: [id number] Acct: [id number] Name: BALA ARMAS Nayan Rep #: [id number] : 1955 68 From: Sin Amaya MD PCP: [place] [facility] Status:ADM IN Discharge Instructions Diet Discharge Diet: Low fat / Low cholesterol, 8 Cup Fluid Restriction and 2000 mg Sodium Diet Activity Discharge Activity: Return to Normal Activity Weight Bearing Status: Weight bearing as tolerated Dressing / Incision Call your doctor if you observe: Fever of 101 or Higher, Coldness, Increased Pain, Numbness or Tingling, Change in Color, Inability to urinate, Inability to have a bowel movement, Shortness of breath, Dizziness, Fainting spells, Swelling in the ankles, Chest pain, Prolonged hiccupping, Increased palpitations (irregular heartbeat) and Calf discomfort Follow Up Care When: IN 2 WEEKS Test Results: Test results from this visit will be discussed in further detail at your follow-up appointment, if applicable. Discharge Plan Admission Admit Date/Time: 09/28/23 16:16 Primary Reason for Your Visit: CHF exacerbation Attending Provider: Sin Amaya Primary Care Provider: [facility] Consulting Providers: Beau Gonsalves; Yong Sanchez Discharge Orders/Prescriptions Prescriptions: New furosemide 40 mg Tablet 40 mg PO DAILY 30 Days Qty: 30 3RF atorvastatin 40 mg Tablet 40 mg PO QHS 30 Days Qty: 30 3RF digoxin 250 mcg (0.25 mg) Tablet 250 mcg PO DAILY 30 Days Qty: 30 3RF aspirin 81 mg Tablet,Delayed Release (Dr/Ec) 81 mg PO BREAKFAST 30 Days Qty: 30 4RF metoprolol tartrate 50 mg Tablet 50 mg PO BID 30 Days Qty: 60 3RF Rx Instructions: Hold for heart less than 50 or systolic blood pressure less than 100 mmHg. lisinopril 2.5 mg Tablet 2.5 mg PO DAILY 30 Days Qty: 30 3RF Eliquis 5 mg Tablet 5 mg PO BID 30 Days Qty: 60 2RF Jardiance 10 mg Tablet 10 mg PO DAILY 30 Days Qty: 30 3RF insulin lispro [Humalog KwikPen Insulin] 100 unit/mL Insulin Pen See Protocol subcut ACHS Qty: 0 0RF Protocol: 4. Sliding Scale Insulin High-Med Dosing Condition: 150-199 mg/dl = 2 units Condition: 200-259 mg/dl = 4 units Condition: 260-324 mg/dl = 6 units Condition: 325-374 mg/dl = 8 units Condition: 375-409 mg/dl = 10 units Condition: 410-449 mg/dl = 11 units Condition: Greater than 449 call physician Protocol Text: - Use for Total Daily Dose of Insulin 56-80 units - Patient who are insulin resistant or septic HIGH MEDIUM DOSING ALGORITHM diltiazem HCl [Cardizem CD] 120 mg capsule,extended release 24hr 120 mg PO DAILY Qty: 30 3RF Rx Instructions: Hold for heart less than 50 or systolic blood pressure less than 100 mmHg. Continued nitroglycerin [Nitrostat] 0.4 MG tablet, sublingual 0.4 mg sublingual PRN PRN (Reason: CHEST PAIN) Patient Comments: Chest pain Refresh Classic (PF) 1 EACH dropperette 2 drp EACHEYE DAILY PRN PRN (Reason: dry eyes) Patient Comments: Dry eyes metformin 1,000 MG tablet 1,000 mg PO BID acetaminophen 325 MG capsule 1,300 mg PO QHS pantoprazole 20 MG tablet,delayed release (DR/EC) 20 mg PO BID Patient Comments: GERD/reflux magnesium oxide 400 MG tablet 400 mg PO DAILYCM 30 Days Qty: 30 0RF Patient Comments: Supplement Changed insulin glargine [Lantus U-100 Insulin] 100 UNIT/ML solution 30 unit subcut QHS 30 Days Qty: 10 3RF Patient Comments: LONG ACTING INSULIN insulin aspart U-100 [Novolog FlexPen U-100 Insulin] 100 UNITS/ML insulin pen 10 unit subcut TIDAC 30 Days Qty: 15 4RF Patient Comments: Short acting insulin Discontinued simvastatin [Zocor] 80 MG tablet 80 mg PO QHS Patient Comments: Cholesterol lowering clopidogrel 75 MG tablet 75 mg PO DAILY Qty: 14 0RF Patient Comments: Blood thinner, keeps stent open Referrals / Follow Up: [facility] [Primary Care Provider] - (Please make sure to make a follow up appt with your primary care. ) Beau Gonsalves MD [Med Staff - Active Staff] - Within 2 Weeks Disposition Disposition (needs filled in before D/C Order can be placed): Home, Self Care 10/02/23 1238 Sin Amaya MD CC: Dr. Yong Sanchez DO; Dr. Beau Gonsalves MD; [facility] Signed Normal [facility] Basic Metabolic Profile (BMP )on 10-01-2023 BUN/CRE 13.2 RATIO Normal - [facility] Comment on above: Performed By: #### L 100.0100, L500.2500 #### [facility] [address] [place], [address] CA,Total 9.2 mg/dL Normal 8.5-10.1 [facility] Comment on above: Performed By: #### L 100.0100, L500.2500 #### [facility] [address] [place], [address] Chloride [Moles/Vol] 103 mmol/L Normal 98-107 [facility] Comment on above: Performed By: #### L 100.0100, L500.2500 #### [facility] [address] [place], [address] CO2 [Moles/Vol] 30.0 mmol/L Normal 21.0-32.0 [facility] Comment on above: Performed By: #### L 100.0100, L500.2500 #### [facility] [address] [place], [address] Creatinine [Mass/Vol] 0.76 mg/dL Normal 0.70-1.30 [facility] Comment on above: Result Comment: The validity of the calculated GFR GFRAA in patients over 70 years has not been determined. Clinical correlation is essential. Performed By: #### L 100.0100, L500.2500 #### [facility] [address] [place], [address] ECRCL 129.30 ml/min Normal [facility] Comment on above: Performed By: #### L 100.0100, L500.2500 #### [facility] [address] [place], [address] EST GFR - AA 132 mL/min Normal >60 [facility] Comment on above: Result Comment: Afri can Dutch GFR Calc Performed By: #### L 100.0100, L500.2500 #### [facility] [address] [place], [address] GAP 5 Normal 5-15 [facility] Comment on above: Performed By: #### L 100.0100, L500.2500 #### [facility] [address] [place], [address] GFR/1.73 sq M.predicted among non-blacks MDRD (S/P/Bld) [Vol rate/Area] 109 mL/min/{1.73_m2} Normal >60 [facility] Comment on above: Result Comment: Non- GFR Calc Performed By: #### L 100.0100, L500.2500 #### [facility] [address] [place], [address] Glucose [Mass/Vol] 99 mg/dL Normal 74-106 [facility] Comment on above: Performed By: #### L 100.0100, L500.2500 #### [facility] [address] [place], [address] Potassium [Moles/Vol] 4.4 mmol/L Normal 3.5-5.1 [facility] Comment on above: Performed By: #### L 100.0100, L500.2500 #### [facility] [address] [place], [address] Sodium [Moles/Vol] 138 mmol/L Normal 136-145 [facility] Comment on above: Performed By: #### L 100.0100, L500.2500 #### [facility] [address] [place], [address] Urea nitrogen [Mass/Vol] 10 mg/dL Normal 7-18 [facility] Comment on above: Performed By: #### L 100.0100, L500.2500 #### [facility] [address] [place], [address] Bedside Glucoseon 10-01-2023 FINGERSTICK GLU 120 mg/dL High 74-106 [facility] Comment on above: Result Comment: OMER GEMENT OF PATIENT CARE PER NURSING PROTOCOL Performed By: #### L 100.0100, L500.2500 #### [facility] [address] [place], [address] FINGERSTICK GLU 127 mg/dL High 74-106 [facility] Comment on above: Result Comment: OMER GEMENT OF PATIENT CARE PER NURSING PROTOCOL Performed By: #### L 500.4100, L503.0105, L501.9985, L503.6030, L501.9520, L503.6550, L506.0250 #### [facility] [address] [place], [address] FINGERSTICK GLU 150 mg/dL High 74-106 [facility] Comment on above: Result Comment: OMER GEMENT OF PATIENT CARE PER NURSING PROTOCOL Performed By: #### L 100.0100, L500.2500 #### [facility] [address] [place], [address] FINGERSTICK GLU 106 mg/dL Normal 74-106 [facility] Comment on above: Result Comment: OMER GEMENT OF PATIENT CARE PER NURSING PROTOCOL Performed By: #### L 500.4100, L503.0105, L501.9985, L503.6030, L501.9520, L503.6550, L506.0250 #### [facility] [address] [place], [address] CBC W/Diff, Automatedon 05-1 -2023 Absolute Lymph 1.89 X10 3/uL Normal 0.83-4.51 [facility] Comment on above: Performed By: #### L 100.0100, L500.2500 #### [facility] [address] [place], [address] Absolute Neut 4.3 X10 3/uL Normal 2.0-7.7 [facility] Comment on above: Performed By: #### L 100.0100, L500.2500 #### [facility] [address] [place], [address] Basophils/100 WBC (Bld) 0.6 % Normal 0-1 [facility] Comment on above: Performed By: #### L 100.0100, L500.2500 #### [facility] [address] [place], [address] Eosinophils/100 WBC (Bld) 1.2 % Normal 0-5 [facility] Comment on above: Performed By: #### L 100.0100, L500.2500 #### [facility] [address] [place], [address] Erythrocyte distribution width (RBC) [Ratio] 13.2 % Normal 11.6-14.6 [facility] Comment on above: Performed By: #### L 100.0100, L500.2500 #### [facility] [address] [place], [address] Hematocrit (Bld) [Volume fraction] 38.0 % Low 40-54 [facility] Comment on above: Performed By: #### L 100.0100, L500.2500 #### [facility] [address] [place], [address] Hemoglobin (Bld) [Mass/Vol] 11.8 g/dL Low 13.0-16.5 [facility] Comment on above: Performed By: #### L 100.0100, L500.2500 #### [facility] [address] [place], [address] IG% 0.600 Normal 0.0-0.9 [facility] Comment on above: Result Comment: IG% - Immature Granulocytes (promyelocytes, myelocytes and metamyelocytes) > 1% indicates that a LEFT SHIFT is Present. Performed By: #### L 100.0100, L500.2500 #### [facility] [address] [place], [address] Lymphocytes/100 WBC (Bld) 26.1 % Normal 19-41 [facility] Comment on above: Performed By: #### L 100.0100, L500.2500 #### [facility] [address] [place], [address] MCH (RBC) [Entitic mass] 29.4 pg Normal 27.0-32.0 [facility] Comment on above: Performed By: #### L 100.0100, L500.2500 #### [facility] [address] [place], [address] MCHC (RBC) [Mass/Vol] 31.1 g/dL Low 32-36 [facility] Comment on above: Performed By: #### L 100.0100, L500.2500 #### [facility] [address] [place], [address] MCV (RBC) [Entitic vol] 94.8 fL High 80-94 [facility] Comment on above: Performed By: #### L 100.0100, L500.2500 #### [facility] [address] [place], [address] Monocytes/100 WBC (Bld) 12.6 % High 0-10 [facility] Comment on above: Performed By: #### L 100.0100, L500.2500 #### [facility] [address] [place], [address] Neutrophils/100 WBC (Bld) 58.9 % Normal 47-70 [facility] Comment on above: Performed By: #### L 100.0100, L500.2500 #### [facility] [address] [place], [address] Nucleated RBC (Bld) [#/Vol] 0 10*3/uL Normal 0-5 [facility] Comment on above: Performed By: #### L 100.0100, L500.2500 #### [facility] [address] [place], [address] Platelet mean volume (Bld) [Entitic vol] 9.5 fL Normal 6.2-12.0 [facility] Comment on above: Performed By: #### L 100.0100, L500.2500 #### [facility] [address] [place], [address] Platelets (Bld) [#/Vol] 292 10*3/uL Normal 150-450 [facility] Comment on above: Performed By: #### L 100.0100, L500.2500 #### [facility] [address] [place], [address] RBC (Bld) [#/Vol] 4.01 10*6/uL Low 4.6-6.2 [facility] Comment on above: Performed By: #### L 100.0100, L500.2500 #### [facility] [address] [place], [address] RDW SD 45.9 fl High 35.1-43.9 [facility] Comment on above: Performed By: #### L 100.0100, L500.2500 #### [facility] [address] [place], [address] WBC (Bld) [#/Vol] 7.2 10*3/uL Normal 4.4-11.0 [facility] Comment on above: Performed By: #### L 100.0100, L500.2500 #### [facility] [address] [place], [address] BNP,B-Type NATRIURETIC PEPTI Tali 09-30-2023 Natriuretic peptide B (Bld) [Mass/Vol] 245.4 pg/mL High 0-100 [facility] Comment on above: Performed By: #### L 501.080 #### [facility] [address] [place], [address] Basic Metabolic Profile (BMP )on 09-30-2023 BUN/CRE 20.8 RATIO High 10-20 [facility] Comment on above: Performed By: #### L 100.0100, L500.2500 #### [facility] [address] [place], [address] CA,Total 8.9 mg/dL Normal 8.5-10.1 [facility] Comment on above: Performed By: #### L 100.0100, L500.2500 #### [facility] [address] [place], [address] Chloride [Moles/Vol] 103 mmol/L Normal 98-107 [facility] Comment on above: Performed By: #### L 100.0100, L500.2500 #### [facility] [address] [place], [address] CO2 [Moles/Vol] 22.0 mmol/L Normal 21.0-32.0 [facility] Comment on above: Performed By: #### L 100.0100, L500.2500 #### [facility] [address] [place], [address] Creatinine [Mass/Vol] 0.62 mg/dL Low 0.70-1.30 [facility] Comment on above: Result Comment: The validity of the calculated GFR GFRAA in patients over 70 years has not been determined. Clinical correlation is essential. Performed By: #### L 100.0100, L500.2500 #### [facility] [address] [place], [address] ECRCL 129.45 ml/min Normal [facility] Comment on above: Performed By: #### L 100.0100, L500.2500 #### [facility] [address] [place], [address] EST GFR - AA 164 mL/min Normal >60 [facility] Comment on above: Result Comment: Afri can Dutch GFR Calc Performed By: #### L 100.0100, L500.2500 #### [facility] [address] [place], [address] GAP 10 Normal 5-15 [facility] Comment on above: Performed By: #### L 100.0100, L500.2500 #### [facility] [address] [place], [address] GFR/1.73 sq M.predicted among non-blacks MDRD (S/P/Bld) [Vol rate/Area] 136 mL/min/{1.73_m2} Normal >60 [facility] Comment on above: Result Comment: Non- GFR Calc Performed By: #### L 100.0100, L500.2500 #### [facility] [address] [place], [address] Glucose [Mass/Vol] 107 mg/dL High 74-106 [facility] Comment on above: Result Comment: Fast ing Glucose result from 100 to 125 mg/dL suggests IMPAIRED HOMEOSTASIS per A.D.A. criteria. Performed By: #### L 100.0100, L500.2500 #### [facility] [address] [place], [address] Potassium [Moles/Vol] 5.0 mmol/L Normal 3.5-5.1 [facility] Comment on above: Performed By: #### L 100.0100, L500.2500 #### [facility] [address] [place], [address] Sodium [Moles/Vol] 135 mmol/L Low 136-145 [facility] Comment on above: Performed By: #### L 100.0100, L500.2500 #### [facility] [address] [place], [address] Urea nitrogen [Mass/Vol] 13 mg/dL Normal 7-18 [facility] Comment on above: Performed By: #### L 100.0100, L500.2500 #### [facility] [address] [place], [address] Bedside Glucoseon 09-30-2023 FINGERSTICK GLU 99 mg/dL Normal 74-106 [facility] Comment on above: Result Comment: OMER DEE OF PATIENT CARE PER NURSING PROTOCOL Performed By: #### L 100.0100, L500.2500 #### [facility] [address] [place], [address] FINGERSTICK GLU 186 mg/dL High 74-106 [facility] Comment on above: Result Comment: OMER GEMENT OF PATIENT CARE PER NURSING PROTOCOL Performed By: #### L 501.080 #### [facility] [address] [place], [address] FINGERSTICK GLU 160 mg/dL High 74-106 [facility] Comment on above: Result Comment: OMER GEMENT OF PATIENT CARE PER NURSING PROTOCOL Performed By: #### L 501.080 #### [facility] [address] [place], [address] CBC W/Diff, Automatedon 09-17 Absolute Lymph 1.33 X10 3/uL Normal 0.83-4.51 [facility] Comment on above: Performed By: #### L 100.0100, L500.2500 #### [facility] [address] [place], [address] Absolute Neut 6.5 X10 3/uL Normal 2.0-7.7 [facility] Comment on above: Performed By: #### L 100.0100, L500.2500 #### [facility] [address] [place], [address] Basophils/100 WBC (Bld) 0.3 % Normal 0-1 [facility] Comment on above: Performed By: #### L 100.0100, L500.2500 #### [facility] [address] [place], [address] Eosinophils/100 WBC (Bld) 0.2 % Normal 0-5 [facility] Comment on above: Performed By: #### L 100.0100, L500.2500 #### [facility] [address] [place], [address] Erythrocyte distribution width (RBC) [Ratio] 13.1 % Normal 11.6-14.6 [facility] Comment on above: Performed By: #### L 100.0100, L500.2500 #### [facility] [address] [place], [address] Hematocrit (Bld) [Volume fraction] 41.7 % Normal 40-54 [facility] Comment on above: Performed By: #### L 100.0100, L500.2500 #### [facility] [address] [place], [address] Hemoglobin (Bld) [Mass/Vol] 12.8 g/dL Low 13.0-16.5 [facility] Comment on above: Performed By: #### L 100.0100, L500.2500 #### [facility] [address] [place], [address] IG% 0.500 Normal 0.0-0.9 [facility] Comment on above: Result Comment: IG% - Immature Granulocytes (promyelocytes, myelocytes and metamyelocytes) > 1% indicates that a LEFT SHIFT is Present. Performed By: #### L 100.0100, L500.2500 #### [facility] [address] [place], [address] Lymphocytes/100 WBC (Bld) 15.2 % Low 19-41 [facility] Comment on above: Performed By: #### L 100.0100, L500.2500 #### [facility] [address] [place], [address] MCH (RBC) [Entitic mass] 29.8 pg Normal 27.0-32.0 [facility] Comment on above: Performed By: #### L 100.0100, L500.2500 #### [facility] [address] [place], [address] MCHC (RBC) [Mass/Vol] 30.7 g/dL Low 32-36 [facility] Comment on above: Performed By: #### L 100.0100, L500.2500 #### [facility] [address] [place], [address] MCV (RBC) [Entitic vol] 97.2 fL High 80-94 [facility] Comment on above: Performed By: #### L 100.0100, L500.2500 #### [facility] [address] [place], [address] Monocytes/100 WBC (Bld) 10.1 % High 0-10 [facility] Comment on above: Performed By: #### L 100.0100, L500.2500 #### [facility] [address] [place], [address] Neutrophils/100 WBC (Bld) 73.7 % High 47-70 [facility] Comment on above: Performed By: #### L 100.0100, L500.2500 #### [facility] [address] [place], [address] Nucleated RBC (Bld) [#/Vol] 0 10*3/uL Normal 0-5 [facility] Comment on above: Performed By: #### L 100.0100, L500.2500 #### [facility] [address] [place], [address] Platelet mean volume (Bld) [Entitic vol] 10.5 fL Normal 6.2-12.0 [facility] Comment on above: Performed By: #### L 100.0100, L500.2500 #### [facility] [address] [place], [address] Platelets (Bld) [#/Vol] 205 10*3/uL Normal 150-450 [facility] Comment on above: Performed By: #### L 100.0100, L500.2500 #### [facility] [address] [place], [address] RBC (Bld) [#/Vol] 4.29 10*6/uL Low 4.6-6.2 [facility] Comment on above: Performed By: #### L 100.0100, L500.2500 #### [facility] [address] [place], [address] RDW SD 46.6 fl High 35.1-43.9 [facility] Comment on above: Performed By: #### L 100.0100, L500.2500 #### [facility] [address] [place], [address] WBC (Bld) [#/Vol] 8.8 10*3/uL Normal 4.4-11.0 [facility] Comment on above: Performed By: #### L 100.0100, L500.2500 #### [facility] [address] [place], [address] Stress Reporton 09-30-2023 Stress Report [facility] [address] [place] [address] MR#: [id number] Acct: [id number] Name: BALA ARMAS Rep #: [id number] : 1955 68 From: Beau Gonsalves MD Primary Care: [facility] Status: ADM IN Referring Dr: Robles Jones Stress Test Report Date: 10/18/2023 Procedure: Pharmacologic stress nuclear imaging study Indications: Coronary artery disease Consent: Per the patient Procedure: The patient underwent pharmacologic (Regadenoson 0.4mg ) evaluation with a peak heart rate of 131 beats per minute (86%predicted maximal heart rate) and a peak blood pressure of 104/70 mmHg. The baseline ECG demonstrated atrial fibrillation. The peak pharmacologic ECG demonstrated no ischemic changes. Occasional PVCs noted. [There was no complaint of chest discomfort during pharmacologic infusion or recovery]. The patient was injected with 15.0 millicuries of technetium 99m Cardiolite and subsequently rest SPECT Cardiolite nuclear imaging was obtained in the horizontal long, vertical long, and short axis views. The patient underwent pharmacologic (Regadenoson) evaluation. The patient was injected with 45.0 millicuries of technetium 99m Cardiolite and subsequently stress SPECT Cardiolite nuclear imaging was obtained in the horizontal long, vertical long, and short axis views. A gated Cardiolite study at peak stress was obtained. The examination was stopped secondary to completion of protocol. Rest and stress SPECT Cardiolite nuclear imaging status post realignment, normalization, and attenuation correction demonstrate a large inferior and apical defect which is predominantly fixed. [There is end systolic thickening and brightening]. [The gated Cardiolite study demonstrates myocardial thickening and inward wall motion]. The reported LVEF is 30%. Impression: 1. Pharmacologic (Regadenoson) evaluation 2. Peak pharmacologic ECG with no ischemic changes. 3. Baseline atrial fibrillation. Occasional PVCs noted during the test. 5. Predominantly fixed inferior and apical defect suggestive of prior infarct with no significant ebenezer-infarct ischemia 6. The gated Cardiolite study reports an LVEF of 30%. Mildly dilated left ventricle. This note was generated with [employer] software. It may contain incorrect words, spelling, and punctuation that were not noted in checking the note before signing. 09/30/23 1252 Date Beau Gonsalves MD CC: Dr. Yong Sanchez DO; Dr. Gorge Miranda MD; Dr. Sin Amaya MD; [facility] Date Dictated: 09/30/231248 Date Transcribed: 09/30/231248 Electronic Development Technician: AR Signed Normal [facility] Vitamin B12on 09-30-2023 Cobalamin (Vitamin B12) [Mass/Vol] 182 pg/mL Low 211-911 [facility] Comment on above: Performed By: #### L 100.0100, L500.2500 #### [facility] [address] [place], [place], [address] Bedside Glucoseon 09-29-2023 FINGERSTICK GLU 157 mg/dL High 74-106 [facility] Comment on above: Result Comment: OMER GEMENT OF PATIENT CARE PER NURSING PROTOCOL Performed By: #### L 100.0100, L500.2500 #### [facility] [address] [place], [address] FINGERSTICK GLU 164 mg/dL High 74-106 [facility] Comment on above: Result Comment: OMER GEMENT OF PATIENT CARE PER NURSING PROTOCOL Performed By: #### L 501.080 #### [facility] [address] [place], [address] FINGERSTICK GLU 186 mg/dL High 74-106 [facility] Comment on above: Result Comment: OMER GEMENT OF PATIENT CARE PER NURSING PROTOCOL Performed By: #### L 300.4310 #### [facility] [address] [place], [address] FINGERSTICK GLU 225 mg/dL High 74-106 [facility] Comment on above: Result Comment: OMER GEMENT OF PATIENT CARE PER NURSING PROTOCOL Performed By: #### L 300.4310 #### [facility] [address] [place], [address] CBC-Complete Blood Cnt No Di on 09-29-2023 Erythrocyte distribution width (RBC) [Ratio] 12.9 % Normal 11.6-14.6 [facility] Comment on above: Performed By: #### L 300.4310 #### [facility] [address] [place], [address] Hematocrit (Bld) [Volume fraction] 39.8 % Low 40-54 [facility] Comment on above: Performed By: #### L 300.4310 #### [facility] [address] [place], [address] Hemoglobin (Bld) [Mass/Vol] 12.4 g/dL Low 13.0-16.5 [facility] Comment on above: Performed By: #### L 300.4310 #### [facility] [address] [place], [address] MCH (RBC) [Entitic mass] 29.4 pg Normal 27.0-32.0 [facility] Comment on above: Performed By: #### L 300.4310 #### [facility] [address] [place], [address] MCHC (RBC) [Mass/Vol] 31.2 g/dL Low 32-36 [facility] Comment on above: Performed By: #### L 300.4310 #### [facility] [address] [place], [address] MCV (RBC) [Entitic vol] 94.3 fL High 80-94 [facility] Comment on above: Performed By: #### L 300.4310 #### [facility] [address] [place], [address] Platelet mean volume (Bld) [Entitic vol] 10.0 fL Normal 6.2-12.0 [facility] Comment on above: Performed By: #### L 300.4310 #### [facility] [address] [place], [address] Platelets (Bld) [#/Vol] 277 10*3/uL Normal 150-450 [facility] Comment on above: Performed By: #### L 300.4310 #### [facility] [address] [place], [address] RBC (Bld) [#/Vol] 4.22 10*6/uL Low 4.6-6.2 [facility] Comment on above: Performed By: #### L 300.4310 #### [facility] [address] [place], [address] RDW SD 43.9 fl Normal 35.1-43.9 [facility] Comment on above: Performed By: #### L 300.4310 #### [facility] [address] [place], [address] WBC (Bld) [#/Vol] 8.2 10*3/uL Normal 4.4-11.0 [facility] Comment on above: Performed By: #### L 300.4310 #### [facility] [address] [place], [address] Comprehensive Metabolic Prof ilon 09-29-2023 Albumin [Mass/Vol] 3.1 g/dL Low 3.2-5.0 [facility] Comment on above: Performed By: #### L 300.4310 #### [facility] [address] [place], [address] Albumin/Globulin [Mass ratio] 0.8 {ratio} Low 0.9-2.4 [facility] Comment on above: Performed By: #### L 300.4310 #### [facility] [address] [place], [address] ALK P 103 U/L Normal 45-117 [facility] Comment on above: Performed By: #### L 300.4310 #### [facility] [address] [place], [address] ALT [Catalytic activity/Vol] 14 U/L Low 16-61 [facility] Comment on above: Performed By: #### L 300.4310 #### [facility] [address] [place], [address] AST [Catalytic activity/Vol] 11 U/L Low 15-37 [facility] Comment on above: Performed By: #### L 300.4310 #### [facility] [address] [place], [address] Bilirubin [Mass/Vol] 1.00 mg/dL Normal 0.20-1.00 [facility] Comment on above: Result Comment: For patients on eltrombopag therapy, use of Dimension [place] TBIL is not recommended. Performed By: #### L 300.4310 #### [facility] [address] [place], [address] BUN/CRE 14.1 RATIO Normal 10-20 [facility] Comment on above: Performed By: #### L 300.4310 #### [facility] [address] [place], [address] CA,Total 8.8 mg/dL Normal 8.5-10.1 [facility] Comment on above: Performed By: #### L 300.4310 #### [facility] [address] [place], [address] Chloride [Moles/Vol] 99 mmol/L Normal 98-107 [facility] Comment on above: Performed By: #### L 300.4310 #### [facility] [address] [place], [address] CO2 [Moles/Vol] 28.0 mmol/L Normal 21.0-32.0 [facility] Comment on above: Performed By: #### L 300.4310 #### [facility] [address] [place], [address] Creatinine [Mass/Vol] 0.78 mg/dL Normal 0.70-1.30 [facility] Comment on above: Result Comment: The validity of the calculated GFR GFRAA in patients over 70 years has not been determined. Clinical correlation is essential. Performed By: #### L 300.4310 #### [facility] [address] [place], [address] ECRCL 129.45 ml/min Normal [facility] Comment on above: Performed By: #### L 300.4310 #### [facility] [address] [place], [address] EST GFR - AA 127 mL/min Normal >60 [facility] Comment on above: Result Comment: Afri can Dutch GFR Calc Performed By: #### L 300.4310 #### [facility] [address] [place], [address] GAP 8 Normal 5-15 [facility] Comment on above: Performed By: #### L 300.4310 #### [facility] [address] [place], [address] GFR/1.73 sq M.predicted among non-blacks MDRD (S/P/Bld) [Vol rate/Area] 105 mL/min/{1.73_m2} Normal >60 [facility] Comment on above: Result Comment: Non- GFR Calc Performed By: #### L 300.4310 #### [facility] [address] [place], [address] Globulin (S) [Mass/Vol] 4.0 g/dL Normal 2.2-4.2 [facility] Comment on above: Performed By: #### L 300.4310 #### [facility] [address] [place], [address] Glucose [Mass/Vol] 234 mg/dL High 74-106 [facility] Comment on above: Result Comment: Gluc ose result greater than or equal to 200 mg/dL suggests DIABETES MELLITUS per A.D.A. criteria. Performed By: #### L 300.4310 #### [facility] [address] [place], [address] Potassium [Moles/Vol] 4.4 mmol/L Normal 3.5-5.1 [facility] Comment on above: Performed By: #### L 300.4310 #### [facility] [address] [place], [address] Sodium [Moles/Vol] 135 mmol/L Low 136-145 [facility] Comment on above: Performed By: #### L 300.4310 #### [facility] [address] [place], [address] T PROT 7.1 g/dL Normal 6.4-8.2 [facility] Comment on above: Performed By: #### L 300.4310 #### [facility] [address] [place], [address] Urea nitrogen [Mass/Vol] 11 mg/dL Normal 7-18 [facility] Comment on above: Performed By: #### L [id number] #### [facility] [address] [place], [address] Consultation - Cardiologyon 09-29-2023 Consultation - Cardiology [facility] Medical Records Department [address] [place] [address] Consultation - Cardiology 09/29/23 1051 MR#: [id number] Acct: [id number] Name: BALA ARMAS Rep #: [id number] : 1955 68 From: Beau Gonsalves MD PCP: [facility] Status:ADM IN Location: [place] [address] Assessment Plan Assessment/Plan (1) Atrial fibrillation with RVR: PLAN: Continue beta-blockers. Start diltiazem. It is noted that the patient was not on any anticoagulation. His CHADS2???VASc score is 4 and high risk for thromboembolic complications. I offered him oral anticoagulation. Risks benefits and alternatives were explained in detail. He understand these and wishes to proceed. It is noted that the patient denies any history of bleeding disorder. Denies any GI bleed. No dark stools. No melena. Started on apixaban 5 mg twice daily. (2) CHF (congestive heart failure): PLAN: Previously normal left ventricular systolic function. Likely HFpEF. Check echocardiogram. Agree with furosemide. (3) Non-ST elevation myocardial infarction (NSTEMI), type 2: PLAN: Most likely type II. In view of his history of CAD, will check a Lexiscan stress Myoview (4) CAD (coronary artery disease): PLAN: Beta-blockers. Risk factor modification. Statins. (5) Hypertension: QUALIFIERS: Hypertension type: essential hypertension Qualified Code(s): I10 - Essential (primary) hypertension PLAN: Beta-blockers. Diuretics. (6) Dyslipidemia: PLAN: Statins. (7) Uncontrolled type 2 diabetes mellitus: QUALIFIERS: Glycemic state: with hyperglycemia Qualified Code(s): E11.65 - Type 2 diabetes mellitus with hyperglycemia PLAN: As per internal medicine. (8) Morbid obesity with body mass index of 50.0-59.9 in adult: PLAN: Lose weight. HPI Consult Data Date of Consult: 09/29/23 HPI Narrative Reason for Consultation: A-fib with RVR HPI Narrative: 68-year-old gentleman with history of coronary artery disease status post percutaneous intervention with drug-eluting stents to the proximal and mid LAD in 2017. Also history of paroxysmal atrial fibrillation, diabetes mellitus, dyslipidemia, hypertension and super morbid obesity. Per patient, he ran out of medications few weeks ago and was trying to make an [place]. Presented to the emergency room with progressive shortness of breath over the last 2 to 3 weeks. No chest pains. Positive ankle edema. He was noted to be in atrial fibrillation with rapid ventricular response. Troponin mildly elevated. Patient feels better since being in the hospital. Denies any complaints today. [facility] Medical History Atrial fibrillation Chest pain COPD (chronic obstructive pulmonary disease) COPD (chronic obstructive pulmonary disease) CPAP (continuous positive airway pressure) dependence Diabetes Diabetes GERD (gastroesophageal reflux disease) Hypertension Irregular heart beat Myocardial infarct Sleep apnea Smoker Smoker Stroke/cerebrovascul ar accident Home Medications insulin glargine 100 unit/mL subcutaneous solution (Lantus U-100 Insulin) 82 unit subcut QHS DIABETES 12/15/14 [History Last Taken 03/09/19] simvastatin 80 mg tablet (Zocor) 80 mg PO QHS CHOLESTEROL 12/15/14 [History Last Taken 12/21/14] nitroglycerin 0.4 mg sublingual tablet (Nitrostat) 0.4 mg sublingual PRN PRN CHEST PAIN 11/24/16 [History Last Taken Unknown] polyvinyl alcohol-povidone (PF) 1.4 %-0.6 % eye drops in a dropperette (Refresh Classic (PF)) 2 drp EACHEYE DAILY PRN PRN dry eyes 03/24/17 [History Last Taken 03/09/19] clopidogrel 75 mg tablet 75 mg PO DAILY #14 tabs 03/26/17 [Rx Last Taken Unknown] magnesium oxide 400 mg (241.3 mg magnesium) tablet 400 mg PO DAILYCM #14 tabs 03/26/17 [Rx Last Taken 03/09/19] insulin aspart U-100 100 unit/mL (3 mL) subcutaneous pen (Novolog FlexPen U-100 Insulin aspart) 20 units subcut TIDAC DIABETES 06/24/17 [History Last Taken 03/09/19] metformin 1,000 mg tablet 1,000 mg PO BID BLOOD SUGAR 06/24/17 [History Last Taken Unknown] acetaminophen 325 mg capsule 1,300 mg PO QHS pain 03/10/19 [History Last Taken 03/09/19] pantoprazole 20 mg tablet,delayed release 20 mg PO BID reflux 11/03/20 [History Last Taken Unknown] Allergy/AdvReac Type Severity Reaction Status Date / Time bee venom protein (honey bee) Allergy Anaphylaxis Verified 09/28/23 14:23 Surgical History History of appendectomy History of cholecystectomy History of coronary artery stent placement History of coronary artery stent placement Social History Smoking Status: Former smoker Physical Exam Narrative Obese. Comfortable. No apparent distress. Heart sounds 1 and 2 noted. Irre (more content not included)... Normal [facility] Echo Complete W/ Contraston 09-29-2023 Echo Complete W/ Contrast [facility] [address] [place] [address] Echo Complete W/ Contrast 09/30/23 0921 MR#: [id number] Acct: [id number] Name: BALA ARMAS Rep #: [id number] : 1955 68 From: Beau Gonsalves MD Attending Dr: Dr. Sin Amaya MD Status: ADM IN Ordering Dr: Beau Gonsalves MD Date: 09/29/23 Location: PCU Sex: M C Admitted: 09/28/23 Reason For Study: CONGESTIVE HEART FAILURE Procedure This was a 2D Doppler, Color Flow transthoracic echocardiogram. The study was technically difficult. Contrast injection was performed. Exam performed in department. Left Ventricle Normal LV size. Mild assymetric septal hypertrophy. The estimated ejection fraction is 30 %. Unable to assess diastolic dysfunction due to arrhythmia. Moderately severe global left ventricular systolic dysfunction. Right Ventricle Normal right ventricle. Normal systolic function. Atria There is mild biatrial dilatation. Mitral Valve The mitral valve is structurally normal. No prolapse or stenosis seen. Mild (1+) mitral valve insufficiency. Tricuspid Valve Normal tricuspid valve. Mild to moderate (1-2+) tricuspid valve insufficiency. Pulmonary artery systolic pressure is 67 mmHg. Aortic Valve Trisinus/trileaflet aortic valve. Pulmonic Valve Normal pulmonic valve. Trivial pulmonic valve insufficiency. Great Vessels Normal aortic root. Pericardium/Pleural No pericardial effusion. Medication Diluted definity 2.5ml given slow IV push to enhance endocardial definition. MMode/2D Measurements Calculations LVIDd: 5.2 cm IVSd: 1.2 cm LVOT diam: 2.0 cm LVIDs: 4.2 cm LVPWd: 0.81 cm RVDd: 4.0 cm FS: 19.1 % LVOT area: 3.2 cm2 _ Ao root diam: 3.2 cm LAV(MOD-bp): 73.5 ml LVAd ap4: 36.6 cm2 LAV(MOD-bp) Indexed: 28.5 ml/m2 LVLd ap4: 8.9 cm LAV(MOD-sp2): 80.9 ml EDV(MOD-sp4): 117.4 ml LAV(MOD-sp4): 65.4 ml EDV(sp4-el): 127.0 ml LVAs ap4: 30.3 cm2 LVLs ap4: 8.2 cm ESV(MOD-sp4): 89.6 ml ESV(sp4-el): 94.4 ml EF(MOD-sp4): 23.7 % EF(sp4-el): 25.6 % _ LVAd ap2: 45.8 cm2 SV(MOD-sp4): 27.8 ml SV(MOD-sp2): 60.1 ml LVLd ap2: 9.3 cm EDV(MOD-sp2): 181.7 ml EDV(sp2-el): 191.6 ml LVAs ap2: 36.2 cm2 LVLs ap2: 8.9 cm ESV(MOD-sp2): 121.7 ml ESV(sp2-el): 124.7 ml EF(MOD-sp2): 33.1 % _ SV(sp4-el): 32.6 ml LA dimension(2D): 4.5 cm LA A4 area: 23.3 cm2 _ RA A4 area: 22.7 cm2 TAPSE: 1.0 cm Time Measurements MV dec time: 0.14 sec Doppler Measurements Calculations MV E max ramírez: 122.6 cm/sec Lat Peak E' Ramírez: 11.6 cm/sec Med Peak E' Ramírez: 8.9 cm/sec E/E' lat: 10.6 E/E' med: 13.8 _ Ao V2 max: 121.0 cm/sec LV V1 max: 99.9 cm/sec SV(LVOT): 50.9 ml Ao max P.0 mmHg LV V1 max P.0 mmHg Ao V2 mean: 94.5 cm/sec LV V1 mean P.5 mmHg Ao mean P.9 mmHg LV V1 mean: 76.4 cm/sec Ao V2 VTI: 19.8 cm LV V1 VTI: 16.1 cm AV (velocity ratio): 0.81 SABINA(I,D): 2.6 cm2 SABINA(V,D): 2.6 cm2 _ PA V2 max: 66.2 cm/sec TR max ramírez: 358.4 cm/sec PA max PG (full): 0.12 mmHg TR max P.4 mmHg ECHO/Echo Complete W/ Contrast Interpretation Summary The estimated ejection fraction is 30 %. Moderately severe global left ventricular systolic dysfunction. Mild assymetric septal hypertrophy. There is mild biatrial dilatation. Mild (1+) mitral valve insufficiency. Mild to moderate (1-2+) tricuspid valve insufficiency. Pulmonary artery systolic pressure is 67 mmHg. The study was technically difficult. Contrast injection was performed. Compared to prior study, changes are noted. Ordering Physician: Beau Gonsalves Referring Physician: [facility] Performed By: Melissa Augilar RDCS 09/30/23 1429 Date Beau Gonsalves MD CC: Dr. Beau Gonsalves MD; Dr. Sin Amaya MD; [facility] Date Dictated: 09/30/23920 Date Transcribed: 09/30/231428 Electronic Development Technician: Signed Normal [facility] Partial Thromboplast Timeon 09-29-2023 aPTT Coag (Bld) [Time] 94.1 s Invalid Interpretation Code 24.1-36.2 [facility] Comment on above: Result Comment: CRIT ICAL VALUE VERIFIED. CALLED TO DAVIS LIZAMA ([facility]) 09/29/23 1418 Arjun Pool. RESULTS READ BACK BY SAME. Performed By: #### L 300.4310 #### [facility] Laboratory [address] [place], [address] aPTT Coag (Bld) [Time] 55.6 s High 24.1-36.2 [facility] Comment on above: Performed By: #### L 300.4310 #### [facility] [address] [place], [address] aPTT Coag (Bld) [Time] 168.2 s Invalid Interpretation Code 24.1-36.2 [facility] Comment on above: Result Comment: CRIT ICAL VALUE VERIFIED. CALLED TO JAMES 09/29/23 0103 Joseph Bridges. RESULTS READ BACK BY SAME. Performed By: #### L 300.4310 #### [facility] [address] [place], [address] Absolute lymphocyte countOrd ered By: Yamileth Pagan on 09-28-2023 Lymphocytes Auto (Unsp spec) [#/Vol] 1.66 10*3/uL 0.83-4.51 [facility] Automated lymphocyte count a s percentage of total leukocytesOrdered By: Yamileth Pagan on 09-28-2023 Lymphocytes/100 WBC Auto (Unsp spec) 20.0 % 19-41 [facility] Basic Metabolic Profile (BMP )on 09-28-2023 BUN/CRE 12.3 RATIO Normal 10-20 [facility] Comment on above: Order Comment: 'TROP ' Serial specimen #1, #2 or #3: 1 Performed By: #### L 300.4310 #### [facility] [address] [place], [address] CA,Total 8.9 mg/dL Normal 8.5-10.1 [facility] Comment on above: Order Comment: 'TROP ' Serial specimen #1, #2 or #3: 1 Performed By: #### L 300.4310 #### [facility] [address] [place], [address] Chloride [Moles/Vol] 99 mmol/L Normal 98-107 [facility] Comment on above: Order Comment: 'TROP ' Serial specimen #1, #2 or #3: 1 Performed By: #### L 300.4310 #### [facility] [address] [place], [address] CO2 [Moles/Vol] 27.0 mmol/L Normal 21.0-32.0 [facility] Comment on above: Order Comment: 'TROP ' Serial specimen #1, #2 or #3: 1 Performed By: #### L 300.4310 #### [facility] [address] [place], [address] Creatinine [Mass/Vol] 0.65 mg/dL Low 0.70-1.30 [facility] Comment on above: Order Comment: 'TROP ' Serial specimen #1, #2 or #3: 1 Result Comment: The validity of the calculated GFR GFRAA in patients over 70 years has not been determined. Clinical correlation is essential. Performed By: #### L 300.4310 #### [facility] [address] [place], [address] ECRCL 129.35 ml/min Normal [facility] Comment on above: Order Comment: 'TROP ' Serial specimen #1, #2 or #3: 1 Performed By: #### L 300.4310 #### [facility] [address] [place], [address] EST GFR - AA 157 mL/min Normal >60 [facility] Comment on above: Order Comment: 'TROP ' Serial specimen #1, #2 or #3: 1 Result Comment: Afri can Dutch GFR Calc Performed By: #### L 300.4310 #### [facility] [address] [place], [address] GAP 7 Normal 5-15 [facility] Comment on above: Order Comment: 'TROP ' Serial specimen #1, #2 or #3: 1 Performed By: #### L 300.4310 #### [facility] [address] [place], [address] GFR/1.73 sq M.predicted among non-blacks MDRD (S/P/Bld) [Vol rate/Area] 130 mL/min/{1.73_m2} Normal >60 [facility] Comment on above: Order Comment: 'TROP ' Serial specimen #1, #2 or #3: 1 Result Comment: Non- GFR Calc Performed By: #### L 300.4310 #### [facility] [address] [place], [address] Glucose [Mass/Vol] 348 mg/dL High 74-106 [facility] Comment on above: Order Comment: 'TROP ' Serial specimen #1, #2 or #3: 1 Result Comment: Gluc ose result greater than or equal to 200 mg/dL suggests DIABETES MELLITUS per A.D.A. criteria. Performed By: #### L 300.4310 #### [facility] [address] [place], [address] Potassium [Moles/Vol] 4.4 mmol/L Normal 3.5-5.1 [facility] Comment on above: Order Comment: 'TROP ' Serial specimen #1, #2 or #3: 1 Performed By: #### L 300.4310 #### [facility] [address] [place], [place], [address] Sodium [Moles/Vol] 133 mmol/L Low 136-145 [facility] Comment on above: Order Comment: 'TROP ' Serial specimen #1, #2 or #3: 1 Performed By: #### L 300.3672 #### [facility] [address] [place], [place], [address] Urea nitrogen [Mass/Vol] 8 mg/dL Normal 7-18 [facility] Comment on above: Order Comment: 'TROP ' Serial specimen #1, #2 or #3: 1 Performed By: #### L 362.2230 #### [facility] [address] [place], [place], [address] Basophil percentageOrdered B y: Yamileth Pagan on 09-28-2023 Basophils/100 WBC (Bld) 0.5 % 0-1 [facility] Chloride [Moles/Vol] 99 mmol/L 98-107 [facility] Eosinophils/100 WBC (Bld) 1.6 % 0-5 [facility] Glucose [Mass/Vol] 348 mg/dL 74-106 [facility] Comment on above: Glucose result great er than or equal to 200 mg/dLsuggests DIABETES MELLITUS per A.D.A. criteria. Hemoglobin (Bld) [Mass/Vol] 12.3 g/dL 13.0-16.5 [facility] Monocytes/100 WBC (Bld) 9.5 % 0-10 [facility] Neutrophils (Bld) [#/Vol] 5.6 10*3/uL 2.0-7.7 [facility] Neutrophils/100 WBC (Bld) 68.0 % 47-70 [facility] Potassium [Moles/Vol] 4.4 mmol/L 3.5-5.1 [facility] Sodium [Moles/Vol] 133 mmol/L 136-145 [facility] WBC (Bld) [#/Vol] 8.3 10*3/uL 4.4-11.0 [facility] Bedside Glucoseon 09-28-2023 FINGERSTICK GLU 319 mg/dL High 74-106 [facility] Comment on above: Result Comment: OMER GEMENT OF PATIENT CARE PER NURSING PROTOCOL Performed By: #### L 100.0100, L500.2500 #### [facility] [address] [place], [address] FINGERSTICK GLU 289 mg/dL High 74-106 [facility] Comment on above: Result Comment: OMER GEMENT OF PATIENT CARE PER NURSING PROTOCOL Performed By: #### L 300.4310 #### [facility] [address] [place], [address] CBC W/Diff, Automatedon 05- Absolute Lymph 1.66 X10 3/uL Normal 0.83-4.51 [facility] Comment on above: Performed By: #### L 300.4310 #### [facility] [address] [place], [address] Absolute Neut 5.6 X10 3/uL Normal 2.0-7.7 [facility] Comment on above: Performed By: #### L 300.4310 #### [facility] [address] [place], [address] Basophils/100 WBC (Bld) 0.5 % Normal 0-1 [facility] Comment on above: Performed By: #### L 300.4310 #### [facility] [address] [place], [address] Eosinophils/100 WBC (Bld) 1.6 % Normal 0-5 [facility] Comment on above: Performed By: #### L 300.4310 #### [facility] [address] [place], [address] Erythrocyte distribution width (RBC) [Ratio] 13.0 % Normal 11.6-14.6 [facility] Comment on above: Performed By: #### L 300.4310 #### [facility] [address] [place], [address] Hematocrit (Bld) [Volume fraction] 38.6 % Low 40-54 [facility] Comment on above: Performed By: #### L 300.4310 #### [facility] [address] [place], [address] Hemoglobin (Bld) [Mass/Vol] 12.3 g/dL Low 13.0-16.5 [facility] Comment on above: Performed By: #### L 300.4310 #### [facility] [address] [place], [address] IG% 0.400 Normal 0.0-0.9 [facility] Comment on above: Result Comment: IG% - Immature Granulocytes (promyelocytes, myelocytes and metamyelocytes) > 1% indicates that a LEFT SHIFT is Present. Performed By: #### L 300.4310 #### [facility] [place], [address] Lymphocytes/100 WBC (Bld) 20.0 % Normal 19-41 [facility] Comment on above: Performed By: #### L 300.4310 #### [facility] [address] [place], [address] MCH (RBC) [Entitic mass] 29.7 pg Normal 27.0-32.0 [facility] Comment on above: Performed By: #### L 300.4310 #### [facility] [address] [place], [address] MCHC (RBC) [Mass/Vol] 31.9 g/dL Low 32-36 [facility] Comment on above: Performed By: #### L 300.4310 #### [facility] [address] [place], [address] MCV (RBC) [Entitic vol] 93.2 fL Normal 80-94 [facility] Comment on above: Performed By: #### L 300.4310 #### [facility] [address] [place], [address] Monocytes/100 WBC (Bld) 9.5 % Normal 0-10 [facility] Comment on above: Performed By: #### L 300.4310 #### [facility] [address] [place], [address] Neutrophils/100 WBC (Bld) 68.0 % Normal 47-70 [facility] Comment on above: Performed By: #### L 300.4310 #### [facility] [address] [place], [address] Nucleated RBC (Bld) [#/Vol] 0 10*3/uL Normal 0-5 [facility] Comment on above: Performed By: #### L 300.4310 #### [facility] [address] [place], [address] Platelet mean volume (Bld) [Entitic vol] 9.9 fL Normal 6.2-12.0 [facility] Comment on above: Performed By: #### L 300.4310 #### [facility] [address] [place], [address] Platelets (Bld) [#/Vol] 283 10*3/uL Normal 150-450 [facility] Comment on above: Performed By: #### L 300.4310 #### [facility] [address] [place], [address] RBC (Bld) [#/Vol] 4.14 10*6/uL Low 4.6-6.2 [facility] Comment on above: Performed By: #### L 300.4310 #### [facility] [address] [place], [address] RDW SD 44.1 fl High 35.1-43.9 [facility] Comment on above: Performed By: #### L 300.4310 #### [facility] [address] [place], [place], [address] WBC (Bld) [#/Vol] 8.3 10*3/uL Normal 4.4-11.0 [facility] Comment on above: Performed By: #### L 300.4310 #### [facility] [address] [place], [address] Chest PA and Lateralon 09-27 Chest PA and Lateral [facility] Imaging Services [address] [place] [address] Chest PA and Lateral MR#: [id number] Acct: [id number] Name: BALA ARMAS Rep #: [id number] : 1955 68 From: Sam Osuna MD PCP: [facility] Status: REG ER Study: Chest PA and Lateral Date of Exam: 09/28/23 Exam# [id number] Ordering Dr: Yamileth Pagan [id number] STUDY: X-RAY CHEST REASON FOR EXAM: Male, 68 years old. Shortness of breath TECHNIQUE: Frontal and lateral views of the chest. COMPARISON: None. FINDINGS: The lungs are clear and hyper expanded. There are small pleural effusions. Normal size heart. Normal mediastinum and ryley. Normal visualized pulmonary arteries. Normal visualized aortic arch and descending thoracic aorta. Normal visualized thoracic spine. Normal visualized ribs, clavicles, and shoulders. There is no demonstrated abnormality of the visualized soft tissue structures of the upper abdomen. RAD/Chest PA and Lateral IMPRESSION: Small pleural effusions. Electronically Signed: Sam Osuna MD at 15:52 EDT , CC: ELIEL Mack; [facility] Electronic Development Technician: Signed Normal [facility] Determination of erythrocyte mean corpuscular volume (MCV)Ordered By: Yamileth Pagan on 09-28-2023 MCV (RBC) [Entitic vol] 93.2 fL 80-94 [facility] Emergency Department Summary on 09-28-2023 Emergency Department Summary [facility] Medical Records Department [address] [place] [address] Emergency Department Summary 09/28/23 MR#: [id number] Acct: [id number] Name: BALA ARMAS Rep #: [id number] : 1955 68 From: Gorge Miranda MD PCP: [facility] Status:ADM IN Location: [place] [address] HPI History of Present Illness Chief Complaint: Shortness of Breath Narrative Narrative: Patient presenting today due to shortness of breath that he has had over the past week. He reports that it is worse with exertion, he has also woke up in the middle of the night feeling short of breath after laying on his side. Reports that he has also had low back pain over the past several days. He does have a history of COPD, CAD with stent placement, hypertension, hyperlipidemia, T2DM, and atrial fibrillation. He reports that he is not on a blood thinner at this time. He has not taken his Lasix in several days as he has been out of it. He denies any history of blood clots or recent surgery/procedures/t ravel/immobilization . He denies any fevers, chills, chest pain, nausea, and vomiting. [facility] Medical History Atrial fibrillation Chest pain COPD (chronic obstructive pulmonary disease) COPD (chronic obstructive pulmonary disease) CPAP (continuous positive airway pressure) dependence Diabetes Diabetes GERD (gastroesophageal reflux disease) Hypertension Irregular heart beat Myocardial infarct Sleep apnea Smoker Smoker Stroke/cerebrovascul ar accident Home Medications insulin glargine 100 unit/mL subcutaneous solution (Lantus U-100 Insulin) 82 unit subcut QHS DIABETES 12/15/14 [History Last Taken 03/09/19] simvastatin 80 mg tablet (Zocor) 80 mg PO QHS CHOLESTEROL 12/15/14 [History Last Taken 12/21/14] nitroglycerin 0.4 mg sublingual tablet (Nitrostat) 0.4 mg sublingual PRN PRN CHEST PAIN 11/24/16 [History Last Taken Unknown] polyvinyl alcohol-povidone (PF) 1.4 %-0.6 % eye drops in a dropperette (Refresh Classic (PF)) 2 drp EACHEYE DAILY PRN PRN dry eyes 03/24/17 [History Last Taken 03/09/19] clopidogrel 75 mg tablet 75 mg PO DAILY #14 tabs 03/26/17 [Rx Last Taken Unknown] magnesium oxide 400 mg (241.3 mg magnesium) tablet 400 mg PO DAILYCM #14 tabs 03/26/17 [Rx Last Taken 03/09/19] insulin aspart U-100 100 unit/mL (3 mL) subcutaneous pen (Novolog FlexPen U-100 Insulin aspart) 20 units subcut TIDAC DIABETES 06/24/17 [History Last Taken 03/09/19] metformin 1,000 mg tablet 1,000 mg PO BID BLOOD SUGAR 06/24/17 [History Last Taken Unknown] acetaminophen 325 mg capsule 1,300 mg PO QHS pain 03/10/19 [History Last Taken 03/09/19] pantoprazole 20 mg tablet,delayed release 20 mg PO BID reflux 11/03/20 [History Last Taken Unknown] Allergy/AdvReac Type Severity Reaction Status Date / Time bee venom protein (honey bee) Allergy Anaphylaxis Verified 09/28/23 14:23 Surgical History History of appendectomy History of cholecystectomy History of coronary artery stent placement History of coronary artery stent placement Social History Smoking Status: Former smoker ROS ROS ED Constitutional Constitutional ED: Denies chills or fever(s) Cardiovascular Cardiovascular: Reports paroxysmal nocturnal dyspnea; Denies chest pain or palpitations Respiratory/Chest Respiratory/Chest: Reports dyspnea, dyspnea on exertion and paroxysmal nocturnal dyspnea; Denies cough Gastrointestinal Gastrointestinal: Denies abdominal pain, nausea or vomiting Genitourinary Genitourinary ED: Denies dysuria, hematuria or urinary frequency Musculoskeletal Musculoskeletal: Reports back pain Integumentary Denies rash Neurologic Neurologic: Denies weakness EXAM Physical Exam Const Vital Signs: 09/28/23 14:21 09/28/23 14:34 09/28/23 14:38 Temperature 97.2 F L Temperature Source Temporal Pulse Rate 130 H Respiratory Rate 20 H Respiratory Effort Short of Breath Respiratory Depth Shallow Respiratory Pattern Tachypnea Blood Pressure 139/102 H Blood Pressure Mean 114 Pulse Ox 95 97 Oxygen Delivery Method Room Air Room Air Room Air 09/28/23 15:28 09/28/23 16:14 Temperature 98.2 F Temperature Source Pulse Rate 106 H 110 H Respiratory Rate 16 21 H Respiratory Effort Respiratory Depth Respiratory Pattern Normal Blood Pressure 112/70 Blood Pressure Mean 84 Pulse Ox 94 Oxygen Delivery Method Positive well nourished, well developed and no apparent distress General Appearance ED: well developed HEENT Reports normocephalic and head/scalp atraumatic Mouth ED: Yes moist mucous membranes normal Eyes PERRL and EOMs intact bilaterally Neck full ROM (more content not included)... Normal [facility] Erythrocyte distribution wid th ratioOrdered By: Yamileth Pagan on 09-28-2023 Erythrocyte distribution width (RBC) [Ratio] 13.0 % 11.6-14.6 [facility] Erythrocyte distribution wid th standard deviationOrdered By: Yamileth Pagan on 09-28-2023 Erythrocyte distribution width (RBC) [Entitic vol] 44.1 fL 35.1-43.9 [facility] Ferritinon 09-28-2023 Ferritin [Mass/Vol] 21 ng/mL Low 26-388 [facility] Comment on above: Order Comment: Has P atient had X-rays with Contrast this admission? N N Performed By: #### L 500.4100, L503.0105, L501.9985, L503.6030, L501.9520, L503.6550, L506.0250 #### [facility] Laboratory [address] [place], [address] Folates, (Folic Acid)on 09-17 FOLATES 11.00 ng/mL Normal 3.1-55.4 [facility] Comment on above: Order Comment: Has P atient had X-rays with Contrast this admission? N N Performed By: #### L 500.4100, L503.0105, L501.9985, L503.6030, L501.9520, L503.6550, L506.0250 #### [facility] [address] [place], [address] H AND P Exam - Hospitaliston 09-28-2023 H&P Exam - Hospitalist [facility] Medical Records Department [address] [place] [address] H P Exam - Hospitalist 09/28/23 1559 MR#: [id number] Acct: [id number] Name: BALA ARMAS Rep #: [id number] : 1955 68 From: Yong Sanchez DO PCP: [facility] Status:ADM IN Location: [facility] [id number] HPI - General General Date of Admission: 09/28/23 Date of Service: 09/28/23 Chief Complaint: CHF exacerbation, recurrent A-fib with RVR HPI Narrative BALA ARMAS, is a 68 M who presented to [facility] ED on 09/28/2023 with worsening volume overload and shortness of breath with exertion. Saw patient at bedside in the ED. Patient was sitting up fairly comfortably in bed, conversing normally, in no acute distress. He was breathing comfortably on room air at rest with oxygen saturations in the mid 90s. Heart rate was consistently in the 100s during our encounter, appeared to be in A-fib. Patient's history is signif icant for HFpEF, A-fib, CAD s/p stenting, hypertension, hyperlipidemia, poorly controlled type 2 damon betes and hypothyroidism. Was last seen in our hospital back in September 2022. Patient has seen cardiol jose here during hospitalizations but it does not appear he has seen them in the office. States he s aw lpc in [place] a few years ago, was last time he saw cardiology. Has been on sotalol for his A-fib, apparently prescribed by echocardiography. Has also been on Lasix, aspirin, Plavix, stat in and nitrate medications. Patient states today that he has been out of most medications for the p ast several weeks. Has not taken sotalol, Lasix, aspirin, Plavix or statin medications for several weeks. He apparently tried to make an appointment with his [place] lpc but was not able to g et in there for some reason. He has noticed worsening lower extremity swelling and worsening shortn ess of breath with exertion over that timeframe. He denies feeling any palpitations or rapid heart rate. He lives at home alone, states he has still been able to get up into mostly around the house for himself without issue. He denies any recent episodes of chest pain. Denies any fevers or chill s. No other acute concerns currently. Vitals in ED notable for initial heart rate around 130, appears to be in A-fib with RVR. Was given a dose of IV Cardizem in the ED with improvement in rate to 100s. Blood pressure was low normal. Good oxygen saturations on room air at rest. CBC with hemoglobin 12.3 (around baseline), otherwise unremarkable. BMP with sodium 133, potassium 4.4, bicarb 27, creatinine 0.65 (at baseline), glucose 348. Troponin 209, repeat 192. BNP pending. A1c 11.2%. Lipid panel with total cholesterol 111, LDL 47, HDL 29. TSH 1.48. Iron studies with low iron and iron saturation and low ferritin of 21. Chest x-ray showed small bilateral pleural effusions, mild vascular congestion. EKG showed A-fib with RVR, no ST changes noted. Will be admitted for further management. [facility] Medical History Atrial fibrillation Chest pain COPD (chronic obstructive pulmonary disease) COPD (chronic obstructive pulmonary disease) CPAP (continuous positive airway pressure) dependence Diabetes Diabetes GERD (gastroesophageal reflux disease) Hypertension Irregular heart beat Myocardial infarct Sleep apnea Smoker Smoker Stroke/cerebrovascul ar accident Home Medications insulin glargine 100 unit/mL subcutaneous solution (Lantus U-100 Insulin) 82 unit subcut QHS DIABETES 12/15/14 [History Last Taken 03/09/19] simvastatin 80 mg tablet (Zocor) 80 mg PO QHS CHOLESTEROL 12/15/14 [History Last Taken 12/21/14] nitroglycerin 0.4 mg sublingual tablet (Nitrostat) 0.4 mg sublingual PRN PRN CHEST PAIN 11/24/16 [History Last Taken Unknown] polyvinyl alcohol-povidone (PF) 1.4 %-0.6 % eye drops in a dropperette (Refresh Classic (PF)) 2 drp EACHEYE DAILY PRN PRN dry eyes 03/24/17 [History Last Taken 03/09/19] clopidogrel 75 mg tablet 75 mg PO DAILY #14 tabs 03/26/17 [Rx Last Taken Unknown] magnesium oxide 400 mg (241.3 mg magnesium) tablet 400 mg PO DAILYCM #14 tabs 03/26/17 [Rx Last Taken 03/09/19] insulin aspart U-100 100 unit/mL (3 mL) subcutaneous pen (Novolog FlexPen U-100 Insulin aspart) 20 units subcut TIDAC DIABETES 06/24/17 [History Last Taken 03/09/19] metformin 1,000 mg tablet 1,000 mg PO BID BLOOD SUGAR 06/24/17 [History Last Taken Unknown] acetaminophen 325 mg capsule 1,300 mg PO QHS pain 03/10/19 [History Last Taken 03/09/19] pantoprazole 20 mg tablet,delayed release 20 mg PO BID reflux 11/03/20 [History Last Taken Unknown] Allergy/AdvReac Type Severity Reaction Status Date / Time bee venom protein (honey bee) Allergy Anaphylaxis Verified 09/28/23 14:23 Surgical History History of appendectomy History (more content not included)... Normal [facility] Hematocrit Auto (Bld) [Volum e fraction]Ordered By: Yamileth Pagan on 09-28-2023 Hematocrit (Bld) [Volume fraction] 38.6 % 40-54 [facility] Hemoglobin A1con 09-28-2023 HbA1c (Bld) [Mass fraction] 11.2 % High 3.8-5.6 [facility] Comment on above: Result Comment: Norm al < 5.7 % Prediabetic 5.7 - 6.4 % Diabetic >or= 6.5 % Please note range changes. Performed By: #### L 500.4100, L503.0105, L501.9985, L503.6030, L501.9520, L503.6550, L506.0250 #### [facility] [address] [place], [address] Immature granulocytes/100 WB C Auto (Bld)Ordered By: Yamileth Pagan on 09-28-2023 Immature granulocytes/100 WBC (Bld) 0.400 % 0.0-0.9 [facility] Comment on above: IG% - Immature Granu locytes (promyelocytes, myelocytes and metamyelocytes) > 1% indicates that a LEFT SHIFT is Present. Iron+Iron Binding Capacityon 09-28-2023 Iron [Mass/Vol] 29 ug/dL Low 65-175 [facility] Comment on above: Order Comment: Has Madelyn canseco had X-rays with Contrast this admission? N N Performed By: #### L 500.4100, L503.0105, L501.9985, L503.6030, L501.9520, L503.6550, L506.0250 #### [facility] [address] [place], [address] IRON SATURATION 6.6 Low 15.0-55.0 [facility] Comment on above: Order Comment: Has Madelyn canseco had X-rays with Contrast this admission? N N Performed By: #### L 500.4100, L503.0105, L501.9985, L503.6030, L501.9520, L503.6550, L506.0250 #### [facility] [address] [place], [address] TIBC 438 ug/dL Normal 250-450 [facility] Comment on above: Order Comment: Has Madelyn canseco had X-rays with Contrast this admission? N N Performed By: #### L 500.4100, L503.0105, L501.9985, L503.6030, L501.9520, L503.6550, L506.0250 #### [facility] [address] [place], [address] L501.4020on 09-28-2023 TROPONIN-I HS 192 pg/mL Invalid Interpretation Code 3.0-78.0 [facility] Comment on above: Order Comment: 'TROP ' Serial specimen #1, #2 or #3: 2 Result Comment: Crit ical Result(s) Called at: 18:32:16 09/28/2023 by: MONSE ENG to Coco Vaca. Results read back by same. Please Note: New Test Units and Gender Specific Reference Ranges. For more information see Policy Stat Procedure [place] High Sensitivity Troponin (TNIH) and attachments. Performed By: #### L 300.4310 #### [facility] [address] [place], [place], [address] TROPONIN-I HS 209 pg/mL Invalid Interpretation Code 3.0-78.0 [facility] Comment on above: Order Comment: Has P atient had X-rays with Contrast this admission? N N Result Comment: Crit ical Result(s) Called at: 15:25:48 09/28/2023 by: Qi Edward to Elmer in ED. Results read back by same. Please Note: New Test Units and Gender Specific Reference Ranges. For more information see Policy Stat Procedure [place] High Sensitivity Troponin (TNIH) and attachments. Performed By: #### L 500.4100, L503.0105, L501.9985, L503.6030, L501.9520, L503.6550, L506.0250 #### [facility] [address] [place], [place], [address] Laboratory - Chemistry and C hemistry - challengeOrdered By: Yamileth Pagan on 09-28-2023 CO2 [Moles/Vol] 27.0 mmol/L 21.0-32.0 [facility] Urea nitrogen/Creatinine [Mass ratio] 12.3 mg/mg 10-20 [facility] Laboratory - Hematology and Cell countsOrdered By: Yamileth Pagan on 09-28-2023 MCH (RBC) [Entitic mass] 29.7 pg 27.0-32.0 [facility] MCHC (RBC) [Mass/Vol] 31.9 g/dL 32-36 [facility] Nucleated RBC/100 WBC (Bld) [Ratio] 0 % 0-5 [facility] Platelet mean volume (Bld) [Entitic vol] 9.9 fL 6.2-12.0 [facility] Platelets (Bld) [#/Vol] 283 10*3/uL 150-450 [facility] Lipid Profileon 09-28-2023 Cholesterol [Mass/Vol] 111 mg/dL Normal 200 [facility] Comment on above: Order Comment: Has Madelyn canseco had X-rays with Contrast this admission? N N Result Comment: <200 mg/dL Desirable 200-240 mg/dL Borderline >240 mg/dL High Risk Performed By: #### L 500.4100, L503.0105, L501.9985, L503.6030, L501.9520, L503.6550, L506.0250 #### [facility] [address] [place], [address] Cholesterol in HDL [Mass/Vol] 29 mg/dL Low [facility] Comment on above: Order Comment: Has Madelyn canseco had X-rays with Contrast this admission? N N Result Comment: The drugs N-Acetylcysteine and Metamizole may falsely depress this assay. Reference Range HDL <40 mg/dL Low HDL Cholesterol HDL >or= 60 mg/dL High HDL Cholesterol Performed By: #### L 500.4100, L503.0105, L501.9985, L503.6030, L501.9520, L503.6550, L506.0250 #### [facility] [address] [place], [address] Cholesterol in LDL [Mass/Vol] 47 mg/dL Normal 0-130 [facility] Comment on above: Order Comment: Has Madelyn canseco had X-rays with Contrast this admission? N N Performed By: #### L 500.4100, L503.0105, L501.9985, L503.6030, L501.9520, L503.6550, L506.0250 #### [facility] [address] [place], [address] Cholesterol in VLDL [Mass/Vol] 35 mg/dL Normal 5-40 [facility] Comment on above: Order Comment: Has Madelyn canseco had X-rays with Contrast this admission? N N Performed By: #### L 500.4100, L503.0105, L501.9985, L503.6030, L501.9520, L503.6550, L506.0250 #### [facility] [address] [place], [place], [address] Triglyceride [Mass/Vol] 176 mg/dL Normal [facility] Comment on above: Order Comment: Has P harleen had X-rays with Contrast this admission? N N Result Comment: The drugs N-Acetylcysteine and Metamizole may falsely depress this assay. Serum Triglycerides Reference Interval Normal <150 mg/dL Borderline high 150 - 199 mg/dL High 200 - 499 mg/dL Very High > or = 500 mg/dL Performed By: #### L 500.4100, L503.0105, L501.9985, L503.6030, L501.9520, L503.6550, L506.0250 #### [facility] [address] [place], [place], [address] No Panel InformationOrdered By: Yamileth Pagan on 09-28-2023 Estimated Creatinine Clearance Calc 129.35 ml/min [facility] Estimated GFR (MDRD) Amer 157 mL/min >60 [facility] Comment on above: GFR Calc Estimated GFR (MDRD) Non-Af Amer 130 mL/min >60 [facility] Comment on above: Non- GFR Calc Troponin I High Sensitivity 209 pg/mL 3.0-78.0 [facility] Comment on above: Critical Result(s) C alled at: 15:25:48 09/28/2023 by: Qi Payne in ED. Results read back by same. Please Note: New Test Units and Gender Specific Reference Ranges. For more information see Policy Stat Procedure [place] High Sensitivity Troponin (TNIH) and attachments. RBC Auto (Bld) [#/Vol]Ordere d By: Yamileth Pagan on 09-28-2023 RBC (Bld) [#/Vol] 4.14 10*6/uL 4.6-6.2 [facility] Serum or plasma calcium ana urement (mass/volume)Ordered By: Yamileth Pagan on 09-28-2023 Calcium [Mass/Vol] 8.9 mg/dL 8.5-10.1 [facility] Serum or plasma creatinine m easurement (mass/volume)Ordered By: Yamileth Pagan on 09-28-2023 Creatinine [Mass/Vol] 0.65 mg/dL 0.70-1.30 [facility] Comment on above: The validity of the calculated GFR & GFRAA in patients over 70 years has not been determined. Clinical correlation is essential. Serum or plasma urea nitroge n measurement (mass/volume)Ordered By: Yamileth Pagan on 09-28-2023 Urea nitrogen [Mass/Vol] 8 mg/dL 7-18 [facility] Thin prep Papanicolaou smear with manual screeningOrdered By: Yamileth Seymour on 09-28-2023 Thin prep Papanicolaou smear with manual screening 7 5-15 [facility] Thyroid Stim Hormone (TSH)on 09-28-2023 TSH 1.48 uIU/mL Normal 0.358-3.74 [facility] Comment on above: Order Comment: Has P atient had X-rays with Contrast this admission? N N Performed By: #### L 500.4100, L503.0105, L501.9985, L503.6030, L501.9520, L503.6550, L506.0250 #### [facility] [address] [facility] [place], [place], [id number] Vital Signs Date Time Vital Sign Value Performing Clinician Faci lity 09-28-2023 16:21-0400 Diastolic blood pressure 70 mm[Hg] [facility] 09-28-2023 16:21-0400 Heart rate 103 /min [facility] 09-28-2023 16:21-0400 Respiratory rate 30 /min [facility] 09-28-2023 16:21-0400 SaO2% (BldA) [Mass fraction] 96 % [facility] 09-28-2023 16:21-0400 Systolic blood pressure 109 mm[Hg] [facility] 09-28-2023 16:14-0400 Body temperature 98.2 [degF] [facility] 09-28-2023 14:38-0400 Body mass index (BMI) [Ratio] 52.3 kg/m2 [facility] 09-28-2023 14:38-0400 Body weight 156.1 kg [facility] 09-28-2023 14:21-0400 Body height 172.72 cm [facility] Encounters Encounter Date Encounter Type Care Provider Facility Start: 09-28-2023 ambulatory Yong Sanchez Fac ility:[facility] Start: 09-28-2023 End: 10-02-2023 Evaluation and management of inpatient [facility] Work Phone: Procedures Date Procedure Procedure Detail Performing Clinician Start: 09-28-2023 Plain chest X-ray Plan of Treatment Date Care Activity Detail Author Start: 09-28-2023 Troponin I measurement [facility] Start: 09-28-2023 Vitamin B12 measurement [facility] Start: 09-28-2023 Verification routine [facility] Start: 09-28-2023 Admission procedure [facility] Start: 09-28-2023 Hospital admission, emergency, from emergency room, medical nature [facility] Start: 09-28-2023 Brain natriuretic peptide measurement [facility] Start: 09-28-2023 Thyroid stimulating hormone measurement [facility] Start: 09-28-2023 [facility] Start: 04-18-2017 End: 04-18-2017 Appointment Appointment [facility] Work Phone: Start: 04-05-2017 End: 04-05-2017 Appointment Appointment [facility] Work Phone: Start: 03-25-2017 End: 03-25-2017 Cardiac Rehab [facility], [address], [place], [address] [facility] Work Phone: Cholesterol [Mass/vo lume] in Serum or Plasma [facility] Cholesterol in LDL [Mass/volume] in Serum or Plasma [facility] Ferritin [Mass/volum e] in Serum or Plasma [facility] Folate [Mass/volume] in Serum or Plasma [facility] Hemoglobin A1c/Hemoglobin.total in Blood [facility] High density lipopro tein measurement [facility] Iron [Mass/mass] in Unspecified specimen [facility] Iron and Iron bindin g capacity panel - Serum or Plasma [facility] Iron saturation [Mas s Fraction] in Serum or Plasma [facility] Patient referral [facility] Work Phone: Triglycerides measurement [facility] VLDL cholesterol measurement [facility] Immunizations Immunization Date Immunization Notes Care Provider Fa tito 02-08-2019 Influenza virus vaccine [facility] 03-24-2017 influenza, injectabl e, quadrivalent, preservative free [facility] Payers Date Payer Category Payer Self-pay [id number] 2023 Unknown [id number] 2012 Medicare MEDICARE A ONLY [id number] Unknown [id number] 2.16.8 [id number] Unknown [id number] 2.16.8 [id number] Unknown [id number] 2.16.8 [id number] Unknown [id number] 2.16.8 [id number] Unknown [id number] 2.16.8 [id number] Unknown [id number] 2.16.8 [id number] Unknown [id number] 2.16.8 [id number] Unknown [id number] 2.16.8 [id number] Social History Date Type Detail Facility Start: 09-28-2023 Tobacco smoking status NHIS Unknown if ever smoked [facility] Start: 11-03-2020 Rare [facility] Start: 11-03-2020 None [facility] Start: 06-24-2017 Spouse/ Signif icant Other [facility] Start: 11-03-2020 Non-smoker [facility] Start: 1955 Sex Assigned At Male [facility] Discharge summary note 10-02-2023 Note Date & Type Note Facility 10-02-2023 Note [facility] Medical Records Department [address] [place] [address] Discharge Summary 10/02/23 1238 MR#: [id number] Acct: [id number] Name: BALA ARMAS Rep #: [id number] : 1955 68 From: Sin Amaya MD PCP: [facility] Status:ADM IN Location: U [id number] Providers Date of Admission: 09/28/23 Date of Discharge: 10/02/23 Primary Care Physician: [facility] Consultations 09/28/23 17:55 Consult: Cardiology Routine Consulting Provider: Beau Gonsalves Reason for Consult: CHF exacerbation, recurrent Afib w/ RVR EMERGENT Consult: No MD Notified: Yes Date Notified: 09/28/23 Time Notified: 17:55 Method of Notification: Text Reason For Visit: CHF EXACERBATION Diagnosis Discharge Diagnosis (1) CHF (congestive heart failure): Status: Acute Code(s): I50.9 - Heart failure, unspecified (2) Atrial fibrillation with RVR: Status: Acute Code(s): I48.91 - Unspecified atrial fibrillation (3) Uncontrolled type 2 diabetes mellitus: Status: Chronic Code(s): E11.65 - Type 2 diabetes mellitus with hyperglycemia Qualifiers: Glycemic state: with hyperglycemia Qualified Code(s): E11.65 - Type 2 diabetes mellitus with hyperglycemia Plan Patient is a 68-year-old male who presented [facility] ED on 09/28/2023 with worsening lower extremity swelling and shortness of breath with exertion. 1. HFpEF exacerbation, recurrent A-fib with RVR, history of CAD with stenting, medication nonadherence ??? Admit under inpatient status to PCU. 09/28: Senior Enlisted Advisor consulted discussed with him. Recurrent A-fib with RVR and worsening volume overload presumed secondary to medication nonadherence since patient ran out of home medications. Reports he was previously on anticoagulation, was taken off anticoagulation when put on sotalol. [id number] score is 4, high risk of thromboembolism. Patient started on IV heparin drip in ED, changed to Eliquis 5 mg twice daily. 2D echo ordered. Metoprolol 25 mg twice daily. 2D echo ordered. IV Lasix 40 mg twice daily. On aspirin continued. Plavix discontinued and stenting was done in 2017 09/29: Patient had history of [place] in the past. Continue Eliquis, metoprolol. Diltiazem restarted. 2D echo shows EF 30%. Moderately severe global LV systolic dysfunction. Mild asymmetric septal hypertrophy, mild biatrial dilatation. Mild MR mild to moderate TR. PASP 67 Since to moderate pulmonary hypertension continue diuretics 09/30: Patient heart rate is still elevated in 110s. Was started on Cardizem, dose increased to 60 mg every 6 hourly. Patient on digoxin 250 mcg daily after digitalization yesterday. Continue Eliquis. 10/01: Heart rate is controlled on digoxin, Cardizem and metoprolol 50 mg twice daily. Prescription given for Cardizem CD 120 mg daily, digoxin 250 mcg daily and metoprolol. Patient on magnesium. Potassium is 4.4 and 5.0 therefore could not tolerate spironolactone therefore discontinued. Patient on magnesium supplement. Prescription given for furosemide. Follow-up in cardiology office in 2 weeks 2. Elevated troponins most likely type II ??? Troponin trend 209 > 192 in ED. Suspect due to demand ischemia from CHF exacerbation and recurrent A-fib with RVR as noted above. Plan for stress test tomorrow AM. 09/29: Stress test shows inferior and apical fixed defect but no significant ebenezer-infarct ischemia. Elevated troponin most likely type II [place]. Medical management recommended 09/30: Patient on baby aspirin and Eliquis. 10/01: Patient on baby aspirin, and Eliquis. High intensity statin. Home medications shows Plavix but probably patient was not taking it and discontinued. And last cardiac stent in 2016. Patient has chronic anemia and hemoglobin dropped from 12.3-11.8 on 3 anticoagulants therefore discharged on only 2 baby aspirin and Eliquis. 3. Poorly controlled type 2 diabetes mellitus ??? A1c 11.2% on admit. Home regimen of Lantus 82 units at night, NovoLog 20 units with meals, metformin 1000 mg twice daily. Patient was able to tell me his regimen and reports compliance. Does not check his sugars regularly at home. Blood glucose 348 on admit. Will start Lantus 50 units at night, Humalog 10 units with meals plus/scale insulin for now, adjust as needed. 09/30: Glucose in the morning was 99 in BMP. Lantus insulin decreased. Lantus increased decreased to 30 units with holding parameter. 10/01: Patient discharged on decreased dose of Lantus and Humalog insulin. Accu-Chek insulin coverage with sliding scale. 4. Chronic iron deficiency anemia ??? Hemoglobin 12.3 on admit, baseline appears to be around 12-13. Iron studies with ferritin 21 consistent with iron deficiency anemia. Denies any dark or bloody bowel movements. No concern for active infection currently. 09/28: 2 doses of IV iron on mornings of 09/28 and 09/29. Recommend repeat iron studies in the next few (more content not included)... [facility] Evaluation note Note Date & Type Note Facility Evaluation note No assessment information availa ble [facility] Work Phone: Chief Complaint and Reason for Visit Chief Complaint CHF EXACERBATION Family History No Family History Records Found Relationship Condition Age at Onset Recorded Date/T maryanne Unknown Family History?Heart Disease Unknown June 24, 2017 7:15pm Family History?Heart Disease Unknown June 24, 2017 7:15pm Advance Directives No Advanced Directives Records Found Advance Directive Response Recorded Date/ Time Advance Directives No December 22 015 6:55pm Living Will No September 28, 2023 2 :34pm Power of Fire Pilot No September 28, 2023 2:34pm Summary Purpose Additional Source Comments Care Teams (unrecognized sec tion and content) Team Status: Active Member Role Status Dates [facility] Family Provider Active [facility] Primary Care Provider Active Team Status: Active Member Role Status Dates [facility] Primary Care Provider Active Dr. Gorge Miranda MD Emergency Provider Active Dr. Yong Sanchez , DO Admit Provider, Attending Provider Active Goals (unrecognized section and content) Goals may be documented in a n alternate section (unrecognized sect ion and content) No Status Records Found INFORMATION SOURCE (unrecogn ized section and content) DATE CREATED AUTHOR 07/03/2024 [facility] FOR RECORDS PERTAINING TO PATIENTS WHO ARE OR HAVE BEEN ENROLLED IN A CHEMICAL DEPENDENCY/SUBSTANCEABUSE PROGRAM, SOME INFORMATION MAY BE OMITTED. This clinical summary was aggregated from multiple sources. Caution should be exercised in using it in the provision of clinical care. This summary normalizes information from multiple sources, and as a consequence, information in this document may materially change the coding, format and clinical context of patient data. In addition, data may be omitted in some cases. CLINICAL DECISIONS SHOULD BE BASED ON THE PRIMARY CLINICAL RECORDS. [facility] [employer] [facility] provides no warranty or guarantee of the accuracy or completeness of information in this document.
[2025-03-10 22:00] LABS: Pro- Brain NATRIURETIC PEPTIDE 1535 pg/mL (<=900)
[2025-03-10 22:03] LABS: Troponin T High Sens 2 HR 63 ng/L (<=22)
== END 2025-03-10 23:07 | disposition home or self-care (01) ==
PROVIDERS: Emergency Provider Surgery; PCP Nurse Practitioner Family; Visit Provider Surgery
DX: I11.0 Hypertensive heart disease with heart failure (principal); I50.9 Heart failure, unspecified; J44.1 Chronic obstructive pulmonary disease with (acute) exacerbation; I48.91 Unspecified atrial fibrillation; E11.9 Type 2 diabetes mellitus without complications; Z79.4 Long term (current) use of insulin; Z87.891 Personal history of nicotine dependence; R06.02 Shortness of breath; Z79.01 Long term (current) use of anticoagulants; G47.30 Sleep apnea, unspecified; Z99.89 Dependence on other enabling machines and devices; I25.2 Old myocardial infarction; Z86.73 Personal history of transient ischemic attack (TIA), and cerebral infarction without residual deficits; Z79.899 Other long term (current) drug therapy; Z79.84 Long term (current) use of oral hypoglycemic drugs; K21.9 Gastro-esophageal reflux disease without esophagitis; Z79.82 Long term (current) use of aspirin; Z90.49 Acquired absence of other specified parts of digestive tract; Z95.5 Presence of coronary angioplasty implant and graft
CPT/HCPCS: 71045; 80048; 83880; 84484; 85025; 87631; 93005; 94640; 94760; 96374; 96375; 99284; A4216; J1938

== ENCOUNTER → 2025-03-19 | Outpatient (CLI) | payer OTHER, SELFPAY ==
[2017-03-25 11:36] VITALS: BMI 51.2
--- OUTSIDE RECORDS SUMMARY | 2025-03-19 10:49 | XMS RPT_ITS | CCD ---
Author Organization [facility] Informat ion Partnership [facility] Care Team Providers Care Pinion Polisher Name Role Phone ALDA Littlejohn, Ruth Ann Bernal Unavailable Unavailslime Littlejohn RN, Phyllis M Unavailable HARDEEP Culp Primary Care Unavailable Saede Pop Attending Unavailabl e Allergies Allergy Classification Reported Allergen(s) Allergy Type Date of Onset Reaction(s) Facility (1 source) bee venom protein (honey bee) Allergy to substance 09-28-2023 Anaphylaxis [facility] (1 source) bee venom protein (honey bee) Drug allergy (disorder) 2025 [facility] Repository Medications Current Medications Medication Drug Class(es) [...] Classification Problem Date Documented Da te Episodic/Chronic Cardiac dysrhythmias (2 sources) Atrial fibrillation; Translations: [Unspecified atrial fibrillation] Onset: 7 03-25-2017 Chronic Chronic obstructive pulmonary disease and bronchiectasis (1 source) Acute exacerbation of chronic obstructive airways disease; Translations: [Chronic obstructive pulmonary disease with (acute) exacerbation] 10-18-2022 Chronic Congestive heart failure; nonhypertensive (1 source) Chronic diastolic heart failure; Translations: [Chronic diastolic (congestive) heart failure] 10-18-2022 Chronic Coronary atherosclerosis and other heart disease (3 sources) Atherosclerotic heart disease of citizen [place] coronary artery without angina pectoris; Translations: [Coronary arteriosclerosis] Onset: 7 03-25-2017 Chronic Diabetes mellitus with complications (2 sources) Hyperglycemia due to diabetes mellitus; Translations: [Type 2 diabetes mellitus with hyperglycemia] 02-01-2023 Chronic Disorders of lipid metabolism (1 source) Dyslipidemia; Translations: [Hyperlipidemia, unspecified] 06-24-2017 Chronic Diverticulosis and diverticulitis (2 sources) Diverticulitis; Translations: [Diverticulitis of intestine, part unspecified, without perforation or abscess without bleeding] 02-01-2023 Chronic Esophageal disorders (1 source) Gastroesophageal reflux disease; Translations: [Gastro-esophageal reflux disease without esophagitis] 06-24-2017 Chronic Essential hypertension (1 source) Hypertensive disorder; Translations: [Essential (primary) hypertension] 11-03-2020 Chronic Gastrointestinal hemorrhage (1 source) Rectal hemorrhage; Translations: [Hemorrhage of anus and rectum] 02-01-2023 Episodic Nonspecific chest pain (1 source) Chest pain; Translations: [Chest pain, unspecified] 11-11-2020 Episodic Other nutritional; endocrine; and metabolic disorders (1 source) Body mass index 40+ - severely obese; Translations: [Morbid (severe) obesity due to excess calories] 06-24-2017 Chronic Other upper respiratory infections (1 source) [...] Test Name Value Interpretation Reference Range Facility 12 Lead EKGon 2025 12 Lead EKG [facility] Cardiovascular Services [address] [place] [address] 12 Lead EKG 03/10/25 192 MR#: [id number] Acct: [id number] Name: BALA ARMAS Rep #: [id number] : 1955 70 From: Tian Casas MD Attending Dr: Status: DEP ER Ordering Dr: Brian Pop DO Date: 5 Location: ED Sex: M C Admitted: Test Reason : DYSRHYTHMIA Blood Pressure : */* mmHG Vent. Rate : 75 BPM Atrial Rate : 75 BPM P-R Int : 166 ms QRS Dur : 96 ms QT Int : 420 ms P-R-T Axes : 65 -34 81 degrees QTcB Int : 469 ms Normal sinus rhythm Left axis deviation Low voltage QRS Abnormal ECG Confirmed by Tian Casas ([id number]), editorial assistant WOJCIECH DEVRIES ([id number]) on 03/11/2025 9:38:03 AM Referred By: Confirmed By: Tian Casas 03/11/25 0938 Date Tian Casas MD CC: Dr. Saeed Pop, DO; CASIMIRO BURRIS Signed Normal [facility] Basic Metabolic Profile (BMP )on 2025 BUN/CRE 11.1 RATIO Normal 03-08 [facility] Comment on above: Performed By: #### L 500.2500, L501.4021, L100.0100 #### [facility] [address] [place], [address] Calcium [Mass/Vol] 9.2 mg/dL Normal 7.6-11.0 [facility] Comment on above: Performed By: #### L 500.2500, L501.4021, L100.0100 #### [facility] [address] [place], [address] Chloride [Moles/Vol] 98 mmol/L Normal 98-108 [facility] Comment on above: Performed By: #### L 500.2500, L501.4021, L100.0100 #### [facility] [address] [place], [address] CO2 [Moles/Vol] 25.5 mmol/L Normal 21.0-32.0 [facility] Comment on above: Performed By: #### L 500.2500, L501.4021, L100.0100 #### [facility] [address] [place], [address] Creatinine [Mass/Vol] 0.98 mg/dL Normal 0.70-1.20 [facility] Comment on above: Performed By: #### L 500.2500, L501.4021, L100.0100 #### [facility] [address] [place], [address] ECRCL 103.69 ml/min Normal 50-250 [facility] Comment on above: Performed By: #### L 500.2500, L501.4021, L100.0100 #### [facility] [address] [place], [address] GAP 12 Normal 5-15 [facility] Comment on above: Performed By: #### L 500.2500, L501.4021, L100.0100 #### [facility] [address] [place], [address] GFR/1.73 sq M.predicted among non-blacks MDRD (S/P/Bld) [Vol rate/Area] 83 mL/min/{1.73_m2} Normal >60 [facility] Comment on above: Result Comment: mL/m in/1.73m2 CKD-EPI Creatinine Equation (2020) Performed By: #### L 500.2500, L501.4021, L100.0100 #### [facility] [address] [place], [address] Glucose [Mass/Vol] 283 mg/dL High 70-99 [facility] Comment on above: Performed By: #### L 500.2500, L501.4021, L100.0100 #### [facility] [address] [place], [address] Potassium [Moles/Vol] 4.7 mmol/L Normal 3.3-5.1 [facility] Comment on above: Result Comment: Hemo lysis present, Results??could be affected. ?? Performed By: #### L 500.2500, L501.4021, L100.0100 #### [facility] [address] [place], [address] Sodium [Moles/Vol] 136 mmol/L Normal 133-145 [facility] Comment on above: Performed By: #### L 500.2500, L501.4021, L100.0100 #### [facility] [address] [place], [address] Urea nitrogen [Mass/Vol] 11 mg/dL Normal 4-19 [facility] Comment on above: Performed By: #### L 500.2500, L501.4021, L100.0100 #### [facility] [address] [place], [address] CBC W/Diff, Automatedon 10-2 Absolute Lymph 1.34 X10 3/uL Normal 0.83-4.51 [facility] Comment on above: Performed By: #### L 500.2500, L501.4021, L100.0100 #### [facility] [address] [place], [address] Absolute Neut 5.8 X10 3/uL Normal 2.0-7.7 [facility] Comment on above: Performed By: #### L 500.2500, L501.4021, L100.0100 #### [facility] [address] [place], [address] Basophils/100 WBC (Bld) 0.6 % Normal 0-1 [facility] Comment on above: Performed By: #### L 500.2500, L501.4021, L100.0100 #### [facility] [address] [place], [address] Eosinophils/100 WBC (Bld) 1.7 % Normal 0-5 [facility] Comment on above: Performed By: #### L 500.2500, L501.4021, L100.0100 #### [facility] [address] [place], [address] Erythrocyte distribution width (RBC) [Ratio] 14.6 % Normal 11.6-14.6 [facility] Comment on above: Performed By: #### L 500.2500, L501.4021, L100.0100 #### [facility] [address] [place], [address] Hematocrit (Bld) [Volume fraction] 33.4 % Low 40-54 [facility] Comment on above: Performed By: #### L 500.2500, L501.4021, L100.0100 #### [facility] [address] [place], [address] Hemoglobin (Bld) [Mass/Vol] 9.9 g/dL Low 13.0-16.5 [facility] Comment on above: Performed By: #### L 500.2500, L501.4021, L100.0100 #### [facility] [address] [place], [address] IG% 0.600 Normal 0.0-0.9 [facility] Comment on above: Result Comment: IG% - Immature Granulocytes (promyelocytes, myelocytes and metamyelocytes) > 1% indicates that a LEFT SHIFT is Present. Performed By: #### L 500.2500, L501.4021, L100.0100 #### [facility] [address] [place], [address] Lymphocytes/100 WBC (Bld) 16.1 % Low 19-41 [facility] Comment on above: Performed By: #### L 500.2500, L501.4021, L100.0100 #### [facility] [address] [place], [address] MCH (RBC) [Entitic mass] 26.2 pg Low 27.0-32.0 [facility] Comment on above: Performed By: #### L 500.2500, L501.4021, L100.0100 #### [facility] [address] [place], [address] MCHC (RBC) [Mass/Vol] 29.6 g/dL Low 32-36 [facility] Comment on above: Performed By: #### L 500.2500, L501.4021, L100.0100 #### [facility] [address] [place], [address] MCV (RBC) [Entitic vol] 88.4 fL Normal 80-94 [facility] Comment on above: Performed By: #### L 500.2500, L501.4021, L100.0100 #### [facility] [address] [place], [address] Monocytes/100 WBC (Bld) 11.2 % High 0-10 [facility] Comment on above: Performed By: #### L 500.2500, L501.4021, L100.0100 #### [facility] [address] [place], [address] Neutrophils/100 WBC (Bld) 69.8 % Normal 47-70 [facility] Comment on above: Performed By: #### L 500.2500, L501.4021, L100.0100 #### [facility] [address] [place], [address] Nucleated RBC (Bld) [#/Vol] 0 10*3/uL Normal 0-5 [facility] Comment on above: Performed By: #### L 500.2500, L501.4021, L100.0100 #### [facility] [address] [place], [address] Platelet mean volume (Bld) [Entitic vol] 10.1 fL Normal 6.2-12.0 [facility] Comment on above: Performed By: #### L 500.2500, L501.4021, L100.0100 #### [facility] [address] [place], [address] Platelets (Bld) [#/Vol] 406 10*3/uL Normal 150-450 [facility] Comment on above: Performed By: #### L 500.2500, L501.4021, L100.0100 #### [facility] [address] [place], [address] RBC (Bld) [#/Vol] 3.78 10*6/uL Low 4.6-6.2 [facility] Comment on above: Performed By: #### L 500.2500, L501.4021, L100.0100 #### [facility] [address] [place], [address] RDW SD 47.1 fl High 35.1-43.9 [facility] Comment on above: Performed By: #### L 500.2500, L501.4021, L100.0100 #### [facility] [address] [place], [address] WBC (Bld) [#/Vol] 8.3 10*3/uL Normal 4.4-11.0 [facility] Comment on above: Performed By: #### L 500.2500, L501.4021, L100.0100 #### [facility] [address] [place], [address] Chest 1 View (Portable)on Chest 1 View (Portable) [facility] Imaging Services [address] [place] [address] Chest 1 View (Portable) MR#: [id number] Acct: [id number] Name: BALA ARMAS Rep #: [id number] : 1955 Dolores Ocampo From: Arjun Wright MD PCP: [facility] Status: PRE ER Study: Chest 1 View (Portable) Date of Exam: 03/10/25 Exam# [id number] Ordering Dr: Provider,Ed P. PROCEDURE: CHEST 1 VIEW (PORTABLE) 2025 REASON FOR EXAM: COUGH/WHEEZING TECHNIQUE: Frontal view of the chest. FINDINGS: The heart appears enlarged which may be due exaggerated AP technique or cardiomegaly. Study of the is degraded by motion but the lungs appear clear. No acute osseous abnormalities. RAD/Chest 1 View (Portable) IMPRESSION: Pulmonary findings as above. 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: Signed Normal [facility] Emergency Department Summary on 2025 Emergency Department Summary [facility] Medical Records Department [address] [place] [address] Emergency Department Summary 03/10/25 MR#: [id number] Acct: [id number] Name: BALA ARMAS Rep #: [id number] : 1955 70 From: Saeed Pop DO PCP: HAR[facility]EP ART Status:REG ER Location: ED HPI History of Present Illness Chief Complaint: Shortness of Breath Narrative Narrative: Chief complaint and HPI: 78-year-old male with past medical history of DM, COPD, atrial fibrillation on Eliquis, COPD, HTN presents for evaluation of shortness of breath. Patient states that shortness of breath has been worsening over the last couple days. Associated symptom is cough. Shortness of breath is worse with exertion. He denies any weight gain or increase in bilateral lower extremity edema. He denies any fever, chills, chest pain, abdominal pain, nausea, vomiting. Review of systems: See HPI Medications: As listed on the chart Allergies: As listed on the chart PFSH: Per chart Vital signs: As listed on the chart. Reviewed. Physical exam: Gen: A O x3, NAD Head: Normocephalic, atraumatic Eyes: No sclera icterus, conjunctiva clear ENT: Moist mucous membranes Neck: Trachea midline CV: RRR, no murmurs, mild bilateral peripheral edema-nonpitting Resp: Lungs mildly diminished in the bases, wheezing. Dry cough. GI: Abd soft, non-distended, non-tender, no r/r/g Musc: Moves all extremities, no deformity Skin: Warm, dry Neuro: Alert, oriented, grossly intact, sensation intact Psych: Cooperative, appropriate mood and affect PFSH PFSH Medical History Diabetes GERD (gastroesophageal reflux disease) Smoker CPAP (continuous positive airway pressure) dependence Sleep apnea COPD (chronic obstructive pulmonary disease) Atrial fibrillation Irregular heart beat Myocardial infarct Chest pain Hypertension Stroke/cerebrovascu lar accident Diabetes Smoker COPD (chronic obstructive pulmonary disease) Home Medications ???Medication ???Instructions ???Recorded ???Last Taken ???Type nitroglycerin 0.4 mg sublingual 0.4 mg sublingual PRN PRN CHEST Unknown History tablet (Nitrostat) PAIN polyvinyl alcohol-povidone (PF) 2 drp EACHEYE DAILY PRN PRN dry 03/09/19 History 1.4 %-0.6 % eye drops in a eyes dropperette (Refresh Classic (PF)) metformin 1,000 mg tablet 1,000 mg PO BID BLOOD SUGAR Unknown History acetaminophen 325 mg capsule 1,300 mg PO QHS pain 03/10/1902/18 History pantoprazole 20 mg tablet,delayed 20 mg PO BID reflux 11/03/20 Unkn own History release apixaban 5 mg tablet (Eliquis) 5 mg PO BID 30 days #60 tabs 10/01 Unknown Rx aspirin 81 mg tablet,delayed 81 mg PO BREAKFAST 30 days #30 tab s 10/02/23 Unknown Rx release atorvastatin 40 mg tablet 40 mg PO QHS 30 days #30 tabs 09/17 10/10 Unknown Rx digoxin 250 mcg (0.25 mg) tablet 250 mcg PO DAILY 30 days #30 tabs 10/02/23 Unknown Rx diltiazem HCl 120 mg 120 mg PO DAILY #30 caps 10/02/23 Unknown Rx capsule,extended release 24 hr (Cardizem CD) empagliflozin 10 mg tablet 10 mg PO DAILY 30 days #30 tabs Unknown Rx (Jardiance) furosemide 40 mg tablet 40 mg PO DAILY 30 days #30 tabs Unknown Rx insulin aspart U-100 100 unit/mL 10 unit (0.1 mL) subcut TIDAC 09/17 10/10 Unknown Rx (3 mL) subcutaneous pen (Novolog DIABETES 1 month #15 mL FlexPen U-100 Insulin aspart) insulin glargine 100 unit/mL 30 unit (0.3 mL) subcut QHS Unknown Rx subcutaneous solution (Lantus DIABETES 1 month #10 mL U-100 Insulin) insulin lispro 100 unit/mL See Protocol subcut ACHS #0 mL Unknown Rx subcutaneous pen (Humalog KwikPen (U-100) Insulin) lisinopril 2.5 mg tablet 2.5 mg PO DAILY 30 days #30 tabs 0 10/02/23 Unknown Rx magnesium oxide 400 mg (241.3 mg 400 mg PO DAILYCM supplement 30 Unknown Rx magnesium) tablet days #30 tabs metoprolol tartrate 50 mg tablet 50 mg PO BID 30 days #60 tabs 09/17 10/10 Unknown Rx Allergy/AdvReac Type Severity Reaction Status Date / Time bee venom protein (honey bee) Allergy Anaphylaxis Verified 03/10/25 19:16 Surgical History (Updated 03/10/25 @ 19:27 by John Red) History of appendectomy History of cholecystectomy History of coronary artery stent placement Social History Smoking Status: Former smoker EXAM Physical Exam Const Vital Signs: 03/10/25 19:15 03/10/25 19:26 03/10/25 19:26 Temperature 98.3 F 98.6 F Temperature Source Oral Oral Pulse Rate 79 77 Respiratory Rate 20 H 26 H Respiratory Effort Short of Breath Labored Respiratory Depth Shallow Respiratory Pattern Tachypnea Bl (more content not included)... Normal [facility] L501.4021on 2025 Trop T High Sen 60 ng/L Invalid Interpretation Code <=22 [facility] Comment on above: Result Comment: Crit ical Result(s) Called MMARTIN at:2031 by: SUDHEER??Results read back by same. Performed By: #### L 500.2500, L501.4021, L100.0100 #### [facility] [address] [place], [address] M100.678on 2025 M100.678 Pending SARS-CoV-2 (COVID 19) Negative INFLUENZA A Negative INFLUENZA B Negative RSV PCR Negative Normal [facility] Comment on above: Performed By: #### M 100.678 #### [facility] [address] [place], [address] Pro- Brain NATRIURETIC PEPTI Tali 2025 Natriuretic peptide B (Bld) [Mass/Vol] 1535 pg/mL High <=900 [facility] Comment on above: Result Comment: Hear t Failure Unlikely: < 300 pg/mL Heart Failure Likely < 50 Years: > 450 pg/mL 50-75 Years: > 900 pg/mL >75 Years: > 1800 pg/mL Performed By: #### L 503.7505 #### [facility] [address] [place], [address] ( Troponin T HS 2 HRon 03-10- 025 Trop T High Sen 63 ng/L Invalid Interpretation Code <=22 [facility] Comment on above: Result Comment: Crit ical Result(s) Called MMARTIN at:2202 by: SUDHEER??Results read back by same. Performed By: #### L 499.0042 #### [facility] [address] [place], [address] ( Troponin T HS 4 HRon 03-10- 025 Trop T High Sen Normal <=22 [facility] Comment on above: Result Comment: Canc elled via OM: Ordered Performed By: #### L 499.0043 #### [facility] [address] [place], [address] Absolute lymphocyte countOrd ered By: Yamileth Pagan on 09-28-2023 Lymphocytes Auto (Unsp spec) [#/Vol] 1.66 10*3/uL 0.83-4.51 [facility] Automated lymphocyte count a s percentage of total leukocytesOrdered By: Yamileth Pagan on 09-28-2023 Lymphocytes/100 WBC Auto (Unsp spec) 20.0 % 19-41 [facility] Basophil percentageOrdered B y: Yamileth Pagan on 09-28-2023 Basophils/100 WBC (Bld) 0.5 % 0-1 [facility] Chloride [Moles/Vol] 99 mmol/L 98-107 [facility] Eosinophils/100 WBC (Bld) 1.6 % 0-5 [facility] Glucose [Mass/Vol] 348 mg/dL 74-106 [facility] Comment on above: Glucose result great er than or equal to 200 mg/dLsuggests DIABETES MELLITUS per A.D.A. criteria. Hemoglobin (Bld) [Mass/Vol] 12.3 g/dL 13.0-16.5 [facility] Monocytes/100 WBC (Bld) 9.5 % 0-10 [facility] Neutrophils (Bld) [#/Vol] 5.6 10*3/uL 2.0-7.7 [facility] Neutrophils/100 WBC (Bld) 68.0 % 47-70 [facility] Potassium [Moles/Vol] 4.4 mmol/L 3.5-5.1 [facility] Sodium [Moles/Vol] 133 mmol/L 136-145 [facility] WBC (Bld) [#/Vol] 8.3 10*3/uL 4.4-11.0 [facility] Determination of erythrocyte mean corpuscular volume (MCV)Ordered By: Yamileth Pagan on 09-28-2023 MCV (RBC) [Entitic vol] 93.2 fL 80-94 [facility] Erythrocyte distribution wid th ratioOrdered By: Yamileth Pagan on 09-28-2023 Erythrocyte distribution width (RBC) [Ratio] 13.0 % 11.6-14.6 [facility] Erythrocyte distribution wid th standard deviationOrdered By: Yamileth Pagan on 09-28-2023 Erythrocyte distribution width (RBC) [Entitic vol] 44.1 fL 35.1-43.9 [facility] Hematocrit Auto (Bld) [Volum e fraction]Ordered By: Yamileth Pagan on 09-28-2023 Hematocrit (Bld) [Volume fraction] 38.6 % 40-54 [facility] Immature granulocytes/100 WB C Auto (Bld)Ordered By: Yamileth Pagan on 09-28-2023 Immature granulocytes/100 WBC (Bld) 0.400 % 0.0-0.9 [facility] Comment on above: IG% - Immature Granu locytes (promyelocytes, myelocytes and metamyelocytes) > 1% indicates that a LEFT SHIFT is Present. Laboratory - Chemistry and C hemistry - challengeOrdered By: Yamileth Pagan on 09-28-2023 CO2 [Moles/Vol] 27.0 mmol/L 21.0-32.0 [facility] Urea nitrogen/Creatinine [Mass ratio] 12.3 mg/mg 10-20 [facility] Laboratory - Hematology and Cell countsOrdered By: Yamileth Pagan on 09-28-2023 MCH (RBC) [Entitic mass] 29.7 pg 27.0-32.0 [facility] MCHC (RBC) [Mass/Vol] 31.9 g/dL 32-36 [facility] Nucleated RBC/100 WBC (Bld) [Ratio] 0 % 0-5 [facility] Platelet mean volume (Bld) [Entitic vol] 9.9 fL 6.2-12.0 [facility] Platelets (Bld) [#/Vol] 283 10*3/uL 150-450 [facility] No Panel InformationOrdered By: Yamileth Pagan on 09-28-2023 Estimated Creatinine Clearance Calc 129.35 ml/min [facility] Estimated GFR (MDRD) Amer 157 mL/min >60 [facility] Comment on above: GFR Calc Estimated GFR (MDRD) Non-Af Amer 130 mL/min >60 [facility] Comment on above: Non- GFR Calc Troponin I High Sensitivity 209 pg/mL 3.0-78.0 [facility] Comment on above: Critical Result(s) C alled at: 15:25:48 09/28/2023 by: Qi Payne in ED. Results read back by same. Please Note: New Test Units and Gender Specific Reference Ranges. For more information see Policy Stat Procedure Saline High Sensitivity Troponin (TNIH) and attachments. RBC Auto (Bld) [#/Vol]Ordere d By: Yamileth Pagan on 09-28-2023 RBC (Bld) [#/Vol] 4.14 10*6/uL 4.6-6.2 [facility] Serum or plasma calcium ana urement (mass/volume)Ordered By: Yamileth Pagan on 09-28-2023 Calcium [Mass/Vol] 8.9 mg/dL 8.5-10.1 [facility] Serum or plasma creatinine m easurement (mass/volume)Ordered By: Yamileth Pagan on 09-28-2023 Creatinine [Mass/Vol] 0.65 mg/dL 0.70-1.30 [facility] Comment on above: The validity of the calculated GFR & GFRAA in patients over 70 years has not been determined. Clinical correlation is essential. Serum or plasma urea nitroge n measurement (mass/volume)Ordered By: Yamileth Pagan on 09-28-2023 Urea nitrogen [Mass/Vol] 8 mg/dL 7-18 [facility] Thin prep Papanicolaou smear with manual screeningOrdered By: Yamileth Pagan on 09-28-2023 Thin prep Papanicolaou smear with manual screening 7 5-15 [facility] Vital Signs Date Time Vital Sign Value Performing Clinician Faci lity 09-28-2023 16:21-0400 Diastolic blood pressure 70 mm[Hg] [facility] 09-28-2023 16:21-0400 Heart rate 103 /min [facility] 09-28-2023 16:21-0400 Respiratory rate 30 /min [facility] 09-28-2023 16:21-0400 SaO2% (BldA) [Mass fraction] 96 % [facility] 09-28-2023 16:21-0400 Systolic blood pressure 109 mm[Hg] [facility] 09-28-2023 16:14-0400 Body temperature 98.2 [degF] [facility] 09-28-2023 14:38-0400 Body mass index (BMI) [Ratio] 52.3 kg/m2 [facility] 09-28-2023 14:38-0400 Body weight 156.1 kg [facility] 09-28-2023 14:21-0400 Body height 172.72 cm [facility] [facility] Encounters Encounter Date Encounter Type Care Provider Facility Start: 2025 End: 2025 Emergency department patient visit HARDEEP ART Facility:[facility] Start: 09-28-2023 Evaluation and manag ement of inpatient [facility]Progressive [facility] Work Phone: Procedures Date Procedure Procedure Detail Performing Clinician Start: 09-28-2023 Plain chest X-ray Plan of Treatment Date Care Activity Detail Author Start: 09-28-2023 Troponin I measurement [facility] Start: 09-28-2023 Vitamin B12 measurement [facility] Start: 09-28-2023 Verification routine [facility] Start: 09-28-2023 Admission procedure [facility] Start: 09-28-2023 Hospital admission, emergency, from emergency room, medical nature [facility] Start: 09-28-2023 Brain natriuretic peptide measurement [facility] Start: 09-28-2023 Thyroid stimulating hormone measurement [facility] Start: 09-28-2023 [facility] Start: 04-18-2017 End: 04-18-2017 Appointment Appointment [facility] Work Phone: Start: 04-05-2017 End: 04-05-2017 Appointment Appointment [facility] Work Phone: Start: 03-25-2017 End: 03-25-2017 Cardiac Rehab [facility], [address], [place], [address] [facility] Work Phone: Cholesterol [Mass/vo lume] in Serum or Plasma [facility] Cholesterol in LDL [Mass/volume] in Serum or Plasma [facility] Ferritin [Mass/volum e] in Serum or Plasma [facility] Folate [Mass/volume] in Serum or Plasma [facility] Hemoglobin A1c/Hemoglobin.total in Blood [facility] High density lipopro tein measurement [facility] Iron [Mass/mass] in Unspecified specimen [facility] Iron and Iron bindin g capacity panel - Serum or Plasma [facility] Iron saturation [Mas s Fraction] in Serum or Plasma [facility] Patient referral [facility] Work Phone: Triglycerides measurement [place] VLDL cholesterol measurement [facility] Immunizations Immunization Date Immunization Notes Care Provider Fa tito 02-08-2019 Influenza virus vaccine [facility] 03-24-2017 influenza, injectabl e, quadrivalent, preservative free [facility] Payers Date Payer Category Payer Self-pay [id number] 2025 Unknown [id number] 33 2012 Medicare MEDICARE A ONLY [id number] Unknown [place] AUTH REQUIRED SEE NOTE* * [id number] Unknown [id number] Social History Date Type Detail Facility Start: 09-28-2023 Tobacco smoking status NHIS Unknown if ever smoked [facility] Start: 11-03-2020 Rare [facility] Start: 11-03-2020 None [facility] Start: 06-24-2017 Spouse/ Signif icant Other [facility] Start: 11-03-2020 Non-smoker [facility] Start: 1955 Sex Assigned At Male [facility] Evaluation note Note Date & Type Note Facility Evaluation note No assessment information availa ble [facility] Work Phone: Chief Complaint and Reason for Visit Chief Complaint CHF EXACERBATION Family History No Family History Records Found Relationship Condition Age at Onset Recorded Date/T maryanne Unknown Family History?Heart Disease Unknown June 24, 2017 7:15pm Family History?Heart Disease Unknown June 24, 2017 7:15pm Advance Directives No Advanced Directives Records Found Advance Directive Response Recorded Date/ Time Advance Directives No December 22 6:55pm Living Will No September 28, 2023 2 :34pm Power of 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 Gorge Miranda MD Emergency Provider Active Dr. Yong Sanchez , DO Admit Provider, Attending Provider Active Goals (unrecognized section and content) Goals may be documented in a n alternate section (unrecognized sect ion and content) No Status Records Found INFORMATION SOURCE (unrecogn ized section and content) DATE CREATED AUTHOR 03/12/2025 [facility] FOR RECORDS PERTAINING TO PATIENTS WHO ARE [...] BE BASED ON THE PRIMARY CLINICAL RECORDS. [facility] [employer] [facility] provides no warranty or guarantee of the accuracy or completeness of information in this document.
[2025-03-19 12:24] LABS: Cholesterol 129 mg/dL (<=200); Low Density Lipoprotein Calc. 75 mg/dL; Pro- Brain NATRIURETIC PEPTIDE 739 pg/mL (<=900); Triglycerides 140 mg/dL; Very Low Density Lipoprotein 28 mg/dL (5-40); cholesterol:hdl ratio screen 4.36
[2025-03-19 12:26] LABS: AST(SGOT) 17 U/L (<=37); Alanine Aminotransfer ALT/SGPT 9 U/L (<=46); Albumin, Serum 3.8 g/dL (3.4-4.8); Alkaline Phosphatase 85 U/L (40-129); Anion Gap 8 (5-15); BUN 8 mg/dL (4-19); BUN/Creat Ratio 12.1 RATIO (10-20); Calcium,Total 9.0 mg/dL (7.6-11.0); Carbon Dioxide 27.8 mmol/L (21.0-32.0); Chloride 99 mmol/L (98-108); Globulin 3.6 g/dL (2.2-4.2); Glucose 268 mg/dL (70-99); Potassium 5.2 mmol/L (3.3-5.1)
== END | disposition home or self-care (01) ==
LOC: LAB 10:19
PROVIDERS: PCP Nurse Practitioner Family; Referring Provider Student in an Organized Health Care Education/Training Program; Visit Provider Student in an Organized Health Care Education/Training Program
DX: R06.02 Shortness of breath (principal); E78.5 Hyperlipidemia, unspecified
CPT/HCPCS: 36415; 80053; 80061; 83880